=== PATIENT | male | born 1965 | race Caucasian/White ===

== ENCOUNTER 2022-10-05 13:53 | Emergency (ER) | payer MEDICARE, SELFPAY ==
[2022-10-05 13:57] VITALS: BP 131/93; PULSE 87; RESP 16; TEMP 37; O2SAT 98; BMI 28.2
--- NOTE | 2022-10-05 14:11 | ED_ITS ---
Documented by User: SAUL Ramirez 10/05/22 15:38 HPI - Extremity Problem General Chief complaint: Extremity Problem, Nontraumatic Stated complaint: lower extremity pain left leg Time Seen by Provider: 10/05/22 13:56 Source: patient Mode of arrival: walk-in Limitations: no limitations History of Present Illness HPI Narrative: patient is a 57-year-old male with a history of diabetes who presents to the emergency department for redness and swelling to the left anterior tibia for the last several days. He denies any mechanism of injury or trauma. He states he noticed some tenderness to the left anterior george but attributed it to a new pair of shoes. He states in the last several dayys he has noticed swelling and redness on the front of the george, no drainage or open wounds noted. He has not had any fevers or vomiting. He was concerned that he may have cellulitis for a blood clot. He denies any calf tenderness. No medications taken prior to arrival Related Data Previous Rx's Medication Instructions Recorded cephalexin 500 mg capsule 500 mg PO Q8H 10 days #30 caps 10/05/22 hydrocodone 5 mg-acetaminophen 325 1 tab PO Q6H PRN pain #12 tabs 10/05/22 mg tablet ondansetron 4 mg disintegrating 4 mg PO Q6H PRN nausea and 10/05/22 tablet vomiting #12 tabs sulfamethoxazole 800 1 tab PO DAILY 10 days #10 tabs 10/05/22 mg-trimethoprim 160 mg tablet (Bactrim DS) Allergies Allergy/AdvReac Type Severity Reaction Status Date / Time No Known Drug Allergies Allergy Verified 10/05/22 13:57 Review of Systems ROS Constitutional Denies: fever or chills Ears, nose, mouth, and throat Denies: throat pain Cardiovascular Denies: chest pain Respiratory Denies: shortness of breath or cough Gastrointestinal Denies: nausea or vomiting Genitourinary Denies: painful urination Musculoskeletal Denies: back pain Integumentary/Breast Reports: redness and skin tenderness; Denies: rash Neurological Denies: headache Hematologic/Lymphatic Denies: easy bruising Allergic/Immunologic Denies: hives Exam Narrative Exam Narrative: Gen.: Awake, alert, in no distress Head: Normocephalic, atraumatic ENT: Moist mucous membranes Respiratory: No respiratory distress Extremities: Moves extremities equally, left anterior tibia with mild edema and erythema, no circumferential swelling, no circumferential erythema. 2+ DP pulses bilaterally. No swelling or tenderness over the left ankle or foot. Psych: Normal mood and affect Neuro: No focal neuro deficit Skin: Warm, dry, intact Constitutional Vital Signs, click to edit/add: Last Vital Signs Temp 98.6 F 10/05/22 13:57 Pulse 87 10/05/22 13:57 Resp 16 10/05/22 13:57 BP 131/93 H 10/05/22 13:57 Pulse Ox 98 10/05/22 13:57 O2 Del Method Room Air 10/05/22 13:57 Course Vital Signs Vital signs: Vital Signs Temperature 98.6 F 10/05/22 13:57 Pulse Rate 87 10/05/22 13:57 Respiratory Rate 16 10/05/22 13:57 Blood Pressure 131/93 H 10/05/22 13:57 Pulse Oximetry 98 10/05/22 13:57 Oxygen Delivery Method Room Air 10/05/22 13:57 Temperature 98.6 F 10/05/22 13:57 Pulse Rate 87 10/05/22 13:57 Respiratory Rate 16 10/05/22 13:57 Blood Pressure 131/93 H 10/05/22 13:57 Pulse Oximetry 98 10/05/22 13:57 Oxygen Delivery Method Room Air 10/05/22 13:57 MDM - Extremity (Nontraumatic) MDM Narrative Medical decision making narrative: lab studies showed no evidence of leukocytosis or sepsis. Ultrasound with no evidence of deep vein thrombosis. Patient will be treated for cellulitis with Bactrim and Keflex. Short course of Kohler was prescribed as well. Patient was given strict instructions to elevate the leg, follow-up with PCP and return to the Emergency Room if symptoms change or worsen. His vital signs are normal, he has no systemic complaints. Lab Data Attestation: I reviewed the patient's lab results. Labs: Lab Results 10/05/22 Range/Units 14:17 WBC 5.8 (4.0-11.0) 10^3/uL RBC 4.60 L (4.70-6.10) 10^6/uL Hgb 14.1 (14.0-18.0) g/dL Hct 41.5 L (42.0-54.0) % MCV 90.2 (80.0-94.0) fL MCH 30.7 (25.9-34.0) pg MCHC 34.0 (29.9-35.2) g/dL RDW 12.6 (11.0-15.0) % Plt Count 263 (150-450) 10^3/uL MPV 9.1 L (9.5-13.5) fL Neut % (Auto) 60.2 (43.0-75.0) % Lymph % (Auto) 25.1 (20.5-60.0) % Marinette % (Auto) 10.4 (1.7-12.0) % Eos % (Auto) 3.1 (0.9-7.0) % Baso % (Auto) 0.7 (0.2-2.0) % Neut # (Auto) 3.5 (1.4-6.5) 10^3/uL Lymph # (Auto) 1.5 (1.2-3.8) 10^3/uL [place] # (Auto) 0.6 (0.3-0.8) 10^3/uL Eos # (Auto) 0.2 (0.0-0.7) 10^3/uL Baso # (Auto) 0.0 (0.0-0.1) 10^3/uL Abs Immat Gran (auto) 0.03 (0.00-0.03) 10^3/uL Imm/Tot Granulo (auto) 0.5 (0.0-0.5) % PT 10.0 (9.0-11.6) sec INR 0.94 APTT 30.0 (22.3-36.2) sec Sodium 140 (136-145) mmol/L Potassium 4.4 (3.5-5.1) mmol/L Chloride 107 (98-107) mmol/L Carbon Dioxide 25.6 (21.0-32.0) mmol/L Anion Gap 11.8 BUN 21.0 H (7.0-18.0) mg/dL Creatinine 1.03 (0.70-1.30) mg/dL Est GFR ( Amer) >60 (>=60) Est GFR (Non-Af Amer) >60 (>=60) BUN/Creatinine Ratio 20.4 Glucose 138 H (74-106) mg/dL Lactate 1.2 (0.4-2.0) mmol/L Calcium 9.0 (8.5-10.1) mg/dL Total Bilirubin 0.4 (0.2-1.0) mg/dL AST 15 (15-37) U/L ALT 31 (16-63) U/L Alkaline Phosphatase 50 (46-116) U/L Total Protein 6.6 (6.4-8.2) g/dL Albumin 3.7 (3.4-5.0) g/dL Globulin 2.9 g/dL Albumin/Globulin Ratio 1.3 Imaging Data Venous US: Attestation: I have reviewed the pertinent imaging results. Discharge Plan Discharge Chief Complaint: Extremity Problem, Nontraumatic Clinical Impression: Cellulitis Patient Disposition: Home, Self-Care Time of Disposition Decision: 15:33 Condition: Good Mode of Transportation: Private Vehicle Prescriptions / Home Meds: New cephalexin 500 mg capsule 500 mg PO Q8H 10 Days Qty: 30 0RF sulfamethoxazole-trimethoprim [Bactrim DS] 800-160 mg tablet 1 tab PO DAILY 10 Days Qty: 10 0RF hydrocodone-acetaminophen 5-325 mg tablet 1 tab PO Q6H PRN (Reason: pain) Qty: 12 0RF Rx Instructions: Dx: M79.605 ondansetron 4 mg tablet,disintegrating 4 mg PO Q6H PRN (Reason: nausea and vomiting) Qty: 12 0RF Instructions: Cellulitis (ED) Stand Alone Forms: Portal Instructions Referrals: IWONA HUNTLEY [Primary Care Provider] - 1 week Discharge Date/Time: 10/05/22 15:40 Documented by User: Ruth Ann Gambino MD 10/05/22 17:54 HPI - Extremity Problem General Chief complaint: Extremity Problem, Nontraumatic Stated complaint: lower extremity pain left leg Time Seen by Provider: 10/05/22 13:56 Related Data Previous Rx's Medication Instructions Recorded cephalexin 500 mg capsule 500 mg PO Q8H 10 days #30 caps 10/05/22 hydrocodone 5 mg-acetaminophen 325 1 tab PO Q6H PRN pain #12 tabs 10/05/22 mg tablet ondansetron 4 mg disintegrating 4 mg PO Q6H PRN nausea and 10/05/22 tablet vomiting #12 tabs sulfamethoxazole 800 1 tab PO DAILY 10 days #10 tabs 10/05/22 mg-trimethoprim 160 mg tablet (Bactrim DS) Allergies Allergy/AdvReac Type Severity Reaction Status Date / Time No Known Drug Allergies Allergy Verified 10/05/22 13:57 Exam Constitutional Vital Signs, click to edit/add: Last Vital Signs Temp 98.6 F 10/05/22 13:57 Pulse 87 10/05/22 13:57 Resp 16 10/05/22 13:57 BP 131/93 H 10/05/22 13:57 Pulse Ox 98 10/05/22 13:57 O2 Del Method Room Air 10/05/22 13:57 Course Vital Signs Vital signs: Vital Signs Temperature 98.6 F 10/05/22 13:57 Pulse Rate 87 10/05/22 13:57 Respiratory Rate 16 10/05/22 13:57 Blood Pressure 131/93 H 10/05/22 13:57 Pulse Oximetry 98 10/05/22 13:57 Oxygen Delivery Method Room Air 10/05/22 13:57 Temperature 98.6 F 10/05/22 13:57 Pulse Rate 87 10/05/22 13:57 Respiratory Rate 16 10/05/22 13:57 Blood Pressure 131/93 H 10/05/22 13:57 Pulse Oximetry 98 10/05/22 13:57 Oxygen Delivery Method Room Air 10/05/22 13:57 MDM - Extremity (Nontraumatic) MDM Narrative Medical decision making narrative: lab studies showed no evidence of leukocytosis or sepsis. Ultrasound with no evidence of deep vein thrombosis. Patient will be treated for cellulitis with Bactrim and Keflex. Short course of Kohler was prescribed as well. Patient was given strict instructions to elevate the leg, follow-up with PCP and return to the Emergency Room if symptoms change or worsen. His vital signs are normal, he has no systemic complaints. Attending physician attestation I have reviewed the mid-level documentation, agree with the documentation, medical decision making and treatment plan as outlined by the mid-level provider. Lab Data Labs: Lab Results 10/05/22 Range/Units 14:17 WBC 5.8 (4.0-11.0) 10^3/uL RBC 4.60 L (4.70-6.10) 10^6/uL Hgb 14.1 (14.0-18.0) g/dL Hct 41.5 L (42.0-54.0) % MCV 90.2 (80.0-94.0) fL MCH 30.7 (25.9-34.0) pg MCHC 34.0 (29.9-35.2) g/dL RDW 12.6 (11.0-15.0) % Plt Count 263 (150-450) 10^3/uL MPV 9.1 L (9.5-13.5) fL Neut % (Auto) 60.2 (43.0-75.0) % Lymph % (Auto) 25.1 (20.5-60.0) % [place] % (Auto) 10.4 (1.7-12.0) % Eos % (Auto) 3.1 (0.9-7.0) % Baso % (Auto) 0.7 (0.2-2.0) % Neut # (Auto) 3.5 (1.4-6.5) 10^3/uL Lymph # (Auto) 1.5 (1.2-3.8) 10^3/uL [place] # (Auto) 0.6 (0.3-0.8) 10^3/uL Eos # (Auto) 0.2 (0.0-0.7) 10^3/uL Baso # (Auto) 0.0 (0.0-0.1) 10^3/uL Abs Immat Gran (auto) 0.03 (0.00-0.03) 10^3/uL Imm/Tot Granulo (auto) 0.5 (0.0-0.5) % PT 10.0 (9.0-11.6) sec INR 0.94 APTT 30.0 (22.3-36.2) sec Sodium 140 (136-145) mmol/L Potassium 4.4 (3.5-5.1) mmol/L Chloride 107 (98-107) mmol/L Carbon Dioxide 25.6 (21.0-32.0) mmol/L Anion Gap 11.8 BUN 21.0 H (7.0-18.0) mg/dL Creatinine 1.03 (0.70-1.30) mg/dL Est GFR ( Amer) >60 (>=60) Est GFR (Non-Af Amer) >60 (>=60) BUN/Creatinine Ratio 20.4 Glucose 138 H (74-106) mg/dL Lactate 1.2 (0.4-2.0) mmol/L Calcium 9.0 (8.5-10.1) mg/dL Total Bilirubin 0.4 (0.2-1.0) mg/dL AST 15 (15-37) U/L ALT 31 (16-63) U/L Alkaline Phosphatase 50 (46-116) U/L Total Protein 6.6 (6.4-8.2) g/dL Albumin 3.7 (3.4-5.0) g/dL Globulin 2.9 g/dL Albumin/Globulin Ratio 1.3 Discharge Plan Discharge Chief Complaint: Extremity Problem, Nontraumatic Clinical Impression: Cellulitis Patient Disposition: Home, Self-Care Time of Disposition Decision: 15:33 Condition: Good Mode of Transportation: Private Vehicle Prescriptions / Home Meds: New cephalexin 500 mg capsule 500 mg PO Q8H 10 Days Qty: 30 0RF sulfamethoxazole-trimethoprim [Bactrim DS] 800-160 mg tablet 1 tab PO DAILY 10 Days Qty: 10 0RF hydrocodone-acetaminophen 5-325 mg tablet 1 tab PO Q6H PRN (Reason: pain) Qty: 12 0RF Rx Instructions: Dx: M79.605 ondansetron 4 mg tablet,disintegrating 4 mg PO Q6H PRN (Reason: nausea and vomiting) Qty: 12 0RF Instructions: Cellulitis (ED) Stand Alone Forms: Portal Instructions Referrals: IWONA HUNTLEY [Primary Care Provider] - 1 week Discharge Date/Time: 10/05/22 15:40
--- NOTE | 2022-10-05 14:18 | US_ITS ---
The [address] [address] Patient Name: JARAD AHMADI MRN: [id number] date: 1965 Sex: M Assigned Patient Location: ER Current Patient Location: ER Accession/Order Number: [id number] Exam Date: 10/05/2022 14:50 Report Date: 10/05/2022 15:25 At the request of: KVNG GALVIN Procedure: US venous doppler LE LT Ultrasound venous duplex scan left lower extremity CLINICAL: Pain TECHNIQUE: Arriaza-scale, color-flow, and Spectral Doppler examination of the left lower extremity were performed with and without provocative maneuvers. FINDINGS: Sonographic examination of the left lower extremity deep venous system to include the common femoral, superficial femoral and popliteal veins, demonstrates normal compressibility, color-flow, respiratory variation, and augmentation. The origin and proximal segment of the greater saphenous vein also demonstrates normal compression and color-flow. There is normal color-flow in the peroneal, posterior tibial, and anterior tibial veins. US/US venous doppler LE LT IMPRESSION: No deep venous thrombosis of the left lower extremity. Electronically authenticated by: RC SWANN Date: 10/05/2022 15:25
[2022-10-05 14:24] LABS: Basophils Percent Auto 0.7 % (0.2-2.0); Eosinophils Percent Auto 3.1 % (0.9-7.0); Hematocrit 41.5 % (42.0-54.0); Hemoglobin 14.1 g/dL (14.0-18.0); Immature Granulocytes Pct Auto 0.5 % (0.0-0.5); Lymphocytes Percent Auto 25.1 % (20.5-60.0); Mean Corpuscular Hemoglobin 30.7 pg (25.9-34.0); Mean Corpuscular Volume 90.2 fL (80.0-94.0); Mean Platelet Volume 9.1 fL (9.5-13.5); Monocytes Percent Auto 10.4 % (1.7-12.0); Neutrophils Percent Auto 60.2 % (43.0-75.0); Platelet Count 263 10^3/uL (150-450); Red Cell Distribution Width 12.6 % (11.0-15.0); White Blood Count 5.8 10^3/uL (4.0-11.0)
[2022-10-05 14:25] LABS: Eosinophils Absolute Auto 0.2 10^3/uL (0.0-0.7); Immature Granulocytes Abs Auto 0.03 10^3/uL (0.00-0.03); Lymphocytes Absolute Auto 1.5 10^3/uL (1.2-3.8); Monocytes Absolute Auto 0.6 10^3/uL (0.3-0.8); Neutrophils Absolute Auto 3.5 10^3/uL (1.4-6.5)
[2022-10-05 14:39] LABS: INR 0.94
[2022-10-05 14:40] LABS: Alanine Aminotransferase 31 U/L (16-63); Albumin Globulin Ratio 1.3; Albumin Level 3.7 g/dL (3.4-5.0); Alkaline Phosphatase 50 U/L (46-116); Anion Gap 11.8; Aspartate Amino Transferase 15 U/L (15-37); BUN Creatinine Ratio 20.4; Bilirubin Total 0.4 mg/dL (0.2-1.0); Carbon Dioxide 25.6 mmol/L (21.0-32.0); Chloride 107 mmol/L (98-107); Estimated GFR (African America >60 (>=60); Estimated GFR (Non-African Ame >60 (>=60); Globulin 2.9 g/dL; Glucose 138 mg/dL (74-106); Potassium 4.4 mmol/L (3.5-5.1); Sodium 140 mmol/L (136-145); Total Protein 6.6 g/dL (6.4-8.2)
[2022-10-05 14:43] LABS: Lactate/Lactic Acid 1.2 mmol/L (0.4-2.0)
== END 2022-10-05 15:40 | disposition home or self-care (01) ==
PROVIDERS: Physician Assistant; Emergency Provider Emergency Medicine; PCP Family Medicine
DX: L03.116 Cellulitis of left lower limb (principal); E11.9 Type 2 diabetes mellitus without complications; Z79.899 Other long term (current) drug therapy
CPT/HCPCS: 36415; 80053; 83605; 85025; 85610; 85730; 93971; 99284

== ENCOUNTER 2024-04-05 09:32 | Outpatient (OUT) | payer MEDICARE, SELFPAY | END 2024-04-05 09:33 | disposition home or self-care (01) | LOC: PST 09:32 | PROVIDERS: PCP Family Medicine; Visit Provider Surgery | DX: Z01.818 Encounter for other preprocedural examination (principal); Z12.11 Encounter for screening for malignant neoplasm of colon ==

== ENCOUNTER 2024-04-10 06:23 | Day surgery (SDC) | payer MEDICARE, SELFPAY ==
--- OUTSIDE RECORDS SUMMARY | 2024-04-10 06:27 | XMS_ITS | CCD ---
Author Organization [facility] Care Team Providers Care Outsole Beveler Name Role Phone Clarence Arnold K Unavailable Unavailable Clarence Arnold Unavailable Unavailable YUKO, DR BUSTILLO Primary Care Unavailable GISSELLE, DR BUSTOS Admitting Unavailable GISSELLE, DR BUSTOS Attending Unavailable GISSELLE, DR BUSTOS Consulting Unavailable YUKO, DR BUSTILLO Consulting Unavailable PAY, DR ROMERO Consulting Unavailable DARWICH, LIZ Consulting Unavailable DaleMarielena ellis Consulting Unavailable JOSEP HORN Admitting Unavailable YUKO, DR BUSTILLO Primary Care Unavailable JOSEP HORN Attending Unavailable GISSELLE, DR BUSTOS Consulting Unavailable AGUBOSIM, BART Consulting Unavailable JOSEP HORN Consulting Unavailable PREETHI PEDRAZA Consulting Unavailable Cj Garcia Unavailable Michell Huntley MD Unavailable Michell Huntley MD Primary Care Provider ZONIA QUIROGA Attending Unavailable ZONIA QUIROGA Attending Unavailable DINA RUDD Attending Unavailable ZONIA QUIROGA Referring Unavailable Medications Current Medications Medication Drug Class(es) Dates Sig (Normalized) Sig (Original) azithromycin 250 mg oral tablet (2 sources) Macrolide Antimicrobial Start: 02-21-2024 End: 02-26-2024 take 2 tablets by mouth once daily, then take 1 tablet by mouth once daily azithromycin (Zithromax) 250 MG tablet Indications: Acute non-recurrent pansinusitis Take 2 tablets (500 mg) by mouth Daily for 1 day, THEN 1 tablet (250 mg) Daily for 4 days. 6 tablet 02/21/2024 02/26/2024 Active bisacodyl 5 mg delayed release oral tablet (2 sources) Stimulant Laxative Start: 03-27-2024 End: 03-29-2024 take 1 tablet by mouth in the morning bisacodyl (Dulcolax) 5 MG EC tablet Indications: Screen for colon cancer Take 1 tablet (5 mg) by mouth in the morning and 1 tablet (5 mg) before bedtime. Do all this for 4 doses. Do not crush, chew, or split. Take as detailed on clinic hand out for colonoscopy prep. 4 tablet 03/27/2024 03/29/2024 Active smoking cessation 12 hr buPROPion hydrochloride 150 mg extended release oral tablet (4 sources) Aminoketone Start: 01-13-2023 End: 02-21-2024 take 1 tablet by mouth every twelve hours in the morning buPROPion (Zyban) 150 MG 12 hr tablet Indications: Adjustment disorder with depressed mood (CMS/HCC) , Bipolar affective disorder, remission status unspecified (CMS/HCC) Take 1 tablet (150 mg) by mouth in the morning and 1 tablet (150 mg) before bedtime. 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 270 capsule 03/12/2024 06/10/2024 Active Gabapentin Activ e 3 ml insulin glargine 100 unt/ml / lixisenatide 0.033 mg/ml pen injector (7 sources) Insulin Analog Start: 11-15-2023 insulin glargi ne-lixisenatide (Soliqua) 100-33 UNT-MCG/ML pen Indications: Type 2 diabetes mellitus with other specified complication, unspecified whether custodial insulin use (CMS/HCC) INJECT 30 UNITS SUBCUTANEOUSLY ONCE EVERY MORNING 30 mL 3 11/15/2023 Active Soliqua Active loperamide hydrochloride 2 mg oral capsule (7 sources) Opioid Agonist Start: 07-19-2022 take 1 capsule by mouth four times daily as needed loperamide (Imodium) 2 MG capsule Take 2 mg by mouth 4 (four) times a day as needed. 07/19/2022 Active Start: 07-19-2022 take 1 tablet by james th every six hours Loperamide HCl 2 MG 1 tablet as needed Orally Four times a day for 5 days July, Active metFORMIN hydrochloride 1000 mg oral tablet (7 sources) Biguanide Start: 05-05-2023 take 1 tablet by mouth twice daily at mealtime metFORMIN (Glucophage) 1000 MG tablet Indications: Type 2 diabetes mellitus with diabetic polyneuropathy, without long-term current use of insulin (CMS/HCC) TAKE 1 TABLET BY MOUTH TWICE DAILY WITH MEALS 200 tablet 3 05/05/2023 Active metFORMIN HCl Ac tive ondansetron 8 mg disintegrating oral tablet (4 sources) Serotonin-3 Receptor Antagonist Start: 07-19-2022 End: 02-21-2024 take 1 tablet by mouth every eight hours as needed ondansetron ODT (Zofran-ODT) 8 MG disintegrating tablet Take 8 mg by mouth every 8 (eight) hours if needed. 07/19/2022 02/21/2024 Discontinued polyethylene glycol 3350 05201 mg powder for oral solution (2 sources) Osmotic Laxative Start: 03-27-2024 End: 03-27-2024 take 17 g by mouth once polyethylene glycol, PEG, 3350 (Glycolax) 17 GM/SCOOP powder Indications: Colonoscopy Take 238 g by mouth 1 (one) time for 1 dose Take as detailed from clinic hand out for colonoscopy prep 238 g 03/27/2024 03/27/2024 Active sildenafil 25 mg oral tablet (3 sources) Phosphodiesterase 5 Inhibitor Start: 11-04-2022 End: 02-21-2024 take 1 tablet by mouth once daily as needed sildenafil (Viagra) 25 MG tablet Indications: Erectile dysfunction, unspecified erectile dysfunction type Take 1 tablet (25 mg) by mouth Daily as needed for erectile dysfunction. 30 tablet 11/04/2022 02/21/2024 Discontinued Completed/Discontinued Medications Medication Drug Class(es) Dates Sig (Normalized) Sig (Original) amoxicillin 875 mg oral tablet (1 source) Penicillin-class Antibacterial Start: 01-06-2020 take 1 tablet by mouth every twelve hours Amoxicillin 875 MG 1 tablet Orally every 12 hrs for 7 days Dec, Not-Taking naproxen 500 mg oral tablet (1 source) Nonsteroidal Anti-inflammatory Drug Start: 01-06-2020 take 1 tablet by mouth every twelve hours at mealtime as needed Naproxen 500 MG 1 tablet with food or milk as needed Orally every 12 hrs for 10 days Dec, Not-Taking Problems Active Problems Problem Classification Problem Date Documented Date Episodic/Chronic Adjustment disorders (8 sources) Adjustment disorder with depressed mood; Translations: [Adjustment disorder with depressed mood] Onset: 10-08-2022 10-08-2022 Chronic Diabetes mellitus with complications (18 sources) Hyperglycemia due to type 2 diabetes mellitus; Translations: [Type 2 diabetes mellitus with hyperglycemia] Onset: 10-08-2022 10-08-2022 Chronic Diabetes mellitus without complication (1 source) Type 2 diabetes mellitus without complications; Translations: [TYPE 2 DM WITHOUT COMPLICATIONS] Onset: 04-14-2021 Chronic Disorders of lipid metabolism (8 sources) Raised low density lipoprotein cholesterol; Translations: [Pure hypercholesterolemia , unspecified] Onset: 10-08-2022 10-08-2022 Chronic E Codes: Natural/environment (1 source) Exposure to other specified factors, initial encounter; Translations: [EXPOSURE OTHER SPEC FACTORS INITIAL] Onset: 04-14-2021 Episodic Esophageal disorders (2 sources) Esophageal obstruction; 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] Onset: 12-25-2020 Chronic Essential hypertension (8 sources) Essential hypertension; Translations: [Essential (primary) hypertension] Onset: 11-04-2022 11-04-2022 Chronic Immunizations and screening for infectious disease (2 sources) Needs influenza immunization; Translations: [Encounter for immunization] 02-21-2024 Episodic Intestinal infection (1 source) Viral intestinal infection, unspecified Episodic Miscellaneous mental health disorders (8 sources) Primary insomnia; Translations: [Primary insomnia] Onset: 10-08-2022 10-08-2022 Chronic Mood disorders (18 sources) Major depression in full remission; Translations: [Major depressive disorder, single episode, in full remission] Onset: 10-08-2022 10-08-2022 Chronic Other aftercare (1 source) [facility] (current) use of oral hypoglycemic drugs; Translations: [INTERMEDIATE USE ORAL HYPOGLYCEMIC DX] Onset: 04-14-2021 Episodic Other injuries and conditions due to external causes (4 sources) Food in esophagus causing other injury, initial encounter; Translations: [FOOD ESOPH CAUS OTH INJURY INIT ENC] Onset: 04-08-2021 Episodic Other male genital disorders (6 sources) Secondary erectile dysfunction; Translations: [Male erectile dysfunction, unspecified] Onset: 10-08-2022 10-08-2022 Chronic Other nervous system disorders (8 sources) Disorder of muscle; Translations: [Myopathy, unspecified] Onset: 04-22-2023 04-22-2023 Chronic Other nutritional; endocrine; and metabolic disorders (8 sources) Body mass index 30+ - obesity; Translations: [Obesity, unspecified] Onset: 10-08-2022 10-08-2022 Chronic Other screening for suspected conditions (not mental disorders or infectious disease) (6 sources) Patient encounter status; Translations: [Encounter for screening for malignant neoplasm of prostate] 02-21-2024 Episodic Other upper respiratory infections (2 sources) Acute pansinusitis; Translations: [Acute pansinusitis, unspecified] 02-21-2024 Episodic Residual codes; unclassified (1 source) Acquired absence of other specified parts of digestive tract; Translations: [ACQ ABSENCE OTH PART DIGESTV TRACT] Onset: 04-14-2021 Episodic Unclassified (1 source) ESOPHAGITIS UNSPEC WITHOUT BLEEDING; Translations: [ESOPHAGITIS UNSPEC WITHOUT BLEEDING] Onset: 04-14-2021 Unclassified (1 source) CONTACT W/AND (SUSP) EXPOS COVID-19; Translations: [CONTACT W/AND (SUSP) EXPOS COVID-19] Onset: 12-25-2020 Past or Other Problems Problem Classification Problem Date Documented Da te Episodic/Chronic Mood disorders (6 sources) Mood disorders Onset: 01-13-2023 01-13-2023 Other aftercare (1 source) 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; Translations: [OTH INTERMEDIATE CURRENT DRUG THERAPY] Onset: 12-25-2020 Episodic Other connective tissue disease (8 sources) Muscle pain; Translations: [Myalgia, unspecified site] Onset: 04-22-2023 04-22-2023 Episodic Unclassified (2 sources) Patient encounter status 02-21-2024 Results Test Name Value Interpretation Reference Range Facility ALBUMIN, RANDOM URINE W/CREA Joni 03-06-2024 ALBUMIN, URINE 0.2 mg/dL Normal See Note: [facility] Comment on above: Result Comment: Refe walter Range: Reference Range Not established Performed By: #### 1 0231, 1759 #### [facility] [address] [place] [address] Community Support Professional: Eva Vanegas #### [id number], [phone], [phone] #### [facility] [address], [address] [place] [address] Community Support Professional: Conrad Bennett MD ALBUMIN/CREATININE RATIO, RANDOM URINE 2 mg/g creat Normal <30 [facility] Comment on above: Result Comment: The ADA defines abnormalities in albumin excretion as follows: Albuminuria Category Result (mg/g creatinine) Normal to Mildly increased <30 Moderately increased 30-299 Severely increased > OR = 300 The ADA recommends that at least two of three specimens collected within a 3-6 month period be abnormal before considering a patient to be within a diagnostic category. Performed By: #### 1 023, 1759 #### [facility] [address] [place] [address] Community Support Professional: Eva Vanegas #### [id number], 7030, 5363 #### [facility] [address], [address] [place] [address] Community Support Professional: Conrad Bennett MD Creatinine (U) [Mass/Vol] 128 mg/dL Normal 20-320 [facility] Comment on above: Performed By: #### 1 023, 1759 #### [facility] [address] [place] [address] Community Support Professional: Eva Vanegas #### [id number], 7600, 5363 #### [facility] [address], [address] [place] [address] Community Support Professional: Conrad Bennett MD CBC (H/H, RBC, INDICES, WBC, PLT)on 03-06-2024 Erythrocyte distribution width (RBC) [Ratio] 13.6 % Normal 11.0-15.0 [facility] Comment on above: Performed By: #### 1 023, 1759 #### [facility] [address] [place] [phone] Community Support Professional: Eva Vanegas #### [id number], 7600, 5363 #### [facility] [place] [address] Community Support Professional: Conrad Bennett MD Hematocrit (Bld) [Volume fraction] 46.0 % Normal 38.5-50.0 [facility] Comment on above: Performed By: #### 1 0231, 1759 #### [facility] [address] [place] [phone] Community Support Professional: Eva Vanegas #### [id number], 7600, 5363 #### [facility] [place] [address] Community Support Professional: Conrad Bennett MD Hemoglobin (Bld) [Mass/Vol] 15.3 g/dL Normal 13.2-17.1 [facility] Comment on above: Performed By: #### 1 0231, 1759 #### [facility]-[address] Community Support Professional: Eva Vanegas #### 6517, 7600, 5363 #### [facility] [place] [address] Community Support Professional: Conrad Bennett MD MCH (RBC) [Entitic mass] 30.3 pg Normal 27.0-33.0 [facility] Comment on above: Performed By: #### 1 0231, 1759 #### [facility] [address] [place] [phone] Community Support Professional: Eva Vanegas #### [id number], 7600, 5363 #### [facility] [place] [address] Community Support Professional: Conrad Bennett MD MCHC (RBC) [Mass/Vol] 33.3 g/dL Normal 32.0-36.0 [facility] Comment on above: Result Comment: For adults, a slight decrease in the calculated MCHC value (in the range of 30 to 32 g/dL) is most likely not clinically significant; however, it should be interpreted with caution in correlation with other red cell parameters and the patient's clinical condition. Performed By: #### 1 230, 1759 #### [facility]-[address] Community Support Professional: Eva Vanegas #### 65, 0, 5363 #### [facility] [address], [address] [place], [place] [id number] Community Support Professional: Conrad Bennett MD MCV (RBC) [Entitic vol] 91.1 fL Normal 80.0-100.0 [facility] Comment on above: Performed By: #### 1 230, 175 #### [facility]-[address] Community Support Professional: Eva Vanegas #### 65, 7599, 5363 #### [facility] [address], [address] [place] [address] Community Support Professional: Conrad Bennett MD Platelet mean volume (Bld) [Entitic vol] 9.4 fL Normal 7.5-12.5 [facility] Comment on above: Performed By: #### 1 230, 175 #### [facility] Community Support Professional: Eva Vanegas #### 65, 0, 5363 #### [facility] [address], [address] [place] [address] Community Support Professional: Conrad Bennett MD Platelets (Bld) [#/Vol] 275 10*3/uL Normal 140-400 [facility] Comment on above: Performed By: #### 1 230, 175 #### [facility] Community Support Professional: Eva Vanegas #### 65, 7599, 5363 #### [facility] [address], [address] [place] [address] Community Support Professional: Conrad Bennett MD RBC (Bld) [#/Vol] 5.05 10*6/uL Normal 4.20-5.80 [facility] Comment on above: Performed By: #### 1 0231, 1759 #### [facility] [address] [place] [address] Community Support Professional: Eva Vanegas #### [id number], 0, 5363 #### [facility] [address] , [address] [place] [address] Community Support Professional: Conrad Bennett MD WBC (Bld) [#/Vol] 4.6 10*3/uL Normal 3.8-10.8 [facility] Comment on above: Performed By: #### 1 023, 1759 #### [facility] [address] Community Support Professional: Eva Vanegas #### 6517, 649, 5363 #### [facility] [place] [address] [address] , [address] [place] [address] Community Support Professional: Conrad Bennett MD [facility] 03-06-2024 Albumin [Mass/Vol] 4.2 g/dL Normal 3.6-5.1 [facility] Comment on above: Performed By: #### 1 230, 1759 #### [facility] [address] Community Support Professional: Eva Vanegas #### 6517, 7600, 5363 #### [facility] [place] [address] [address] , [address] [place] [address] Community Support Professional: Conrad Bennett MD Albumin/Globulin [Mass ratio] 1.8 {ratio} Normal 1.0-2.5 [facility] Comment on above: Performed By: #### 1 0231, 1759 #### [facility] [address] Community Support Professional: Eva Vanegas #### 6517, 0, 5363 #### [facility] [place] [address] [address] , [address] [place], [place] [id number] Community Support Professional: Conrad Bennett MD ALP [Catalytic activity/Vol] 41 U/L Normal 35-144 [facility] Comment on above: Performed By: #### 1 0231, 1759 #### [facility] Community Support Professional: Eva Vanegas #### 6517, 0, 5363 #### [facility] [address], [address] [place], [place] [id number] Community Support Professional: Conrad Bennett MD ALT [Catalytic activity/Vol] 17 U/L Normal 9-46 [facility] Comment on above: Performed By: #### 1 0231, 1759 #### [facility] Community Support Professional: Eva Vanegas #### 6517, 3810, 5363 #### [facility] [address], [address] [place] [address] Community Support Professional: Conrad Bennett MD AST [Catalytic activity/Vol] 15 U/L Normal 10-35 [facility] Comment on above: Performed By: #### 1 0231, 1759 #### [facility] [place] [address] Community Support Professional: Eva Vanegas #### 6517, 1740, 5363 #### [facility] [address], [address] [place] [address] Community Support Professional: Conrad Bennett MD Bilirubin [Mass/Vol] 0.7 mg/dL Normal 0.2-1.2 [facility] Comment on above: Performed By: #### 1 0231, 1759 #### [facility] Community Support Professional: Eva Vanegas #### 6517, 3400, 5363 #### [facility] [address], [address] [place], [place] [id number] Community Support Professional: Conrad Bennett MD BUN/CREATININE RATIO SEE NOTE: Normal 6-22 [facility] Comment on above: Result Comment: Not Reported: BUN and Creatinine are within reference range. Performed By: #### 1 0231, 1759 #### [facility] [address] Community Support Professional: Eva Vanegas #### 6517, 0, 5363 #### [facility] [address], [address] [place] [address] Community Support Professional: Conrad Bennett MD Calcium [Mass/Vol] 9.6 mg/dL Normal 8.6-10.3 [facility] Comment on above: Performed By: #### 1 0231, 1759 #### [facility] [address] Community Support Professional: Eva Vanegas #### 6517, 0, 5363 #### [facility] [address], [address] [place] [address] Community Support Professional: Conrad Bennett MD Chloride [Moles/Vol] 105 mmol/L Normal 98-110 [facility] Comment on above: Performed By: #### 1 0231, 1759 #### [facility] [address] Community Support Professional: Eva Vanegas #### 6517, 0, 5363 #### [facility] [address], [address] [place] [address] Community Support Professional: Conrad Bennett MD CO2 [Moles/Vol] 28 mmol/L Normal 20-32 [facility] Comment on above: Performed By: #### 1 0231, 1759 #### [facility] [address] [place] [address] Community Support Professional: Eva Vanegas #### 6517, 7600, 5363 #### [facility] [address], [address] [place] [address] Community Support Professional: Conrad Bennett MD Creatinine [Mass/Vol] 0.87 mg/dL Normal 0.70-1.30 [facility] Comment on above: Performed By: #### 1 230, 175 #### [facility] [address] [place], [place] [id number] Community Support Professional: Eva Vanegas #### 6517, 0, 5363 #### [facility] [address], [address] [place] [address] Community Support Professional: Conrad Bennett MD GFR/1.73 sq M.predicted among non-blacks MDRD (S/P/Bld) [Vol rate/Area] 101 mL/min/{1.73_m2} Normal > OR = 60 [facility] Comment on above: Performed By: #### 1 230, 175 #### [facility] [place] [address] Community Support Professional: Eva Vanegas #### 6517, 8480, 5363 #### [facility] [address], [address] [place] [address] Community Support Professional: Conrad Bennett MD Globulin (S) [Mass/Vol] 2.3 g/dL Normal 1.9-3.7 [facility] Comment on above: Performed By: #### 1 230, 175 #### [place] [address] Community Support Professional: Eva Vanegas #### 6517, 0, 5363 #### [facility] [address], [address] [place], [place] [id number] Community Support Professional: Conrad Bennett MD Glucose [Mass/Vol] 100 mg/dL High 65-99 [facility] Comment on above: Result Comment: Fasting reference interval For someone without known diabetes, a glucose value between 100 and 125 mg/dL is consistent with prediabetes and should be confirmed with a follow-up test. Performed By: #### 1 230, 175 #### [facility]-[address] [phone] Community Support Professional: Eva Vanegas #### 6517, 7600, 5363 #### [facility] [address], [address] [place] [address] Community Support Professional: Conrad Bennett MD Potassium [Moles/Vol] 5.1 mmol/L Normal 3.5-5.3 [facility] Comment on above: Performed By: #### 1 0231, 1759 #### [facility] [address] [place] [address] Community Support Professional: Eva Vanegas #### 6517, 8550, 5363 #### [facility] [address], [address] [place] [address] Community Support Professional: Conrad Bennett MD Protein [Mass/Vol] 6.5 g/dL Normal 6.1-8.1 [facility] Comment on above: Performed By: #### 1 0231, 1759 #### [facility] [address] Community Support Professional: Eva Vanegas #### 6517, 9390, 5363 #### [facility] [address], [address] [place] [address] Community Support Professional: Conrad Bennett MD Sodium [Moles/Vol] 139 mmol/L Normal 135-146 [facility] Comment on above: Performed By: #### 1 0231, 1759 #### [facility] [address] Community Support Professional: Eva Vanegas #### 6517, 7600, 5363 #### [facility] [address], [address] [place] [address] Community Support Professional: Conrad Bennett MD Urea nitrogen [Mass/Vol] 16 mg/dL Normal 7-25 [facility] Comment on above: Performed By: #### 1 0231, 1759 #### [facility] [address] [place] [address] Community Support Professional: Eva Vanegas #### 6517, 7600, 5363 #### [facility] [address] [place] [address], [address] [place] [address] Community Support Professional: Conrad Bennett MD LIPID PANEL, [facility] 02-18 Cholesterol [Mass/Vol] 211 mg/dL High <200 [facility] Comment on above: Order Comment: FASTI NG:YES FASTING: YES Performed By: #### 1 0231, 1759 #### [facility] [address] [place] [address] Community Support Professional: Eva Vanegas #### 6517, 7600, 5363 #### [facility] [address], [address] [place] [address] Community Support Professional: Conrad Bennett MD Cholesterol in HDL [Mass/Vol] 53 mg/dL Normal > OR = 40 [facility] Comment on above: Order Comment: FASTI NG:YES FASTING: YES Performed By: #### 1 0231, 1759 #### [facility] [address] [place] [address] Community Support Professional: Eva Vanegas #### 6517, 7600, 5363 #### [facility] [address], [address] [place] [address] Community Support Professional: Conrad Bennett MD Cholesterol in LDL [Mass/Vol] 139 mg/dL High [facility] Comment on above: Order Comment: FASTI NG:YES FASTING: YES Result Comment: Refe rence range: <100 Desirable range <100 mg/dL for primary prevention; <70 mg/dL for patients with CHD or diabetic patients with > or = 2 CHD risk factors. LDL-C is now calculated using the Risa calculation, which is a validated novel method providing better accuracy than the Friedewald equation in the estimation of LDL-C. Nicho HURTADO et al. KARMA. 2013;310(19): 2956-6564 (http://education.VastPark/faq/VME430) Performed By: #### 1 0231, 1759 #### [facility] [address] [place], [place] [id number] Community Support Professional: Eva Vanegas #### [id number], 7600, [phone] #### [facility] [address], [address] [place] [address] Community Support Professional: Conrad Bennett MD Cholesterol.total/Ch olesterol in HDL [Mass ratio] 4.0 {ratio} Normal <5.0 [facility] Comment on above: Order Comment: FASTI NG:YES FASTING: YES Performed By: #### 1 0231, 1759 #### [facility] [address] [place] [address] Community Support Professional: Eva Vanegas #### [id number], 7600, 5363 #### [facility] [address], [address] [place] [address] Community Support Professional: Conrad Bennett MD NON HDL CHOLESTEROL 158 mg/dL (calc) High <130 [facility] Comment on above: Order Comment: FASTI NG:YES FASTING: YES Result Comment: For patients with diabetes plus 1 major ASCVD risk factor, treating to a non-HDL-C goal of <100 mg/dL (LDL-C of <70 mg/dL) is considered a therapeutic option. Performed By: #### 1 0231, 1759 #### [facility] [address] Community Support Professional: Eva Vanegas #### [id number], 0, [phone] #### [facility] [address], [address] [place] [address] Community Support Professional: Conrad Bennett MD Triglyceride [Mass/Vol] 88 mg/dL Normal <150 [facility] Comment on above: Order Comment: FASTI NG:YES FASTING: YES Performed By: #### 1 0231, 1759 #### [facility] [address] [place] [address] Community Support Professional: Eva Vanegas #### [id number], 7600, [phone] #### [facility] [address], [address] [place] [address] Community Support Professional: Conrad Bennett MD PSA, TOTALon 03-06-2024 PSA, TOTAL 3.64 ng/mL Normal < OR = 4.00 [facility] Comment on above: Result Comment: The total PSA value from this assay system is standardized against the WHO standard. The test result will be approximately 20% lower when compared to the equimolar-standardized total PSA (Imelda Yousuf). Comparison of serial PSA results should be interpreted with this fact in mind. This test was performed using the Siemens chemiluminescent method. Values obtained from different assay methods cannot be used interchangeably. PSA levels, regardless of value, should not be interpreted as absolute evidence of the presence or absence of disease. Performed By: #### 1 0231, 1759 #### [facility] [address] [place] [address] Community Support Professional: Eva Vanegas #### [id number], 7600, [phone] #### [facility] [address] [place] [address], [address] [place] [phone] Community Support Professional: Conrad Bennett MD Laboratory - Hematology and Cell countson 02-21-2024 HbA1c (Bld) [Mass fraction] 7.1 % [facility] [employer] No Panel Informationon 02-20 [facility] [employer] Covid-19 PCR (CVDTBH)on 03-21 SARS-CoV-2 (COVID-19) RNA TERRY+probe Ql (Unsp spec) Not detected Normal NOT DETECTED [facility] Comment on above: Result Comment: When diagnostic testing is negative, the possibility of a false negative should be considered in the context of a patient's recent exposures and the presence of clinical signs and symptoms consistent with SARS-CoV-2. This test is not yet approved or cleared by the [place] Food and Drug Administration (FDA). This test was developed by [employer], [place], [place]. The performance characteristics of this test were validated by [facility]. The results are not intended to be used as the sole means for clinical diagnosis or patient management decisions. The [facility] is authorized under Clinical Laboratory Improvement Amendments (CLIA) to perform high- complexity testing. This test is not yet approved or cleared by the [place] FDA. When there are no FDA-approved or cleared tests available, and other criteria are met, FDA can make tests available under an emergency access mechanism called an Emergency Use Authorization (EUA). The EUA for this test is supported by the [place] of Health and Human Service's declaration that circumstances exist to justify the emergency use of in vitro diagnostics for the detection and/or diagnosis of the virus that causes COVID-19. This EUA will remain in effect for the duration of the COVID-19 declaration justifying emergency of IVDs, unless it is terminated or revoked by the FDA (after which the test may no longer be used). Performed By: #### C VDTBH #### [facility] [address] [place] [address] Dr. Lucas Champion POINT OF CARE GLUCOSEon 03-21 Glucose [Mass/Vol] 88 mg/dL Normal 74-106 [facility] Comment on above: Performed By: #### P OCGLUC #### [facility] [address] [place] [address] Dr. Lucas Champion Glucose [Mass/Vol] 92 mg/dL Normal 74-106 [facility] Comment on above: Performed By: #### P OCGLUC #### [facility] [address] [place] [address] Dr. Lucas Champion ASYMPTOMATIC COVID-19 ANTIGE Non 12-20-2020 EUA Statement SEE BELOW Normal [facility] Comment on above: Result Comment: This test has not been FDA cleared or approved, but has been authorized by the FDA under an Emergency Use Authorization (EUA) for use by authorized laboratories certified under CLIA that meet the requirements to perform moderate or high complexity testing. This test has been authorized only for the detection of proteins from SARS-CoV-2, not for any other viruses or pathogens. The emergency use of this test is authorized for the duration of the declaration that circumstances exist justifying the authorization of emergency use of in vitro diagnostic tests for detection and/or diagnosis of Covid-19 under section 564(b)(1) of the Act, 21 U.S.C. 360bbb-3(b)(1), unless the declaration is terminated or authorization is revoked sooner. Performed By: #### C VDAGA #### [facility] [address] [place] [address] Dr. Lucas Champion SARS-CoV-2 (COVID-19) RNA TERRY+probe Ql (Unsp spec) Negative Normal NEGATIVE [facility] Comment on above: Result Comment: Nega tive results are presumptive. They do not preclude infection and should not be used as the sole basis for treatment decisions. Additional confirmatory testing by a molecular method should be considered. Performed By: #### C VDAGA #### [facility] [address] [address] [address] Lucas Champion Covid-19 PCR (CVDTB)on SARS-CoV-2 (COVID-19) RNA TERRY+probe Ql (Unsp spec) Not detected Normal NOT DETECTED [facility] Comment on above: Result Comment: This test is not yet approved or cleared by the [place] FDA. When there are no FDA-approved or cleared tests available, and other criteria are met, FDA can make tests available under an emergency access mechanism called an Emergency Use Authorization (EUA). The EUA for this test is supported by the [place] of Health and Human Service's (HHS's) declaration that circumstances exist to justify the emergency use of in vitro diagnostics for the detection and/or diagnosis of the virus that causes COVID-19. This EUA will remain in effect (meaning this test can be used) for the duration of the COVID-19 declaration justifying emergency of IVDs, unless it is terminated or revoked by FDA (after which the test may no longer be used). When diagnostic testing is negative, the possibility of a false negative should be considered in the context of a patient's recent exposures and the presence of clinical signs and symptoms consistent with SARS-CoV-2. Performed By: #### C VDTB #### [facility] [address] [place], [place] [address] Dr. Lucas Champion XR CHEST 1 Von 12-20-2020 XR CHEST 1 V CHEST X RAY, SINGLE VIEW CLINICAL INFORMATION: Chest pain. COMPARISONS: None. FINDINGS: Low lung volumes. No focal consolidation to suggest pneumonia. No pleural effusions or pneumothorax. No overt pulmonary edema. Cardiomediastinal silhouette within normal limits. No free air under the diaphragm. IMPRESSION: 1. No acute cardiopulmonary disease. Electronically authenticated by: MARIELENA COBIAN Date: 2020-12-20 18:20 Normal [facility] CBC With Platelet No Differe ntialon 04-11-2017 Erythrocyte distribution width Auto Ratio (RBC) 13.8 % Normal 11.5-14.5 [facility] Erythrocytes (RBC) 5.17 10*6/uL Normal 4.70-6.10 [facility] Hematocrit (HCT) 48.1 % Normal 42.0-52.0 [facility] Hemoglobin mass conc (Bld) 16.2 g/dL Normal 14.0-18.0 [facility] MCH 31.3 pg Normal 27.0-31.3 [facility] MCHC mass conc (RBC) 33.6 % Normal 33.0-37.0 [facility] MCV 93.0 fL Normal 80.0-100.0 [facility] Platelets 288 10*3/uL Normal 130-400 [facility] WBC (Leukocytes) 5.4 10*3/uL Normal 4.8-10.8 [facility] Comprehensive Metabolic Pane alex 04-11-2017 Alanine aminotransferase (ALT) 12 U/L Normal 0-41 [facility] Albumin 4.2 g/dL Normal 3.9-4.9 [facility] Alkaline phosphatase (ALP) 46 U/L Normal 35-104 [facility] Anion gap 21 mmol/L Critically high 7-13 [facility] Aspartate aminotransferase (AST) 13 U/L Normal 0-40 [facility] Bilirubin (total) 0.8 mg/dL Normal 0.0-1.2 [facility] Calcium 9.6 mg/dL Normal 8.6-10.2 [facility] Chloride 102 mmol/L Normal 98-107 [facility] CO2 18 mmol/L Low 22-29 [facility] Creatinine 0.74 mg/dL Normal 0.70-1.20 [facility] eGFR (black) mL/min/{1.73_m2} Normal >60 [facility] Comment on above: Result Comment: >60 mL/min/1.73m2 EGFR, calc. for ages 18 and older using theMDRD formula (not corrected for weight), is valid for stablerenal function. eGFR (MDRD) mL/min/{1.73_m2} Normal >60 [facility] Comment on above: Result Comment: >60 mL/min/1.73m2 EGFR, calc. for ages 18 and older using theMDRD formula (not corrected for weight), is valid for stablerenal function. Globulin 2.3 g/dL Normal 2.3-3.5 [facility] Glucose mass conc 114 mg/dL Critically high 74-109 [facility] Potassium molar conc 4.1 mmol/L Normal 3.5-5.1 [facility] Protein 6.5 g/dL Normal 6.4-8.1 [facility] Sodium 141 mmol/L Normal 132-144 [facility] Urea nitrogen 13 mg/dL Normal 6-20 [facility] Hemoglobin A1con 04-11-2017 Hemoglobin A1c/Hemoglobin.total mass fraction (Bld) 7.2 % Critically high 4.8-5.9 [facility] TSH w/out Reflexon 8 Thyroid stimulating hormone (TSH) 1.340 uIU/mL Normal 0.270-4.20 [facility] VITAMIN Don 04-11-2017 VITAMIN D 20.0 ng/mL Low 30.0-100.0 [facility] Comment on above: Result Comment: (20- 30 ng/mL) InsufficiencyThis assay accurately quantifies the sum of vitamin D3, 25-Hydroxy andvitamin D2, 25-Hyroxy. Hemoglobin A1con 04-08-2017 Hemoglobin A1c/Hemoglobin.total mass fraction (Bld) 7.3 % Critically high 4.8-5.9 [facility] Vital Signs Date Time Vital Sign Value Performing Clinician Facility 02-21-2024 10:52-0500 Body height 188 cm Zonia Quiroga [employer]ANK WASHER Work Phone: [facility] 02-21-2024 10:52-0500 Body mass index (BMI) [Ratio] 30.69 kg/m2 Zonia Quiroga [employer] Work Phone: [facility] 02-21-2024 10:52-0500 Body weight 108.41 kg Zonia Quiroga [employer] W[employer]ER Work Phone: [facility] 02-21-2024 10:52-0500 Diastolic blood pressure 76 mm[Hg] Zonia Quiroga TANK WASHER Work Phone: [facility] [employer] 02-21-2024 10:52-0500 Heart rate 93 /min Zonia Quiroga TANK W[employer]ER Work Phone: [facility] [employer] 02-21-2024 10:52-0500 SaO2% (BldA) [Mass fraction] 96 % Zonia Quiroga [employer] W[employer]ER Work Phone: [facility] [employer] 02-21-2024 10:52-0500 Systolic blood pressure 130 mm[Hg] Zonia Quiroga T[employer] W[employer]ER Work Phone: [facility] [employer] 07-19-2022 10:30-0400 Body height 187.96 cm Cj Garcia Other [employer] Other 07-19-2022 10:30-0400 Body mass index (BMI) [Ratio] 30.17 kg/m2 Cj Jose Other [employer] Other 07-19-2022 10:30-0400 Body temperature 97.9 [degF] Cj Jose Other [employer] Other 07-19-2022 10:30-0400 Body weight 106.6 kg Cj Garcia Other [employer] Other 07-19-2022 10:30-0400 Diastolic blood pressure 81 mm[Hg] Cj Jose Other [employer] Other 07-19-2022 10:30-0400 Respiratory rate 18 /min Cj Jose Other [employer] Other 07-19-2022 10:30-0400 SaO2% (BldA) [Mass fraction] 96 % Cj Jose Other [employer] Other 07-19-2022 10:30-0400 Systolic blood pressure 125 mm[Hg] Cj Garcia Other [employer] Other Encounters Encounter Date Encounter Type Care Provider Facility Start: 03-27-2024 End: 03-27-2024 ambulatory DINA RUDD Not Available Start: 03-27-2024 End: 03-27-2024 Patient encounter procedure Dina Rudd DO Work Phone: [facility] Comment on above: Screen for colon can cer (Primary Dx) Start: 03-12-2024 End: 03-12-2024 Refill Zonia Quiroga [employer] W[employer]ER Work Phone: [facility] Comment on above: Type 2 diabetes ellyn itus with diabetic polyneuropathy (CMS/HCC); Diabetic polyneuropathy associated with type 2 diabetes mellitus (CMS/HCC) Start: 02-21-2024 End: 02-21-2024 Bamboo flowsheet Zonia Quiroga T[employer] WASHER Work Phone: [facility] Start: 02-21-2024 End: 02-21-2024 Bamboo flowsheet Zonia Quiroga [employer] W[employer]ER Work Phone: [facility] Start: 02-21-2024 End: 02-21-2024 Assay of hemosiderin, quant Zonia Quiroga [employer] W[employer]ER Work Phone: [facility] Start: 02-21-2024 End: 02-21-2024 Patient encounter procedure Zonia Quiroga [employer] W[employer]ER Work Phone: [facility] Comment on above: Medicare annual well ness visit, subsequent (Primary Dx); Diabetic polyneuropathy associated with type 2 diabetes mellitus (CMS/HCC); Primary insomnia; Essential hypertension; Myalgia; Myopathy; Type 2 diabetes mellitus with hyperglycemia, with long-term current use of insulin (CMS/HCC); Obesity (BMI 30-39.9); Adjustment disorder with depressed mood (CMS/HCC); Bipolar affective disorder, remission status unspecified (CMS/HCC); Elevated LDL cholesterol level (CMS/HCC); Major depressive disorder in full remission, unspecified whether recurrent (HCC) (CMS/HCC); Major depressive disorder, single episode, in full remission (CMS/HCC); Screening for prostate cancer; Flu vaccine need; Screening for colon cancer; Routine general medical examination at health care facility; Acute non-recurrent pansinusitis Start: 02-21-2024 End: 02-21-2024 ambulatory ZONIA QUIROGA Not Available Start: 06-14-2023 End: 06-14-2023 ambulatory ZONIA QUIROGA Not Available Start: 07-19-2022 End: 07-19-2022 ambulatory Cj Garcia Other [employer] Other Start: 07-19-2022 Office outpatient vi sit 15 minutes Cj Garcia [facility] Start: 04-08-2021 End: 04-08-2021 ambulatory JOSEP HORN Facility: Start: 12-20-2020 End: 12-20-[address] MICHELL HUNTLEY Facility: Start: 04-07-2017 Evaluation and manag ement of inpatient Clarence Arnold Facility:[place] Procedures Date Procedure Procedure Detail Performing Clinician Start: 02-21-2024 Hemoglobin glycosyla joesph a1c Zonia Quiroga [employer] W[employer]ER Work Phone: Plan of Treatment Date Care Activity Detail Author Start: 03-05-2025 Urine screening for protein Diabetes: Urine Protein Screening [facility] Start: 02-20-2025 Medicare Annual Well ness (AWV) Medicare Annual Wellness (AWV) [facility] Start: 05-21-2024 Hemoglobin A1c measurement Diabetes: Hemoglobin A1C [facility] Start: 03-26-2024 End: 03-26-2024 Patient encounter procedure 03/26/2024 1:15 PM EST Office Visit [facility] [address] [place] [address] Dina Rudd DO [address] [place] [address] [facility] Start: 02-21-2024 End: 02-20-2025 CBC panel - Blood by Automated count CBC Lab Routine Medicare annual wellness visit, subsequent Essential hypertension Type 2 diabetes mellitus with hyperglycemia, with long-term current use of insulin (CMS/HCC) Expected: 02/21/2024 (Approximate), Expires: 02/20/2025 [facility] Comment on above: Expected: 02/21/2024 (Approximate), Expires: 02/20/2025 Start: 02-21-2024 End: 02-20-2025 Comprehensive metabolic 2000 panel - Serum or Plasma Comprehensive metabolic panel Lab Routine Medicare annual wellness visit, subsequent Essential hypertension Type 2 diabetes mellitus with hyperglycemia, with long-term current use of insulin (CMS/HCC) Expected: 02/21/2024 (Approximate), Expires: 02/20/2025 [facility] Comment on above: Expected: 02/21/2024 (Approximate), Expires: 02/20/2025 Start: 02-21-2024 End: 02-20-2025 Lipid 1996 panel - Serum or Plasma Lipid panel Lab Routine Medicare annual wellness visit, subsequent Elevated LDL cholesterol level ([facility]/HCC) Expected: 02/21/2024 (Approximate), Expires: 02/20/2025 [facility] Work Phone: Comment on above: Expected: 02/21/2024 (Approximate), Expires: 02/20/2025 Start: 02-21-2024 End: 02-20-2025 Microalbumin/Creatinine panel in random Urine Microalbumin / creatinine, urine ratio Lab Routine Medicare annual wellness visit, subsequent Type 2 diabetes mellitus with hyperglycemia, with long-term current use of insulin (CMS/HCC) Expected: 02/21/2024 (Approximate), Expires: 02/20/2025 [facility] Comment on above: Expected: 02/21/2024 (Approximate), Expires: 02/20/2025 Start: 02-21-2024 End: 02-20-2025 Prostate specific Ag [Mass/volume] in Serum or Plasma PSA Lab Routine Screening for prostate cancer Expected: 02/21/2024 (Approximate), Expires: 02/20/2025 [facility] Comment on above: Expected: 02/21/2024 (Approximate), Expires: 02/20/2025 Start: 02-21-2024 End: 02-21-2024 Patient encounter procedure 02/21/2024 11:00 AM EST Office Visit [facility] [address] [facility] [address] [place] [address] Zonia Quiroga, TANK WASHER [address] [facility] [address] [place] [address] Medicare annual wellness visit, subsequent (Primary Dx); Diabetic polyneuropathy associated with type 2 diabetes mellitus (CMS/HCC); Primary insomnia; Essential hypertension; Myalgia; Myopathy; Type 2 diabetes mellitus with hyperglycemia, with long-term current use of insulin (CMS/HCC); Obesity (BMI 30-39.9); Adjustment disorder with depressed mood (CMS/HCC); Bipolar affective disorder, remission status unspecified (CMS/HCC); Elevated LDL cholesterol level (CMS/HCC); Major depressive disorder in full remission, unspecified whether recurrent (HCC) (CMS/HCC); Major depressive disorder, single episode, in full remission (CMS/HCC); Screening for prostate cancer [facility] Comment on above: Medicare annual well ness visit, subsequent (Primary Dx); Diabetic polyneuropathy associated with type 2 diabetes mellitus (CMS/HCC); Primary insomnia; Essential hypertension; Myalgia; Myopathy; Type 2 diabetes mellitus with hyperglycemia, with long-term current use of insulin (CMS/HCC); Obesity (BMI 30-39.9); Adjustment disorder with depressed mood (CMS/HCC); Bipolar affective disorder, remission status unspecified (CMS/HCC); Elevated LDL cholesterol level (CMS/HCC); Major depressive disorder in full remission, unspecified whether recurrent (HCC) (CMS/HCC); Major depressive disorder, single episode, in full remission (CMS/HCC); Screening for prostate cancer Start: 01-14-2024 Medicare Annual Well ness (AWV) Medicare Annual Wellness (AWV) [facility] Start: 01-01-2024 Urine screening for protein Diabetes: Urine Protein Screening [facility] Start: 11-20-2023 Influenza vaccination Influenza Vacc ine (#1) [facility] Start: 09-14-2023 Hemoglobin A1c measurement Diabetes: Hemoglobin A1C [facility] Start: 1977 Glaucoma screening Diabetes: R etinopathy Screening [facility] Start: 1965 Screening for malign ant neoplasm of colon [facility] Immunizations Immunization Date Immunization Notes Care Provider Fa cility 02-21-2024 influenza, seasonal, injectable, preservative free Zonia Quiroga [employer] W[employer]ER Work Phone: [facility] 01-06-2022 Moderna SARS-CoV-2 50mcg/0.5mL Booster Zonia Quiroga T[employer] WASHER Work Phone: [facility] Payers Date Payer Category Payer Medicare MEDICARE [id number] 1965 Unknown [id number] 3 1967 Unknown [id number] 3 1967 Unknown [id number] 59 1967 Unknown [id number] 1967 Unknown [id number] 59 1957 Medicare [id number] Medicare [id number] Social History Date Type Detail Facility Unknown if ever smoked [employer] Other Start: 01-13-2023 End: 02-21-2024 Sex Assigned At [facility] Start: 11-04-2022 Tobacco smoking status NYIS Tobacco smoking consumption unknown [facility] Start: 11-04-2022 End: 02-21-2024 Alcoholic beverage intake Defer [facility] Start: 01-13-2023 End: 02-21-2024 History of Social function [facility] Start: 1965 Sex assigned at Not on file [facility] Start: 02-21-2024 Tobacco smoking status NHIS Never smoked tobacco [facility] Start: 02-21-2024 Tobacco use and exposure Smokeless tobacco non-user [facility] Medical Equipment Procedure Code Equipment Code Equipment Origin al Text Equipment Identifier Dates USE DIRECTED DAILY [id number] Start: 01-18-2023 History of Present illness Narrative 03-27-2024 Dinamaico RibeiroDO nanda - 03/27/2024 9:15 AM EST Note Date & Type Note Facility 03-27-2024 History of Presen t illness Narrative General Surgery H&P Kevin Hill Jr 1965 Kevin Hill Jr is a 59 y.o. male presents for screening colonoscopy. Denies abdominal pain. Denies family hx of colon cancer. Denies melena or hematochezia. Denies changes in bowel habits. Denies changes in caliber of stools. Denies hx of unplanned weight loss. Denies fevers, chills, or sweats. Denies nausea or vomiting. Last colonoscopy was never. Pt also expressed he may have a hernia of his groin but he is uncertain. He has no issues with moving his bowels and minimal to no pain at the area. We discussed that we can evaluate it the day of the colonoscopy. SUBJECTIVE: MEDICATIONS: ALLERGIES Current Outpatient Medications Medication Instructions gabapentin (NEURONTIN) 300 mg, Oral, 3 times daily insulin glargine-lixisenatide (Soliqua) 100-33 UNT-MCG/ML pen INJECT 30 UNITS SUBCUTANEOUSLY ONCE EVERY MORNING insulin pen needle (B-D ULTRAFINE III SHORT PEN) 31G X 8 mm misc USE DIRECTED DAILY loperamide (IMODIUM) 2 mg, 4 times daily PRN metFORMIN (GLUCOPHAGE) 1,000 mg, Oral, 2 times daily with meals No Known Allergies PAST MEDICAL HISTORY: SOCIAL HISTORY SURGICAL HISTORY: Past Medical History: Diagnosis Date Cholelithiasis DM (diabetes mellitus) (CMS/HCC) Gastritis 2011 Major depression (CMS/HCC) psychiatric evaluation Severe major depression with psychotic features (HCC) (CMS/HCC) 2014 Testicle lump Social History Tobacco Use Smoking status: Never Smokeless tobacco: Never Substance Use Topics Alcohol use: Defer Past Surgical History: Procedure Laterality Date EGD with foreign body removal [place] LAP,CHOLECYSTOENTEROSTOMY 03/2015 Cholelithiasis [place] SCREENING FOR DEPRESSION PERFORMED Family History Family history unknown: Yes No Known Allergies Past Surgical History: Procedure Laterality Date EGD with foreign body removal [place] LAP,CHOLECYSTOENTEROSTOMY 03/2015 Cholelithiasis [place] SCREENING FOR DEPRESSION PERFORMED Tobacco Use: Low Risk (02/21/2024) Patient History Smoking Tobacco Use: Never Smokeless Tobacco Use: Never Passive Exposure: Not on file Alcohol Use: Not on file Depression: Not at risk (02/21/2024) PHQ-2 PHQ-2 Score: 0 Physical Activity: Not on file REVIEW OF SYMPTOMS: Review of Systems All other systems reviewed and are negative. 10 systems were reviewed. Positives noted above. Remainder are negative per CMS guidelines. OBJECTIVE: Visit Vitals Smoking Status Never Phone visit ASSESSMENT AND PLAN: Assessment/Plan Diagnoses and all orders for this visit: Screen for colon cancer Plan: Patient is average risk for colon cancer. Colonoscopy can be scheduled electively. Patient informed of the risks of procedure which include but not limited to bleeding, perforation, and risks of anesthesia. Patient understood risks and signed informed consent for the procedure under monitored anesthesia care. Handout for bowel prep provided in clinic. Patient was informed of the need for a ride home from the hospital and the need for someone to be with them for the following 24 hrs post procedure. Thank you, K Christiano Rudd DO documented in this encounter [facility] Telephone encounter Note 03-12-2024 Telephone Encounter - SAUL Rogel - 03/12/2024 12:32 PM EST Note Date & Type Note Facility 03-12-2024 Telephone encount er Note Gabapentin sent [facility] Healthcare Note 03-12-2024 Telephone Encounter - SAUL Rogel - 03/12/2024 12:32 PM EST Note Date & Type Note Facility 03-12-2024 Miscellaneous Notes Formattin g of this note might be different from the original. Gabapentin sent documented in this encounter [facility] History of Present illness Narrative 02-21-2024 Tiffany Tucker LPN - 02/21/2024 11:00 AM Crystal Quiroga NP - 02/21/2024 11:00 AM EST Note Date & Type Note Facility 02-21-2024 History of Presen t illness Narrative HPI Medicare Annual Wellness Visit Subsequent Additional comments: Pt states jaeger has had URI symptoms x 3 weeks cough has improved but not completely resolved possible hernia Additional comments: Pt states he was lifting object about a month ago and felt a pull in right testicle he has some slight discomfort and swelling in right testicle Last edited by Tiffany Tucker LPN on 02/21/2024 11:04 AM. ] Images from the original note were not included. Subjective : Chief Complaint: Kevin Hill Jr is an 59 y.o. male here for an annual wellness visit. I have reviewed and reconciled the history and medication list with the patient today. Current Outpatient Medications Medication Sig Dispense Refill gabapentin (Neurontin) 300 MG capsule TAKE 1 CAPSULE BY MOUTH IN THE MORNING, EVENING AND BEFORE BEDTIME 270 capsule 0 insulin glargine-lixisenatide (Soliqua) 100-33 UNT-MCG/ML pen INJECT 30 UNITS SUBCUTANEOUSLY ONCE EVERY MORNING 30 mL 3 insulin pen needle (B-D ULTRAFINE III SHORT PEN) 31G X 8 mm misc USE DIRECTED DAILY 100 each 3 loperamide (Imodium) 2 MG capsule Take 2 mg by mouth 4 (four) times a day as needed. metFORMIN (Glucophage) 1000 MG tablet TAKE 1 TABLET BY MOUTH TWICE DAILY WITH MEALS 200 tablet 3 No current facility-administered medications for this visit. Review of Systems List of current healthcare providers: Patient Care Team: Michell Huntley MD as PCP - General (Family Medicine) Michell Huntley MD as PCP - [facility] Medicare Annual Visit Over the past 2 weeks, how often have you been bothered by any of the following problems? Little interest or pleasure in doing things: Not at all Feeling down, depressed, or hopeless: Not at all Patient Health Questionnaire-2 Score: 0 Varinder Fall Risk History of Falling, Immediate or Within 3 Months: No Secondary Diagnosis: No Ambulatory Aid: Walks without aid/bedrest/nurse assist Health Risk Assessment Form Do you need help eating, bathing, using the toilet, dressing, or getting around your home?: No Can you prepare your own meals?: Yes Can you do your own housework without help?: Yes Can you shop for groceries or clothes without help?: Yes Do you exercise for about 20 minutes 3 or more days a week?: Yes How confident are you that you can control and manage most of your health problems?: Very confident Can you mange your money, credit cards and accounts, pay bills and taxes?: Yes Cognitive Screening Three Word Registration: Apple, Watch, Kimi Clock Drawing: Normal Clock - 2 Three Word Recall: All 3 words correct - 3 Total Score (0-5 Points): 5 Pain Assessment Pain Score: 2 Advance Care Planning Do you have a living will?: No Do you have a medical power of environmental attorney?: No Objective : BP 130/76 Pulse 93 Ht 6' 2 Wt 239 lb SpO2 96% BMI 30.69 kg/m No results found. Physical Exam Vitals reviewed. Constitutional: Appearance: Normal appearance. HENT: Head: Normocephalic. Right Ear: Tympanic membrane normal. Left Ear: Tympanic membrane normal. Nose: Nose normal. Mouth/Throat: Mouth: Mucous membranes are moist. Pharynx: Oropharynx is clear. Eyes: Conjunctiva/sclera: Conjunctivae normal. Pupils: Pupils are equal, round, and reactive to light. Cardiovascular: Rate and Rhythm: Normal rate and regular rhythm. Pulmonary: Effort: Pulmonary effort is normal. Breath sounds: Normal breath sounds. Abdominal: General: Bowel sounds are normal. Palpations: Abdomen is soft. Musculoskeletal: General: Normal range of motion. Cervical back: Normal range of motion and neck supple. Skin: General: Skin is warm and dry. Neurological: General: No focal deficit present. Mental Status: He is alert and oriented to person, place, and time. Psychiatric: Mood and Affect: Mood normal. Behavior: Behavior normal. Assessment/Plan : The following health maintenance schedule was reviewed with the patient and provided in printed form in the after visit summary: Health Maintenance Topic Date Due Colorectal Cancer Screening Never done Diabetes: Retinopathy Screening Never done Diabetes: Urine Protein Screening 01/01/2024 Medicare Annual Wellness (AWV) 01/14/2024 Diabetes: Hemoglobin A1C 05/21/2024 Influenza Vaccine Completed Advance Care Planning Talking to about getting set up Orders Placed This Encounter Procedures Flu vaccine greater than or equal to 3 years old, PF IM (IMM19) Lipid panel Standing Status: Future Number of Occurrences: 1 Standing Expiration Date: 02/20/2025 Order Specific Question: Print requisition? Answer: No Comprehensive metabolic panel Standing Status: Future Number of Occurrences: 1 Standing Expiration Date: 02/20/2025 Order Specific Question: Print requisition? Answer: No CBC Standing Status: Future Number of Occurrences: 1 Standing Expiration Date: 02/20/2025 Order Specific Question: Print requisition? Answer: No Microalbumin / creatinine, urine ratio Standing Status: Future Number of Occurrences: 1 Standing Expiration Date: 02/20/2025 Order Specific Question: Print requisition? Answer: No PSA Standing Status: Future Number of Occurrences: 1 Standing Expiration Date: 02/20/2025 Order Specific Question: Print requisition? Answer: No Ambulatory referral to General Surgery Pt is due for a colonoscopy. He is 59 and has never had one. Standing Status: Future Standing Expiration Date: 08/21/2024 Referral Priority: Routine Referral Type: Consultation Referral Reason: Specialty Services Required Referred to Provider: Dina Rudd DO Requested Specialty: General Surgery Number of Visits Requested: 1 POCT Glycated hemoglobin, total 1. Medicare annual wellness visit, subsequent (Primary) Reviewed all relevant preventative screenings with the patient in detail. Medicare Wellness form completed and will be scanned into patient's chart. All needed testing was ordered. Will continue with yearly Medicare Wellness exams. - Lipid panel; Future - Comprehensive metabolic panel; Future - CBC; Future - Microalbumin / creatinine, urine ratio; Future - Lipid panel - Comprehensive metabolic panel - CBC - Microalbumin / creatinine, urine ratio 2. Diabetic polyneuropathy associated with type 2 diabetes mellitus ([facility]) We discussed today, the importance of proper diabetic control. We discussed possible complications of diabetes, including loss of vision, renal failure, increased risk of heart attacks and strokes, blood vessel and/or nerve damage. We discussed the recommended changes to reduce your blood sugars and minimize the risk of these complications. We discussed diabetic goals, including keeping A1C <7.0% and blood pressure < 130/70. The plan for achieving these goals is adherence to medications, diet, and regular activity as discussed during today's visit. We discussed current barriers to achieving these goals. We discussed dietary goals. We discussed calorie counting, as well as decreasing carbohydrate and simple sugar intake. Reviewed portion control with the patient. If the patient still has questions on this, a referral to a Dietitian can be arranged. I reviewed medications that aid in diabetic control. We discussed proper dosing and educated the patient on possible side effects and complications. The patient verbalized understanding of these instructions. 3. Primary insomnia Discussed sleep hygiene with the patient. Encouraged patient to try to go to bed at the same time every night and wake up at the same time each morning. Also encouraged patient to use the bed for sleep and intimacy only. Avoid stimulating activities before bed, i.e. use of electronic devices, watching TV. Avoid exercise within 4 hours of going to bed. Avoid caffeine within 6 hours of going to bed. Keep bedroom cool and dark. Avoid nicotine and alcohol. 4. Essential hypertension Patient's blood pressure is currently well controlled. Continue with current medications and I will continue to monitor. Goal BP remains less than 130/80. - Comprehensive metabolic panel; Future - CBC; Future - Comprehensive metabolic panel - CBC 5. Myalgia This is a chronic medical condition that is stable since last assessment. No changes in treatment are suggested at this time. 6. Myopathy This is a chronic medical condition that is stable since last assessment. No changes in treatment are suggested at this time. 7. Type 2 diabetes mellitus with hyperglycemia, with long-term current use of insulin ([facility]) We discussed today, the importance of proper diabetic control. We discussed possible complications of diabetes, including loss of vision, renal failure, increased risk of heart attacks and strokes, blood vessel and/or nerve damage. We discussed the recommended changes to reduce your blood sugars and minimize the risk of these complications. We discussed diabetic goals, including keeping A1C <7.0% and blood pressure < 130/70. The plan for achieving these goals is adherence to medications, diet, and regular activity as discussed during today's visit. We discussed current barriers to achieving these goals. We discussed dietary goals. We discussed calorie counting, as well as decreasing carbohydrate and simple sugar intake. Reviewed portion control with the patient. If the patient still has questions on this, a referral to a Dietitian can be arranged. I reviewed medications that aid in diabetic control. We discussed proper dosing and educated the patient on possible side effects and complications. The patient verbalized understanding of these instructions. - Comprehensive metabolic panel; Future - CBC; Future - Microalbumin / creatinine, urine ratio; Future - Comprehensive metabolic panel - CBC - Microalbumin / creatinine, urine ratio - POCT Glycated hemoglobin, total 8. Obesity (BMI 30-39.9) Discussed goal of BMI < 30. Advised on weight loss options. Encouraged diet and exercise. Discussed with patient appropriate lifestyle modification changes necessary for weight management, heart healthy eating and overall health promotion. Discussed minimizing high carb, high sugar, high sodium, portion control, and processed foods while making healthy choice replacements. Additionally discussed recommendations of 30 minutes of aerobic exercise at least 5 days per week, that includes, walking, and chair exercises. . Instructed importance of drinking adequate water consumption (if not on fluid restriction) with minimal sugar and caffiene. 9. Adjustment disorder with depressed mood (CMS/HCC) This is a chronic medical condition that is stable since last assessment. No changes in treatment are suggested at this time. 10. Bipolar affective disorder, remission status unspecified (CMS/HCC) This is a chronic medical condition that is stable since last assessment. No changes in treatment are suggested at this time. 11. Elevated LDL cholesterol level (CMS/HCC) This is a chronic medical condition that is stable since last assessment. No changes in treatment are suggested at this time. - Lipid panel; Future - Lipid panel 12. Major depressive disorder in full remission, unspecified whether recurrent (HCC) (CMS/HCC) This is a chronic medical condition that is stable since last assessment. No changes in treatment are suggested at this time. 13. Major depressive disorder, single episode, in full remission (CMS/HCC) This is a chronic medical condition that is stable since last assessment. No changes in treatment are suggested at this time. 14. Screening for prostate cancer Await lab - PSA; Future - PSA 15. Flu vaccine need Tolerated administration without difficulty 16. Screening for colon cancer Await colonoscopy - Ambulatory referral to General Surgery; Future 17. Routine general medical examination at health care facility Wellness form reviewed in detail with the patient. Encouraged patient to stay up to date on immunizations and preventative testing. Encouraged healthy diet, stay active. Will continue with yearly wellness exams. 18. Acute non-recurrent pansinusitis Start the above as directed. Reviewed potential s/e with patient. Encouraged probiotic while on antibiotic. Increase water intake, get plenty of rest. Can take OTC allergy medication for symptomatic relief. Tylenol/Motrin prn. Follow up if no improvement in one week. - azithromycin (Zithromax) 250 MG tablet; Take 2 tablets (500 mg) by mouth Daily for 1 day, THEN 1 tablet (250 mg) Daily for 4 days. Dispense: 6 tablet; Refill: 0 Electronically signed by Zonia Quiroga NP on February 21, 2024 documented in this encounter [facility] Healthcare Evaluation note 07-19-2022 Note Date & Type Note Facility 07-19-2022 Evaluation note Encounter Date Diagnosis Assessment Notes July, Viral enteritis (ICD-10 - A08.4) If you develop worsening abdominal pain, fever, feel like you're going to pass out, go to the ER! History and physical exam findings are consistent with viral gastroenteriti s. I considered acute abdomen, however, given that her abdominal exam is unremarkable, that she is not tachycardic and is afebriel, acute abdomen is very unlikely. It is also reassuring that he is well appearing. Advised to push fluids and rest. Educated about red flag symptoms to watch out for and if she does develop red flag symptoms, she is to go to the ER immediately. Will prescribe prn ondansetron and loperamide. SHe understands and agrees with the plan. July, Other Viral gastroenterit is: adult home care material was printed [employer] Other Evaluation note Note Date & Type Note Facility Evaluation note Diagnosis Medicare annual wellness visit, subsequent- Primary Diabetic polyneuropathy associated with type 2 diabetes mellitus ([facility]) Primary insomnia Persistent disorder of initiating or maintaining sleep Essential hypertension Unspecified essential hypertension Myalgia Unspecified myalgia and myositis Myopathy Unspecified myopathy Type 2 diabetes mellitus with hyperglycemia, with long-term current use of insulin ([facility]) Obesity (BMI 30-39.9) Adjustment disorder with depressed mood ([facility]) Adjustment disorder with depressed mood Bipolar affective disorder, remission status unspecified (CMS/HCC) Elevated LDL cholesterol level (CMS/HCC) Major depressive disorder in full remission, unspecified whether recurrent (HCC) (CMS/HCC) Major depressive disorder, single episode, in full remission (CMS/HCC) Major depressive disorder, single episode in full remission Screening for prostate cancer Special screening for malignant neoplasm of prostate Flu vaccine need Screening for colon cancer Special screening for malignant neoplasms, colon Routine general medical examination at health care facility Routine general medical examination at a health care facility Acute non-recurrent pansinusitis documented in this encounter [facility] Evaluation note Note Date & Type Note Facility Evaluation note Diagnosis Type 2 diabetes mellitus with diabetic polyneuropathy (CMS/HCC) Diabetic polyneuropathy associated with type 2 diabetes mellitus (CMS/HCC) documented in this encounter [facility] Evaluation note Note Date & Type Note Facility Evaluation note Diagnosis Screen for colon cancer- Primary Special screening for malignant neoplasms, colon documented in this encounter [facility] History general Narrative - Reported Note Date & Type Note Facility History general Narrative - Reported Type Medical History diabetes Medical History depression Medical History neuropathy Surgical History tonsillectomy Surgical History cholecystectomy Hospitalization History see above surg [employer] Other Reason for visit Narrative Consultation (Routine) - Closed Note Date & Type Note Facility Reason for visit Narrative Specialty Diagnoses / Procedures Referred By Miranda belcher Referred To Contact General Surgery Diagnoses Screening for colon cancer Procedures [place] OFFICE[place]OUTPATIENT [facility]3] Zonia Quiroga, TANK WASHER [address] [facility] [address] [place] [address] Phone: tel: fax: Dina Rudd DO [address] [facility] [address] [place] [address] Phone: tel: fax: Referral ID Status Reason Start Date Expiration Date V isits Requested Visits Authorized [id number] Closed Specialty Services Required 02/21/2024 08/19/2024 1 1 [facility] Summary Purpose Family History No Family History Records FoundNo Family History Records FoundNo Family History Records FoundNo Family History Records FoundNo Family History Records Found Advance Directives No Advanced Directives Records FoundNo Advanced Directives Records FoundNo Advanced Directives Records FoundNo Advanced Directives Records FoundNo Advanced Directives Records Found Additional Source Comments (unrecognized sect ion and content) No Status Records FoundNo Status Records FoundNo Status Records FoundNo Status Records FoundNo Status Records Found INFORMATION SOURCE (unrecogn ized section and content) DATE CREATED AUTHOR 09/13/2017 [facility] DATE CREATED AUTHOR AUTHOR'S ORGANIZ ATION 09/12/2017 [facility] DATE CREATED AUTHOR AUTHOR'S ORGANIZ ATION 04/15/2021 [facility] DATE CREATED AUTHOR AUTHOR'S ORGANIZ ATION 03/09/2024 [facility] DATE CREATED AUTHOR AUTHOR'S ORGANIZ ATION 04/02/2024 [facility] EPIC REASON FOR VISIT (unrecogniz ed section and content) Reason Comments Medicare Annual Wellness Visit Subsequen t Pt states jaeger has had URI symptoms x 3 weeks cough has improved but not completely resolved possible hernia Pt states he was lif ting object about a month ago and felt a pull in right testicle he has some slight discomfort and swelling in right testicle Reason Comments Med Refill Care Teams (unrecognized sec tion and content) Outsole Beveler Relationship Specialty Start Date End Date Michell Huntley MD [address] [facility] [address] [place] [address] PCP - [facility] 08/12/22 Michell Huntley MD [address] [facility] [address] [place] [address] PCP - General Family Medicine 07/27/22 Outsole Beveler Relationship Specialty Start Date End Date Michell Huntley MD [address] [facility] [address] [place] [address] PCP - [facility] 08/12/22 Michell Huntley MD [address] [facility] [address] [place] [address] PCP - General Family Medicine 07/27/22 Outsole Beveler Relationship Specialty Start Date End Date Michell Huntley MD [address] [facility] [address] [place] [address] PCP - [facility] 08/12/22 Michell Huntley MD [address] [facility] [address] [place] [address] PCP - General Family Medicine 07/27/22 Outsole Beveler Relationship Specialty Start Date End Date Michell Huntley MD [address] [facility] [address] [place] [address] PCP - [facility] 08/12/22 Michell Huntley MD [address] [facility] [address] [place] [address] PCP - General Family Medicine 07/27/22 FOR RECORDS PERTAINING TO PATIENTS WHO ARE OR HAVE BEEN ENROLLED IN A CHEMICAL DEPENDENCY/SUBSTANCEABUSE PROGRAM, SOME INFORMATION MAY BE OMITTED. This clinical summary was aggregated from multiple sources. Caution should be exercised in using it in the provision of clinical care. This summary normalizes information from multiple sources, and as a consequence, information in this document may materially change the coding, format and clinical context of patient data. In addition, data may be omitted in some cases. CLINICAL DECISIONS SHOULD BE BASED ON THE PRIMARY CLINICAL RECORDS. [employer] [facility]. provides no warranty or guarantee of the accuracy or completeness of information in this document.
[2024-04-10 06:30] VITALS: BP 131/96; PULSE 89; TEMP 36.3; O2SAT 97; BMI 30.1
[2024-04-10 06:42] LABS: Glucometer 75 mg/dL (74-106)
[2024-04-10] MEDS: 0.9 % SODIUM CHLORIDE 500 ML 50 ML IV (06:49)
[2024-04-10 07:45] VITALS: BP 98/68; PULSE 66; TEMP 36.7; O2SAT 95
--- NOTE | 2024-04-10 07:52 | W.PM.PROCNOT ---
Date of procedure: 04/10/24 Pre-op diagnosis: screening colonoscopy Post-op diagnosis: other (pandiverticulosis, sigmoid polypectomy at 23cm ) Procedure: Previous colonoscopy:never procedure: colonoscopy with cold snare polypectomy The patient was given IV conscious sedation.? The patient's SPO2 remained above 90% throughout the procedure. The colonoscope was inserted per rectum and advanced under direct vision to the cecum without difficulty.? The prep was good.? Findings: Terminal ileum os: normal Cecum/Ascending colon: normal aside for mild diverticulosis Transverse colon: normal aside for mild diverticulosis Descending/Sigmoid colon: mild diverticulosis small 4mm polyp at 23cm in sigmoid region, removed completely via cold snare technique Rectum/Anus: examined in normal and retroflexed positions and was normal Withdrawal Time was (minutes): 13 The colon was decompressed and the scope was removed.? The patient tolerated the procedure well. Recommendations/Plan: 1.? Lifestyle and dietary modifications as discussed 2.? F/U Biopsies 3.? F/U in 10 years pending biopsy results 4.? Discussed with the family Surgeon: Олег Rudd Estimated blood loss (mL): 0 Pathology: other (sigmoid polyp) Condition: stable Disposition: PACU
[2024-04-10 08:00] VITALS: BP 117/78; PULSE 83; TEMP 36.6; O2SAT 96
[2024-04-10 08:15] VITALS: BP 117/28; PULSE 80; TEMP 36.6; O2SAT 97
== END 2024-04-10 08:15 | disposition home or self-care (01) ==
PROVIDERS: PCP Family Medicine; Visit Provider Surgery
PROC: (CPT 45385; principal; 2024-04-10 07:30)
DX: Z12.11 Encounter for screening for malignant neoplasm of colon (principal); K57.30 Diverticulosis of large intestine without perforation or abscess without bleeding; K63.5 Polyp of colon; E11.40 Type 2 diabetes mellitus with diabetic neuropathy, unspecified; Z79.4 Long term (current) use of insulin; Z79.84 Long term (current) use of oral hypoglycemic drugs; Z90.49 Acquired absence of other specified parts of digestive tract; K21.9 Gastro-esophageal reflux disease without esophagitis
CPT/HCPCS: 45385; 36415; 82948; 88305; J2704

== ENCOUNTER 2024-06-20 13:59 | Outpatient (OUT) | payer MEDICARE, SELFPAY ==
--- NOTE | 2024-06-20 14:03 | US_ITS ---
The [address] [address] Patient Name: JARAD AHMADI MRN: [id number] date: 1965 Sex: M Assigned Patient Location: [place] Current Patient Location: [place] Accession/Order Number: [id number] Exam Date: 06/20/2024 14:41 Report Date: 06/20/2024 14:49 At the request of: ZONIA BROWNLEE Procedure: US scrotum Scrotal ultrasound HISTORY: Right scrotal swelling for one year COMPARISON: None RIGHT testicle measures 4.0 x 3.1 x 3.5 cm. LEFT testicle measures 3.9 x 2.2 x 3.1 cm. Left testicular scattered microcalcifications. No discrete mass. Normal color flow of both testicles identified. RIGHT epididymal head measures 0.9 cm. LEFT epididymal head measures 2.3 cm containing an anechoic epididymal head cyst measuring up to 2.7 cm.. Suspected herniation in the right scrotal region. No peristalsing or distended bowel.. Anechoic right hydrocele measuring 5.1 x 3.5 x 3.2 cm. No scrotal wall abnormality identified. US/US scrotum IMPRESSION: Right anechoic hydrocele. Potential fat-containing right scrotal hernia. No peristalsing or dilated bowel. Benign appearing scattered marked calcification is a left testicle. No testicular mass. Adequate blood flow. Impression dictated by: Barry Sanchez M.D.06/20/2024 2:49 PM Dictation Location: [place] [address] Electronically authenticated by: [id number] Date: 06/20/2024 14:49
== END 2024-06-20 14:00 | disposition home or self-care (01) ==
LOC: US 13:59
PROVIDERS: PCP Family Medicine; Visit Provider Nurse Practitioner Family
DX: N50.89 Other specified disorders of the male genital organs (principal); N50.811 Right testicular pain; N43.2 Other hydrocele
CPT/HCPCS: 76870

== ENCOUNTER 2024-07-05 18:02 | Emergency (ER) | payer MEDICARE, SELFPAY ==
[2024-07-05 18:05] VITALS: BP 166/101; PULSE 107; TEMP 36.8; O2SAT 97; BMI 30.2
--- OUTSIDE RECORDS SUMMARY | 2024-07-05 18:18 | XMS_ITS | CCD ---
Author Organization [facility] Care Team Providers Care Deli Cutter Slicer Name Role Phone Arnold, Clarence K Unavailable Unavailable Arnold, Clarence K Unavailable Unavailable YUKO, DR BUSTILLO Primary Care Unavailable GISSELLE, DR BUSTOS Admitting Unavailable GISSELLE, DR BUSTOS Attending Unavailable GISSELLE, DR BUSTOS Consulting Unavailable YUKO, DR BUSTILLO Consulting Unavailable PAY, DR ROMERO Consulting Unavailable LIZ MARROQUIN Consulting Unavailable Willie Hunter Consulting Unavailable JOSEP HORN Admitting Unavailable YUKO, DR BUSTILLO Primary Care Unavailable JOSEP HORN Attending Unavailable GISSELLE, DR BUSTOS Consulting Unavailable AGUBOSIM, BART Consulting Unavailable JOSEP HORN Consulting Unavailable PREETHI PEDRAZA Consulting Unavailable Cj Garcia Unavailable Iwona Huntley MD Unavailable Iwona Huntley MD Primary Care Provider [phone] Katie Quiroga NP Unavailable KATIE QUIROGA Attending Unavailable HIWOT KWOK Attending Unavailable KATIE QUIROGA Referring Unavailable MARIBELL ZAPATA Attending Unavailable KATIE QUIROGA Attending Unavailable KATIE QUIROGA Attending Unavailable DINA RUDD Attending Unavailable KATIE QUIROGA Referring Unavailable Esvin MORILLO Attending Unavailable KATIE QUIROGA SPRINKLER INSPECTOR-C Referring Unavailable Iwona Huntley Primary Care Unavailable Tiffany Pritchett Attending Unavailable Tiffany Pritchett Admitting Unavailable Dina Rudd Attending Unavailable Dina Rudd Admitting Unavailable Iwona Huntley Primary Care Unavailable Chidi Barraza Attending Unavailab Chidi Oliveira Admitting Unavailab Chidi Oliveira Admitting Unavailab Bairon Pimentel Attending Unavailable NON STAFF Primary Care Unavailable Allergies Allergy Classification Reported Allergen(s) Allergy Type Date of Onset Reaction(s) Facility (1 source) OLANZapine Drug Allergy 06-09-2024 [facility] Repository Medications Current Medications Medication Drug Class(es) Dates Sig (Normalized) Sig (Original) ARIPiprazole 400 mg injection (1 source) Atypical Antipsychotic Start: 07-02-2024 ARIPiprazole ER (Abilify Maintena) 400 MG injection Inject 400 mg into the shoulder, thigh, or buttocks every 28 (twenty-eight) days Do not start before July 02, 2024. 07/02/2024 Active Start: 07-02-2024 ARIPiprazole E R (Abilify Maintena) 400 MG injection Inject 400 mg into the shoulder, thigh, or buttocks every 28 (twenty-eight) days Do not start before July 02, 2024. 07/02/2024 Active azithromycin 250 mg oral tablet (2 sources) [...] colonoscopy prep. 4 tablet 03/27/2024 03/29/2024 Active 12 hr buPROPion hydrochloride 150 mg extended release oral tablet (6 sources) Aminoketone Start: 05-31-2024 End: 07-30-2024 take 1 tablet by mouth every twelve hours in the morning buPROPion SR (Wellbutrin SR) 150 MG 12 hr tablet Indications: Bipolar affective disorder, remission status unspecified (CMS/HCC) Take 1 tablet (150 mg) by mouth in the morning and 1 tablet (150 mg) before bedtime. Do not crush, chew, or split.. 60 tablet 1 05/31/2024 07/30/2024 Active Start: 01-13-2023 End: 02-21-2024 take 1 tablet [...] Discontinued buPROPion HCl ER (Smoking Det) Active busPIRone hydrochloride 5 mg oral tablet (1 source) Start: 06-05-2024 take 1 tablet by mouth in the morning busPIRone (Buspar) 5 MG tablet Take 5 mg by mouth in the morning and 5 mg before bedtime. 06/05/2024 Active fluticasone propionate 0.05 mg/actuat metered dose nasal spray (6 sources) Corticosteroid Start: 05-15-2024 End: 05-15-2025 take 2 spray(s) nasal route once daily fluticasone (Flonase) 50 MCG/ACT nasal spray Indications: Rhinitis medicamentosa Administer 2 sprays into each nostril Daily Shake gently. Before first use, prime pump. After use, clean tip and replace cap. 48 g 3 05/15/2024 05/15/2025 Active gabapentin 300 mg oral capsule (17 sources) Anti-epileptic Agent Start: 06-18-2024 gabapentin (Neurontin) 300 MG capsule Indications: Type 2 diabetes mellitus with diabetic polyneuropathy (CMS/HCC) , Diabetic polyneuropathy associated with type 2 diabetes mellitus (CMS/HCC) TAKE 1 CAPSULE BY MOUTH IN THE MORNING, EVENING, AND BEFORE BEDTIME 270 capsule 06/18/2024 Active Start: 12-19-2023 End: 06-10-2024 take 1 capsule [...] unt/ml / lixisenatide 0.033 mg/ml pen injector (16 sources) Insulin Analog Start: 11-15-2023 insulin glargi ne-lixisenatide (Soliqua) 100-33 UNT-MCG/ML pen Indications: Type 2 diabetes mellitus with other specified complication, unspecified whether halfway insulin use (CMS/HCC) INJECT 30 UNITS SUBCUTANEOUSLY ONCE EVERY MORNING 30 mL 3 11/15/2023 Active Soliqua Active loperamide hydrochloride 2 mg oral capsule (9 sources) Opioid Agonist Start: 07-19-2022 End: 05-08-2024 take 1 capsule by mouth four times daily as needed loperamide (Imodium) 2 MG capsule Take 2 mg by mouth 4 (four) times a day as needed. 07/19/2022 05/08/2024 Discontinued (Therapy completed) Start: 07-19-2022 take 1 tablet by james th every six hours Loperamide HCl 2 MG 1 tablet as needed Orally Four times a day for 5 days July, Active LORazepam 0.5 mg oral tablet (3 sources) Benzodiazepine Start: 05-31-2024 End: 06-14-2024 take 1 tablet by mouth once LORazepam (Ativan) 0.5 MG tablet Indications: Anxiety Take 1 tablet (0.5 mg) by mouth every 12 (twelve) hours if needed for anxiety (anxiety) for up to 14 days 28 tablet 05/31/2024 Active metFORMIN hydrochloride 1000 mg oral tablet (16 sources) Biguanide Start: 04-23-2024 take 1 tablet by mouth twice daily at mealtime metFORMIN (Glucophage) 1000 MG tablet Indications: Type 2 diabetes mellitus with diabetic polyneuropathy, without long-term current use of insulin (CMS/HCC) TAKE 1 TABLET BY MOUTH TWICE A DAY WITH FOOD 180 tablet 4 04/23/2024 Active Start: 05-05-2023 take 1 tablet by james th twice daily at mealtime metFORMIN (Glucophage) 1000 MG tablet Indications: Type 2 diabetes mellitus with diabetic polyneuropathy, without long-term current use of insulin ([facility]) TAKE 1 TABLET BY MOUTH TWICE DAILY [...] needed. 07/19/2022 02/21/2024 Discontinued polyethylene glycol 3350 44769 mg powder for oral solution (4 sources) Osmotic Laxative Start: 03-27-2024 End: 05-15-2024 polyethylene glycol, PEG, 3350 (Glycolax) 17 GM/SCOOP powder TAKE DETAILED FROM CLINIC HANDOUT FOR COLONOSCOPY PREP 03/27/2024 05/15/2024 Discontinued (Therapy completed) Start: 03-27-2024 End: 03-27-2024 take 17 g by mouth once polyethylene glycol, PEG, 33 50 (Glycolax) 17 GM/SCOOP powder Indications: Colonoscopy Take 238 g by mouth 1 (one) time for 1 dose Take as detailed from clinic hand out for colonoscopy prep 238 g 03/27/2024 03/27/2024 Active predniSONE 20 mg oral tablet (2 sources) Start: 05-15-2024 End: 05-21-2024 take 1 tablet by mouth in the morning predniSONE (Deltasone) 20 MG tablet Indications: Rhinitis medicamentosa Take 1 tablet (20 mg) by mouth in the morning and 1 tablet (20 mg) before bedtime. Do all this for 6 days. 12 tablet 05/15/2024 05/21/2024 Active sildenafil 25 mg oral tablet (3 sources) Phosphodiesterase 5 Inhibitor Start: 11-04-2022 End: 02-21-2024 take 1 tablet by mouth once daily as needed sildenafil (Viagra) 25 MG tablet Indications: Erectile dysfunction, unspecified erectile dysfunction type Take 1 tablet (25 mg) by mouth Daily as needed for erectile dysfunction. 30 tablet 11/04/2022 02/21/2024 Discontinued traZODone hydrochloride 50 mg oral tablet (1 source) Serotonin Reuptake Inhibitor Start: 06-11-2024 take 1 tablet by mouth at bedtime traZODone (Desyrel) 50 MG tablet Take 50 mg by mouth at bedtime 06/11/2024 Active Completed/Discontinued Medications Medication Drug Class(es) Dates Sig [...] Problem Date Documented Date Episodic/Chronic Adjustment disorders (17 sources) Adjustment disorder with depressed mood; Translations: [Adjustment disorder with depressed mood] Onset: 10-08-2022 10-08-2022 Chronic Anxiety disorders (3 sources) Anxiety; Translations: [Anxiety disorder, unspecified] Onset: 06-09-2024 05-31-2024 Chronic Diabetes mellitus with complications (20 sources) Hyperglycemia due to type 2 diabetes mellitus; Translations: [Type 2 diabetes mellitus with hyperglycemia] Onset: 10-08-2022 10-08-2022 Chronic Diabetes mellitus without complication (1 source) Type 2 diabetes mellitus without complications; Translations: [TYPE 2 DM WITHOUT COMPLICATIONS] Onset: 04-14-2021 Chronic Disorders of lipid metabolism (17 sources) Raised low density lipoprotein cholesterol; Translations: [Pure hypercholesterolemia, unspecified] Onset: 10-08-2022 10-08-2022 Chronic E Codes: Natural/environment (1 source) Exposure to other specified factors, initial encounter; Translations: [EXPOSURE OTHER SPEC FACTORS INITIAL] Onset: 04-14-2021 Episodic Esophageal disorders (2 sources) Esophageal obstruction; 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] Onset: 12-25-2020 Chronic Essential hypertension (17 sources) Essential hypertension; Translations: [Essential (primary) hypertension] Onset: 11-04-2022 11-04-2022 Chronic Immunizations and screening for infectious disease (2 sources) Needs influenza immunization; Translations: [Encounter for immunization] 02-21-2024 Episodic Intestinal infection (1 source) Viral intestinal infection, unspecified Episodic Miscellaneous mental health disorders (17 sources) Primary insomnia; Translations: [Primary insomnia] Onset: 10-08-2022 10-08-2022 Chronic Mood disorders (20 sources) Major depression in full remission; Translations: [Major depressive disorder, single episode, in full remission] Onset: 10-08-2022 10-08-2022 Chronic Other aftercare (1 source) USP (current) use of oral hypoglycemic drugs; Translations: [SKILLED NURSING USE ORAL HYPOGLYCEMIC DX] Onset: 04-14-2021 Episodic Other injuries and conditions due to external causes (4 sources) Food in esophagus causing other injury, initial encounter; Translations: [FOOD ESOPH CAUS OTH INJURY INIT ENC] Onset: 04-08-2021 Episodic Other male genital disorders (15 sources) Secondary erectile dysfunction; Translations: [Male erectile dysfunction, unspecified] Onset: 10-08-2022 10-08-2022 Chronic Other male genital disorders (2 sources) Large testicle; Translations: [Other specified disorders of the male genital organs] 05-08-2024 Episodic Other male genital disorders (2 sources) Pain of right testicle; Translations: [Right testicular pain] 05-08-2024 Episodic Other nervous system disorders (17 sources) Disorder of muscle; Translations: [Myopathy, unspecified] Onset: 04-22-2023 04-22-2023 Chronic Other nutritional; endocrine; and metabolic disorders (17 sources) Body mass index 30+ - obesity; Translations: [Obesity, unspecified] Onset: 10-08-2022 10-08-2022 Chronic Other screening for suspected conditions (not mental disorders or infectious disease) (6 sources) Patient encounter status; Translations: [Encounter for screening for malignant neoplasm of prostate] 02-21-2024 Episodic Other upper respiratory disease (2 sources) Rhinitis medicamentosa; Translations: [Chronic rhinitis] 05-15-2024 Chronic Other upper respiratory disease (4 sources) Nasal congestion; Translations: [Nasal congestion] 05-08-2024 Episodic Other upper respiratory infections (2 sources) Acute pansinusitis; Translations: [Acute pansinusitis, unspecified] 02-21-2024 Episodic Residual codes; unclassified (1 source) Acquired absence of other specified parts of digestive tract; Translations: [ACQ ABSENCE OTH PART DIGESTV TRACT] Onset: 04-14-2021 Episodic Schizophrenia and other psychotic disorders (1 source) Schizoaffective disorder, unspecified; Translations: [Schizoaffective disorder, unspecified] Onset: 06-01-2024 Chronic Unclassified (1 source) ESOPHAGITIS UNSPEC WITHOUT BLEEDING; Translations: [ESOPHAGITIS UNSPEC WITHOUT BLEEDING] Onset: 04-14-2021 Unclassified (1 source) CONTACT W/AND (SUSP) EXPOS COVID-19; Translations: [CONTACT W/AND (SUSP) EXPOS COVID-19] Onset: 12-25-2020 Past or Other Problems Problem Classification Problem Date Documented Da te Episodic/Chronic Mood disorders (15 sources) Mood disorders Onset: 01-13-2023 01-13-2023 Other aftercare (1 source) Other halfway (current) drug therapy; Translations: [OTH SKILLED NURSING CURRENT DRUG THERAPY] Onset: 12-25-2020 Episodic Other connective tissue disease (17 sources) Muscle pain; Translations: [Myalgia, unspecified site] Onset: 04-22-2023 04-22-2023 Episodic Unclassified (2 sources) Patient encounter status 02-21-2024 Results Test Name Value Interpretation Reference Range Facility [facility] [address] [address] Ultrasound Report Signed Patient: KEVIN HILL MR#: [id number] : 1965 Acct:[id number] Age/Sex: 59 / M ADM Date: 06/20/24 Loc: US Attending Dr: KATIE QUIROGA Ordering Physician: KATIE QUIROGA Date of Service: 06/20/24 Procedure(s): US scrotum Accession Number(s): [id number] cc: IWONA HUNTLEY SHERRI [address] [address] Patient Name: KEVIN HILL MRN: [id number] date: 1965 Sex: M Assigned Patient Location: US Current Patient Location: US Accession/Order Number: [id number] Exam Date: 06/20/2024 14:41 Report Date: 06/20/2024 14:49 At the request of: KATIE QUIROGA Procedure: US scrotum Scrotal ultrasound HISTORY: Right scrotal swelling for one year COMPARISON: None RIGHT testicle measures 4.0 x 3.1 x 3.5 cm. LEFT testicle measures 3.9 x 2.2 x 3.1 cm. Left testicular scattered microcalcifications. No discrete mass. Normal color flow of both testicles identified. RIGHT epididymal head measures 0.9 cm. LEFT epididymal head measures 2.3 cm containing an anechoic epididymal head cyst measuring up to 2.7 cm.. Suspected herniation in the right scrotal region. No peristalsing or distended bowel.. Anechoic right hydrocele measuring 5.1 x 3.5 x 3.2 cm. No scrotal wall abnormality identified. US/US scrotum IMPRESSION: Right anechoic hydrocele. Potential fat-containing right scrotal hernia. No peristalsing or dilated bowel. Benign appearing scattered marked calcification is a left testicle. No testicular mass. Adequate blood flow. Impression dictated by: Barry Sanchez M.D.06/20/2024 2:49 PM Dictation Location: [place] [address] Electronically authenticated by: [id number] Y Date: 06/20/2024 14:49 Dictated By: Barry Sanchez D.O. Signed By: 06/20/24 1451 DD/ 1449 TD/TT: Digital Campaign Manager: [facility] Radiology, Radiologist, MD - 06/20/2024 [place] [address] Ultrasound Report Signed Patient: KEVIN HILL MR#: [id number] : 1965 Acct:[id number] Age/Sex: 59 / M ADM Date: 06/20/24 Loc: US Attending Dr: KATIE QUIROGA Ordering Physician: KATIE QUIROGA Date of Service: 06/20/24 Procedure(s): US scrotum Accession Number(s): [id number] cc: IWONA HUNTLEY ; KATIE QUIROGA The [place] [id number] Patient Name: KEVIN BRIONESN: [id number] date: 1965 Sex: M Assigned Patient Location: US Current Patient Location: US Accession/Order Number: [id number] Exam Date: 06/20/2024 14:41 Report Date: 06/20/2024 14:49 At the request of: KATIE QUIROGA Procedure: US scrotum Scrotal ultrasound HISTORY: Right scrotal swelling for one year COMPARISON: None RIGHT testicle measures 4.0 x 3.1 x 3.5 cm. LEFT testicle measures 3.9 x 2.2 x 3.1 cm. Left testicular scattered microcalcifications. No discrete mass. Normal color flow of both testicles identified. RIGHT epididymal head measures 0.9 cm. LEFT epididymal head measures 2.3 cm containing an anechoic epididymal head cyst measuring up to 2.7 cm.. Suspected herniation in the right scrotal region. No peristalsing or distended bowel.. Anechoic right hydrocele measuring 5.1 x 3.5 x 3.2 cm. No scrotal wall abnormality identified. US/US scrotum IMPRESSION: Right anechoic hydrocele. Potential fat-containing right scrotal hernia. No peristalsing or dilated bowel. Benign appearing scattered marked calcification is a left testicle. No testicular mass. Adequate blood flow. Impression dictated by: Barry Sanchez M.D.06/20/2024 2:49 PM Dictation Location: [place] [address] Electronically authenticated by: [id number] Y Date: 06/20/2024 14:49 Dictated By: Barry Sanchez D.O. Signed By: 06/20/24 1451 DD/ 1449 TD/TT: Digital Campaign Manager: [facility] Radiology Study observation (narrative) [facility] US Scrotum and testicleOrder ed By: Radiologist Radiology on 06-20-2024 [facility] Work Phone: Glucose Poct Glucometerson 0 06-05-2024 Glucose [Mass/Vol] 124 mg/dL Normal [facility] Comment on above: Result Comment: [place] Glucose Reference Range is dependent on time and content of last meal. Glucose of more than 200 mg/dL in a nonstressed, ambulatory subject supports the diagnosis of Diabetes Mellitus. PERFORMED BY: [place] [address] PATHOLOGIST LEAD LEVEL DESIGNER MARIA TERESA ASHRAF M.D. Performed By: #### U JADEN CASTREJONUAPLUS #### [facility] [address] [place] [address] Glucose Poct Glucometerson 0 06-04-2024 Glucose [Mass/Vol] 89 mg/dL Normal [facility] Comment on above: Result Comment: [place] om Glucose Reference Range is dependent on time and content of last meal. Glucose of more than 200 mg/dL in a nonstressed, ambulatory subject supports the diagnosis of Diabetes Mellitus. PERFORMED BY: [place] [address] PATHOLOGIST LEAD LEVEL DESIGNER MARIA TERESA ASHRAF M.D. Performed By: #### G LULS #### Point of Care testing , Glucose Poct Glucometerson 0 06-03-2024 Glucose [Mass/Vol] 152 mg/dL Normal [facility] Comment on above: Result Comment: [place] om Glucose Reference Range is dependent on time and content of last meal. Glucose of more than 200 mg/dL in a nonstressed, ambulatory subject supports the diagnosis of Diabetes Mellitus. PERFORMED BY: [place] [id number] PATHOLOGIST LEAD LEVEL DESIGNER MARIA TERESA ASHRAF M.D. Performed By: #### G LULS #### Point of Care testing , Glucose [Mass/Vol] 159 mg/dL Normal [facility] Comment on above: Result Comment: [place] om Glucose Reference Range is dependent on time and content of last meal. Glucose of more than 200 mg/dL in a nonstressed, ambulatory subject supports the diagnosis of Diabetes Mellitus. PERFORMED BY: [place] [id number] PATHOLOGIST LEAD LEVEL DESIGNER MARIA TERESA ASHRAF M.D. Performed By: #### U JADEN CASTREJONUAPLUS #### [facility] [address] [place], [place] [id number] [facility] A1C with Estimated Average G zarina 06-02-2024 Glucose [Mass/Vol] 171 mg/dL Normal [facility] Comment on above: Result Comment: PERF ORMED BY: [place] [address] PATHOLOGIST LEAD LEVEL DESIGNER MARIA TERESA ASHRAF M.D. Performed By: #### U LUCÍA, ADDONUAPLUS #### [address] HbA1c (Bld) [Mass fraction] 7.6 % High 4.3-5.6 [facility] Comment on above: Result Comment: Incr eased risk for diabetes: 5.7 - 6.4 diabetes: >6.4 glycemic control for adults with diabetes: <7.0 Performed By: #### U LUCÍA, ADDONUAPLUS #### [address] Glucose Poct Glucometerson 0 06-02-2024 Glucose [Mass/Vol] 155 mg/dL Normal [facility] Comment on above: Result Comment: [facility] Glucose Reference Range is dependent on time and content of last meal. Glucose of more than 200 mg/dL in a nonstressed, ambulatory subject supports the diagnosis of Diabetes Mellitus. PERFORMED BY: [place] [address] PATHOLOGIST LEAD LEVEL DESIGNER MARIA TERESA ASHRAF M.D. Performed By: #### G KERI #### Point of Care testing , Lipid Panelon 06-02-2024 Cholesterol [Mass/Vol] 162 mg/dL Normal 140-200 [facility] Comment on above: Result Comment: Chol less than 200 mg/dl low risk Chol 201-239 mg/dl borderline risk Chol 240 mg/dl and greater high risk Performed By: #### U RDS, ADDONUAPLUS #### [address] Cholesterol in HDL [Mass/Vol] 38 mg/dL Normal 23-92 [facility] Comment on above: Result Comment: HDL CHOL ATP-III CLASSIFICATION Cardiovascular Risk HDL > or equal to 60 mg/dL LOW HDL < 40 mg/dL HIGH Performed By: #### U LUCÍA, ADDONUAPLUS #### [address] Cholesterol.total/Ch olesterol in HDL [Mass ratio] 4.3 {ratio} Normal <5.0 [facility] Comment on above: Performed By: #### U LUCÍA, ADDONUAPLUS #### [address] LDL Cholesterol,Calculat ed 103 mg/dL High 0-100 [facility] Comment on above: Result Comment: LDL ATP III CLASSIFICATION LDL less than 100 mg/dL Optimal LDL 100-129 mg/dL Near or above optimal LDL 130-159 mg/dL Borderline high LDL 160-189 mg/dL High LDL greater than 189 mg/dL Very high Performed By: #### U LUCÍA, ADDONUAPLUS #### [address] Triglyceride w/Reflex 104 mg/dL Normal 0-149 [facility] Comment on above: Result Comment: TRIG ATP III CLASSIFICATION TRIG less than 150 mg/dL Normal TRIG 150-199 mg/dL Borderline high TRIG 200-500 mg/dL High TRIG greater than 500 mg/dL Very high Standard traceable to the Center for Disease Conrtrol and Prevention (CDC) test method. Performed By: #### U LUCÍA, ADDONUAPLUS #### [address] VLDL CHOLESTEROL 20 mg/dL Normal [facility] Comment on above: Performed By: #### U LUCÍA, ADDONUAPLUS #### [place] [address] [place] Thyroid Stim Hormone w/Rflxo n 06-02-2024 Thyroid Stim Hormone w/Rflx 0.52 u[iU]/mL Normal 0.45-5.33 [facility] Comment on above: Performed By: #### U LUCÍA, ADDONUAPLUS #### [address] Vitamin D 25 Hydroxy Totalon 06-02-2024 Vitamin D 25 Hydroxy Total 17.8 ng/mL Low 30-100 [facility] Comment on above: Result Comment: GUME MIN D STATUS 25(OH)VITAMIN D RANGE (ng/mL) Deficient <20 Insufficient 20 to <30 Sufficient 30 to 100 Reference: Kevin MF,Reza NC, Earl JAEGER, et al. Evaluation,treatment, and prevention of vitamin D deficiency; an Endocrine Society clinical practice guideline. JCEM. 2010; 96(7):1911-30. PERFORMED BY: [place] [phone] PATHOLOGIST LEAD LEVEL DESIGNER MARIA TERESA ASHRAF M.D. Performed By: #### U RDS, ADDONUAPLUS #### [address] Complete Blood Count Auto Di ffon 06-01-2024 Basophils (Bld) [#/Vol] 0.1 10*3/uL Normal 0.0-0.2 [facility] Comment on above: Result Comment: PERF ORMED BY: [place] [address] PATHOLOGIST LEAD LEVEL DESIGNER MARIA TERESA ASHRAF M.D. Performed By: #### C BC, ETOH, CMP #### [address] Basophils/100 WBC (Bld) 1.1 % Normal . [facility] Comment on above: Performed By: #### C BC, ETOH, CMP #### [address] Eosinophils (Bld) [#/Vol] 0.0 10*3/uL Normal 0.0-0.45 [facility] Comment on above: Performed By: #### C BC, ETOH, CMP #### [address] Eosinophils/100 WBC (Bld) 0.1 % Normal . [facility] Comment on above: Performed By: #### C BC, ETOH, CMP #### [address] Erythrocyte distribution width (RBC) [Ratio] 13.9 % Normal 12.0-14.8 [facility] Comment on above: Performed By: #### C BC, ETOH, CMP #### [address] Hematocrit (Bld) [Volume fraction] 48.4 % Normal 38.8-50.0 [facility] Comment on above: Performed By: #### C BC, ETOH, CMP #### [address] Hemoglobin (Bld) [Mass/Vol] 16.8 g/dL Normal 13.0-17.0 [facility] Comment on above: Performed By: #### C BC, ETOH, CMP #### [address] Lymphocytes (Bld) [#/Vol] 1.1 10*3/uL Normal 1.00-4.8 [facility] Comment on above: Performed By: #### C BC, ETOH, CMP #### [address] Lymphocytes/100 WBC (Bld) 12.8 % Normal . [facility] Comment on above: Performed By: #### C BC, ETOH, CMP #### [address] MCH (RBC) [Entitic mass] 31.2 pg Normal 27.5-35.2 [facility] Comment on above: Performed By: #### C BC, ETOH, CMP #### 04 [address] MCV (RBC) [Entitic vol] 89.9 fL Normal 83.5-101 [facility] Comment on above: Performed By: #### C BC, ETOH, CMP #### [address] Mean Corpuscular HGB Conc 34.7 g/dL Normal 32.5-35.6 [facility] Comment on above: Performed By: #### C BC, ETOH, CMP #### [address] [place] [address] [place] Monocytes (Bld) [#/Vol] 1.0 10*3/uL High 0.0-0.8 [facility] Comment on above: Performed By: #### C BC, ETOH, CMP #### [facility] [address] [place] [address] [place] Monocytes/100 WBC (Bld) 18.64 % Normal 0.00-20.00 [facility] Comment on above: Performed By: #### C BC, ETOH, CMP #### [facility] [address] [place] [address] [place] Monocytes/100 WBC (Bld) 11.8 % Normal . [facility] Comment on above: Performed By: #### C BC, ETOH, CMP #### [facility] [address] [place] [address] [place] Neutrophils (Bld) [#/Vol] 6.3 10*3/uL Normal 1.8-7.7 [facility] Comment on above: Performed By: #### C BC, ETOH, CMP #### [place] [address] [place] Neutrophils/100 WBC (Bld) 74.2 % Normal . [facility] Comment on above: Performed By: #### C BC, ETOH, CMP #### [facility] [address] [place] [address] [place] NRBC% 0.1 /100{WBC} Normal 0-0.[address] [facility] Comment on above: Performed By: #### C BC, ETOH, CMP #### [facility] [address] [place] [address] [place] Platelet mean volume (Bld) [Entitic vol] 7.6 fL Normal 6.6-10.1 The [facility] Comment on above: Performed By: #### C BC, ETOH, CMP #### [facility] [address] [place] [address] [place] Platelets (Bld) [#/Vol] 305 10*3/uL Normal 150-450 [facility] Comment on above: Performed By: #### C BC, ETOH, CMP #### [address] RBC (Bld) [#/Vol] 5.38 10*6/uL Normal 3.90-5.60 The [facility] Comment on above: Performed By: #### C BC, ETOH, CMP #### [address] WBC (Bld) [#/Vol] 8.5 10*3/uL Normal 4.1-10.5 The [facility] Comment on above: Performed By: #### C BC, ETOH, CMP #### [address] Comprehensive Metabolic Pane ryan 06-01-2024 Albumin [Mass/Vol] 4.7 g/dL Normal 3.5-5.7 [facility] Comment on above: Performed By: #### C BC, ETOH, CMP #### [address] Albumin/Globulin [Mass ratio] 1.7 {ratio} Normal [facility] Comment on above: Performed By: #### C BC, ETOH, CMP #### [address] ALP [Catalytic activity/Vol] 50 U/L Normal 34-104 [facility] Comment on above: Performed By: #### C BC, ETOH, CMP #### [address] ALT [Catalytic activity/Vol] 22 U/L Normal 7-52 [facility] Comment on above: Performed By: #### C BC, ETOH, CMP #### [address] Anion gap [Moles/Vol] 15.1 mmol/L High 6.0-15.0 [facility] Comment on above: Performed By: #### C BC, ETOH, CMP #### [address] AST [Catalytic activity/Vol] 18 U/L Normal 13-39 [facility] Comment on above: Performed By: #### C BC, ETOH, CMP #### [facility] [address] Bilirubin [Mass/Vol] 1.3 mg/dL High 0.3-1.0 [facility] Comment on above: Result Comment: Samp les from patients who have taken Naproxen have shown spurious elevation in Total Bilirubin levels. A metabolite of Naproxen, O-desmethylnaproxen, has been shown to interfere with the Jendrassik-Grof method for measuring Total Bilirubin. Performed By: #### C BC, ETOH, CMP #### [address] Calcium [Mass/Vol] 9.7 mg/dL Normal 8.6-10.3 [facility] Comment on above: Performed By: #### C BC, ETOH, CMP #### [place] [address] [place] Chloride [Moles/Vol] 105 mmol/L Normal 98-107 [facility] Comment on above: Performed By: #### C BC, ETOH, CMP #### [place] [address] [place] CO2 [Moles/Vol] 20.9 mmol/L Low 21.0-31.0 The [facility] Comment on above: Performed By: #### C BC, ETOH, CMP #### [address] Creatinine [Mass/Vol] 1.16 mg/dL Normal 0.70-1.30 [facility] Comment on above: Performed By: #### C BC, ETOH, CMP #### [place] [address] [place] Creatinine Clr Calc Pharmacy 90.06 Normal [facility] Comment on above: Result Comment: PERF ORMED BY: [place] [address] PATHOLOGIST LEAD LEVEL DESIGNER MARIA TERESA ASHRAF M.D. Performed By: #### C BC, ETOH, CMP #### [place] [address] [place] GFR/1.73 sq M.predicted MDRD (S/P/Bld) [Vol rate/Area] mL/min/{1.73_m2} Normal [facility] Comment on above: Performed By: #### C BC, ETOH, CMP #### [address] Globulin (S) [Mass/Vol] 2.8 g/dL Normal [facility] Comment on above: Performed By: #### C BC, ETOH, CMP #### [address] Glucose [Mass/Vol] 215 mg/dL High 70-100 [facility] Comment on above: Result Comment: [facility] Glucose Reference Range is dependent on time and content of last meal. Glucose of more than 200 mg/dL in a nonstressed, ambulatory subject supports the diagnosis of Diabetes Mellitus. ADA recommended reference range Performed By: #### C BC, ETOH, CMP #### [address] Potassium [Moles/Vol] 4.0 mmol/L Normal 3.5-5.1 [facility] Comment on above: Performed By: #### C BC, ETOH, CMP #### [address] Protein [Mass/Vol] 7.5 g/dL Normal 6.4-8.9 [facility] Comment on above: Performed By: #### C BC, ETOH, CMP #### [address] Sodium [Moles/Vol] 137 mmol/L Normal 136-145 [facility] Comment on above: Performed By: #### C BC, ETOH, CMP #### [address] Urea nitrogen [Mass/Vol] 22 mg/dL Normal 7-25 [facility] Comment on above: Performed By: #### C BC, ETOH, CMP #### [place] [address] [place] Dipstick and Microscopicon 0 06-01-2024 Appearance (U) Clear Normal Clear [facility] Comment on above: Order Comment: Name Collection Type:: Clean-Voided Midstream Performed By: #### U RDS, ADDONUAPLUS #### [facility] [address] [place] [address] [place] Bacteria,Urine None Seen Normal None Seen [facility] Comment on above: Order Comment: Name Collection Type:: Clean-Voided Midstream Performed By: #### U RDS, ADDONUAPLUS #### [place] [address] [place] Bilirubin,Urine Negative Normal Negative [facility] Comment on above: Order Comment: Name Collection Type:: Clean-Voided Midstream Performed By: #### U RDS, ADDONUAPLUS #### [place] [address] [place] Color (U) Yellow Normal Yellow [facility] Comment on above: Order Comment: Name Collection Type:: Clean-Voided Midstream Performed By: #### U RDS, ADDONUAPLUS #### [facility] [address] [place] [address] [place] Glucose Ql (U) 150 mg/dL High Normal [facility] Comment on above: Order Comment: Name Collection Type:: Clean-Voided Midstream Performed By: #### U RDS, ADDONUAPLUS #### [facility] [address] [place] [address] [place] Granular Casts, Urine 3-4 High None Seen [facility] Comment on above: Order Comment: Name Collection Type:: Clean-Voided Midstream Performed By: #### U RDS, ADDONUAPLUS #### [facility] [address] [place] [address] [place] Hyaline Casts,Urine 0-8 Normal 0-8 [facility] Comment on above: Order Comment: Name Collection Type:: Clean-Voided Midstream Performed By: #### U RDS, ADDONUAPLUS #### [facility] [address] [place] [address] [place] Ketones Ql (U) 3+ High Negative [facility] Comment on above: Order Comment: Name Collection Type:: Clean-Voided Midstream Performed By: #### U RDS, ADDONUAPLUS #### [address] Leukocyte esterase Test strip Ql (U) Negative Normal Negative [facility] Comment on above: Order Comment: Name Collection Type:: Clean-Voided Midstream Performed By: #### U RDS, ADDONUAPLUS #### [place] [address] [place] Mucus,Urine 2+ Critically abnormal [facility] Comment on above: Order Comment: Name Collection Type:: Clean-Voided Midstream Result Comment: PERF ORMED BY: [place] [address] PATHOLOGIST LEAD LEVEL DESIGNER MARIA TERESA ASHRAF M.D. Performed By: #### U RDS, ADDONUAPLUS #### [place] [address] [place] Nitrite,Urine Negative Normal Negative The [facility] Comment on above: Order Comment: Name Collection Type:: Clean-Voided Midstream Performed By: #### U RDS, ADDONUAPLUS #### [place] [address] [place] Occult Blood,Urine 2+ High Negative [facility] Comment on above: Order Comment: Name Collection Type:: Clean-Voided Midstream Result Comment: PERF ORMED BY: [place] [address] PATHOLOGIST LEAD LEVEL DESIGNER MARIA TERESA ASHRAF M.D. Performed By: #### U RDS, ADDONUAPLUS #### [place] [address] [place] pH (U) 5.5 [pH] Normal 5.0-9.0 [facility] Comment on above: Order Comment: Name Collection Type:: Clean-Voided Midstream Performed By: #### U RDS, ADDONUAPLUS #### [place] [address] [place] Protein (U) [Mass/Vol] 50 mg/dL High Negative [facility] Comment on above: Order Comment: Name Collection Type:: Clean-Voided Midstream Performed By: #### U RDS, ADDONUAPLUS #### [facility] [address] [place] [address] [place] RBC,Urine 50-100 High 0-4 [facility] Comment on above: Order Comment: Name Collection Type:: Clean-Voided Midstream Performed By: #### U RDS, ADDONUAPLUS #### [place] [address] [place] Specificy [place],Urine 1.034 High 1.001-1.030 [facility] Comment on above: Order Comment: Name Collection Type:: Clean-Voided Midstream Performed By: #### U RDS, ADDONUAPLUS #### [address] Squamous Epithelial Cell,Urine 1-2 Normal 0-2 [facility] Comment on above: Order Comment: Name Collection Type:: Clean-Voided Midstream Performed By: #### U RDS, ADDONUAPLUS #### [place] [address] [place] Urobilinogen,Urine Normal Normal Normal [facility] Comment on above: Order Comment: Name Collection Type:: Clean-Voided Midstream Performed By: #### U RDS, ADDONUAPLUS #### [place] [address] [place] WBC,Urine 1-2 Normal 0-4 [facility] Comment on above: Order Comment: Name Collection Type:: Clean-Voided Midstream Performed By: #### U RDS, ADDONUAPLUS #### [place] [address] [place] Drug Screen,Urineon 06-02-19 25 Amphetamine Screen,Urine Negative Normal Negative [facility] Comment on above: Performed By: #### U RDS, ADDONUAPLUS #### [address] Barbiturate Screen,Urine Negative Normal Negative [facility] Comment on above: Performed By: #### U RDS, ADDONUAPLUS #### [address] Benzodiazepines Screen,Urine Negative Normal Negative [facility] Comment on above: Performed By: #### U RDS, ADDONUAPLUS #### [address] Cannabinoid Screen,Urine Negative Normal Negative [facility] Comment on above: Result Comment: Thes e are unconfirmed results and should not be used for legal purposes. Drug Cut-Off Concentration: AMPH 1000 ng/mL HYACINTH 200 ng/mL LIZBETH 200 ng/mL COCM 300 ng/mL OP 300 ng/mL PCP 25 ng/mL THC 20 ng/mL PERFORMED BY: [place] [address] PATHOLOGIST LEAD LEVEL DESIGNER MARIA TERESA ASHRAF M.D. Performed By: #### U RDS, ADDONUAPLUS #### [place] [address] [place] Cocaine Screen,Urine Negative Normal Negative [facility] Comment on above: Performed By: #### U RDS, ADDONUAPLUS #### [place] [address] [place] Opiate Screen,Urine Negative Normal Negative [facility] Comment on above: Performed By: #### U RDS, ADDONUAPLUS #### [address] Phencyclidine Screen,Urine Negative Normal Negative [facility] Comment on above: Performed By: #### U RDS, ADDONUAPLUS #### [place] [address] [place] ECG 12 lead ECGon 06-01-2024 ECG 12 lead ECG [facility] [place] [address] [place] [address] Electrocardiograph Report Signed Patient: Kevin Hill MR#: [id number] : 1965 Acct:[id number] Age/Sex: 59 / M ADM Date: 06/01/24 Loc: Room: [address] [place] [address] Type: ADM IN Attending Dr: Chidi Barraza MD Ordering Provider: Minesh Mayer DO Date of Service: 06/01/24 ECG/ECG 12 lead ECG: Psychiatric Symptoms Copies to: Test Reason : Blood Pressure : */* mmHG Vent. Rate : 105 BPM Atrial Rate : 105 BPM P-R Int : 132 ms QRS Dur : 76 ms QT Int : 320 ms P-R-T Axes : 63 12 -5 degrees QTcB Int : 422 ms Sinus tachycardia with frequent premature ventricular complexes Confirmed by Minesh MAYER DO ([id number]) on 06/01/2024 2:52:37 PM Referred By: Electronically Signed By: Minesh MAYER DO Transcribed By: MUS Signed By Minesh Mayer DO 0 06/01/24 1452 Normal [facility] Ethyl Alcohol Profileon 05-19 Ethanol [Mass/Vol] mg/dL Normal [facility] Comment on above: Performed By: #### C BC, ETOH, CMP #### [address] Percent Ethanol Not performed Normal [facility] Comment on above: Result Comment: PERF ORMED BY: [place] [address] PATHOLOGIST LEAD LEVEL DESIGNER MARIA TERESA ASHRAF M.D. Performed By: #### C BC, ETOH, CMP #### [address] Laboratory - Hematology and Cell countson 05-31-2024 HbA1c (Bld) [Mass fraction] 7.7 % [facility] No Panel Informationon 05-31 [facility] Ryan 04-10-2024 L - -------- Specimen: [id number] Received: 04/10/24 Status: NENA Walter Num: [id number] Spec Type: Surgical Subm Dr: Dina Rudd DO Tissues: A Colon Biopsy (SIGMOID POLYP @ 23CM) Procedures: HE/2, Gross/Micro L4 -------- Age/ Patient Sex Location Account Attending Physician -------- Kevin Hill 59/M LABELL [id number] Dina Rudd DO -------- SPEC NUM: [id number] RECD: 04/10/24 STATUS: NENA KEITHLaura NUM: [id number] RICH: 04/10/24 [facility] DR: Dina Rudd DO ENTERED: 04/10/[address] [facility] [address]: Ely Mac SPEC TYPE: Surgical DEPT: [place] ENTERED BY: [id number] RECV BY: [id number] ORDERED: HE/2, Gross/Micro L4 ORDERED: HE/2, Gross/Micro L4 Pathological Diagnosis Polyp, sigmoid colon: Hyperplastic polyp. Clinical Information Diverticulosis, sigmoid polyp at 23 cm Gross Description Part A is received in formalin labeled with the patients name, date of , and sigmoid polyp at 23 cm is a basurto-chamberlain, focally erythematous, friable, 0.4 cm in greatest dimension polypoid fragment. The specimen is entirely submitted in a single cassette. (1, ns, [id number]) CPT Codes 75652 -------- -------- Specimen: [id number] Received: 04/10/24 Status: NENA Jose Angel Num: [id number] Spec Type: Surgical Subm Dr: Dina Rudd DO Tissues: A Colon Biopsy (SIGMOID POLYP @ 23CM) Procedures: RAYMOND/Dianne Alvarez/Joe Walker -------- Patient: Kevin Hill [id number] (Continued) -------- Signed (signature on file) Maria Teresa Ashraf MD 04/11/24 1358 Normal [facility] No Panel Informationon 04-10 Hyperplastic polyp [facility] Radiology Study observation (narrative) [facility] ALBUMIN, RANDOM URINE W/CREA TININEon 03-06-2024 ALBUMIN, URINE 0.2 mg/dL Normal See Note: [facility] Comment on above: Result Comment: Refe rence Range: Reference Range Not established Performed By: #### 1 230, 175 #### [facility] [address] [place] [phone] Magazine Keeper: Eva Vanegas #### 6517, 6550, 5363 #### [facility] [address], [address] [place] [address] Magazine Keeper: Conrad Bennett MD ALBUMIN/CREATININE RATIO, RANDOM URINE [...] a diagnostic category. Performed By: #### 1 230, 175 #### [facility] [address] [place] [phone] Magazine Keeper: Eva Vanegas #### 6517, 7600, 5363 #### [facility] [address], [address] [place], [place] [phone] Magazine Keeper: Conrad Bennett MD Creatinine (U) [Mass/Vol] 128 mg/dL Normal 20-320 [facility] Comment on above: Performed By: #### 1 023, 175 #### [facility] [address] [place] [phone] Magazine Keeper: Eva Vanegas #### 6517, 7600, 5363 #### [facility] [place] [address], [address] [place] [address] Magazine Keeper: Conrad Bennett MD CBC (H/H, RBC, INDICES, WBC, PLT)on 03-06-2024 Erythrocyte distribution width (RBC) [Ratio] 13.6 % Normal 11.0-15.0 [facility] Comment on above: Performed By: #### 1 0231, 1759 #### [facility] [address] Magazine Keeper: Eva Vanegas #### 6517, 7600, 5363 #### [facility] [place] [address] [address] , [address] [place] [address] Magazine Keeper: Conrad Bennett MD Hematocrit (Bld) [Volume fraction] 46.0 % Normal 38.5-50.0 [facility] Comment on above: Performed By: #### 1 0231, 1759 #### [facility] Magazine Keeper: Eva Vanegas #### 6517, 7600, 5363 #### [facility] [address], [address] [place] [address] Magazine Keeper: Conrad Bennett MD Hemoglobin (Bld) [Mass/Vol] 15.3 g/dL Normal 13.2-17.1 [facility] Comment on above: Performed By: #### 1 0231, 1759 #### [facility] [address] [place], [place] [phone] Magazine Keeper: Eva Vanegas #### 6517, 7600, 5363 #### [facility] [place] [address], [address] [place] [address] Magazine Keeper: Conrad Bennett MD MCH (RBC) [Entitic mass] 30.3 pg Normal 27.0-33.0 [facility] Comment on above: Performed By: #### 1 0231, 1759 #### [facility] [address] [place], [place] [phone] Magazine Keeper: Eva Vanegas #### 6517, 7600, 5363 #### [facility] [address], [address] [place] [address] Magazine Keeper: Conrad Bennett MD MCHC (RBC) [Mass/Vol] 33.3 [...] patient's clinical condition. Performed By: #### 1 0231, 1759 #### [facility] [address] Magazine Keeper: Eva Vanegas #### 6517, 0, 5363 #### [facility] [address], [address] [place] [address] Magazine Keeper: Conrad Bennett MD MCV (RBC) [Entitic vol] 91.1 fL Normal 80.0-100.0 [facility] Comment on above: Performed By: #### 1 0231, 1759 #### [facility] Magazine Keeper: Eva Vanegas #### 6517, 8210, 5363 #### [facility] [address], [address] [place] [address] Magazine Keeper: Conrad Bennett MD Platelet mean volume (Bld) [Entitic vol] 9.4 fL Normal 7.5-12.5 [facility] Comment on above: Performed By: #### 1 0231, 1759 #### [facility] [address] Magazine Keeper: Eva Vanegas #### 6517, 7600, 5363 #### [facility] [address], [address] [place] [address] Magazine Keeper: Conrad Bennett MD Platelets (Bld) [#/Vol] 275 10*3/uL Normal 140-400 [facility] Comment on above: Performed By: #### 1 0231, 1759 #### [facility] [address] [place] [address] Magazine Keeper: Eva Vanegas #### 6517, 7600, 5363 #### [facility] [address] , [address] [place] [address] Magazine Keeper: Conrad Bennett MD RBC (Bld) [#/Vol] 5.05 10*6/uL Normal 4.20-5.80 [facility] Comment on above: Performed By: #### 1 0231, 1759 #### [facility] [address] Magazine Keeper: Eva Vanegas #### 6517, 7600, 5363 #### [facility] [place] [address], [address] [place] [address] Magazine Keeper: Conrad Bennett MD WBC (Bld) [#/Vol] 4.6 10*3/uL Normal 3.8-10.8 [facility] Comment on above: Performed By: #### 1 0231, 1759 #### [place] [address] Magazine Keeper: Eva Vanegas #### 6517, 2270, 5363 #### [facility] [place] [address], [address] [place] [address] Magazine Keeper: Conrad Bennett MD [facility] 03-06-2024 Albumin [Mass/Vol] 4.2 g/dL Normal 3.6-5.1 [facility] Comment on above: Performed By: #### 1 0231, 1759 #### [facility] [address] Magazine Keeper: Eva Vanegas #### 6517, 7600, 5363 #### [facility] [place] [address] [address] , [address] [place] [address] Magazine Keeper: Conrad Bennett MD Albumin/Globulin [Mass ratio] 1.8 {ratio} Normal 1.0-2.5 [facility] Comment on above: Performed By: #### 1 0231, 1759 #### [facility] Magazine Keeper: Eva Vanegas #### 6517, 1280, 5363 #### [facility] [address], [address] [place] [address] Magazine Keeper: Conrad Bennett MD ALP [Catalytic activity/Vol] 41 U/L Normal 35-144 [facility] Comment on above: Performed By: #### 1 0231, 1759 #### [facility] [address] Magazine Keeper: Eva Vanegas #### 6517, 3350, 5363 #### [facility] [address], [address] [place] [address] Magazine Keeper: Conrad Bennett MD ALT [Catalytic activity/Vol] 17 U/L Normal 9-46 [facility] Comment on above: Performed By: #### 1 0231, 1759 #### [facility] [address] Magazine Keeper: Eva Vanegas #### 6517, 4630, 5363 #### [facility] [address], [address] [place] [address] Magazine Keeper: Conrad Bennett MD AST [Catalytic activity/Vol] 15 U/L Normal 10-35 [facility] Comment on above: Performed By: #### 1 0231, 1759 #### [facility] Magazine Keeper: Eva Vanegas #### 6517, 0130, 5363 #### [facility] [address], [address] [place] [address] Magazine Keeper: Conrad Bennett MD Bilirubin [Mass/Vol] 0.7 mg/dL Normal 0.2-1.2 [facility] Comment on above: Performed By: #### 1 0231, 1759 #### [facility] [address] [place], [place] [phone] Magazine Keeper: Eva Vanegas #### 6517, 7600, 5363 #### [facility] [address], [address] [place] [address] Magazine Keeper: Conrad Bennett MD BUN/CREATININE RATIO SEE NOTE: Normal 6-22 [facility] Comment on above: Result Comment: Not Reported: BUN and Creatinine are within reference range. Performed By: #### 1 0231, 1759 #### [facility] [address] Magazine Keeper: Eva Vanegas #### 6517, 6740, 5363 #### [facility] [address], [address] [place] [address] Magazine Keeper: Conrad Bennett MD Calcium [Mass/Vol] 9.6 mg/dL Normal 8.6-10.3 [facility] Comment on above: Performed By: #### 1 0231, 1759 #### [facility] [address] Magazine Keeper: Eva Vanegas #### 6517, 8900, 5363 #### [facility] [address], [address] [place] [address] Magazine Keeper: Conrad Bennett MD Chloride [Moles/Vol] 105 mmol/L Normal 98-110 [facility] Comment on above: Performed By: #### 1 0231, 1759 #### [facility] [address] [place], [place] [phone] Magazine Keeper: Eva Vanegas #### 6517, 9430, 5363 #### [facility] [address], [address] [place] [address] Magazine Keeper: Conrad Bennett MD CO2 [Moles/Vol] 28 mmol/L Normal 20-32 [facility] Comment on above: Performed By: #### 1 0231, 1759 #### [facility] [address] [place] [address] Magazine Keeper: Eva Vanegas #### [id number], 7600, 5363 #### [facility] [address], [address] [place], [place] [id number] Magazine Keeper: Conrad Bennett MD Creatinine [Mass/Vol] 0.87 mg/dL Normal 0.70-1.30 [facility] Comment on above: Performed By: #### 1 0231, 1759 #### [facility] [address] [place], [place] [id number] Magazine Keeper: Eva Vanegas #### 6517, 4370, 5363 #### [facility] [address], [address] [place] [address] Magazine Keeper: Conrad Bennett MD GFR/1.73 sq M.predicted among non-blacks MDRD (S/P/Bld) [Vol rate/Area] 101 mL/min/{1.73_m2} Normal > OR = 60 [facility] Comment on above: Performed By: #### 1 230, 1759 #### [place] [address] Magazine Keeper: Eva Vanegas #### 6517, 2790, 5363 #### [facility] [address], [address] [place] [address] Magazine Keeper: Conrad Bennett MD Globulin (S) [Mass/Vol] 2.3 g/dL Normal 1.9-3.7 [facility] Comment on above: Performed By: #### 1 0231, 1759 #### [facility] [address] [place] [address] Magazine Keeper: Eva Vanegas #### 6517, 4450, 5363 #### [facility] [address], [address] [place] [address] Magazine Keeper: Conrad Bennett MD Glucose [Mass/Vol] 100 mg/dL High 65-99 [facility] Comment on above: Result Comment: Fasting reference interval For someone without known diabetes, a glucose value between 100 and 125 mg/dL is consistent with prediabetes and should be confirmed with a follow-up test. Performed By: #### 1 0231, 1759 #### [place] [address] Magazine Keeper: Eva Vanegas #### 6517, 0, 5363 #### [facility] [address], [address] [place] [address] Magazine Keeper: Conrad Bennett MD Potassium [Moles/Vol] 5.1 mmol/L Normal 3.5-5.3 [facility] Comment on above: Performed By: #### 1 230, 1759 #### [facility] [place] [address] Magazine Keeper: Eva Vanegas #### 6517, 0, 5363 #### [facility] [address], [address] [place] [address] Magazine Keeper: Conrad Bennett MD Protein [Mass/Vol] 6.5 g/dL Normal 6.1-8.1 [facility] Comment on above: Performed By: #### 1 230, 175 #### [facility] Magazine Keeper: Eva Vanegas #### 65, 7599, 5363 #### [facility] [address], [address] [place] [address] Magazine Keeper: Conrad Bennett MD Sodium [Moles/Vol] 139 mmol/L Normal 135-146 [facility] Comment on above: Performed By: #### 1 230, 175 #### [facility] [address] Magazine Keeper: Eva Vanegas #### 65, 0, 5363 #### [facility] [address], [address] [place] [address] Magazine Keeper: Conrad Bennett MD Urea nitrogen [Mass/Vol] 16 mg/dL Normal 7-25 [facility] Comment on above: Performed By: #### 1 0231, 1759 #### [facility] [address] [place] [address] Magazine Keeper: Eva Vanegas #### 6517, 7600, 5363 #### [facility] [address], [address] [place] [address] Magazine Keeper: Conrad Bennett MD LIPID PANEL, [place] [address] Cholesterol [Mass/Vol] 211 mg/dL High <200 [facility] Comment on above: Order Comment: FASTI NG:YES FASTING: YES Performed By: #### 1 0231, 1759 #### [facility] [address] [place] [address] Magazine Keeper: Eva Vanegas #### 6517, 7600, 5363 #### [facility] [address], [address] [place] [address] Magazine Keeper: Conrad Bennett MD Cholesterol in HDL [Mass/Vol] 53 mg/dL Normal > OR = 40 [facility] Comment on above: Order Comment: FASTI NG:YES FASTING: YES Performed By: #### 1 0231, 1759 #### [facility] [address] [place] [address] Magazine Keeper: Eva Vanegas #### 6517, 7600, 5363 #### [facility] [address], [address] [place] [address] Magazine Keeper: Conrad Bennett MD Cholesterol in LDL [Mass/Vol] 139 mg/dL High [facility] Comment on above: Order Comment: FASTI NG:YES FASTING: YES Result Comment: Refe rence range: <100 Desirable range <100 mg/dL for primary prevention; <70 mg/dL for patients with CHD or diabetic patients with > or = 2 CHD risk factors. LDL-C is now calculated using the Nicho-Muir calculation, which is a validated novel method providing better accuracy than the Friedewald equation in the estimation of LDL-C. Nicho HURTADO et al. KARMA. 2013;310(19): 1447-9820 (http://education.[facility]/faq/LXV418) Performed By: #### 1 023, 1759 #### [facility] [address] [place], [place] [id number] Magazine Keeper: Eva Vanegas #### 6517, 7600, 5363 #### [facility] [address], [address] [place] [address] Magazine Keeper: Conrad Bennett MD Cholesterol.total/Ch olesterol in HDL [Mass ratio] 4.0 {ratio} Normal <5.0 [facility] Comment on above: Order Comment: FASTI NG:YES FASTING: YES Performed By: #### 1 023, 1759 #### [facility] [address] Magazine Keeper: Eva Vaneags #### 6517, 0, 5363 #### [facility] [address], [address] [place] [address] Magazine Keeper: Conrad Bennett MD NON HDL CHOLESTEROL 158 mg/dL (calc) High <130 [facility] Comment on above: Order Comment: FASTI NG:YES FASTING: YES Result Comment: For patients with diabetes plus 1 major ASCVD risk factor, treating to a non-HDL-C goal of <100 mg/dL (LDL-C of <70 mg/dL) is considered a therapeutic option. Performed By: #### 1 023, 1759 #### [facility] [address] [place] [phone] Magazine Keeper: Eva Vanegas #### 6517, 7600, 5363 #### [facility] [address], [address] [place] [address] Magazine Keeper: Conrad Bennett MD Triglyceride [Mass/Vol] 88 mg/dL Normal <150 [facility] Comment on above: Order Comment: FASTI NG:YES FASTING: YES Performed By: #### 1 0231, 1759 #### [facility] [place] [address] Magazine Keeper: Eva Vanegas #### 6517, 7600, 5363 #### [facility] [address], [address] [place] [address] Magazine Keeper: Conrad Bennett MD PSA, TOTALon 03-06-2024 PSA, TOTAL 3.64 ng/mL Normal < OR = 4.00 [facility] Comment on above: Result Comment: The total PSA value from this assay system is standardized against the WHO standard. The test result will be approximately 20% lower when compared to the equimolar-standardized total PSA (Imelda [place]). Comparison of serial PSA results should be interpreted with this fact in mind. This test was performed using the Siemens chemiluminescent method. Values obtained from different assay methods cannot be used interchangeably. PSA levels, regardless of value, should not be interpreted as absolute evidence of the presence or absence of disease. Performed By: #### 1 0231, 1759 #### [facility] [address] [place] [address] Magazine Keeper: Eva Vanegas #### [id number], 7600, 5363 #### [facility] [place] [address] Magazine Keeper: Conrad Bennett MD Laboratory - Hematology and Cell countson 02-21-2024 HbA1c (Bld) [Mass fraction] 7.1 % [facility] No Panel Informationon 02-20 [facility] Covid-19 PCR (CVDTBH)on 03-21 SARS-CoV-2 (COVID-19) RNA TERRY+probe Ql (Unsp spec) Not detected Normal NOT DETECTED [facility] Comment on above: Result Comment: When diagnostic testing is negative, the possibility of a false negative should be considered in the context of a patient's recent exposures and the presence of clinical signs and symptoms consistent with SARS-CoV-2. This test is not yet approved or cleared by the [place] Food and Drug Administration (FDA). This test was developed by [employer], [place], [place]. The performance characteristics of this test were validated by [facility]. The results are not intended to be used as the sole means for clinical diagnosis or patient management decisions. The [facility] is authorized under Clinical Laboratory Improvement Amendments [...] for this test is supported by the [employer] of Health and Human Service's declaration that [...] used). Performed By: #### C VDTBH #### [facility] [address] [place] [address] Dr. Lucas Champion POINT OF CARE GLUCOSEon 03-21 Glucose [Mass/Vol] 88 mg/dL Normal 74-106 [facility] Comment on above: Performed By: #### P OCGLUC #### [facility] [address] [place] [address] Dr. Lucas Champion Glucose [Mass/Vol] 92 mg/dL Normal 74-106 [facility] Comment on above: Performed By: #### P OCGLUC #### [facility] [address] [place] [address] Dr. Lucas Champion ASYMPTOMATIC COVID-19 ANTIGE Non 12-20-2020 EUA Statement SEE BELOW Normal [facility] Comment on above: Result Comment: This [...] sooner. Performed By: #### C VDAGA #### [facility] [address] [place] [address] Dr. Lucas Champion SARS-CoV-2 (COVID-19) RNA TERRY+probe Ql (Unsp spec) Negative Normal NEGATIVE [facility] Comment on above: Result Comment: Nega tive results are presumptive. They do not preclude infection and should not be used as the sole basis for treatment decisions. Additional confirmatory testing by a molecular method should be considered. Performed By: #### C VDAGA #### [facility] [address] [place] [address] Dr. Lucas Champion Covid-19 PCR (CVDTB)on SARS-CoV-2 (COVID-19) RNA TERRY+probe Ql (Unsp spec) Not detected Normal NOT DETECTED [facility] Comment on above: Result Comment: This test is not yet approved or cleared by the [place] FDA. When there are no FDA-approved or cleared tests available, and other criteria are met, FDA can make tests available under an emergency access mechanism called an Emergency Use Authorization (EUA). The EUA for this test is supported by the [place] of Health and Human Service's (HHS's) declaration [...] consistent with SARS-CoV-2. Performed By: #### C VDTBH #### [facility] [address] [place] [address] Dr. Lucas Champion XR CHEST 1 Von 12-20-2020 XR CHEST 1 V CHEST X RAY, SINGLE VIEW CLINICAL INFORMATION: Chest pain. COMPARISONS: None. FINDINGS: Low lung volumes. No focal consolidation to suggest pneumonia. No pleural effusions or pneumothorax. No overt pulmonary edema. Cardiomediastinal silhouette within normal limits. No free air under the diaphragm. IMPRESSION: 1. No acute cardiopulmonary disease. Electronically authenticated by: WILLIE HUNTER Date: 2020-12-20 18:20 Normal [facility] CBC With Platelet No Differe ntialon 04-11-2017 Erythrocyte distribution width Auto Ratio (RBC) 13.8 % Normal 11.5-14.5 [facility] Erythrocytes (RBC) 5.17 10*6/uL Normal 4.70-6.10 [facility] Hematocrit (HCT) 48.1 % Normal 42.0-52.0 [facility] Hemoglobin mass conc (Bld) 16.2 g/dL Normal 14.0-18.0 [facility] MCH 31.3 pg Normal 27.0-31.3 [facility] MCHC mass conc (RBC) 33.6 % Normal 33.0-37.0 [facility] MCV 93.0 fL Normal 80.0-100.0 [facility] Platelets 288 10*3/uL Normal 130-400 [facility] WBC (Leukocytes) 5.4 10*3/uL Normal 4.8-10.8 [facility] Comprehensive Metabolic Pane ryan 04-11-2017 Alanine aminotransferase (ALT) 12 U/L Normal 0-41 [facility] Albumin 4.2 g/dL Normal 3.9-4.9 [facility] Alkaline phosphatase (ALP) 46 U/L Normal 35-104 [facility] Anion gap 21 mmol/L Critically high 7-13 [facility] Aspartate aminotransferase (AST) 13 U/L Normal 0-40 [facility] Bilirubin (total) 0.8 mg/dL Normal 0.0-1.2 [facility] Calcium 9.6 mg/dL Normal 8.6-10.2 [facility] Chloride 102 mmol/L Normal 98-107 [facility] CO2 18 mmol/L Low 22-29 [facility] Creatinine 0.74 mg/dL Normal 0.70-1.20 [facility] eGFR (black) mL/min/{1.73_m2} Normal >60 [facility] Comment on above: Result Comment: >60 mL/min/1.73m2 EGFR, calc. for ages 18 and older using theMDRD formula (not corrected for weight), is valid for stablerenal function. eGFR (MDRD) mL/min/{1.73_m2} Normal >60 [facility] Comment on above: Result Comment: >60 mL/min/1.73m2 EGFR, calc. for ages 18 and older using theMDRD formula (not corrected for weight), is valid for stablerenal function. Globulin 2.3 g/dL Normal 2.3-3.5 [facility] Glucose mass conc 114 mg/dL Critically high 74-109 [facility] Potassium molar conc 4.1 mmol/L Normal 3.5-5.1 [facility] Protein 6.5 g/dL Normal 6.4-8.1 [facility] Sodium 141 mmol/L Normal 132-144 [facility] Urea nitrogen 13 mg/dL Normal 6-20 [facility] Hemoglobin A1con 04-11-2017 Hemoglobin A1c/Hemoglobin.total mass fraction (Bld) 7.2 % Critically high 4.8-5.9 [facility] TSH w/out Reflexon 8 Thyroid stimulating hormone (TSH) 1.340 uIU/mL Normal 0.270-4.20 [facility] VITAMIN Don 04-11-2017 VITAMIN D 20.0 ng/mL Low 30.0-100.0 [facility] Comment on above: Result Comment: (20- 30 ng/mL) InsufficiencyThis assay accurately quantifies the sum of vitamin D3, 25-Hydroxy andvitamin D2, 25-Hyroxy. Hemoglobin A1con 04-08-2017 Hemoglobin A1c/Hemoglobin.total mass fraction (Bld) 7.3 % Critically high 4.8-5.9 [facility] Vital Signs Date Time Vital Sign Value Performing Clinician Facility 05-31-2024 08:59-0400 Body height 188 cm Maribell Zapata NP Work Phone: [facility] 05-31-2024 08:59-0400 Body mass index (BMI) [Ratio] 29.53 kg/m2 Maribell Zapata SPRINKLER INSPECTOR Work Phone: [facility] 05-31-2024 08:59-0400 Body weight 104.33 kg Maribell Zapata SPRINKLER INSPECTOR Work Phone: [facility] 05-31-2024 08:59-0400 Diastolic blood pressure 80 mm[Hg] Maribell Zapata SPRINKLER INSPECTOR Work Phone: [facility] 05-31-2024 08:59-0400 Heart rate 96 /min Maribell Zapata SPRINKLER INSPECTOR Work Phone: [facility] 05-31-2024 08:59-0400 SaO2% (BldA) [Mass fraction] 99 % Maribell Zapata SPRINKLER INSPECTOR Work Phone: [facility] 05-31-2024 08:59-0400 Systolic blood pressure 128 mm[Hg] Maribell Zapata SPRINKLER INSPECTOR Work Phone: [facility] 05-15-2024 10:45-0500 Body height 188 cm Hiwot Kwok MD Work Phone: [facility] 05-15-2024 10:45-0500 Body mass index (BMI) [Ratio] 31.07 kg/m2 Hiwot Kwok MD Work Phone: [facility] 05-15-2024 10:45-0500 Body weight 109.77 kg Hiwot Kwok MD Work Phone: [facility] 05-15-2024 10:45-0500 Diastolic blood pressure 86 mm[Hg] Hiwot Kwok MD Work Phone: [facility] 05-15-2024 10:45-0500 Heart rate 74 /min Hiwot Kwok MD Work Phone: [facility] 05-15-2024 10:45-0500 Systolic blood pressure 125 mm[Hg] Hiwot Kwok MD Work Phone: [facility] 05-08-2024 10:54-0500 Body height 188 cm Katie Quiroga SPRINKLER INSPECTOR Work Phone: [facility] 05-08-2024 10:54-0500 Body mass index (BMI) [Ratio] 31.17 kg/m2 Katie Junaid SPRINKLER INSPECTOR Work Phone: [facility] 05-08-2024 10:54-0500 Body weight 110.13 kg Katie Pinconning SPRINKLER INSPECTOR Work Phone: [facility] 05-08-2024 10:54-0500 Diastolic blood pressure 72 mm[Hg] Katie Pinconning SPRINKLER INSPECTOR Work Phone: [facility] 05-08-2024 10:54-0500 Heart rate 80 /min Katie Junaid SPRINKLER INSPECTOR Work Phone: [facility] 05-08-2024 10:54-0500 Respiratory rate 17 /min Katie Junaid SPRINKLER INSPECTOR Work Phone: [facility] 05-08-2024 10:54-0500 SaO2% (BldA) [Mass fraction] 97 % Katie Junaid SPRINKLER INSPECTOR Work Phone: [facility] 05-08-2024 10:54-0500 Systolic blood pressure 108 mm[Hg] Katie Pinconning SPRINKLER INSPECTOR Work Phone: [facility] 02-21-2024 10:52-0500 Body height 188 cm Katie Pinconning SPRINKLER INSPECTOR Work Phone: [facility] 02-21-2024 10:52-0500 Body mass index (BMI) [Ratio] 30.69 kg/m2 Katie Pinconning SPRINKLER INSPECTOR Work Phone: [facility] 02-21-2024 10:52-0500 Body weight 108.41 kg Katie Pinconning SPRINKLER INSPECTOR Work Phone: [facility] 02-21-2024 10:52-0500 Diastolic blood pressure 76 mm[Hg] Katie Pinconning SPRINKLER INSPECTOR Work Phone: [facility] 02-21-2024 10:52-0500 Heart rate 93 /min Katie Junaid SPRINKLER INSPECTOR Work Phone: [facility] 02-21-2024 10:52-0500 SaO2% (BldA) [Mass fraction] 96 % Katie Pinconning SPRINKLER INSPECTOR Work Phone: [facility] 02-21-2024 10:52-0500 Systolic blood pressure 130 mm[Hg] Katie Quiroga SPRINKLER INSPECTOR Work Phone: [facility] 07-19-2022 10:30-0400 Body height 187.96 cm Cj Garcia Other [employer] Other 07-19-2022 10:30-0400 Body mass index (BMI) [Ratio] 30.17 kg/m2 Cj Garcia Other [employer] Other 07-19-2022 10:30-0400 Body temperature 97.9 [degF] Cj Garcia Other [employer] Other 07-19-2022 10:30-0400 Body weight 106.6 kg Cj Garcia Other [employer] Other 07-19-2022 10:30-0400 Diastolic blood pressure 81 mm[Hg] Cj Garcia Other [employer] Other 07-19-2022 10:30-0400 Respiratory rate 18 /min Cj Garcia Other [employer] Other 07-19-2022 10:30-0400 SaO2% (BldA) [Mass fraction] 96 % Cj Garcia Other [employer] Other 07-19-2022 10:30-0400 Systolic blood pressure 125 mm[Hg] Cj Garcia Other [employer] Other Encounters Encounter Date Encounter Type Care Provider Facility Start: 07-02-2024 ambulatory Esvin Young ty:[facility] Start: 06-25-2024 ambulatory Esvin MORILLO Facility :[facility] Start: 06-20-2024 End: 06-20-2024 Clinisync Result Encounter Katie Roche Junaid SPRINKLER INSPECTOR Work Phone: [facility] Unsolicited Start: 06-20-2024 End: 06-20-2024 Clinisync Result Encounter Katie Roche Junaid SPRINKLER INSPECTOR Work Phone: [facility] Unsolicited Start: 06-09-2024 End: 06-09-2024 Emergency department patient visit Iwona Huntley Facility:[facility] Start: 06-01-2024 ambulatory Iwona Huntley Facility:[facility] Start: 06-01-2024 End: 06-05-2024 Evaluation and management of inpatient Chidi Christi Facility:[facility] Start: 05-31-2024 End: 05-31-2024 Bamboo flowsheet Maribell Zapata SPRINKLER INSPECTOR Work Phone: [facility] Start: 05-31-2024 End: 05-31-2024 Bamboo flowsheet Maribell Zapata SPRINKLER INSPECTOR Work Phone: [facility] Start: 05-31-2024 End: 05-31-2024 Office outpatient visit 25 minutes Maribell Zapata SPRINKLER INSPECTOR Work Phone: [facility] Comment on above: Type 2 diabetes ellyn itus with hyperglycemia, with long-term current use of insulin ([facility]) (Primary Dx); Bipolar affective disorder, remission status unspecified ([facility]); Anxiety Start: 05-31-2024 End: 05-31-2024 ambulatory MARIBELL ZAPATA Not Available Start: 05-15-2024 End: 05-15-2024 Bamboo flowsheet Hiwot Kwok MD Work Phone: [facility] Start: 05-15-2024 End: 05-15-2024 Bamboo flowsheet Hiwot Kwok MD Work Phone: [facility] Start: 05-15-2024 End: 05-15-2024 Office outpatient new 45 minutes Hiwot Kwok MD Work Phone: [facility] Comment on above: Other specified diab etes mellitus with other specified complication, unspecified whether halfway insulin use ([facility]) (Primary Dx); Rhinitis medicamentosa Start: 05-15-2024 End: 05-15-2024 ambulatory HIWOT KWOK Not Available Start: 05-08-2024 End: 05-08-2024 Office outpatient visit 25 minutes Katie Quiroga SPRINKLER INSPECTOR Work Phone: [facility] Comment on above: Nasal congestion (Pr imary Dx); Enlarged testicle; Pain in right testicle; Bipolar disorder, unspecified ([facility]) Start: 05-08-2024 End: 05-08-2024 ambulatory KATIE QUIROGA Not Available Start: 04-10-2024 End: 04-10-2024 ambulatory Dina Tobin Facility:[facility] Start: 03-27-2024 End: 03-27-2024 ambulatory DINA RUDD Not Available Start: 03-27-2024 End: 03-27-2024 Patient encounter procedure Dina Rudd DO Work Phone: [facility] Comment on above: Screen for colon can cer (Primary Dx) Start: 03-12-2024 End: 03-12-2024 Refill Katie Quiroga SPRINKLER INSPECTOR Work Phone: [facility] Comment on above: Type 2 diabetes ellyn itus with diabetic polyneuropathy ([facility]); Diabetic polyneuropathy associated with type 2 diabetes mellitus ([facility]) Start: 02-21-2024 End: 02-21-2024 Bamboo flowsheet Katie Quiroga SPRINKLER INSPECTOR Work Phone: [facility] Start: 02-21-2024 End: 02-21-2024 Bamboo flowsheet Katie Quiroga SPRINKLER INSPECTOR Work Phone: [facility] Start: 02-21-2024 End: 02-21-2024 Assay of hemosiderin, quant Katie Quiroga SPRINKLER INSPECTOR Work Phone: [facility] Start: 02-21-2024 End: 02-21-2024 Patient encounter procedure Katie Quiroga SPRINKLER INSPECTOR Work Phone: [facility] Comment on above: Medicare annual well ness visit, subsequent (Primary Dx); Diabetic polyneuropathy associated with type 2 diabetes mellitus ([facility]); Primary insomnia; Essential hypertension; Myalgia; Myopathy; Type 2 diabetes mellitus with hyperglycemia, with long-term current use of insulin ([facility]); Obesity (BMI 30-39.9); Adjustment disorder with depressed mood ([facility]); Bipolar affective disorder, remission status unspecified ([facility]); Elevated LDL cholesterol level ([facility]); Major depressive disorder in full remission, unspecified whether recurrent (HCC) ([facility]); Major depressive disorder, single episode, in full remission ([facility]); Screening for prostate cancer; Flu vaccine need; Screening for colon cancer; Routine general medical examination at health care facility; Acute non-recurrent pansinusitis Start: 02-21-2024 End: 02-21-2024 ambulatory KATIE QUIRGOA Not Available Start: 06-14-2023 End: 06-14-2023 ambulatory KATIE QUIROGA Not Available Start: 07-19-2022 End: 07-19-2022 ambulatory Cj Garcia Other [employer] Other Start: 07-19-2022 Office outpatient vi sit 15 minutes Cj Garcia [facility] Start: 04-08-2021 End: 04-08-2021 ambulatory JOSEP HORN Facility: Start: 12-20-2020 End: 12-20-[address] IWONA HUNTLEY Facility: Start: 04-07-2017 Evaluation and management of inpatient Clarence Arnold Facility:[place] Procedures Date Procedure Procedure Detail Performing Clinician Start: 06-20-2024 Us scrotum & contents S miguel angel Quiroga SPRINKLER INSPECTOR Work Phone: Start: 05-31-2024 Hemoglobin glycosyla joesph a1c Maribell Zapata SPRINKLER INSPECTOR Work Phone: Start: 04-10-2024 COLONOSCOPY DIAGNOSTIC Arnol Muñoz MD Work Phone: Start: 04-10-2024 Colonoscopy Maribell Zapata SPRINKLER INSPECTOR Work Phone: Start: 02-21-2024 Hemoglobin glycosyla joesph a1c Katie Quiroga SPRINKLER INSPECTOR Work Phone: Plan of Treatment Date Care Activity Detail Author Start: 04-10-2034 Screening for malign ant neoplasm of colon [facility] Start: 03-05-2025 Urine screening for protein Diabetes: Urine Protein Screening [facility] Start: 02-20-2025 Medicare Annual Well ness (AWV) Medicare Annual Wellness (AWV) [facility] Start: 08-31-2024 Hemoglobin A1c measurement Diabetes: Hemoglobin A1C [facility] Start: 06-14-2024 End: 06-14-2024 Patient encounter procedure 06/14/2024 9:00 AM EDT Office Visit [facility] [address] [place] [address] Maribell Zapata, SPRINKLER INSPECTOR [address] [place] [address] [facility] Start: 05-31-2024 End: 05-31-2024 Patient encounter procedure 05/31/2024 9:00 AM EDT Office Visit [facility] [address] [place] [address] Maribell Zapata, SPRINKLER INSPECTOR [address] [place] [address] Arrived [facility] Comment on above: Arrived Start: 05-21-2024 Hemoglobin A1c measurement Diabetes: Hemoglobin A1C [facility] Start: 05-15-2024 End: 05-15-2024 Patient encounter procedure 05/15/2024 10:50 AM EST Office Visit [facility] [address] [place] [address] Hiwot Kwok MD [address] [place] [address] Nasal congestion [facility] Comment on above: Nasal congestion Start: 05-08-2024 End: 05-08-2025 US Scrotum and testicle US scrotum Imaging Routine Enlarged testicle Pain in right testicle Expected: 05/08/2024, Expires: 05/08/2025 [facility] Work Phone: Comment on above: Expected: 05/08/2024 , Expires: 05/08/2025 Start: 03-26-2024 End: 03-26-2024 Patient encounter procedure 03/26/2024 1:15 PM EST Office Visit [facility] [address] [place] [id number] Dina Rudd DO [address] [place] [address] [facility] Start: 02-21-2024 End: 02-20-2025 CBC panel - Blood by Automated count CBC Lab Routine Medicare annual wellness visit, subsequent Essential hypertension Type 2 diabetes mellitus with hyperglycemia, with long-term current use of insulin (CMS/HCC) Expected: 02/21/2024 (Approximate), Expires: 02/20/2025 [facility] Comment on above: Expected: 02/21/2024 (Approximate), Expires: 02/20/2025 Start: 02-21-2024 End: 02-20-2025 Comprehensive metabolic 2000 panel - Serum or Plasma Comprehensive metabolic panel Lab Routine Medicare annual wellness visit, subsequent Essential hypertension Type 2 diabetes mellitus with hyperglycemia, with long-term current use of insulin (CMS/HCC) Expected: 02/21/2024 (Approximate), Expires: 02/20/2025 [facility] Comment on above: Expected: 02/21/2024 (Approximate), Expires: 02/20/2025 Start: 02-21-2024 End: 02-20-2025 Lipid 1996 panel - Serum or Plasma Lipid panel Lab Routine Medicare annual wellness visit, subsequent Elevated LDL cholesterol level (CMS/HCC) Expected: 02/21/2024 (Approximate), Expires: 02/20/2025 [facility] Work Phone: Comment on above: Expected: 02/21/2024 (Approximate), Expires: 02/20/2025 Start: 02-21-2024 End: 02-20-2025 Microalbumin/Creatinine panel in random Urine Microalbumin / creatinine, urine ratio Lab Routine Medicare annual wellness visit, subsequent Type 2 diabetes mellitus with hyperglycemia, with long-term current use of insulin (CMS/HCC) Expected: 02/21/2024 (Approximate), Expires: 02/20/2025 [facility] Comment on above: Expected: 02/21/2024 (Approximate), Expires: 02/20/2025 Start: 02-21-2024 End: 02-20-2025 Prostate specific Ag [Mass/volume] in Serum or Plasma PSA Lab Routine Screening for prostate cancer Expected: 02/21/2024 (Approximate), Expires: 02/20/2025 [facility] Comment on above: Expected: 02/21/2024 (Approximate), Expires: 02/20/2025 Start: 02-21-2024 End: 02-21-2024 Patient encounter procedure 02/21/2024 11:00 AM EST Office Visit [facility] [address] [facility] [address] [place] [id number] Katie Quiroga NP [address] [facility] [address] [place], [place] [id number] Medicare annual wellness visit, subsequent (Primary Dx); [...] in full remission, unspecified whether recurrent (HCC) ([facility]/HCC); Major depressive disorder, single episode, in full remission ([facility]/HCC); Screening for prostate cancer Start: 01-14-2024 Medicare Annual Well ness (AWV) Medicare Annual Wellness (AWV) [facility] Start: 01-01-2024 Urine screening for protein Diabetes: Urine Protein Screening [facility] Start: 11-20-2023 Influenza vaccination Influenza Vacc ine (#1) [facility] Start: 09-14-2023 Hemoglobin A1c measurement Diabetes: Hemoglobin A1C [facility] Start: 1977 Glaucoma screening Diabetes: R etinopathy Screening [facility] Start: 1967 Screening for malign ant neoplasm of colon [facility] Immunizations Immunization Date Immunization Notes Care Provider Fa cility 02-21-2024 influenza, seasonal, injectable, preservative free Katie Quiroga SPRINKLER INSPECTOR Work Phone: [facility] 01-06-2022 Moderna SARS-CoV-2 50mcg/0.5mL Booster Katie Quiroga SPRINKLER INSPECTOR Work Phone: [facility] Payers Date Payer Category Payer Self-pay 2016 Medicare MEDICARE [id number] 1967 Unknown [id number] 1967 Unknown [id number] 3 1967 Unknown [id number] 59 1967 Unknown [id number] 59 1967 Unknown [id number] 59 1967 Unknown [id number] 59 1967 Unknown [id number] 59 1967 Unknown [id number] 59 1959 Medicare [id number] Medicare [id number] Unknown [id number] 1 Unknown [id number] 1 Unknown [id number] 1 Unknown [id number] 1 Social History Date Type Detail Facility Unknown if ever smoked [employer] Other Start: 01-13-2023 End: 02-21-2024 Sex Assigned At [facility] Start: 11-04-2022 Tobacco smoking status [facility] Tobacco smoking consumption unknown [facility] Start: 11-04-2022 End: 05-08-2024 Alcoholic beverage intake Defer [facility] Start: 01-13-2023 End: 02-21-2024 History of Social function [facility] Start: 1965 Sex assigned at Not on file [facility] Start: 02-21-2024 Tobacco smoking status ORIS Never smoked tobacco [facility] Start: 02-21-2024 Tobacco use and exposure Smokeless tobacco non-user [facility] Start: 05-15-2024 End: 05-31-2024 Alcoholic beverage intake Lifetime non-drinker (finding) [facility] Medical Equipment Procedure Code Equipment Code Equipment Origin al Text Equipment Identifier Dates USE DIRECTED DAILY [id number] Start: 01-18-2023 Clinical Notes 07-19-2022 to 05-31-2024 Maribell Zapata NP - 05/31/2024 9:00 AM EDTPatient Cydney Kwok MD - 05/15/2024 10:50 AM Crystal Quiroga NP - 05/08/2024 11:00 AM Joshmaico DO Tobin - 03/27/2024 9:15 AM EST Note Date & Type Note Facility 05-31-2024 History of Presen t illness Narrative Images from the original note were not included. HPI Med Refill Additional comments: Gabapentin-- [facility] Last edited by Tiffany Tucker LPN on 05/31/2024 9:05 AM. Subjective Patient ID: Kevin Hill Jr is a 59 y.o. male who presents for Diabetes, Med Refill (Gabapentin-- [facility]), and Depression. Depression Patient complains of depression. He complains of depressed mood and anxiety. Onset was approximately 2 weeks ago. Symptoms have been gradually worsening since that time. Current symptoms include: depressed mood, hopelessness, and insomnia. Patient denies psychomotor retardation, recurrent thoughts of , suicidal attempt, suicidal thoughts with specific plan, and suicidal thoughts without plan. Possible organic causes contributing are: none. Risk factors: previous episode of depression. Previous treatment includes medication. He complains of the following side effects from the treatment: none. Pt here for DM follow up he is not checking blood sugars at home but is taking medications regularly, denies any foot ulcers. Med Refill Associated symptoms include fatigue. Depression Current Outpatient Medications on File Prior to Visit Medication Sig Dispense Refill fluticasone (Flonase) 50 MCG/ACT nasal spray Administer 2 sprays into each nostril Daily Shake gently. Before first use, prime pump. After use, clean tip and replace cap. 48 g 3 gabapentin (Neurontin) 300 MG capsule Take 1 capsule (300 mg) by mouth in the morning and 1 capsule (300 mg) in the evening and 1 capsule (300 mg) before bedtime. 270 capsule 0 insulin glargine-lixisenatide (Soliqua) 100-33 UNT-MCG/ML pen INJECT 30 UNITS SUBCUTANEOUSLY ONCE EVERY MORNING 30 mL 3 insulin pen needle (B-D ULTRAFINE III SHORT PEN) 31G X 8 mm misc USE DIRECTED DAILY 100 each 3 metFORMIN (Glucophage) 1000 MG tablet TAKE 1 TABLET BY MOUTH TWICE A DAY WITH FOOD 180 tablet 4 No current facility-administered medications on file prior to visit. I have reviewed and reconciled the history and medication list with the patient today. No Known Allergies Social History Tobacco Use Smoking status: Never Smokeless tobacco: Never Vaping Use Vaping status: Unknown Substance Use Topics Alcohol use: Never Drug use: Defer Family History Family history unknown: Yes Past Medical History: Diagnosis Date Cholelithiasis DM (diabetes mellitus) ([facility]) Gastritis 2010 Major depression ([facility]) psychiatric evaluation Severe major depression with psychotic features (HCC) ([facility]) 2013 Testicle lump Past Surgical History: Procedure Laterality Date COLONOSCOPY EGD with foreign body removal [place] LAP,CHOLECYSTOENTEROSTOMY 03/2015 Cholelithiasis [place] SCREENING FOR DEPRESSION PERFORMED Visit Vitals Ht 6' 2 BMI 31.07 kg/m Smoking Status Never BSA 2.4 m Review of Systems Constitutional: Positive for activity change and fatigue. HENT: Negative. Eyes: Negative. Respiratory: Negative. Cardiovascular: Negative. Gastrointestinal: Negative. Genitourinary: Negative. Musculoskeletal: Negative. Skin: Negative. Psychiatric/Behavioral: Positive for depression. Depressed mood, anxiety, hopelessness, insomnia Endocrine: Negative. Here for A1c check today Objective Physical Exam Vitals reviewed. Constitutional: Appearance: Normal appearance. HENT: Head: Normocephalic and atraumatic. Right Ear: External ear normal. Left Ear: External ear normal. Nose: Nose normal. Mouth/Throat: Pharynx: Oropharynx is clear. Eyes: Conjunctiva/sclera: Conjunctivae normal. Cardiovascular: Rate and Rhythm: Normal rate and regular rhythm. Heart sounds: Normal heart sounds. Pulmonary: Effort: Pulmonary effort is normal. Breath sounds: Normal breath sounds. Abdominal: Palpations: Abdomen is soft. Musculoskeletal: General: Normal range of motion. Cervical back: Normal range of motion and neck supple. Skin: General: Skin is warm and dry. Neurological: General: No focal deficit present. Mental Status: He is alert and oriented to person, place, and time. Psychiatric: Comments: Denies suicidal ideation, states he feels hopeless, can't sleep, anxious at times, depressed Assessment/Plan 1. Type 2 diabetes mellitus with hyperglycemia, with long-term current use of insulin ([facility]) (Primary) 7.7 A1C today. 02/21/24 Hemoglobin A1C 7.1 - POCT Glycated hemoglobin, total 03/05/24 Component Ref Range & Units 2 mo ago 1 yr ago CREATININE, RANDOM URINE 20 - 320 mg/dL 128 68 ALBUMIN, URINE See Note: mg/dL 0.2 0.3 CM Comment: Reference Range: Reference Range Not established ALBUMIN/CREATININE RATIO, RANDOM URINE <30 mg/g creat 2 2. Bipolar affective disorder, remission status unspecified ([facility]) Discussed diagnosis with the pt, use of wellbutrin SR was discussed. Reordered today. - buPROPion SR (Wellbutrin SR) 150 MG 12 hr tablet; Take 1 tablet (150 mg) by mouth in the morning and 1 tablet (150 mg) before bedtime. Do not crush, chew, or split.. Dispense: 60 tablet; Refill: 1 3. Anxiety Discussed use of ativan as ordered. We will have follow up in 2 weeks to evaluated effectiveness. - LORazepam (Ativan) 0.5 MG tablet; Take 1 tablet (0.5 mg) by mouth every 12 (twelve) hours if needed for anxiety (anxiety) for up to 14 days Dispense: 28 tablet; Refill: 0 No follow-ups on file. documented in this encounter [facility] 05-31-2024 Instructions Maribell Zapata NP - 05/31/2024 9:00 AM EDT Restart wellbutrin today at 150 mg bid. Ativan ordered bid prn x 14 days. Follow up 2 weeks to evaluate. documented in this encounter [facility] 05-15-2024 History of Presen t illness Narrative Subjective Patient ID: Kevin Hill Jr is a 59 y.o. male who presents for Nasal Congestion 6-8 week h/o nasal obstruction. Uses afrin 64-5 times daily. Started using spray when had influenza Review of Systems All other systems reviewed and are negative. Family History Family history unknown: Yes Active Ambulatory Problems Diagnosis Date Noted Primary insomnia 10/08/2022 Obesity (BMI 30-39.9) 10/08/2022 Major depression in complete remission ([facility]) 10/08/2022 Impotence of organic origin 10/08/2022 Hyperglycemia due to type 2 diabetes mellitus ([facility]) 10/08/2022 Elevated LDL cholesterol level ([facility]) 10/08/2022 Diabetic polyneuropathy associated with type 2 diabetes mellitus ([facility]) 10/08/2022 Bipolar disorder ([facility]) 10/08/2022 Adjustment disorder with depressed mood ([facility]) 10/08/2022 Essential hypertension 11/04/2022 Myalgia 04/22/2023 Myopathy 04/22/2023 Resolved Ambulatory Problems Diagnosis Date Noted No Resolved Ambulatory Problems Past Medical History: Diagnosis Date Cholelithiasis DM (diabetes mellitus) ([facility]) Gastritis 2010 Major depression ([facility]) Severe major depression with psychotic features ([facility]) ([facility]) 2013 Testicle lump Past Surgical History: Procedure Laterality Date COLONOSCOPY EGD with foreign body removal [place] LAP,CHOLECYSTOENTEROSTOMY 03/2015 Cholelithiasis [place] SCREENING FOR DEPRESSION PERFORMED No Known Allergies Current Outpatient Medications on File Prior to Visit Medication Sig Dispense Refill gabapentin (Neurontin) 300 MG capsule Take 1 capsule (300 mg) by mouth in the morning and 1 capsule (300 mg) in the evening and 1 capsule (300 mg) before bedtime. 270 capsule 0 insulin glargine-lixisenatide (Soliqua) 100-33 UNT-MCG/ML pen INJECT 30 UNITS SUBCUTANEOUSLY ONCE EVERY MORNING 30 mL 3 insulin pen needle (B-D ULTRAFINE III SHORT PEN) 31G X 8 mm misc USE DIRECTED DAILY 100 each 3 metFORMIN (Glucophage) 1000 MG tablet TAKE 1 TABLET BY MOUTH TWICE A DAY WITH FOOD 180 tablet 4 [DISCONTINUED] polyethylene glycol, PEG, 3350 (Glycolax) 17 GM/SCOOP powder TAKE DETAILED FROM CLINIC HANDOUT FOR COLONOSCOPY PREP No current facility-administered medications on file prior to visit. Objective Last Recorded Vitals Vitals: 05/15/24 1045 BP: 125/86 Pulse: 74 ENT Physical Exam Constitutional Appearance: patient appears well-developed and well-nourished, Head and Face Appearance: head appears normal and face appears atraumatic; Ear Ear comments: Jeramie ears normal Nose External Nose: nares patent bilaterally; external nose normal; Internal Nose: nasal mucosa normal; Oral Cavity/Oropharynx Lips: normal; Teeth: normal; Gums: gingiva normal; Tongue: normal; Oral mucosa: normal; Hard palate: normal; Neck Neck: neck normal; neck palpation normal; Thyroid: thyroid normal; Respiratory Inspection: breathing unlabored; normal breathing rate; Auscultation: breath sounds are clear; Cardiovascular Inspection: extremities are warm and well perfused; no peripheral edema present; Auscultation: regular rate and rhythm; Assessment/Plan Diagnoses and all orders for this visit: Other specified diabetes mellitus with other specified complication, unspecified whether halfway insulin use ([facility]) Rhinitis medicamentosa - Ambulatory referral to ENT No anatomic obstruction evident. Clearly has rhinitis medicamentosa. Start prednisone, flonase and hypertonic saline. Stop afrin cold turkey after 2 days. Check BS BID and contact PCP if over 250 documented in this encounter [facility] 05-08-2024 History of Presen t illness Narrative Images from the original note were not included. Subjective Patient ID: Kevin Hill Jr is a 59 y.o. male who presents for sinus congestion. Kevin presents today for sinus congestion, that has been going on for the last month. He has been tested for Covid and that was negative. Current Outpatient Medications on File Prior to Visit Medication Sig Dispense Refill gabapentin (Neurontin) 300 MG capsule Take 1 capsule (300 mg) by mouth in the morning and 1 capsule (300 mg) in the evening and 1 capsule (300 mg) before bedtime. 270 capsule 0 insulin glargine-lixisenatide (Soliqua) 100-33 [...] tablet TAKE 1 TABLET BY MOUTH TWICE A DAY WITH FOOD 180 tablet 4 No current facility-administered medications on file prior to visit. I have reviewed and reconciled the history and medication list with the patient today. No Known Allergies Social History Tobacco Use Smoking status: Never Smokeless tobacco: Never Vaping Use Vaping status: Unknown Substance Use Topics Alcohol use: Defer Drug use: Defer Family History Family history unknown: Yes Past Medical History: Diagnosis Date Cholelithiasis DM (diabetes mellitus) ([facility]) Gastritis 2011 Major depression ([facility]) psychiatric evaluation Severe major depression with psychotic features (HCC) ([facility]) 2014 Testicle lump Past Surgical History: Procedure Laterality Date EGD with foreign body removal [place] LAP,CHOLECYSTOENTEROSTOMY 03/2015 Cholelithiasis [place] SCREENING FOR DEPRESSION PERFORMED Visit Vitals Smoking Status Never Review of Systems HENT: Positive for congestion. Reports nasal congestion and it feels like he has a blockage. Genitourinary: Enlarged rt testicle Objective Physical Exam Vitals reviewed. Constitutional: Appearance: Normal appearance. HENT: Head: Normocephalic. Nose: Congestion present. Right Turbinates: Enlarged and swollen. Left Turbinates: Enlarged and swollen. Eyes: Conjunctiva/sclera: Conjunctivae normal. Cardiovascular: Rate and Rhythm: Normal rate and regular rhythm. Pulmonary: Effort: Pulmonary effort is normal. Breath sounds: Normal breath sounds. Genitourinary: Testes: Right: Swelling present. Skin: General: Skin is warm and dry. Neurological: General: No focal deficit present. Mental Status: He is alert and oriented to person, place, and time. Psychiatric: Mood and Affect: Mood normal. Behavior: Behavior normal. Thought Content: Thought content normal. Assessment/Plan Diagnoses and all orders for this visit: Nasal congestion - Ambulatory referral to ENT; Future Await referral with ENT. Pt is concerned that he has nasal polyps. Discussed the use of afrin being addictive. May use saline nasal sprays. Enlarged testicle - US scrotum; Future Await results of ultrasound. Pain in right testicle - US scrotum; Future Await results of ultrasound. May need referral to urology. No follow-ups on file. documented in this encounter [facility] 03-27-2024 History of Presen t illness Narrative [...] History: Diagnosis Date Cholelithiasis DM (diabetes mellitus) ([facility]) Gastritis 2011 Major depression ([facility]) psychiatric evaluation Severe major depression with psychotic features (HCC) ([facility]) 2014 Testicle lump Social History Tobacco Use [...] following 24 hrs post procedure. Thank you, Shari Rudd DO documented in this encounter [facility] 03-12-2024 Telephone encount er Note Gabapentin sent [facility] 03-12-2024 Miscellaneous Notes Formattin g of this note might be different from the original. Gabapentin sent documented in this encounter [facility] 02-21-2024 History of Presen t illness Narrative [...] of current healthcare providers: Patient Care Team: Iwona Huntley MD as PCP - General (Family Medicine) Iwona Huntley MD as PCP - ACO [employer] Medicare Annual Visit Over the past 2 weeks, how often have you been bothered by any of the following problems? Little interest or pleasure in doing things: Not at all Feeling down, depressed, or hopeless: Not at all Patient Health Questionnaire-2 Score: 0 Reeder Fall Risk History of Falling, Immediate or [...] Do you have a medical power of corporate associate attorney?: No Objective : BP 130/76 Pulse [...] polyneuropathy associated with type 2 diabetes mellitus ([facility]) We discussed today, the importance of proper [...] hyperglycemia, with long-term current use of insulin ([facility]) We discussed today, the importance of proper [...] caffiene. 9. Adjustment disorder with depressed mood ([facility]) This is a chronic medical condition that is stable since last assessment. No changes in treatment are suggested at this time. 10. Bipolar affective disorder, remission status unspecified ([facility]) This is a chronic medical condition that [...] 6 tablet; Refill: 0 Electronically signed by Katie Quiroga NP on February 21, 2024 documented in this encounter [facility] 07-19-2022 Evaluation note Encounter Date Diagnosis Assessment [...] is: adult home care material was printed [employer] Other Evaluation note* Diagnosis Medicare annual wellness visit, subsequent- Primary Diabetic polyneuropathy associated with type 2 diabetes mellitus ([facility]/HCC) Primary insomnia Persistent disorder of initiating or maintaining sleep Essential hypertension Unspecified essential hypertension Myalgia Unspecified myalgia and myositis Myopathy Unspecified myopathy Type 2 diabetes mellitus with hyperglycemia, with long-term current use of insulin ([facility]) Obesity (BMI 30-39.9) Adjustment disorder with depressed mood ([facility]) Adjustment disorder with depressed mood Bipolar affective disorder, remission status unspecified ([facility]) Elevated LDL cholesterol level ([facility]) Major depressive disorder in full remission, unspecified whether recurrent (HCC) ([facility] [facility]) Major depressive disorder, single episode, in full remission ([facility]) Major depressive disorder, single episode in full remission Screening for prostate cancer Special screening for malignant neoplasm of prostate Flu vaccine need Screening for colon cancer Special screening for malignant neoplasms, colon Routine general medical examination at health care facility Routine general medical examination at a health care facility Acute non-recurrent pansinusitis documented in this encounter [facility]* Diagnosis Type 2 diabetes mellitus with diabetic polyneuropathy ([facility]) Diabetic polyneuropathy associated with type 2 diabetes mellitus ([facility]) [facility]* Diagnosis Screen for colon cancer- Primary Special screening for malignant neoplasms, colon documented in this encounter [facility]* Diagnosis Nasal congestion- Primary Other diseases of nasal cavity and sinuses Enlarged testicle Other specified disorder of male genital organs Pain in right testicle Unspecified disorder of male genital organs Bipolar disorder, unspecified ([facility]) Bipolar disorder, unspecified [facility]* Diagnosis Other specified diabetes mellitus with other specified complication, unspecified whether halfway insulin use ([facility])- Primary Rhinitis medicamentosa Other diseases of nasal cavity and sinuses documented in [facility]* Diagnosis Type 2 diabetes mellitus with hyperglycemia, with long-term current use of insulin ([facility])- Primary Bipolar affective disorder, remission status unspecified ([facility]/HCC) Anxiety Anxiety state, unspecified [facility] this encounter [facility] Narrative - Reported* Type Description Date Medical History diabetes Medical History depression Medical History neuropathy Surgical History tonsillectomy Surgical History cholecystectomy Hospitalization History see above surg hx [facility] Other Reason for visit Narrative* Consultation (Routine) - Closed Specialty Diagnoses / Procedures Referred By Contac t Referred To Contact General Surgery Diagnoses Screening for colon cancer Procedures [place] OFFICE/OUTPATIENT [facility] MDM Katie Quiroga, SPRINKLER INSPECTOR [address] [facility] [address] [place] [address] Phone: tel: fax: Dina Rudd DO [address] [facility] [address] [place] [address] Phone: tel: fax: Referral ID Status Reason Start Date Expiration Date V isits Requested Visits Authorized [id number] Closed Specialty Services Required 02/21/2024 08/19/2024 1 [...] section and content) DATE CREATED AUTHOR 09/13/2017 [facility] DATE CREATED AUTHOR AUTHOR'S ORGANIZ ATION 09/12/2017 [facility] DATE CREATED AUTHOR AUTHOR'S ORGANIZ ATION 04/15/2021 [facility] DATE CREATED AUTHOR AUTHOR'S ORGANIZ ATION 03/09/2024 [facility] DATE CREATED AUTHOR AUTHOR'S ORGANIZ ATION 06/03/2024 [facility] DATE CREATED AUTHOR AUTHOR'S ORGANIZ ATION 06/27/2024 [facility] DATE CREATED AUTHOR AUTHOR'S ORGANIZ ATION 07/05/2024 [facility] REASON FOR VISIT (unrecogniz ed section and [...] in right testicle Reason Comments Med Refill Reason Comments Nasal Congestion Specialty Diagnoses / Procedures Referred By Contac t Referred To Contact Otolaryngology Diagnoses Nasal congestion Procedures [place] OFFICE/OUTPATIENT NEW [facility]IGH MDM 60 MINUTES Katie Quiroga, SHAYNE [address] [facility] [address] [place] [address] Phone: tel: fax: Hiwot Kwok MD [address] [facility] [address] [place] [address] Phone: tel: fax: Referral ID Status Reason Start Date Expiration Date V isits Requested Visits Authorized [id number] Closed Specialty Services Required 05/08/2024 11/04/2024 1 1 Reason Comments Diabetes Med Refill Gabapentin-- [facility] Care Teams (unrecognized sec tion and content) Deli Cutter Slicer Relationship Specialty Start Date End Date Iwona Huntley MD [address] [facility] [address] [place] [address] PCP - ACO Reach 08/12/22 Iwona Huntley MD [address] [facility] [address] [place] [address] PCP - General Family Medicine 07/27/22 Deli Cutter Slicer Relationship Specialty Start Date End Date Iwona Huntley MD [address] [facility] [address] [place] [address] PCP - ACO Reach 08/12/22 Iwona Huntley MD [address] [place] [address] [place] [address] PCP - General Family Medicine 07/27/22 Deli Cutter Slicer Relationship Specialty Start Date End Date Iwona Huntley MD [address] [place] [address] [place] [address] PCP - ACO Reach 08/12/22 Iwona Huntley MD [address] [place] [address] [place] [address] PCP - General Family Medicine 07/27/22 Deli Cutter Slicer Relationship Specialty Start Date End Date Iwona uHntley MD [address] [place] [address] [place] [address] PCP - ACO Reach 08/12/22 Iwona Huntley MD [address] [place] [address] [place] [address] PCP - General Family Medicine 07/27/22 Deli Cutter Slicer Relationship Specialty Start Date End Date Iwona Huntley MD [address] [place] [address] [place] [address] PCP - General Family Medicine 07/27/22 Katie Quiroga SPRINKLER INSPECTOR [address] [place] [address] [place] [address] PCP - ACO Reach 04/27/24 Deli Cutter Slicer Relationship Specialty Start Date End Date Iwona Huntley MD [address] [place] [address] [place] [address] PCP - General Family Medicine 07/27/22 Katie Quiroga, SPRINKLER INSPECTOR [address] [place] [address] [place] [address] PCP - ACO Reach 04/27/24 Deli Cutter Slicer Relationship Specialty Start Date End Date Iwona Huntley MD [address] [place] [address] [place] [address] PCP - General Family Medicine 07/27/22 Katie Quiroga, SPRINKLER INSPECTOR [address] [place] [address] [place] [address] PCP - ACO Reach 04/27/24 Deli Cutter Slicer Relationship Specialty Start Date End Date Iwona Huntley MD [address] [place] [address] [place] [address] PCP - General Family Medicine 07/27/22 Katie Quiroga, SPRINKLER INSPECTOR [address] [place] [address] [place] [address] PCP - ACO Reach 04/27/24 Deli Cutter Slicer Relationship Specialty Start Date End Date Iwona Huntley MD [address] [place] [address] [place] [address] PCP - General Family Medicine 07/27/22 Katie Quiorga, SPRINKLER INSPECTOR [address] [place] [address] [place] [address] PCP - ACO Reach 04/27/24 Deli Cutter Slicer Relationship Specialty Start Date End Date Iwona Huntley MD [address] [place] [address] [place] [address] PCP - General Family Medicine 07/27/22 Katie Quiroga, SPRINKLER INSPECTOR [address] [place] [address] [place] [address] PCP - ACO Reach 04/27/24 FOR RECORDS PERTAINING TO PATIENTS WHO ARE [...] BE BASED ON THE PRIMARY CLINICAL RECORDS. [facility]. provides no warranty or guarantee of the accuracy or completeness of information in this document.
--- NOTE | 2024-07-05 18:37 | PC.NURSE ---
pt able to keep down entire can of pop -- feels relief like food went down. informed SAUL Neves.
--- NOTE | 2024-07-05 18:43 | ED_ITS ---
HPI HPI - General Adult General Chief complaint: Recheck/Abnormal Lab/Rx Stated complaint: FOOD STUCK IN THROAT Time Seen by Provider: 07/05/24 18:10 Source: patient Mode of arrival: walk-in Limitations: no limitations History of Present Illness HPI narrative: 59-year-old male presents here with a chief complaint of a food bolus. Patient was eating chicken jerky prior to arrival. He states he felt it get stuck. He said a history of esophageal stricture with removal of food bolus in the past. He is able to speak to me in full sentences he is not drooling. He says he attempted to drink warm water at home but did vomit with attempting to do so. He is here for questionable foreign body. Related Data Home Medications ?Medication ?Instructions ?Recorded ?Confirmed gabapentin 300 mg capsule mg 04/05/24 insulin glargine 100 subcut 04/05/24 unit-lixisenatide 33 mcg/mL subcutaneous pen (Soliqua 100/33) metformin 1,000 mg tablet mg 04/05/24 Previous Rx's ?Medication ?Instructions ?Recorded hydrocodone 5 mg-acetaminophen 325 1 tab PO Q6H PRN pain #12 tabs 10/05/22 mg tablet ondansetron 4 mg disintegrating 4 mg PO Q6H PRN nausea and 10/05/22 tablet vomiting #12 tabs Allergies Allergy/AdvReac Type Severity Reaction Status Date / Time No Known Drug Allergies Allergy Verified 04/05/24 11:02 Opioid HPI Opioid Management Most Recent Opioid Data: No Data to Display Review of Systems ROS Status of ROS 10 or more systems reviewed and unremark able except as noted in history and below PFSH PFSH Medical History (Updated 07/05/24 @ 18:42 by Pura Bradshaw) Seasonal allergies ?J30.2 - Other seasonal allergic rhinitis (ICD-10) Testicular lump ?N50.89 - Other specified disorders of the male genital organs (ICD-10) Depression ?F32.A - Depression, unspecified (ICD-10) Gastritis ?K29.70 - Gastritis, unspecified, without bleeding (ICD-10) Diabetes mellitus ?E11.9 - Type 2 diabetes mellitus without complications (ICD-10) Cholelithiasis ?K80.20 - Calculus of gallbladder without cholecystitis without obstruction (ICD-10) Surgical History (Updated 04/05/24 @ 11:17 by Kath Woody) Hx of cholecystectomy ?Z90.49 - Acquired absence of other specified parts of digestive tract (ICD- 10) History of esophagogastroduodenoscopy (EGD) ?Z98.890 - Other specified postprocedural states (ICD-10) Family History (Updated 04/05/24 @ 11:08 by Kath Woody) Other Family history of coronary artery disease Family history of diabetes mellitus Family history of heart disease Family history of lung cancer Family history of myocardial infarction Social History (Updated 04/05/24 @ 11:03 by Kath Woody) Within the past year, how often did you have a drink containing alcohol: never Score interpretation: A score less than 4 is consistent with normal alcohol consumption. Smoking status: Never smoker Non-prescribed substance use: denies use Previous occupational history: [employer] Highest level of school completed/degree received: high school graduate Little interest or pleasure in doing things: not at all Feeling down, depressed, or hopeless: not at all Exam Narrative Exam Narrative: Nurses note and vital signs reviewed and patient is not hypoxic. General: The patient appears well and in no apparent distress. Patient is resting comfortably on cart. Skin: Warm, dry, no pallor noted. There is no rash noted. Head: Normocephalic, atraumatic Eye: Normal conjunctiva, no drainage, EOMI. PERRL Ears, Nose, Mouth, and Throat:tolerating secretions, oral mucosa is moist. Nares patent. Mouth without vesicles. Ear canals patent. Tm's without Erythema Cardiovascular: Regular Rate and Rhythm Respiratory: Patient is in no distress, no accessory muscle use, lungs are clear to auscultation, no wheezing, rales or rhonchi Back: non-tender, no CVA tenderness bilaterally to percussion. Musculoskeletal: The patient has no evidence of calf tenderness, no pitting edema, symmetrical pulses noted bilaterally Neurological: A&O x4, normal speech Psychiatric: Cooperative Constitutional Vital Signs, click to edit/add: Last Vital Signs Temp 98.2 F 07/05/24 18:05 Pulse 107 H 07/05/24 18:05 Resp 18 07/05/24 18:05 BP 166/101 H 07/05/24 18:05 Pulse Ox 97 07/05/24 18:05 O2 Del Method Room Air 07/05/24 18:05 Course Vital Signs Vital signs: Vital Signs Temperature 98.2 F 07/05/24 18:05 Pulse Rate 107 H 07/05/24 18:05 Respiratory Rate 18 07/05/24 18:05 Blood Pressure 166/101 H 07/05/24 18:05 Pulse Oximetry 97 07/05/24 18:05 Oxygen Delivery Method Room Air 07/05/24 18:05 Temperature 98.2 F 07/05/24 18:05 Pulse Rate 107 H 07/05/24 18:05 Respiratory Rate 18 07/05/24 18:05 Blood Pressure 166/101 H 07/05/24 18:05 Pulse Oximetry 97 07/05/24 18:05 Oxygen Delivery Method Room Air 07/05/24 18:05 Medical Decision Making MDM Narrative Medical decision making narrative: 59-year-old male presents here with a chief complaint of a food bolus. Patient was eating chicken jerky prior to arrival. He states he felt it get stuck. He said a history of esophageal stricture with removal of food bolus in the past. He is able to speak to me in full sentences he is not drooling. He says he attempted to drink warm water at home but did vomit with attempting to do so. He is here for questionable foreign body. Presenting here with a suspected food bolus. We did a p.o. challenge with him with soda pop. He was able to keep the soda pop down. He said he did feel a move and passed. He feels much more relieved at this time. He has seen Dr. Green in the past for food bolus. He will follow-up with him. Differential Diagnosis Differential Diagnosis: food bolus Medical Records Medical records reviewed: Yes I reviewed the patient's medical records Lab Data Lab results reviewed: Yes I reviewed the patient's lab results Discharge Plan Discharge Chief Complaint: Recheck/Abnormal Lab/Rx Clinical Impression: Esophageal foreign body Patient Disposition: Home, Self-Care Time of Disposition Decision: 18:42 Condition: Good Prescriptions / Home Meds: No Action hydrocodone-acetaminophen 5-325 mg tablet 1 tab PO Q6H PRN (Reason: pain) Qty: 12 0RF Rx Instructions: Dx: M79.605 ondansetron 4 mg tablet,disintegrating 4 mg PO Q6H PRN (Reason: nausea and vomiting) Qty: 12 0RF metformin 1,000 mg tablet gabapentin 300 mg capsule Soliqua 100/33 100 unit-33 mcg/mL insulin pen SUBCUT Print Language: Slovak Instructions: Esophageal Foreign Body (ED) Referrals: Brandon Hernandez MD [Physician] - 1 week IWONA HUNTLEY [Primary Care Provider] - 1 week
== END 2024-07-05 18:58 | disposition home or self-care (01) ==
PROVIDERS: Emergency Provider Emergency Medicine; PCP Family Medicine
DX: T18.128A Food in esophagus causing other injury, initial encounter (principal); W44.F3XA Food entering into or through a natural orifice, initial encounter; Z90.49 Acquired absence of other specified parts of digestive tract
CPT/HCPCS: 99282

== ENCOUNTER 2024-07-29 09:53 | Emergency (ER) | payer MEDICARE, SELFPAY ==
[2024-07-29 09:59] VITALS: BP 146/94; PULSE 107; TEMP 36.6; O2SAT 96
--- OUTSIDE RECORDS SUMMARY | 2024-07-29 10:03 | XMS_ITS | CCD ---
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 Name Role Phone Arnold, Clarence K Unavailable [...] Unavailable Iwona Huntley MD Primary Care Provider Katei Quiroga NP Unavailable KATIE QUIROGA Attending Unavailable HIWOT KWOK Attending Unavailable KATIE QUIROGA Referring Unavailable MARIBELL ZAPATA Attending Unavailable KATIE QUIROGA Attending Unavailable KATIE QUIROGA Attending Unavailable DINA RUDD Attending Unavailable KATIE QUIROGA Referring Unavailable Esvin MORILLO Attending Unavailable KATIE QUIROGA POKER MANAGER-C Referring Unavailable Iwona Huntley Primary Care Unavailable Tiffany Pritchett Attending Unavailable Tiffany Pritchett Admitting Unavailable Dina Rudd Attending Unavailable Dina Rudd Admitting Unavailable Iwona Huntley Primary Care Unavailable Chidi Barraza Attending Unavailab Chidi Oilveira Admitting Unavailab Chidi Oliveira Admitting Unavailab Bairon Pimentel Attending Unavailable NON STAFF Primary Care Unavailable Allergies Allergy Classification Reported Allergen(s) Allergy Type Date of Onset Reaction(s) Facility (1 source) OLANZapine Drug Allergy 06-09-2024 [facility] Repository Medications Current Medications Medication Drug Class(es) [...] mellitus with other specified complication, unspecified whether senior care insulin use (CMS/HCC) INJECT 30 UNITS SUBCUTANEOUSLY [...] polyneuropathy, without long-term current use of insulin ([facility]) TAKE 1 TABLET BY MOUTH TWICE DAILY [...] needed. 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; Translations: [OTH [facility] CURRENT DRUG THERAPY] Onset: 12-25-2020 Episodic Other connective tissue disease (17 sources) Muscle pain; Translations: [Myalgia, unspecified site] Onset: 04-22-2023 04-22-2023 Episodic Unclassified (2 sources) Patient encounter status 02-21-2024 Results Test Name Value Interpretation Reference Range Facility [facility] [address] [address] Ultrasound Report Signed Patient: KEVIN HILL MR#: [id number] : 1965 Acct:[id number] Age/Sex: 59 / M ADM Date: 06/20/24 Loc: US Attending Dr: KATIE QUIROGA Ordering Physician: KATIE QUIROGA Date of Service: 06/20/24 Procedure(s): US scrotum Accession Number(s): [id number] cc: IWONA HUNTLEY SHERRI [address] [address] Patient Name: KEVIN HILL MRN: [id number] date: 1965 Sex: M Assigned Patient Location: US Current Patient Location: US Accession/Order Number: [id number] Exam Date: 06/20/2024 14:41 Report Date: 06/20/2024 [...] Barry Sanchez M.D.06/20/2024 2:49 PM Dictation Location: [place] [address] Electronically authenticated by: [id number] Y Date: 06/20/2024 14:49 Dictated By: Barry Sanchez D.O. Signed By: 06/20/24 1451 DD/ 1449 TD/TT: Environmental Control Administrator: [facility] Rad[facility], Radiologist, MD - 06/20/2024 [place] [address] Ultrasound Report Signed Patient: KEVIN HILL MR#: [id number] : 1965 Acct:[id number] Age/Sex: 59 / M ADM Date: 06/20/24 Loc: US Attending Dr: KATIE QUIROGA Ordering Physician: KATIE QUIRGOA Date of Service: 06/20/24 Procedure(s): US scrotum Accession Number(s): [id number] cc: IWONA HUNTLEY ; KATIE QUIROGA The [place] [id number] Patient Name: KEVIN BRIONESN: [id number] date: 1965 Sex: M Assigned Patient Location: US Current Patient Location: US Accession/Order Number: [id number] Exam Date: 06/20/2024 14:41 Report Date: 06/20/2024 [...] Barry Sanchez M.D.06/20/2024 2:49 PM Dictation Location: [place] [address] Electronically authenticated by: [id number] Y Date: 06/20/2024 14:49 Dictated By: Barry Sanchez D.O. Signed By: 06/20/24 1451 DD/ 1449 TD/TT: Environmental Control Administrator: [facility] Radiology Study observation (narrative) [facility] US Scrotum and testicleOrder ed By: Radiologist Radiology on 06-20-2024 [facility] Work Phone: Glucose Poct Glucometerson 0 06-05-2024 Glucose [Mass/Vol] 124 mg/dL Normal [facility] Comment on above: Result Comment: [place] Glucose Reference Range is dependent on time and content of last meal. Glucose of more than 200 mg/dL in a nonstressed, ambulatory subject supports the diagnosis of Diabetes Mellitus. PERFORMED BY: [place] [address] PATHOLOGIST RADIOLOGY SERVICES MANAGER MARIA TERESA ASHRAF M.D. Performed By: #### U JADEN CASTREJONUAPLUS #### [facility] [address] [place] [address] Glucose Poct Glucometerson 0 06-04-2024 Glucose [Mass/Vol] 89 mg/dL Normal [facility] Comment on above: Result Comment: [place] om Glucose Reference Range is dependent on time and content of last meal. Glucose of more than 200 mg/dL in a nonstressed, ambulatory subject supports the diagnosis of Diabetes Mellitus. PERFORMED BY: [place] [address] PATHOLOGIST RADIOLOGY SERVICES MANAGER MARIA TERESA ASHRAF M.D. Performed By: #### G LULS #### Point of Care testing , Glucose Poct Glucometerson 0 06-03-2024 Glucose [Mass/Vol] 152 mg/dL Normal [facility] Comment on above: Result Comment: [place] om Glucose Reference Range is dependent on time and content of last meal. Glucose of more than 200 mg/dL in a nonstressed, ambulatory subject supports the diagnosis of Diabetes Mellitus. PERFORMED BY: [place] [id number] PATHOLOGIST RADIOLOGY SERVICES MANAGER MARIA TERESA ASHRAF M.D. Performed By: #### G LULS #### Point of Care testing , Glucose [Mass/Vol] 159 mg/dL Normal [facility] Comment on above: Result Comment: [place] om Glucose Reference Range is dependent on time and content of last meal. Glucose of more than 200 mg/dL in a nonstressed, ambulatory subject supports the diagnosis of Diabetes Mellitus. PERFORMED BY: [place] [id number] PATHOLOGIST RADIOLOGY SERVICES MANAGER MARIA TERESA ASHRAF M.D. Performed By: #### U JADEN CASTREJONUAPLUS #### [facility] [address] [place], [place] [id number] [facility] A1C with Estimated Average G zarina 06-02-2024 Glucose [Mass/Vol] 171 mg/dL Normal [facility] Comment on above: Result Comment: PERF ORMED BY: [place] [address] PATHOLOGIST RADIOLOGY SERVICES MANAGER MARIA TERESA ASHRAF M.D. Performed By: #### U LUCÍA, ADDONUAPLUS #### [address] HbA1c (Bld) [Mass fraction] 7.6 % High 4.3-5.6 [facility] Comment on above: Result Comment: Incr eased risk for diabetes: 5.7 - 6.4 diabetes: >6.4 glycemic control for adults with diabetes: <7.0 Performed By: #### U LUCÍA, ADDONUAPLUS #### [address] Glucose Poct Glucometerson 0 06-02-2024 Glucose [Mass/Vol] 155 mg/dL Normal [facility] Comment on above: Result Comment: [facility] Glucose Reference Range is dependent on time and content of last meal. Glucose of more than 200 mg/dL in a nonstressed, ambulatory subject supports the diagnosis of Diabetes Mellitus. PERFORMED BY: [place] [address] PATHOLOGIST RADIOLOGY SERVICES MANAGER MARIA TERESA ASHRAF M.D. Performed By: #### G KERI #### Point of Care testing , Lipid Panelon 06-02-2024 Cholesterol [Mass/Vol] 162 mg/dL Normal 140-200 [facility] Comment on above: Result Comment: Chol less than 200 mg/dl low risk Chol 201-239 mg/dl borderline risk Chol 240 mg/dl and greater high risk Performed By: #### U RDS, ADDONUAPLUS #### [address] Cholesterol in HDL [Mass/Vol] 38 mg/dL Normal 23-92 [facility] Comment on above: Result Comment: HDL CHOL ATP-III CLASSIFICATION Cardiovascular Risk HDL > or equal to 60 mg/dL LOW HDL < 40 mg/dL HIGH Performed By: #### U LUCÍA, ADDONUAPLUS #### [address] Cholesterol.total/Ch olesterol in HDL [Mass ratio] 4.3 {ratio} Normal <5.0 [facility] Comment on above: Performed By: #### U LUCÍA, ADDONUAPLUS #### [address] LDL Cholesterol,Calculat ed 103 mg/dL High 0-100 [facility] Comment on above: Result Comment: LDL ATP III CLASSIFICATION LDL less than 100 mg/dL Optimal LDL 100-129 mg/dL Near or above optimal LDL 130-159 mg/dL Borderline high LDL 160-189 mg/dL High LDL greater than 189 mg/dL Very high Performed By: #### U LUCÍA, ADDONUAPLUS #### [address] Triglyceride w/Reflex 104 mg/dL Normal 0-149 [facility] Comment on above: Result Comment: TRIG ATP III CLASSIFICATION TRIG less than 150 mg/dL Normal TRIG 150-199 mg/dL Borderline high TRIG 200-500 mg/dL High TRIG greater than 500 mg/dL Very high Standard traceable to the Center for Disease Conrtrol and Prevention (CDC) test method. Performed By: #### U LUCÍA, ADDONUAPLUS #### [address] VLDL CHOLESTEROL 20 mg/dL Normal The [facility] Comment on above: Performed By: #### U LUCÍA, ADDONUAPLUS #### [place] [address] [place] Thyroid Stim Hormone w/Rflxo n 06-02-2024 Thyroid Stim Hormone w/Rflx 0.52 u[iU]/mL Normal 0.45-5.33 [facility] Comment on above: Performed By: #### U LUCÍA, ADDONUAPLUS #### [address] Vitamin D 25 Hydroxy Totalon 06-02-2024 Vitamin D 25 Hydroxy Total 17.8 ng/mL Low 30-100 [facility] Comment on above: Result Comment: GUME MIN D STATUS 25(OH)VITAMIN D RANGE (ng/mL) Deficient <20 Insufficient 20 to <30 Sufficient 30 to 100 Reference: Kevin MF,Reza NC, Earl JAEGER, et al. Evaluation,treatment, and prevention of vitamin D deficiency; an Endocrine Society clinical practice guideline. JCEM. 2010; 96(7):1911-30. PERFORMED BY: [place] [id number] PATHOLOGIST RADIOLOGY SERVICES MANAGER MARIA TERESA ASHRAF M.D. Performed By: #### U RDS, ADDONUAPLUS #### [address] Complete Blood Count Auto Di ffon 06-01-2024 Basophils (Bld) [#/Vol] 0.1 10*3/uL Normal 0.0-0.2 [facility] Comment on above: Result Comment: PERF ORMED BY: [place] [address] PATHOLOGIST RADIOLOGY SERVICES MANAGER MARIA TERESA ASHRAF M.D. Performed By: #### C BC, ETOH, CMP #### [address] Basophils/100 WBC (Bld) 1.1 % Normal . [facility] Comment on above: Performed By: #### C BC, ETOH, CMP #### [address] Eosinophils (Bld) [#/Vol] 0.0 10*3/uL Normal 0.0-0.45 [facility] Comment on above: Performed By: #### C BC, ETOH, CMP #### [address] Eosinophils/100 WBC (Bld) 0.1 % Normal . [facility] Comment on above: Performed By: #### C BC, ETOH, CMP #### [address] Erythrocyte distribution width (RBC) [Ratio] 13.9 % Normal 12.0-14.8 [facility] Comment on above: Performed By: #### C BC, ETOH, CMP #### [address] Hematocrit (Bld) [Volume fraction] 48.4 % Normal 38.8-50.0 [facility] Comment on above: Performed By: #### C BC, ETOH, CMP #### [address] Hemoglobin (Bld) [Mass/Vol] 16.8 g/dL Normal 13.0-17.0 [facility] Comment on above: Performed By: #### C BC, ETOH, CMP #### [address] Lymphocytes (Bld) [#/Vol] 1.1 10*3/uL Normal 1.00-4.8 [facility] Comment on above: Performed By: #### C BC, ETOH, CMP #### [address] Lymphocytes/100 WBC (Bld) 12.8 % Normal . [facility] Comment on above: Performed By: #### C BC, ETOH, CMP #### [address] MCH (RBC) [Entitic mass] 31.2 pg Normal 27.5-35.2 [facility] Comment on above: Performed By: #### C BC, ETOH, CMP #### [address] MCV (RBC) [Entitic vol] 89.9 fL Normal 83.5-101 [facility] Comment on above: Performed By: #### C BC, ETOH, CMP #### [address] Mean Corpuscular HGB Conc 34.7 g/dL Normal 32.5-35.6 [facility] Comment on above: Performed By: #### C BC, ETOH, CMP #### [address] [place] [address] [place] Monocytes (Bld) [#/Vol] 1.0 10*3/uL High 0.0-0.8 [facility] Comment on above: Performed By: #### C BC, ETOH, CMP #### [facility] [address] [place] [address] [place] Monocytes/100 WBC (Bld) 18.64 % Normal 0.00-20.00 [facility] Comment on above: Performed By: #### C BC, ETOH, CMP #### [facility] [address] [place] [address] [place] Monocytes/100 WBC (Bld) 11.8 % Normal . [facility] Comment on above: Performed By: #### C BC, ETOH, CMP #### [facility] [address] [place] [address] [place] Neutrophils (Bld) [#/Vol] 6.3 10*3/uL Normal 1.8-7.7 [facility] Comment on above: Performed By: #### C BC, ETOH, CMP #### [place] [address] [place] Neutrophils/100 WBC (Bld) 74.2 % Normal . [facility] Comment on above: Performed By: #### C BC, ETOH, CMP #### [facility] [address] [place] [address] [place] NRBC% 0.1 /100{WBC} Normal 0-0.5 [facility] Comment on above: Performed By: #### C BC, ETOH, CMP #### [facility] [address] [place] [address] [place] Platelet mean volume (Bld) [Entitic vol] 7.6 fL Normal 6.6-10.1 [facility] Comment on above: Performed By: #### C BC, ETOH, CMP #### [facility] [address] [place] [address] [place] Platelets (Bld) [#/Vol] 305 10*3/uL Normal 150-450 [facility] Comment on above: Performed By: #### C BC, ETOH, CMP #### [address] RBC (Bld) [#/Vol] 5.38 10*6/uL Normal 3.90-5.60 The [facility] Comment on above: Performed By: #### C BC, ETOH, CMP #### [address] WBC (Bld) [#/Vol] 8.5 10*3/uL Normal 4.1-10.5 [facility] Comment on above: Performed By: #### C BC, ETOH, CMP #### [address] Comprehensive Metabolic Pane ryan 06-01-2024 Albumin [Mass/Vol] 4.7 g/dL Normal 3.5-5.7 [facility] Comment on above: Performed By: #### C BC, ETOH, CMP #### [address] Albumin/Globulin [Mass ratio] 1.7 {ratio} Normal The [facility] Comment on above: Performed By: #### C BC, ETOH, CMP #### [address] ALP [Catalytic activity/Vol] 50 U/L Normal 34-104 [facility] Comment on above: Performed By: #### C BC, ETOH, CMP #### [address] ALT [Catalytic activity/Vol] 22 U/L Normal 7-52 [facility] Comment on above: Performed By: #### C BC, ETOH, CMP #### [address] Anion gap [Moles/Vol] 15.1 mmol/L High 6.0-15.0 [facility] Comment on above: Performed By: #### C BC, ETOH, CMP #### [address] AST [Catalytic activity/Vol] 18 U/L Normal 13-39 [facility] Comment on above: Performed By: #### C BC, ETOH, CMP #### [facility] [address] Bilirubin [Mass/Vol] 1.3 mg/dL High 0.3-1.0 [facility] Comment on above: Result Comment: Samp les from patients who have taken Naproxen have shown spurious elevation in Total Bilirubin levels. A metabolite of Naproxen, O-desmethylnaproxen, has been shown to interfere with the Jendrassik-Grof method for measuring Total Bilirubin. Performed By: #### C BC, ETOH, CMP #### [address] Calcium [Mass/Vol] 9.7 mg/dL Normal 8.6-10.3 [facility] Comment on above: Performed By: #### C BC, ETOH, CMP #### [place] [address] [place] Chloride [Moles/Vol] 105 mmol/L Normal 98-107 [facility] Comment on above: Performed By: #### C BC, ETOH, CMP #### [place] [address] [place] CO2 [Moles/Vol] 20.9 mmol/L Low 21.0-31.0 The [facility] Comment on above: Performed By: #### C BC, ETOH, CMP #### [address] Creatinine [Mass/Vol] 1.16 mg/dL Normal 0.70-1.30 [facility] Comment on above: Performed By: #### C BC, ETOH, CMP #### [place] [address] [place] Creatinine Clr Calc Pharmacy 90.06 Normal The [facility] Comment on above: Result Comment: PERF ORMED BY: [place] [address] PATHOLOGIST RADIOLOGY SERVICES MANAGER MARIA TERESA ASHRAF M.D. Performed By: #### C BC, ETOH, CMP #### [place] [address] [place] GFR/1.73 sq M.predicted MDRD (S/P/Bld) [Vol rate/Area] mL/min/{1.73_m2} Normal The [facility] Comment on above: Performed By: #### C BC, ETOH, CMP #### [address] Globulin (S) [Mass/Vol] 2.8 g/dL Normal The [facility] Comment on above: Performed By: #### C BC, ETOH, CMP #### [address] Glucose [Mass/Vol] 215 mg/dL High 70-100 [facility] Comment on above: Result Comment: [facility] Glucose Reference Range is dependent on time and content of last meal. Glucose of more than 200 mg/dL in a nonstressed, ambulatory subject supports the diagnosis of Diabetes Mellitus. ADA recommended reference range Performed By: #### C BC, ETOH, CMP #### [address] Potassium [Moles/Vol] 4.0 mmol/L Normal 3.5-5.1 [facility] Comment on above: Performed By: #### C BC, ETOH, CMP #### [address] Protein [Mass/Vol] 7.5 g/dL Normal 6.4-8.9 [facility] Comment on above: Performed By: #### C BC, ETOH, CMP #### [address] Sodium [Moles/Vol] 137 mmol/L Normal 136-145 [facility] Comment on above: Performed By: #### C BC, ETOH, CMP #### [address] Urea nitrogen [Mass/Vol] 22 mg/dL Normal 7-25 [facility] Comment on above: Performed By: #### C BC, ETOH, CMP #### [place] [address] [place] Dipstick and Microscopicon 0 06-01-2024 Appearance (U) Clear Normal Clear The [facility] Comment on above: Order Comment: Name Collection Type:: Clean-Voided Midstream Performed By: #### U RDS, ADDONUAPLUS #### [facility] [address] [place] [address] [place] Bacteria,Urine None Seen Normal None Seen [facility] Comment on above: Order Comment: Name Collection Type:: Clean-Voided Midstream Performed By: #### U RDS, ADDONUAPLUS #### [place] [address] [place] Bilirubin,Urine Negative Normal Negative The [facility] Comment on above: Order Comment: Name Collection Type:: Clean-Voided Midstream Performed By: #### U RDS, ADDONUAPLUS #### [place] [address] [place] Color (U) Yellow Normal Yellow [facility] Comment on above: Order Comment: Name Collection Type:: Clean-Voided Midstream Performed By: #### U RDS, ADDONUAPLUS #### [facility] [address] [place] [address] [place] Glucose Ql (U) 150 mg/dL High Normal [facility] Comment on above: Order Comment: Name Collection Type:: Clean-Voided Midstream Performed By: #### U RDS, ADDONUAPLUS #### [facility] [address] [place] [address] [place] Granular Casts, Urine 3-4 High None Seen [facility] Comment on above: Order Comment: Name Collection Type:: Clean-Voided Midstream Performed By: #### U RDS, ADDONUAPLUS #### [facility] [address] [place] [address] [place] Hyaline Casts,Urine 0-8 Normal 0-8 [facility] Comment on above: Order Comment: Name Collection Type:: Clean-Voided Midstream Performed By: #### U RDS, ADDONUAPLUS #### [facility] [address] [place] [address] [place] Ketones Ql (U) 3+ High Negative [facility] Comment on above: Order Comment: Name Collection Type:: Clean-Voided Midstream Performed By: #### U RDS, ADDONUAPLUS #### [address] Leukocyte esterase Test strip Ql (U) Negative Normal Negative [facility] Comment on above: Order Comment: Name Collection Type:: Clean-Voided Midstream Performed By: #### U RDS, ADDONUAPLUS #### [place] [address] [place] Mucus,Urine 2+ Critically abnormal [facility] Comment on above: Order Comment: Name Collection Type:: Clean-Voided Midstream Result Comment: PERF ORMED BY: [place] [address] PATHOLOGIST RADIOLOGY SERVICES MANAGER MARIA TERESA ASHRAF M.D. Performed By: #### U RDS, ADDONUAPLUS #### [place] [address] [place] Nitrite,Urine Negative Normal Negative [facility] Comment on above: Order Comment: Name Collection Type:: Clean-Voided Midstream Performed By: #### U RDS, ADDONUAPLUS #### [place] [address] [place] Occult Blood,Urine 2+ High Negative [facility] Comment on above: Order Comment: Name Collection Type:: Clean-Voided Midstream Result Comment: PERF ORMED BY: [place] [address] PATHOLOGIST RADIOLOGY SERVICES MANAGER MARIA TERESA ASHRAF M.D. Performed By: #### U RDS, ADDONUAPLUS #### [place] [address] [place] pH (U) 5.5 [pH] Normal 5.0-9.0 [facility] Comment on above: Order Comment: Name Collection Type:: Clean-Voided Midstream Performed By: #### U RDS, ADDONUAPLUS #### [place] [address] [place] Protein (U) [Mass/Vol] 50 mg/dL High Negative [facility] Comment on above: Order Comment: Name Collection Type:: Clean-Voided Midstream Performed By: #### U RDS, ADDONUAPLUS #### [facility] [address] [place] [address] [place] RBC,Urine 50-100 High 0-4 [facility] Comment on above: Order Comment: Name Collection Type:: Clean-Voided Midstream Performed By: #### U RDS, ADDONUAPLUS #### [place] [address] [place] Specificy [place],Urine 1.034 High 1.001-1.030 [facility] Comment on above: Order Comment: Name Collection Type:: Clean-Voided Midstream Performed By: #### U RDS, ADDONUAPLUS #### [address] Squamous Epithelial Cell,Urine 1-2 Normal 0-2 [facility] Comment on above: Order Comment: Name Collection Type:: Clean-Voided Midstream Performed By: #### U RDS, ADDONUAPLUS #### [place] [address] [place] Urobilinogen,Urine Normal Normal Normal [facility] Comment on above: Order Comment: Name Collection Type:: Clean-Voided Midstream Performed By: #### U RDS, ADDONUAPLUS #### [place] [address] [place] WBC,Urine 1-2 Normal 0-4 [facility] Comment on above: Order Comment: Name Collection Type:: Clean-Voided Midstream Performed By: #### U RDS, ADDONUAPLUS #### [place] [address] [place] Drug Screen,Urineon 06-02-19 25 Amphetamine Screen,Urine Negative Normal Negative [facility] Comment on above: Performed By: #### U RDS, ADDONUAPLUS #### [address] Barbiturate Screen,Urine Negative Normal Negative [facility] Comment on above: Performed By: #### U RDS, ADDONUAPLUS #### [address] Benzodiazepines Screen,Urine Negative Normal Negative [facility] Comment on above: Performed By: #### U RDS, ADDONUAPLUS #### [address] Cannabinoid Screen,Urine Negative Normal Negative [facility] Comment on above: Result Comment: Thes e are unconfirmed results and should not be used for legal purposes. Drug Cut-Off Concentration: AMPH 1000 ng/mL HYACINTH 200 ng/mL LIZBETH 200 ng/mL COCM 300 ng/mL OP 300 ng/mL PCP 25 ng/mL THC 20 ng/mL PERFORMED BY: [place] [address] PATHOLOGIST RADIOLOGY SERVICES MANAGER MARIA TERESA ASHRAF M.D. Performed By: #### U RDS, ADDONUAPLUS #### [place] [address] [place] Cocaine Screen,Urine Negative Normal Negative [facility] Comment on above: Performed By: #### U RDS, ADDONUAPLUS #### [place] [address] [place] Opiate Screen,Urine Negative Normal Negative [facility] Comment on above: Performed By: #### U RDS, ADDONUAPLUS #### [address] Phencyclidine Screen,Urine Negative Normal Negative [facility] Comment on above: Performed By: #### U RDS, ADDONUAPLUS #### [place] [address] [place] ECG 12 lead ECGon 06-01-2024 ECG 12 lead ECG [facility] Main [employer] [address] [place] [address] Electrocardiograph Report Signed Patient: Kevin Hill MR#: [id number] : 1965 Acct:[id number] Age/Sex: 59 / M ADM Date: 06/01/24 Loc: Room: [address] [place] [address] Type: ADM IN Attending Dr: Chidi Barraza [...] ventricular complexes Confirmed by Minesh MAYER DO ([id number]) on 06/01/2024 2:52:37 PM Referred By: Electronically Signed By: Minesh MAYER DO Transcribed By: MUS Signed By Minesh Mayer DO 0 06/01/24 1452 Normal [facility] Ethyl Alcohol Profileon 05-19 Ethanol [Mass/Vol] mg/dL Normal [facility] Comment on above: Performed By: #### C BC, ETOH, CMP #### [address] Percent Ethanol Not performed Normal [facility] Comment on above: Result Comment: PERF ORMED BY: [place] [address] PATHOLOGIST RADIOLOGY SERVICES MANAGER MARIA TERESA ASHRAF M.D. Performed By: #### C BC, ETOH, CMP #### [address] Laboratory - Hematology and Cell countson 05-31-2024 HbA1c (Bld) [Mass fraction] 7.7 % [facility] No Panel Informationon 05-31 [facility] Ryan 04-10-2024 L - -------- Specimen: [id number] Received: 04/10/24 Status: NENA Walter Num: [id number] Spec Type: Surgical Subm Dr: Dina Rudd DO Tissues: A Colon Biopsy (SIGMOID POLYP @ 23CM) Procedures: HE/2, Gross/Micro L4 -------- Age/ Patient Sex Location Account Attending Physician -------- Kevin Hill 59/M LABELL [id number] Dina Rudd DO -------- SPEC NUM: [id number] RECD: 04/10/24 STATUS: NENA KEITHLaura NUM: [id number] RICH: 04/10/24 [facility] [address]: Dina Rudd DO ENTERED: 04/10/[address] [facility] [address]: Ely Mac SPEC TYPE: Surgical DEPT: [place] [place] ENTERED BY: [id number] RECV BY: [id number] ORDERED: HE/2, Gross/Micro L4 ORDERED: HE/2, Gross/Micro [...] cassette. (1, ns, [id number] B) CPT Codes 52059 -------- -------- Specimen: [id number] Received: 04/10/24 Status: NENA Jose Angel Num: [id number] Spec Type: Surgical Subm Dr: Dina Rudd DO Tissues: A Colon Biopsy (SIGMOID POLYP @ 23CM) Procedures: RAYMOND/Dianne Alvarez/Joe Walker -------- Patient: Kevin Hill [id number] (Continued) -------- Signed (signature on file) Maria Teresa Ashraf MD 04/11/24 1358 Normal [facility] No Panel Informationon 04-10 Hyperplastic polyp [facility] Radiology Study observation (narrative) [facility] ALBUMIN, RANDOM URINE W/CREA TININEon 03-06-2024 ALBUMIN, URINE 0.2 mg/dL Normal See Note: [facility] Comment on above: Result Comment: Refe rence Range: Reference Range Not established Performed By: #### 1 230, 175 #### [facility] [address] [place] [phone] Electrical Design Technician: Eva Vanegas #### 6517, 2210, 5363 #### [facility] [address], [address] [place] [address] Electrical Design Technician: Conrad Bennett MD ALBUMIN/CREATININE RATIO, RANDOM URINE [...] By: #### 1 230, 175 #### [facility] [address] [place] [phone] Electrical Design Technician: Eva Vanegas #### 6517, 7600, 5363 #### [facility] [address], [address] [place], [place] [phone] Electrical Design Technician: Conrad Bennett MD Creatinine (U) [Mass/Vol] 128 mg/dL Normal 20-320 [facility] Comment on above: Performed By: #### 1 023, 175 #### [facility] [address] [place] [phone] Electrical Design Technician: Eva Vanegas #### 6517, 7600, 5363 #### [facility] [place] [address], [address] [place] [address] Electrical Design Technician: Conrad Bennett MD CBC (H/H, RBC, INDICES, WBC, PLT)on 03-06-2024 Erythrocyte distribution width (RBC) [Ratio] 13.6 % Normal 11.0-15.0 [facility] Comment on above: Performed By: #### 1 0231, 1759 #### [facility] [address] Electrical Design Technician: Eva Vanegas #### 6517, 7600, 5363 #### [facility] [place] [address] [address] , [address] [place] [address] Electrical Design Technician: Conrad Bennett MD Hematocrit (Bld) [Volume fraction] 46.0 % Normal 38.5-50.0 [facility] Comment on above: Performed By: #### 1 0231, 1759 #### [facility]-[address] Electrical Design Technician: Eva Vanegas #### 6517, 7600, 5363 #### [facility] [address], [address] [place] [address] Electrical Design Technician: Conrad Bennett MD Hemoglobin (Bld) [Mass/Vol] 15.3 g/dL Normal 13.2-17.1 [facility] Comment on above: Performed By: #### 1 0231, 1759 #### [facility] [address] [place], [place] [phone] Electrical Design Technician: Eva Vanegas #### 6517, 7600, 5363 #### [facility] [place] [address], [address] [place] [address] Electrical Design Technician: Conrad Bennett MD MCH (RBC) [Entitic mass] 30.3 pg Normal 27.0-33.0 [facility] Comment on above: Performed By: #### 1 0231, 1759 #### [facility] [address] [place], [place] [phone] Electrical Design Technician: Eva Vanegas #### 6517, 7600, 5363 #### [facility] [address], [address] [place] [address] Electrical Design Technician: Conrad Bennett MD MCHC (RBC) [Mass/Vol] 33.3 [...] By: #### 1 0231, 1759 #### [facility] [address] Electrical Design Technician: Eva Vanegas #### 6517, 0, 5363 #### [facility] [address], [address] [place] [address] Electrical Design Technician: Conrad Bennett MD MCV (RBC) [Entitic vol] 91.1 fL Normal 80.0-100.0 [facility] Comment on above: Performed By: #### 1 0231, 1759 #### [facility] Electrical Design Technician: Eva Vanegas #### 6517, 9300, 5363 #### [facility] [address], [address] [place] [address] Electrical Design Technician: Conrad Bennett MD Platelet mean volume (Bld) [Entitic vol] 9.4 fL Normal 7.5-12.5 [facility] Comment on above: Performed By: #### 1 0231, 1759 #### [facility] [address] Electrical Design Technician: Eva Vanegas #### 6517, 7600, 5363 #### [facility] [address], [address] [place] [address] Electrical Design Technician: Conrad Bennett MD Platelets (Bld) [#/Vol] 275 10*3/uL Normal 140-400 [facility] Comment on above: Performed By: #### 1 0231, 1759 #### [facility] [address] [place] [address] Electrical Design Technician: Eva Vanegas #### 6517, 7600, 5363 #### [facility] [address] , [address] [place] [address] Electrical Design Technician: Conrad Bennett MD RBC (Bld) [#/Vol] 5.05 10*6/uL Normal 4.20-5.80 [facility] Comment on above: Performed By: #### 1 0231, 1759 #### [facility] [address] Electrical Design Technician: Eva Vanegas #### 6517, 7600, 5363 #### [facility] [place] [address], [address] [place] [address] Electrical Design Technician: Conrad Bennett MD WBC (Bld) [#/Vol] 4.6 10*3/uL Normal 3.8-10.8 [facility] Comment on above: Performed By: #### 1 0231, 1759 #### [place] [address] Electrical Design Technician: Eva Vanegas #### 6517, 6380, 5363 #### [facility] [place] [address], [address] [place] [address] Electrical Design Technician: Conrad Bennett MD [facility] METABOLIC PANE [facility] 03-06-2024 Albumin [Mass/Vol] 4.2 g/dL Normal 3.6-5.1 [facility] Comment on above: Performed By: #### 1 0231, 1759 #### [facility] [address] Electrical Design Technician: Eva Vanegas #### 6517, 7600, 5363 #### [facility] [place] [address] [address] , [address] [place] [address] Electrical Design Technician: Conrad Bennett MD Albumin/Globulin [Mass ratio] 1.8 {ratio} Normal 1.0-2.5 [facility] Comment on above: Performed By: #### 1 0231, 1759 #### [facility] Electrical Design Technician: Eva Vanegas #### 6517, 2020, 5363 #### [facility] [address], [address] [place] [address] Electrical Design Technician: Conrad Bennett MD ALP [Catalytic activity/Vol] 41 U/L Normal 35-144 [facility] Comment on above: Performed By: #### 1 0231, 1759 #### [facility] [address] Electrical Design Technician: Eva Vanegas #### 6517, 5630, 5363 #### [facility] [address], [address] [place] [address] Electrical Design Technician: Conrad Bennett MD ALT [Catalytic activity/Vol] 17 U/L Normal 9-46 [facility] Comment on above: Performed By: #### 1 0231, 1759 #### [facility] [address] Electrical Design Technician: Eva Vanegas #### 6517, 7940, 5363 #### [facility] [address], [address] [place] [address] Electrical Design Technician: Conrad Bennett MD AST [Catalytic activity/Vol] 15 U/L Normal 10-35 [facility] Comment on above: Performed By: #### 1 0231, 1759 #### [facility] Electrical Design Technician: Eva Vanegas #### 6517, 4000, 5363 #### [facility] [address], [address] [place] [address] Electrical Design Technician: Conrad Bennett MD Bilirubin [Mass/Vol] 0.7 mg/dL Normal 0.2-1.2 [facility] Comment on above: Performed By: #### 1 0231, 1759 #### [facility] [address] [place], [place] [address] Electrical Design Technician: Eva Vanegas #### 6517, 7600, 5363 #### [facility] [address], [address] [place] [address] Electrical Design Technician: Conrad Bennett MD BUN/CREATININE RATIO SEE NOTE: Normal 6-22 [facility] Comment on above: Result Comment: Not Reported: BUN and Creatinine are within reference range. Performed By: #### 1 0231, 1759 #### [facility] [address] Electrical Design Technician: Eva Vanegas #### 6517, 9860, 5363 #### [facility] [address], [address] [place] [address] Electrical Design Technician: Conrad Bennett MD Calcium [Mass/Vol] 9.6 mg/dL Normal 8.6-10.3 [facility] Comment on above: Performed By: #### 1 0231, 1759 #### [facility] [address] Electrical Design Technician: Eva Vanegas #### 6517, 2670, 5363 #### [facility] [address], [address] [place] [address] Electrical Design Technician: Conrad Bennett MD Chloride [Moles/Vol] 105 mmol/L Normal 98-110 [facility] Comment on above: Performed By: #### 1 0231, 1759 #### [facility] [address] [place], [place] [address] Electrical Design Technician: Eva Vanegas #### 6517, 8810, 5363 #### [facility] [address], [address] [place] [address] Electrical Design Technician: Conrad Bennett MD CO2 [Moles/Vol] 28 mmol/L Normal 20-32 [facility] Comment on above: Performed By: #### 1 0231, 1759 #### [facility] [address] [place] [address] Electrical Design Technician: Eva Vanegas #### 6517, 7600, 5363 #### [facility] [address], [address] [place], [place] [address] Electrical Design Technician: Conrad Bennett MD Creatinine [Mass/Vol] 0.87 mg/dL Normal 0.70-1.30 [facility] Comment on above: Performed By: #### 1 0231, 1759 #### [facility] [address] [place], [place] [address] Electrical Design Technician: Eva Vanegas #### 6517, 5500, 5363 #### [facility] [address], [address] [place] [address] Electrical Design Technician: Conrad Bennett MD GFR/1.73 sq M.predicted among non-blacks MDRD (S/P/Bld) [Vol rate/Area] 101 mL/min/{1.73_m2} Normal > OR = 60 [facility] Comment on above: Performed By: #### 1 230, 1759 #### [place] [address] Electrical Design Technician: vEa Vanegas #### 6517, 3430, 5363 #### [facility] [address], [address] [place] [address] Electrical Design Technician: Conrad Bennett MD Globulin (S) [Mass/Vol] 2.3 g/dL Normal 1.9-3.7 [facility] Comment on above: Performed By: #### 1 0231, 1759 #### [facility] [address] [place] [address] Electrical Design Technician: Eva Vanegas #### 6517, 7160, 5363 #### [facility] [address], [address] [place] [address] Electrical Design Technician: Conrad Bennett MD Glucose [Mass/Vol] 100 mg/dL High 65-99 [facility] Comment on above: Result Comment: Fasting reference interval For someone without known diabetes, a glucose value between 100 and 125 mg/dL is consistent with prediabetes and should be confirmed with a follow-up test. Performed By: #### 1 0231, 1759 #### [place] [address] Electrical Design Technician: Eva Vanegas #### 6517, 0, 5363 #### [facility] [address], [address] [place] [address] Electrical Design Technician: Conrad Bennett MD Potassium [Moles/Vol] 5.1 mmol/L Normal 3.5-5.3 [facility] Comment on above: Performed By: #### 1 230, 1759 #### [facility] [address] Electrical Design Technician: Eva Vanegas #### 6517, 0, 5363 #### [facility] [address], [address] [place] [address] Electrical Design Technician: Conrad Bennett MD Protein [Mass/Vol] 6.5 g/dL Normal 6.1-8.1 [facility] Comment on above: Performed By: #### 1 230, 175 #### [facility] Electrical Design Technician: Eva Vanegas #### 65, 7599, 5363 #### [facility] [address], [address] [place] [address] Electrical Design Technician: Conrad Bennett MD Sodium [Moles/Vol] 139 mmol/L Normal 135-146 [facility] Comment on above: Performed By: #### 1 230, 175 #### [facility] [address] Electrical Design Technician: Eva Vanegas #### 65, 0, 5363 #### [facility] [address], [address] [place] [address] Electrical Design Technician: Conrad Bennett MD Urea nitrogen [Mass/Vol] 16 mg/dL Normal 7-25 [facility] Comment on above: Performed By: #### 1 0231, 1759 #### [facility] [address] [place] [address] Electrical Design Technician: Eva Vanegas #### 6517, 7600, 5363 #### [facility] [address], [address] [place] [address] Electrical Design Technician: Conrad Bennett MD LIPID PANEL, [place] [address] Cholesterol [Mass/Vol] 211 mg/dL High <200 [facility] Comment on above: Order Comment: FASTI NG:YES FASTING: YES Performed By: #### 1 0231, 1759 #### [facility] [address] [place] [address] Electrical Design Technician: Eva Vanegas #### 6517, 7600, 5363 #### [facility] [address], [address] [place] [address] Electrical Design Technician: Conrad Bennett MD Cholesterol in HDL [Mass/Vol] 53 mg/dL Normal > OR = 40 [facility] Comment on above: Order Comment: FASTI NG:YES FASTING: YES Performed By: #### 1 0231, 1759 #### [facility] [address] [place] [address] Electrical Design Technician: Eva Vanegas #### 6517, 7600, 5363 #### [facility] [address], [address] [place] [address] Electrical Design Technician: Conrad Bennett MD Cholesterol in LDL [Mass/Vol] [...] LDL-C. Nicho HURTADO et al. KARMA. 2013;310(19): 0347-9165 (http://education.[employer]/faq/QMK929) Performed By: #### 1 023, 1759 #### [facility] [address] [place], [place] [address] Electrical Design Technician: Eva Vanegas #### 6517, 7600, 5363 #### [facility] [address], [address] [place] [address] Electrical Design Technician: Conrad Bennett MD Cholesterol.total/Ch olesterol in HDL [Mass ratio] 4.0 {ratio} Normal <5.0 [facility] Comment on above: Order Comment: FASTI NG:YES FASTING: YES Performed By: #### 1 023, 1759 #### [facility] [address] Electrical Design Technician: Eva Vanegas #### 6517, 0, 5363 #### [facility] [address], [address] [place] [address] Electrical Design Technician: Conrad Bennett MD NON HDL CHOLESTEROL 158 mg/dL (calc) High <130 [facility] Comment on above: Order Comment: FASTI NG:YES FASTING: YES Result Comment: For patients with diabetes plus 1 major ASCVD risk factor, treating to a non-HDL-C goal of <100 mg/dL (LDL-C of <70 mg/dL) is considered a therapeutic option. Performed By: #### 1 023, 1759 #### [facility] [address] [place] [phone] Electrical Design Technician: Eva Vanegas #### 6517, 7600, 5363 #### [facility] [address], [address] [place] [address] Electrical Design Technician: Conrad Bennett MD Triglyceride [Mass/Vol] 88 mg/dL Normal <150 [facility] Comment on above: Order Comment: FASTI NG:YES FASTING: YES Performed By: #### 1 0231, 1759 #### [facility] [place] [address] Electrical Design Technician: Eva Vanegas #### 6517, 7600, 5363 #### [facility] [address], [address] [place] [address] Electrical Design Technician: Conrad Bennett MD PSA, TOTALon 03-06-2024 PSA, TOTAL 3.64 ng/mL Normal < OR = 4.00 [facility] Comment on above: Result Comment: The total PSA value from this assay system is standardized against the WHO standard. The test result will be approximately 20% lower when compared to the equimolar-standardized total PSA (Imelda [place]). Comparison of serial PSA results should be interpreted with this fact in mind. This test was performed using the Siemens chemiluminescent method. Values obtained from different assay methods cannot be used interchangeably. PSA levels, regardless of value, should not be interpreted as absolute evidence of the presence or absence of disease. Performed By: #### 1 0231, 1759 #### [facility] [address] [place] [address] Electrical Design Technician: Eva Vanegas #### 6517, 7600, 5363 #### [facility] [place] [address] Electrical Design Technician: Conrad Bennett MD Laboratory - Hematology and Cell countson 02-21-2024 HbA1c (Bld) [Mass fraction] 7.1 % [facility] No Panel Informationon 02-20 [facility] Covid-19 PCR (CVDTBH)on 03-21 SARS-CoV-2 (COVID-19) RNA TERRY+probe Ql (Unsp spec) Not detected Normal NOT DETECTED [facility] Comment on above: Result Comment: When diagnostic testing is negative, the possibility of a false negative should be considered in the context of a patient's recent exposures and the presence of clinical signs and symptoms consistent with SARS-CoV-2. This test is not yet approved or cleared by the [place] Food and Drug Administration (FDA). This test was developed by [employer], [place], [place]. The performance characteristics of this test were validated by The [facility] Laboratory. The results are not intended to be used as the sole means for clinical diagnosis or patient management decisions. The [facility] is authorized under Clinical Laboratory Improvement Amendments [...] for this test is supported by the Preparer [place] Department of Health and Human Service's declaration that [...] VDTBH #### [facility] [address] [place] [address] Dr. Lucas Champion POINT OF CARE GLUCOSEon 03-21 Glucose [Mass/Vol] 88 mg/dL Normal 74-106 [facility] Comment on above: Performed By: #### P OCGLUC #### [facility] [address] [place] [address] Dr. Lucas Champion Glucose [Mass/Vol] 92 mg/dL Normal 74-106 [facility] Comment on above: Performed By: #### P OCGLUC #### [facility] [address] [place] [address] Dr. Lucas Champion ASYMPTOMATIC COVID-19 ANTIGE Non 12-20-2020 EUA Statement SEE BELOW Normal [facility] Comment on above: Result Comment: This [...] VDAGA #### [facility] [address] [place] [address] Dr. Lucas Champion SARS-CoV-2 (COVID-19) RNA TERRY+probe Ql (Unsp spec) Negative Normal NEGATIVE [facility] Comment on above: Result Comment: Nega tive results are presumptive. They do not preclude infection and should not be used as the sole basis for treatment decisions. Additional confirmatory testing by a molecular method should be considered. Performed By: #### C VDAGA #### [facility] [address] [place] [address] Dr. Lucas Champion Covid-19 PCR (CVDTB)on SARS-CoV-2 (COVID-19) RNA TERRY+probe Ql (Unsp spec) Not detected Normal NOT DETECTED [facility] Comment on above: Result Comment: This test is not yet approved or cleared by the [place] FDA. When there are no FDA-approved or cleared tests available, and other criteria are met, FDA can make tests available under an emergency access mechanism called an Emergency Use Authorization (EUA). The EUA for this test is supported by the [place] of Health and Human Service's (HHS's) declaration [...] SARS-CoV-2. Performed By: #### C VDTBH #### [facility] [address] [place] [address] Dr. Lucas Champion XR CHEST 1 Von [...] WILLIE HUNTER Date: 2020-12-20 18:20 Normal [facility] CBC With Platelet No Differe ntialon 04-11-2017 Erythrocyte distribution width Auto Ratio (RBC) 13.8 % Normal 11.5-14.5 [facility] Erythrocytes (RBC) 5.17 10*6/uL Normal 4.70-6.10 [facility] Hematocrit (HCT) 48.1 % Normal 42.0-52.0 [facility] Hemoglobin mass conc (Bld) 16.2 g/dL Normal 14.0-18.0 [facility] MCH 31.3 pg Normal 27.0-31.3 [facility] MCHC mass conc (RBC) 33.6 % Normal 33.0-37.0 [facility] MCV 93.0 fL Normal 80.0-100.0 [facility] Platelets 288 10*3/uL Normal 130-400 [facility] WBC (Leukocytes) 5.4 10*3/uL Normal 4.8-10.8 [facility] Comprehensive Metabolic Pane ryan 04-11-2017 Alanine aminotransferase (ALT) 12 U/L Normal 0-41 [facility] Albumin 4.2 g/dL Normal 3.9-4.9 [facility] Alkaline phosphatase (ALP) 46 U/L Normal 35-104 [facility] Anion gap 21 mmol/L Critically high 7-13 [facility] Aspartate aminotransferase (AST) 13 U/L Normal 0-40 [facility] Bilirubin (total) 0.8 mg/dL Normal 0.0-1.2 [facility] Calcium 9.6 mg/dL Normal 8.6-10.2 [facility] Chloride 102 mmol/L Normal 98-107 [facility] CO2 18 mmol/L Low 22-29 [facility] Creatinine 0.74 mg/dL Normal 0.70-1.20 [facility] eGFR (black) mL/min/{1.73_m2} Normal >60 [facility] Comment on above: Result Comment: >60 mL/min/1.73m2 EGFR, calc. for ages 18 and older using theMDRD formula (not corrected for weight), is valid for stablerenal function. eGFR (MDRD) mL/min/{1.73_m2} Normal >60 [facility] Comment on above: Result Comment: >60 mL/min/1.73m2 EGFR, calc. for ages 18 and older using theMDRD formula (not corrected for weight), is valid for stablerenal function. Globulin 2.3 g/dL Normal 2.3-3.5 [facility] Glucose mass conc 114 mg/dL Critically high 74-109 [facility] Potassium molar conc 4.1 mmol/L Normal 3.5-5.1 [facility] Protein 6.5 g/dL Normal 6.4-8.1 [facility] Sodium 141 mmol/L Normal 132-144 [facility] Urea nitrogen 13 mg/dL Normal 6-20 [facility] Hemoglobin A1con 04-11-2017 Hemoglobin A1c/Hemoglobin.total mass fraction (Bld) 7.2 % Critically high 4.8-5.9 [facility] TSH w/out Reflexon 8 Thyroid stimulating hormone (TSH) 1.340 uIU/mL Normal 0.270-4.20 [facility] VITAMIN Don 04-11-2017 VITAMIN D 20.0 ng/mL Low 30.0-100.0 [facility] Comment on above: Result Comment: (20- 30 ng/mL) InsufficiencyThis assay accurately quantifies the sum of vitamin D3, 25-Hydroxy andvitamin D2, 25-Hyroxy. Hemoglobin A1con 04-08-2017 Hemoglobin A1c/Hemoglobin.total mass fraction (Bld) 7.3 % Critically high 4.8-5.9 [facility] Vital Signs Date Time Vital Sign Value Performing Clinician Facility 05-31-2024 08:59-0400 Body height 188 cm Maribell Zapata NP Work Phone: [facility] 05-31-2024 08:59-0400 Body mass index (BMI) [Ratio] 29.53 kg/m2 Maribell Zapata POKER MANAGER Work Phone: [facility] 05-31-2024 08:59-0400 Body weight 104.33 kg Maribell Zapata POKER MANAGER Work Phone: [facility] 05-31-2024 08:59-0400 Diastolic blood pressure 80 mm[Hg] Maribell Zapata POKER MANAGER Work Phone: [facility] 05-31-2024 08:59-0400 Heart rate 96 /min Maribell Zapata POKER MANAGER Work Phone: [facility] 05-31-2024 08:59-0400 SaO2% (BldA) [Mass fraction] 99 % Maribell Zapata POKER MANAGER Work Phone: [facility] 05-31-2024 08:59-0400 Systolic blood pressure 128 mm[Hg] Maribell Zapata POKER MANAGER Work Phone: [facility] 05-15-2024 10:45-0500 Body height 188 cm Hiwot Kwok MD Work Phone: [facility] 05-15-2024 10:45-0500 Body mass index (BMI) [Ratio] 31.07 kg/m2 Hiwot Kwok MD Work Phone: [facility] 05-15-2024 10:45-0500 Body weight 109.77 kg Hiwot Kwok MD Work Phone: [facility] 05-15-2024 10:45-0500 Diastolic blood pressure 86 mm[Hg] Hiwot Kwok MD Work Phone: [facility] 05-15-2024 10:45-0500 Heart rate 74 /min Hiwot Kwok MD Work Phone: [facility] 05-15-2024 10:45-0500 Systolic blood pressure 125 mm[Hg] Hiwot Kwok MD Work Phone: [facility] 05-08-2024 10:54-0500 Body height 188 cm Katie Quiroga POKER MANAGER Work Phone: [facility] 05-08-2024 10:54-0500 Body mass index (BMI) [Ratio] 31.17 kg/m2 Katie Neosho POKER MANAGER Work Phone: [facility] 05-08-2024 10:54-0500 Body weight 110.13 kg Katie Neosho POKER MANAGER Work Phone: [facility] 05-08-2024 10:54-0500 Diastolic blood pressure 72 mm[Hg] Katie Junaid POKER MANAGER Work Phone: [facility] 05-08-2024 10:54-0500 Heart rate 80 /min Katie Junaid POKER MANAGER Work Phone: [facility] 05-08-2024 10:54-0500 Respiratory rate 17 /min Katie Junaid POKER MANAGER Work Phone: [facility] 05-08-2024 10:54-0500 SaO2% (BldA) [Mass fraction] 97 % Katie Neosho POKER MANAGER Work Phone: [facility] 05-08-2024 10:54-0500 Systolic blood pressure 108 mm[Hg] Katie Junaid POKER MANAGER Work Phone: [facility] 02-21-2024 10:52-0500 Body height 188 cm Katie Neosho POKER MANAGER Work Phone: [facility] 02-21-2024 10:52-0500 Body mass index (BMI) [Ratio] 30.69 kg/m2 Katie Neosho POKER MANAGER Work Phone: [facility] 02-21-2024 10:52-0500 Body weight 108.41 kg Katie Junaid POKER MANAGER Work Phone: [facility] 02-21-2024 10:52-0500 Diastolic blood pressure 76 mm[Hg] Katie Junaid POKER MANAGER Work Phone: [facility] 02-21-2024 10:52-0500 Heart rate 93 /min Katie Junaid POKER MANAGER Work Phone: [facility] 02-21-2024 10:52-0500 SaO2% (BldA) [Mass fraction] 96 % Katie Junaid POKER MANAGER Work Phone: [facility] [employer] 02-21-2024 10:52-0500 Systolic blood pressure 130 mm[Hg] Katie Quiroga POKER MANAGER Work Phone: [facility] 07-19-2022 10:30-0400 Body height 187.96 cm Cj Garcia Other [facility] Other 07-19-2022 10:30-0400 Body mass index (BMI) [Ratio] 30.17 kg/m2 Cj Garcia Other [facility] Other 07-19-2022 10:30-0400 Body temperature 97.9 [degF] Cj Garcia Other [facility] Other 07-19-2022 10:30-0400 Body weight 106.6 kg Cj Garcia Other [facility] Other 07-19-2022 10:30-0400 Diastolic blood pressure 81 mm[Hg] Cj Garcia Other [facility] Other 07-19-2022 10:30-0400 Respiratory rate 18 /min Cj Garcia Other [facility] Other 07-19-2022 10:30-0400 SaO2% (BldA) [Mass fraction] 96 % Cj Garcia Other [facility] Other 07-19-2022 10:30-0400 Systolic blood pressure 125 mm[Hg] Cj Garcia Other [facility] Other Encounters Encounter Date Encounter Type Care Provider Facility Start: 07-02-2024 ambulatory Esvin Young ty:[facility] Start: 06-25-2024 ambulatory Esvin MORILLO Facility :[facility] Start: 06-20-2024 End: 06-20-2024 Clinisync Result Encounter Katie Roche Junaid POKER MANAGER Work Phone: [facility] Unsolicited Start: 06-20-2024 End: 06-20-2024 Clinisync Result Encounter Katie Roche Junaid POKER MANAGER Work Phone: [facility] Unsolicited Start: 06-09-2024 End: 06-09-2024 Emergency department patient visit Iwona Huntley Facility:[facility] Start: 06-01-2024 ambulatory Iwona Huntley Facility:[facility] Start: 06-01-2024 End: 06-05-2024 Evaluation and management of inpatient Chidi Christi Facility:[facility] Start: 05-31-2024 End: 05-31-2024 Bamboo flowsheet Maribell Zapata POKER MANAGER Work Phone: [facility] Start: 05-31-2024 End: 05-31-2024 Bamboo flowsheet Maribell Zapata POKER MANAGER Work Phone: [facility] Start: 05-31-2024 End: 05-31-2024 Office outpatient visit 25 minutes Maribell Zapata POKER MANAGER Work Phone: [facility] Comment on above: Type 2 diabetes ellyn itus with hyperglycemia, with long-term current use of insulin ([facility]) (Primary Dx); Bipolar affective disorder, remission status unspecified ([facility]); Anxiety Start: 05-31-2024 End: 05-31-2024 ambulatory MARIBELL [...] mellitus with other specified complication, unspecified whether longitudinal float operator insulin use ([facility]) (Primary Dx); Rhinitis medicamentosa Start: 05-15-2024 End: 05-15-2024 ambulatory HIWOT KWOK Not Available Start: 05-08-2024 End: 05-08-2024 Office outpatient visit 25 minutes Katie Quiroga POKER MANAGER Work Phone: [facility] Comment on above: Nasal congestion (Pr imary Dx); Enlarged testicle; Pain in right testicle; Bipolar disorder, unspecified ([facility]) Start: 05-08-2024 End: 05-08-2024 ambulatory KATIE QUIROGA Not Available Start: 04-10-2024 End: 04-10-2024 ambulatory Dina Tobin Facility:[facility] Start: 03-27-2024 End: 03-27-2024 ambulatory DINA RUDD Not Available Start: 03-27-2024 End: 03-27-2024 Patient encounter procedure Dina Rudd DO Work Phone: [facility] Comment on above: Screen for colon can cer (Primary Dx) Start: 03-12-2024 End: 03-12-2024 Refill Katie Quiroga POKER MANAGER Work Phone: [facility] Comment on above: Type 2 diabetes ellyn itus with diabetic polyneuropathy ([facility]); Diabetic polyneuropathy associated with type 2 diabetes mellitus ([facility]) Start: 02-21-2024 End: 02-21-2024 Bamboo flowsheet Katie Quiroga POKER MANAGER Work Phone: [facility] Start: 02-21-2024 End: 02-21-2024 Bamboo flowsheet Katie Quiroga POKER MANAGER Work Phone: [facility] Start: 02-21-2024 End: 02-21-2024 Assay of hemosiderin, quant Katie Quiroga POKER MANAGER Work Phone: [facility] Start: 02-21-2024 End: 02-21-2024 Patient encounter procedure Katie Quiroga POKER MANAGER Work Phone: [facility] Comment on above: Medicare annual well ness visit, subsequent (Primary Dx); Diabetic polyneuropathy associated with type 2 diabetes mellitus ([facility]/HCC); Primary insomnia; Essential hypertension; Myalgia; Myopathy; Type 2 diabetes mellitus with hyperglycemia, with long-term current use of insulin ([facility]/HCC); Obesity (BMI 30-39.9); Adjustment disorder with depressed mood ([facility]/HCC); Bipolar affective disorder, remission status unspecified ([facility]/HCC); Elevated LDL cholesterol level ([facility]/HCC); Major depressive disorder in full remission, unspecified whether recurrent (HCC) ([facility]); Major depressive disorder, single episode, in full remission ([facility]); Screening for prostate cancer; Flu vaccine need; Screening for colon cancer; Routine general medical examination at health care facility; Acute non-recurrent pansinusitis Start: 02-21-2024 End: 02-21-2024 ambulatory KATIE QUIROGA Not Available Start: 06-14-2023 End: 06-14-2023 ambulatory KATIE QUIROGA Not Available Start: 07-19-2022 End: 07-19-2022 ambulatory Cj Garcia Other [facility] Other Start: 07-19-2022 Office outpatient vi sit 15 minutes Cj Garcia [facility] [place] Start: 04-08-2021 End: 04-08-2021 ambulatory JOSEP HORN Facility: Start: 12-20-2020 End: 12-20-[address] IWONA HUNTLEY Facility: Start: 04-07-2017 Evaluation and management of inpatient Clarence Arnold Facility:[facility] Procedures Date Procedure Procedure Detail Performing Clinician Start: 06-20-2024 Us scrotum & contents S miguel angel Quiroga POKER MANAGER Work Phone: Start: 05-31-2024 Hemoglobin glycosyla joesph a1c Maribell Zapata POKER MANAGER Work Phone: Start: 04-10-2024 COLONOSCOPY DIAGNOSTIC Arnol Muñoz MD Work Phone: Start: 04-10-2024 Colonoscopy Maribell Zapata POKER MANAGER Work Phone: Start: 02-21-2024 Hemoglobin glycosyla joesph a1c Katie Quiroga POKER MANAGER Work Phone: Plan of Treatment Date Care [...] [address] [place] [address] Maribell Zapata, POKER MANAGER [address] [place] [address] [facility] Start: 05-31-2024 End: 05-31-2024 Patient encounter procedure 05/31/2024 9:00 AM EDT Office Visit [facility] [address] [place] [address] Maribell Zapata, POKER MANAGER [address] [place] [address] Arrived [facility] Comment on above: Arrived Start: 05-21-2024 Hemoglobin A1c measurement Diabetes: Hemoglobin A1C [facility] Start: 05-15-2024 End: 05-15-2024 Patient encounter procedure 05/15/2024 10:50 AM EST Office Visit [facility] [address] [place] [address] Hiwot Kwok MD [address] [place] [address] Nasal congestion [facility] Comment on [...] [address] [place] [id number] Dina Rudd DO [address] [place] [address] [facility] Start: 02-21-2024 End: 02-20-2025 CBC panel - Blood by Automated count CBC Lab Routine Medicare annual wellness visit, subsequent Essential hypertension Type 2 diabetes mellitus with hyperglycemia, with long-term current use of insulin (CMS/HCC) Expected: 02/21/2024 (Approximate), Expires: 02/20/2025 [facility] Comment on above: Expected: 02/21/2024 (Approximate), Expires: 02/20/2025 Start: 02-21-2024 End: 02-20-2025 Comprehensive metabolic 2000 panel - Serum or Plasma Comprehensive metabolic panel Lab Routine Medicare annual wellness visit, subsequent Essential hypertension Type 2 diabetes mellitus with hyperglycemia, with long-term current use of insulin (CMS/HCC) Expected: 02/21/2024 (Approximate), Expires: 02/20/2025 [facility] Comment on above: Expected: 02/21/2024 (Approximate), Expires: 02/20/2025 Start: 02-21-2024 End: 02-20-2025 Lipid 1996 panel - Serum or Plasma Lipid panel Lab Routine Medicare annual wellness visit, subsequent Elevated LDL cholesterol level (CMS/HCC) Expected: 02/21/2024 (Approximate), Expires: 02/20/2025 [facility] Work Phone: Comment on above: Expected: 02/21/2024 (Approximate), Expires: 02/20/2025 Start: 02-21-2024 End: 02-20-2025 Microalbumin/Creatinine panel in random Urine Microalbumin / creatinine, urine ratio Lab Routine Medicare annual wellness visit, subsequent Type 2 diabetes mellitus with hyperglycemia, with long-term current use of insulin (CMS/HCC) Expected: 02/21/2024 (Approximate), Expires: 02/20/2025 [facility] Comment on above: Expected: 02/21/2024 (Approximate), Expires: 02/20/2025 Start: 02-21-2024 End: 02-20-2025 Prostate specific Ag [Mass/volume] in Serum or Plasma PSA Lab Routine Screening for prostate cancer Expected: 02/21/2024 (Approximate), Expires: 02/20/2025 [facility] Comment on above: Expected: 02/21/2024 (Approximate), Expires: 02/20/2025 Start: 02-21-2024 End: 02-21-2024 Patient encounter procedure 02/21/2024 11:00 AM EST Office Visit [facility] [address] [facility] [address] [place] [id number] Katie Quiroga NP [address] [facility] [address] [place], [place] [id number] Medicare annual wellness visit, subsequent (Primary Dx); [...] in full remission, unspecified whether recurrent (HCC) ([facility]/HCC); Major depressive disorder, single episode, in full remission ([facility]/HCC); Screening for prostate cancer Start: 01-14-2024 Medicare Annual Well ness (AWV) Medicare Annual Wellness (AWV) [facility] Start: 01-01-2024 Urine screening for protein Diabetes: Urine Protein Screening [facility] Start: 11-20-2023 Influenza vaccination Influenza Vacc ine (#1) [facility] Start: 09-14-2023 Hemoglobin A1c measurement Diabetes: Hemoglobin A1C [facility] Start: 1977 Glaucoma screening Diabetes: R etinopathy Screening [facility] Start: 1967 Screening for malign ant neoplasm of colon [facility] Immunizations Immunization Date Immunization Notes Care Provider Fa cility 02-21-2024 influenza, seasonal, injectable, preservative free Katie Quiroga POKER MANAGER Work Phone: [facility] 01-06-2022 Moderna SARS-CoV-2 50mcg/0.5mL Booster Katie Quiroga POKER MANAGER Work Phone: [facility] Payers Date Payer Category Payer Self-pay 2016 Medicare MEDICARE [id number] 1967 Unknown [id number] 1967 Unknown [id number] 3 1967 Unknown [id number] 59 1967 Unknown [id number] 59 1967 Unknown [id number] 59 1967 Unknown [id number] 59 1967 Unknown [id number] 59 1967 Unknown [id number] 59 1959 Medicare [id number] Medicare [id number] Unknown [id number] 1 Unknown [id number] 1 Unknown [id number] 1 Unknown [id number] 1 Social History Date Type Detail Facility Unknown if ever smoked [facility] Other Start: 01-13-2023 End: 02-21-2024 Sex Assigned At [facility] Start: 11-04-2022 Tobacco smoking status [facility] Tobacco smoking consumption unknown [facility] Start: 11-04-2022 End: 05-08-2024 Alcoholic beverage intake Defer [facility] Start: 01-13-2023 End: 02-21-2024 History of Social function [facility] Start: 1965 Sex assigned at Not on file N [facility] Start: 02-21-2024 Tobacco smoking status SCIS Never smoked tobacco [facility] Start: 02-21-2024 Tobacco use and exposure Smokeless tobacco non-user [facility] Start: 05-15-2024 End: 05-31-2024 Alcoholic beverage intake Lifetime non-drinker (finding) [facility] Medical Equipment Procedure Code Equipment Code Equipment Origin al Text Equipment Identifier Dates USE DIRECTED DAILY [id number] Start: 01-18-2023 Clinical Notes 07-19-2022 to 05-31-2024 Maribell Zapata NP - 05/31/2024 9:00 AM EDTPatient Cydney Kwko MD - 05/15/2024 10:50 AM Crystal Quiroga [...] History: Diagnosis Date Cholelithiasis DM (diabetes mellitus) ([facility]) Gastritis 2010 Major depression ([facility]) psychiatric evaluation Severe major depression with psychotic features (HCC) ([facility]) 2013 Testicle lump Past Surgical History: Procedure Laterality Date COLONOSCOPY EGD with foreign body removal GA LAP,CHOLECYSTOENTEROSTOMY 03/2015 Cholelithiasis GA SCREENING FOR DEPRESSION PERFORMED Visit Vitals Ht [...] hyperglycemia, with long-term current use of insulin ([facility]) (Primary) 7.7 A1C today. 02/21/24 Hemoglobin A1C [...] 2. Bipolar affective disorder, remission status unspecified ([facility]) Discussed diagnosis with the pt, use of [...] follow-ups on file. documented in this encounter [facility] 05-31-2024 Instructions Maribell Zapata NP - 05/31/2024 9:00 AM EDT Restart wellbutrin today at 150 mg bid. Ativan ordered bid prn x 14 days. Follow up 2 weeks to evaluate. documented in this encounter [facility] 05-15-2024 History of Presen t illness [...] 30-39.9) 10/08/2022 Major depression in complete remission ([facility]) 10/08/2022 Impotence of organic origin 10/08/2022 Hyperglycemia due to type 2 diabetes mellitus ([facility]) 10/08/2022 Elevated LDL cholesterol level ([facility]) 10/08/2022 Diabetic polyneuropathy associated with type 2 diabetes mellitus ([facility]) 10/08/2022 Bipolar disorder ([facility]) 10/08/2022 Adjustment disorder with depressed mood ([facility]) 10/08/2022 Essential hypertension 11/04/2022 Myalgia 04/22/2023 Myopathy 04/22/2023 Resolved Ambulatory Problems Diagnosis Date Noted No Resolved Ambulatory Problems Past Medical History: Diagnosis Date Cholelithiasis DM (diabetes mellitus) ([facility]) Gastritis 2010 Major depression ([facility]) Severe major depression with psychotic features ([facility]) ([facility]) 2013 Testicle lump Past Surgical History: Procedure Laterality Date COLONOSCOPY EGD with foreign body removal GA LAP,CHOLECYSTOENTEROSTOMY 03/2015 Cholelithiasis GA SCREENING FOR DEPRESSION PERFORMED No Known Allergies [...] mellitus with other specified complication, unspecified whether senior care insulin use ([facility]) Rhinitis medicamentosa - Ambulatory referral to ENT No anatomic obstruction evident. Clearly has rhinitis medicamentosa. Start prednisone, flonase and hypertonic saline. Stop afrin cold turkey after 2 days. Check BS BID and contact PCP if over 250 documented in this encounter [facility] 05-08-2024 History of Presen t illness [...] History: Diagnosis Date Cholelithiasis DM (diabetes mellitus) ([facility]) Gastritis 2011 Major depression ([facility]) psychiatric evaluation Severe major depression with psychotic features (HCC) ([facility]) 2014 Testicle lump Past Surgical History: Procedure Laterality Date EGD with foreign body removal GA LAP,CHOLECYSTOENTEROSTOMY 03/2015 Cholelithiasis GA SCREENING FOR DEPRESSION PERFORMED Visit Vitals Smoking [...] follow-ups on file. documented in this encounter [facility] 03-27-2024 History of Presen t illness [...] History: Diagnosis Date Cholelithiasis DM (diabetes mellitus) ([facility]) Gastritis 2011 Major depression ([facility]) psychiatric evaluation Severe major depression with psychotic features (HCC) ([facility]) 2014 Testicle lump Social History Tobacco Use Smoking status: Never Smokeless tobacco: Never Substance Use Topics Alcohol use: Defer Past Surgical History: Procedure Laterality Date EGD with foreign body removal GA LAP,CHOLECYSTOENTEROSTOMY 03/2015 Cholelithiasis GA SCREENING FOR DEPRESSION PERFORMED Family History Family history unknown: Yes No Known Allergies Past Surgical History: Procedure Laterality Date EGD with foreign body removal GA LAP,CHOLECYSTOENTEROSTOMY 03/2015 Cholelithiasis GA SCREENING FOR DEPRESSION PERFORMED Tobacco Use: Low [...] Shari Rudd DO documented in this encounter [facility] 03-12-2024 Telephone encount er Note Gabapentin sent [facility] 03-12-2024 Miscellaneous Notes Formattin g of this note might be different from the original. Gabapentin sent documented in this encounter [facility] 02-21-2024 History of Presen t illness [...] Do you have a medical power of trademark attorney?: No Objective : BP 130/76 Pulse [...] polyneuropathy associated with type 2 diabetes mellitus ([facility]) We discussed today, the importance of proper [...] hyperglycemia, with long-term current use of insulin ([facility]) We discussed today, the importance of proper [...] caffiene. 9. Adjustment disorder with depressed mood ([facility]) This is a chronic medical condition that is stable since last assessment. No changes in treatment are suggested at this time. 10. Bipolar affective disorder, remission status unspecified ([facility]) This is a chronic medical condition that [...] February 21, 2024 documented in this encounter [facility] 07-19-2022 Evaluation note Encounter Date Diagnosis [...] is: adult home care material was printed [facility] Other Evaluation note* Diagnosis Medicare annual wellness visit, subsequent- Primary Diabetic polyneuropathy associated with type 2 diabetes mellitus ([facility]/HCC) Primary insomnia Persistent disorder of initiating or maintaining sleep Essential hypertension Unspecified essential hypertension Myalgia Unspecified myalgia and myositis Myopathy Unspecified myopathy Type 2 diabetes mellitus with hyperglycemia, with long-term current use of insulin ([facility]) Obesity (BMI 30-39.9) Adjustment disorder with depressed mood ([facility]) Adjustment disorder with depressed mood Bipolar affective disorder, remission status unspecified ([facility]) Elevated LDL cholesterol level ([facility]) Major depressive disorder in full remission, unspecified whether recurrent (HCC) ([facility]) Major depressive disorder, single episode, in full remission ([facility]) Major depressive disorder, single episode in full [...] Type 2 diabetes mellitus with diabetic polyneuropathy ([facility]/HCC) Diabetic polyneuropathy associated with type 2 diabetes mellitus ([facility]/HCC) [facility] Diagnosis Screen for colon cancer- Primary Special screening for malignant neoplasms, colon [facility] Diagnosis Nasal congestion- Primary Other diseases of nasal cavity and sinuses Enlarged testicle Other specified disorder of male genital organs Pain in right testicle Unspecified disorder of male genital organs Bipolar disorder, unspecified ([facility]) Bipolar disorder, unspecified [facility] Diagnosis Other specified diabetes mellitus with other specified complication, unspecified whether senior care insulin use ([facility])- Primary Rhinitis medicamentosa Other diseases of nasal cavity and sinuses [facility] Diagnosis Type 2 diabetes mellitus with hyperglycemia, with long-term current use of insulin ([facility]/HCC)- Primary Bipolar affective disorder, remission status unspecified (CMS/HCC) Anxiety Anxiety state, unspecified [facility] N[facility] - Reported* Type Description Date Medical History diabetes Medical History depression Medical History neuropathy Surgical History tonsillectomy Surgical History cholecystectomy Hospitalization History see above surg hx [facility] Other Reason for visit Narrative* Consultation (Routine) - Closed Specialty Diagnoses / Procedures Referred By Contac t Referred To Contact General Surgery Diagnoses Screening for colon cancer Procedures GA OFFICE/OUTPATIENT [facility] MDM Katie Quiroga, POKER MANAGER [address] [facility] [address] [place] [address] Phone: tel: fax: Dina Rudd DO [address] [facility] [address] [place] [address] Phone: tel: fax: Referral ID Status Reason Start Date Expiration Date V isits Requested Visits Authorized [id number] Closed Specialty Services Required 02/21/2024 08/19/2024 1 [...] section and content) DATE CREATED AUTHOR 09/13/2017 [facility] DATE CREATED AUTHOR AUTHOR'S ORGANIZ ATION 09/12/2017 [facility] DATE CREATED AUTHOR AUTHOR'S ORGANIZ ATION 04/15/2021 [facility] DATE CREATED AUTHOR AUTHOR'S ORGANIZ ATION 03/09/2024 [facility] DATE CREATED AUTHOR AUTHOR'S ORGANIZ ATION 06/03/2024 [facility]ical Specialists [facility] DATE CREATED AUTHOR AUTHOR'S ORGANIZ ATION 06/27/2024 [facility] DATE CREATED AUTHOR AUTHOR'S ORGANIZ ATION 07/05/2024 [facility] REASON FOR VISIT (unrecogniz ed [...] To Contact Otolaryngology Diagnoses Nasal congestion Procedures GA OFFICE/OUTPATIENT NEW HIGH MDM 60 MINUTES Katie Quiroga, SHAYNE [address] [facility] [address] [place] [address] Phone: tel: fax: iHwot Kwok MD [address] [facility] [address] [place] [address] Phone: tel: fax: Referral ID Status Reason Start Date Expiration Date V isits Requested Visits Authorized [id number] Closed Specialty Services Required 05/08/2024 11/04/2024 1 1 Reason Comments Diabetes Med Refill Gabapentin-- [facility] Care Teams (unrecognized sec tion and content) Hire Car Driver Relationship Specialty Start Date End Date Iwona Huntley MD [address] [facility] [address] [place] [address] PCP - ACO Reach 08/12/22 Iwona Huntley MD [address] [facility] [address] [place] [address] PCP - General Family Medicine 07/27/22 Hire Car Driver Relationship Specialty Start Date End Date Iwona Huntley MD [address] [facility] [address] [place] [address] PCP - ACO Reach 08/12/22 Iwona Huntley MD [address] [place] [address] [place] [address] PCP - General Family Medicine 07/27/22 Hire Car Driver Relationship Specialty Start Date End Date Iwona Huntley MD [address] [place] [address] [place] [address] PCP - ACO Reach 08/12/22 Iwona Huntley MD [address] [place] [address] [place] [address] PCP - General Family Medicine 07/27/22 Hire Car Driver Relationship Specialty Start Date End Date Iwona Huntley MD [address] [place] [address] [place] [address] PCP - ACO Reach 08/12/22 Iwona Huntley MD [address] [place] [address] [place] [address] PCP - General Family Medicine 07/27/22 Hire Car Driver Relationship Specialty Start Date End Date Iwona Huntley MD [address] [place] [address] [place] [address] PCP - General Family Medicine 07/27/22 Katie Quiroga POKER MANAGER [address] [place] [address] [place] [address] PCP - ACO Reach 04/27/24 Hire Car Driver Relationship Specialty Start Date End Date Iwona Huntley MD [address] [place] [address] [place] [address] PCP - General Family Medicine 07/27/22 Katie Quiroga, POKER MANAGER [address] [place] [address] [place] [address] PCP - ACO Reach 04/27/24 Hire Car Driver Relationship Specialty Start Date End Date Iwona Huntley MD [address] [place] [address] [place] [address] PCP - General Family Medicine 07/27/22 Katie Quiroga, POKER MANAGER [address] [place] [address] [place] [address] PCP - ACO Reach 04/27/24 Hire Car Driver Relationship Specialty Start Date End Date Iwona Huntley MD [address] [place] [address] [place] [address] PCP - General Family Medicine 07/27/22 Katie Quiroga, POKER MANAGER [address] [place] [address] [place] [address] PCP - ACO Reach 04/27/24 Hire Car Driver Relationship Specialty Start Date End Date Iwona Huntley MD [address] [place] [address] [place] [address] PCP - General Family Medicine 07/27/22 Katie Quiroga, POKER MANAGER [address] [place] [address] [place] [address] PCP - ACO Reach 04/27/24 Hire Car Driver Relationship Specialty Start Date End Date Iwona Huntley MD [address] [place] [address] [place] [address] PCP - General Family Medicine 07/27/22 Katie Quiroga, POKER MANAGER [address] [place] [address] [place] [address] PCP - ACO Reach 04/27/24 FOR RECORDS [...] BE BASED ON THE PRIMARY CLINICAL RECORDS. [facility]. provides no warranty or guarantee of the accuracy or completeness of information in this document.
--- NOTE | 2024-07-29 10:19 | ED_ITS ---
HPI - Dental/Oral General Chief complaint: Dental/Oral Stated complaint: DENTAL INFECTION Time Seen by Provider: 07/29/24 10:06 Source: patient Mode of arrival: walk-in History of Present Illness HPI Narrative: 59-year-old male presents for 2 to 3-day history of pain in his left upper dentition posteriorly. He believes he has an infection. He has a dentist and will be able to call tomorrow. No drainage or fever or difficulty breathing or swallowing. The pain is moderate and continuous. Related Data Home Medications ?Medication ?Instructions ?Recorded ?Confirmed gabapentin 300 mg capsule mg 04/05/24 insulin glargine 100 subcut 04/05/24 unit-lixisenatide 33 mcg/mL subcutaneous pen (Soliqua ) metformin 1,000 mg tablet mg 04/05/24 Previous Rx's ?Medication ?Instructions ?Recorded hydrocodone 5 mg-acetaminophen 325 1 tab PO Q6H PRN pa in #12 tabs 10/05/22 mg tablet ondansetron 4 mg disintegrating 4 mg PO Q6H PRN nausea and 10/05/22 tablet vomiting #12 tabs acetaminophen 300 mg-codeine 30 mg 1 tab PO Q6H PRN pa in 5 days #20 07/29/24 tablet tabs ibuprofen 800 mg tablet 800 mg PO Q8H PRN pain #20 t abs 07/29/24 penicillin V potassium 250 mg 250 mg PO QID 10 days #4 0 tabs 07/29/24 tablet Allergies Allergy/AdvReac Type Severity Reaction Status Date / Time No Known Drug Allergies Allergy Verified 04/05/24 11:02 Review of Systems ROS Narrative A ten point review of systems is negative except as noted above. [facility] Medical History (Updated 07/29/24 @ 10:16 by Tavares Pablo MD) Seasonal allergies ?J30.2 - Other seasonal allergic rhinitis (ICD-10) Testicular lump ?N50.89 - Other specified disorders of the male genital organs (ICD-10) Depression ?F32.A - Depression, unspecified (ICD-10) Gastritis ?K29.70 - Gastritis, unspecified, without bleeding (ICD-10) Diabetes mellitus ?E11.9 - Type 2 diabetes mellitus without complications (ICD-10) Cholelithiasis ?K80.20 - Calculus of gallbladder without cholecystitis without obstruction (ICD-10) Surgical History (Updated 04/05/24 @ 11:17 by Kath Woody) Hx of cholecystectomy ?Z90.49 - Acquired absence of other specified parts of digestive tract (ICD- 10) History of esophagogastroduodenoscopy (EGD) ?Z98.890 - Other specified postprocedural states (ICD-10) Family History (Updated 04/05/24 @ 11:08 by Kath Woody) Other Family history of coronary artery disease Family history of diabetes mellitus Family history of heart disease Family history of lung cancer Family history of myocardial infarction Social History (Updated 04/05/24 @ 11:03 by Kath Woody) Within the past year, how often did you have a drink containing alcohol: never Score interpretation: A score less than 4 is consistent with normal alcohol consumption. Smoking status: Never smoker Non-prescribed substance use: denies use Previous occupational history: [employer] Highest level of school completed/degree received: high school graduate Little interest or pleasure in doing things: not at all Feeling down, depressed, or hopeless: not at all Exam Narrative Exam Narrative: Nurses note and vital signs reviewed and patient is not hypoxic. General: The patient appears well and in no apparent distress. Patient is resting comfortably on cart. Skin: Warm, dry, no pallor noted. There is no rash noted. Head: Normocephalic, atraumatic Eye: Normal conjunctiva, no drainage Ears, Nose, Mouth, and Throat: oral mucosa is moist. Nares patent. He has some mild gingival swelling in the left upper dentition posteriorly. No bleeding or pus present. No swelling to the floor of his mouth and he is handling the oral secretion well. Cardiovascular: Regular Rate and Rhythm Respiratory: Patient is in no distress, no accessory muscle use, lungs are clear to auscultation, no wheezing, rales or rhonchi Back: non-tender, no CVA tenderness bilaterally to percussion. GI: Soft and nontender Musculoskeletal: The patient has no evidence of calf tenderness, no pitting edema, symmetrical pulses noted bilaterally Neurological: A&O, normal speech Psychiatric: Cooperative Constitutional Vital Signs, click to edit/add: Last Vital Signs Temp 98 F 07/29/24 09:59 Pulse 107 H 07/29/24 09:59 Resp 18 07/29/24 09:59 BP 146/94 H 07/29/24 09:59 Pulse Ox 96 07/29/24 09:59 O2 Del Method Room Air 07/29/24 09:59 Course Vital Signs Vital signs: Vital Signs Temperature 98 F 07/29/24 09:59 Pulse Rate 107 H 07/29/24 09:59 Respiratory Rate 18 07/29/24 09:59 Blood Pressure 146/94 H 07/29/24 09:59 Pulse Oximetry 96 07/29/24 09:59 Oxygen Delivery Method Room Air 07/29/24 09:59 Temperature 98 F 07/29/24 09:59 Pulse Rate 107 H 07/29/24 09:59 Respiratory Rate 18 07/29/24 09:59 Blood Pressure 146/94 H 07/29/24 09:59 Pulse Oximetry 96 07/29/24 09:59 Oxygen Delivery Method Room Air 07/29/24 09:59 MDM - Dental/Oral MDM Narrative Medical decision making narrative: He is provided pain medication and antibiotics, penicillin, Tylenol 3, and ibuprofen. He will call his dentist tomorrow. Treatment diagnosis and follow- up were discussed with the patient. Differential Diagnosis Differential diagnosis: Likely gingival abscess, dental caries, toothache and dental abscess Discharge Plan Discharge Chief Complaint: Dental/Oral Clinical Impression: Dental infection Patient Disposition: Home, Self-Care Time of Disposition Decision: 10:16 Condition: Good Mode of Transportation: Private Vehicle Prescriptions / Home Meds: New acetaminophen-codeine 300-30 mg tablet 1 tab PO Q6H PRN (Reason: pain) 5 Days Qty: 20 0RF penicillin V potassium 250 mg tablet 250 mg PO QID 10 Days Qty: 40 0RF ibuprofen 800 mg tablet 800 mg PO Q8H PRN (Reason: pain) Qty: 20 0RF No Action hydrocodone-acetaminophen 5-325 mg tablet 1 tab PO Q6H PRN (Reason: pain) Qty: 12 0RF Rx Instructions: Dx: M79.605 ondansetron 4 mg tablet,disintegrating 4 mg PO Q6H PRN (Reason: nausea and vomiting) Qty: 12 0RF metformin 1,000 mg tablet gabapentin 300 mg capsule Soliqua 100/33 100 unit-33 mcg/mL insulin pen SUBCUT Print Language: Latvian Instructions: Dental Abscess (ED) Referrals: IWONA HUNTLEY [Primary Care Provider, Family Practice] - 1 week
== END 2024-07-29 10:30 | disposition home or self-care (01) ==
PROVIDERS: Emergency Provider Emergency Medicine; PCP Family Medicine
DX: K04.7 Periapical abscess without sinus (principal); Z90.49 Acquired absence of other specified parts of digestive tract
CPT/HCPCS: 99283

== ENCOUNTER 2024-11-16 13:02 | Outpatient (OUT) | payer MEDICARE, SELFPAY ==
--- OUTSIDE RECORDS SUMMARY | 2024-11-16 13:11 | XMS_ITS | CCD ---
Author Organization [facility] CliniSywy Care Team Providers Care Contact Center Rep Name Role Phone Nelsy Arnoldesh K Unavailable Unavailable Catalina Clarence K Unavailable Unavailable YUKO, DR BUSTILLO Primary Care Unavailable GISSELLE, DR BUSTOS Admitting Unavailable GISSELLE, DR BUSTOS Attending Unavailable GISSELLE, DR BUSTOS Consulting Unavailable YUKO, DR BUSTILLO Consulting Unavailable PAY, DR ROMERO Consulting Unavailable LIZ MARROQUIN Consulting Unavailable Willie Hunter Consulting Unavailable JOSEP HORN Admitting Unavailable YUKO, DR BUSTILLO Primary Care Unavailable JOSEP HORN Attending Unavailable GISSELLE, DR BUSTOS Consulting Unavailable AGBART SCHAFER Consulting Unavailable JOSEP HORN Consulting Unavailable PREETHI PEDRAZA Consulting Unavailable Cj Garcia Unavailable Iwona Huntley MD Unavailable Iwona Huntley MD Primary Care Provider [phone] Katie Quiroga NP Unavailable [phone] KATIE QUIROGA Attending Unavailable HIWOT KWOK Attending Unavailable KATIE QUIROGA Referring Unavailable MARIBELL ZAPATA Attending Unavailable KATIE QUIROGA Attending Unavailable KATIE QUIROGA Attending Unavailable DINA RUDD Attending Unavailable KATIE QUIROGA Referring Unavailable Iwona Huntley Primary Care Unavailable Tiffany Pritchett Admitting Unavailable Tiffany Pritchett Attending Unavailable Dina Rudd Admitting Unavailable Dina Rudd Attending Unavailable Chidi Barraza Admitting Unavailab Chidi Oliveira Attending Unavailab Iwona Solares Primary Care Unavailable NON STAFF Primary Care Unavailable Bairon Espino Attending Unavailable Chidi Barraza Admitting Unavailab IWONA Solares Primary Care Physician [phone] Esvin SPARKS Attending Unavailable KATIE QUIROGA Referring Unavailable Esvin SPARKS Attending Unavailable KATIE QUIROGA Referring Unavailable Brandon BEAN Attending Unavailable Allergies Allergy Classification Reported Allergen(s) Allergy Type Date of Onset Reaction(s) Facility (1 source) OLANZapine Drug Allergy [facility] Repository (1 source) No Known Medication Allergies; Translations: [No Known Medication Allergies] Propensity to adverse reactions (disorder) [facility] Repository Medications Current Medications Medication Drug [...] Active busPIRone hydrochloride 5 mg oral tablet (2 sources) Start: 10-26-2024 take 1 tablet by mouth twice daily busPIRone 5 mg Tab 5 mg = 1 tab(s), Oral, BID, Refills(s) 0 Start Date: 10/26/24 Status: Ordered Repeat number: 1 Start: 06-05-2024 take 1 tablet by james th in the morning busPIRone (Buspar) 5 MG [...] 05/15/2025 Active gabapentin 300 mg oral capsule (18 sources) Anti-epileptic Agent Start: 10-26-2024 take 1 capsule by mouth three times daily gabapentin 300 mg Cap 300 mg = 1 cap(s), Oral, TID, Refills(s) 0 Start Date: 10/26/24 Status: Ordered Repeat number: 1 Start: 06-18-2024 gabapentin (Ne urontin) 300 MG capsule Indications: Type 2 diabetes [...] unt/ml / lixisenatide 0.033 mg/ml pen injector (17 sources) Insulin Analog Start: 10-24-2024 Soliqua 100/33 subcutaneous solution IntraMuscular, Refills(s) 0 Start Date: 10/24/24 Status: Ordered Repeat number: 1 Start: 11-15-2023 insulin glargi ne-lixisenatide (Soliqua) 100-33 UNT-MCG/ML pen Indications: Type 2 diabetes mellitus with other specified complication, unspecified whether residential insulin use (CMS/HCC) INJECT 30 UNITS SUBCUTANEOUSLY [...] Start: 07-19-2022 take 1 tablet by james every six hours Loperamide HCl 2 MG [...] 3 05/05/2023 Active metFORMIN HCl Ac tive 24 hr metFORMIN hydrochloride 1000 mg / sAXagliptin 5 mg extended release oral tablet (1 source) Biguanide, Dipeptidyl Peptidase 4 Inhibitor Start: 10-24-2024 metformin-saxagliptin 1000 mg-5 mg oral tablet, extended release Refill(s) 0 Start Date: 10/24/24 Status: Ordered Repeat number: 1 ondansetron 8 mg disintegrating oral tablet (4 sources) Serotonin-3 Receptor Antagonist Start: 07-19-2022 End: 02-21-2024 take 1 tablet by mouth every eight hours as needed ondansetron ODT (Zofran-ODT) 8 MG disintegrating tablet Take 8 mg by mouth every 8 (eight) hours if needed. 07/19/2022 02/21/2024 Discontinued polyethylene glycol 3350 36392 mg powder for oral solution (4 sources) [...] Discontinued traZODone hydrochloride 50 mg oral tablet (2 sources) Serotonin Reuptake Inhibitor Start: 10-26-2024 take 1 tablet by mouth once daily at bedtime traZODONE 50 mg Tab 50 mg = 1 tab(s), Oral, Once a day (at bedtime), Refills(s) 0 Start Date: 10/26/24 Status: Ordered Repeat number: 1 Start: 06-11-2024 take 1 tablet by james th at bedtime traZODone (Desyrel) 50 MG tablet [...] Problem Classification Problem Date Documented Date Episodic/Chronic Abdominal hernia (2 sources) Obstructed inguinal hernia; Translations: [Unilateral inguinal hernia, with obstruction, without gangrene, not specified as recurrent] Onset: 11-08-2024 Episodic Adjustment disorders (17 sources) Adjustment disorder with depressed mood; Translations: [Adjustment disorder with depressed mood] Onset: 10-08-2022 10-08-2022 Chronic Anxiety disorders (3 sources) Anxiety; Translations: [Anxiety disorder, unspecified] Onset: 06-09-2024 05-31-2024 Chronic Diabetes mellitus with complications (20 sources) Hyperglycemia due to type 2 diabetes mellitus; Translations: [Type 2 diabetes mellitus with hyperglycemia] Onset: 10-08-2022 10-08-2022 Chronic Diabetes mellitus without complication (2 sources) Type 2 diabetes mellitus without complications; Translations: [Diabetes mellitus] Onset: 04-14-2021 10-24-2024 Chronic Disorders of lipid metabolism (19 sources) Raised low density lipoprotein cholesterol; Translations: [Pure hypercholesterolemia, unspecified] Onset: 10-08-2022 10-08-2022 Chronic E Codes: Natural/environment (1 source) Exposure to other specified factors, initial encounter; Translations: [EXPOSURE OTHER SPEC FACTORS INITIAL] Onset: 04-14-2021 Episodic Esophageal disorders (2 sources) Esophageal obstruction; 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] Onset: 12-25-2020 Chronic Essential hypertension (18 sources) Essential hypertension; Translations: [Essential (primary) hypertension] [...] 10-08-2022 10-08-2022 Chronic Other aftercare (1 source) snf (current) use of oral hypoglycemic drugs; Translations: [CUSTODIAL USE ORAL HYPOGLYCEMIC DX] Onset: 04-14-2021 Episodic [...] Chronic Other nutritional; endocrine; and metabolic disorders (18 sources) Body mass index 30+ - obesity; Translations: [Obesity, unspecified] Onset: 10-08-2022 10-08-2022 Chronic Other nutritional; endocrine; and metabolic disorders (1 source) Obesity caused by energy imbalance 11-08-2024 Chronic Other screening for suspected conditions (not mental disorders or infectious disease) (6 sources) Patient encounter status; Translations: [Encounter for screening for malignant neoplasm of prostate] 02-21-2024 Episodic Other upper respiratory disease (2 sources) Rhinitis medicamentosa; Translations: [Chronic rhinitis] 05-15-2024 Chronic Other upper respiratory disease (1 source) Seasonal allergy 10-24-2024 Chronic Other upper respiratory disease (4 sources) [...] 01-13-2023 01-13-2023 Other aftercare (1 source) 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; Translations: [OTH 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 HAIRSPRING CURRENT DRUG THERAPY] Onset: 12-25-2020 Episodic Other connective tissue disease (17 sources) Muscle pain; Translations: [Myalgia, unspecified site] Onset: 04-22-2023 04-22-2023 Episodic Unclassified (2 sources) Patient encounter status 02-21-2024 Results Test Name Value Interpretation Reference Range Facility Ambulatory Visit Summaryon 0 11-08-2024 Ambulatory Visit Summary Ambulatory Visit Summary KEVIN HILL :1965 Visit Date:11/08/2024 Ambulatory Visit Instructions Your Care Team Attending Physician - VIKAS JACOBSON, Brandon Dorsey Primary Care Physician - YUKO JACOBSON, IWONA Roche This Is Your Medications List Contact prescribing physician if questions or concerns busPIRone (busPIRone 5 mg Tab) gabapentin (gabapentin 300 mg Cap) insulin glargine-lixisenatide (Soliqua 100/33 subcutaneous solution) metformin-saxagliptin (metformin-saxaglipti n 1000 mg-5 mg oral tablet, extended release) trazodone (traZODONE 50 mg Tab) Procedures Performed Cholecystectomy, Colonoscopy, Repair of left inguinal hernia. Discharge Vitals Heart Rate (Peripheral) 70 Respiratory Rate 16 Blood Pressure 134/88 Height 187.9 cm Height 74 in Weight 112.3 kg Weight 247.579 lb BMI 31.81 Medications What How Much When Instructions Unchanged busPIRone (busPIRone 5 mg Tab) 1 Tablets By Mouth 2 times a day Contact prescribing physician if questions or concerns Unchanged gabapentin (gabapentin 300 mg Cap) 1 Capsules By Mouth 3 times a day Contact prescribing physician if questions or concerns Unchanged insulin glargine-lixisenatide (Soliqua 100/ 33 subcutaneous solution) Intramuscular Contact prescribing physician if questions or concerns Unchanged metformin-saxagliptin (metformin-saxaglipti n 1000 mg-5 mg oral tablet, extended release) Contact prescribing physician if questions or concerns Unchanged trazodone (traZODONE 50 mg Tab) 1 Tablets By Mouth Once a day (at bedtime) Contact prescribing physician if questions or concerns Allergies No Known Allergies No Known Medication Allergies Problems Ongoing - Any problem that you are currently receiving treatment for. Bipolar disorder BMI 31.0-31.9,adult Diabetes mellitus Essential hypertension Hyperlipidemia Hypertriglyceridemia Neuropathy in diabetes Obesity due to excess calories Seasonal allergy Patient Survey You may receive a survey via text or e-mail asking about your office visit. Please share your experience with us by completing your survey. We appreciate your feedback and thank you for choosing us for your care. Patient Portal You may access all of your results and other medical record information on our secure patient portal. If you are not signed up for this yet, please contact [employer] at [phone] to get signed up today. Language Information Language assistance services are available as needed. [facility] US Scrotum and testicleon [address] [address] Ultrasound Report Signed Patient: KEVIN HILL MR#: [id number] : 1965 Acct:[id number] Age/Sex: 59 / M ADM Date: 06/20/24 Loc: Attending Dr: KATIE QUIROGA Ordering Physician: KATIE QUIROGA Date of Service: 06/20/24 Procedure(s): US scrotum Accession Number(s): [id number] cc: IWONA HUNTLEY ; KATIE QUIROGA [address] [address] Patient Name: KEVIN HILL MRN: [id number] date: 1965 Sex: M Assigned Patient Location: Current Patient Location: [place] Accession/Order Number: [id number] Exam Date: 06/20/2024 14:41 Report Date: 06/20/2024 [...] Barry Sanchez M.D.06/20/2024 2:49 PM Dictation Location: [place] [address] Electronically authenticated by: [id number] Y Date: 06/20/2024 14:49 Dictated By: Barry Sanchez D.O. Signed By: 06/20/24 1451 DD/ 1449 TD/TT: Manager Analysis: [facility] Radiology, Radiologist, MD - 06/20/2024 [place] [address] Ultrasound Report Signed Patient: KEVIN HILL MR#: [id number] : 1965 Acct:[id number] Age/Sex: 59 / M ADM Date: 06/20/24 Loc: US Attending Dr: KATIE QUIROGA Ordering Physician: KATIE QUIROGA Date of Service: 06/20/24 Procedure(s): US scrotum Accession Number(s): [id number] cc: IWONA HUNTLEY ; KATIE QUIROGA [address] [address] Patient Name: KEVIN HILL MRN: [facility]:[id number] date: 1965 Sex: M Assigned Patient Location: Current Patient Location: [place] Accession/Order Number: [id number] Exam Date: 06/20/2024 14:41 Report Date: 06/20/2024 [...] Barry Sanchez M.D.06/20/2024 2:49 PM Dictation Location: [place] [address] Electronically authenticated by: [id number] Y Date: 06/20/2024 14:49 Dictated By: Barry Sanchez D.O. Signed By: 06/20/24 1451 DD/ 1449 TD/TT: Manager Analysis: [facility] Radiology Study observation (narrative) [facility] US Scrotum and testicleOrder ed By: Radiologist Radiology on 06-20-2024 [facility] Work Phone: Glucose Poct Glucometerson 0 06-05-2024 Glucose [Mass/Vol] 124 mg/dL Normal [facility] Comment on above: Result Comment: [place] Glucose Reference Range is dependent on time and content of last meal. Glucose of more than 200 mg/dL in a nonstressed, ambulatory subject supports the diagnosis of Diabetes Mellitus. PERFORMED BY: [facility] [address] [place] [phone] PATHOLOGIST MATH SPECIALIST MARIA TERESA ASHRAF M.D. Performed By: #### G LULS #### Point of Care testing , Glucose Poct Glucometerson 0 06-04-2024 Glucose [Mass/Vol] 89 mg/dL Normal The [facility] Comment on above: Result Comment: [place] om Glucose Reference Range is dependent on time and content of last meal. Glucose of more than 200 mg/dL in a nonstressed, ambulatory subject supports the diagnosis of Diabetes Mellitus. PERFORMED BY: [place] [phone] PATHOLOGIST MATH SPECIALIST MARIA TERESA ASHRAF M.D. Performed By: #### G LULS #### Point of Care testing , Glucose Poct Glucometerson 0 06-03-2024 Glucose [Mass/Vol] 152 mg/dL Normal [facility] Comment on above: Result Comment: [place] Glucose Reference Range is dependent on time and content of last meal. Glucose of more than 200 mg/dL in a nonstressed, ambulatory subject supports the diagnosis of Diabetes Mellitus. PERFORMED BY: [place] [phone] PATHOLOGIST MATH SPECIALIST MARIA TERESA ASHRAF M.D. Performed By: #### U RDS, ADDONUAPLUS #### [address] Glucose [Mass/Vol] 159 mg/dL Normal [facility] Comment on above: Result Comment: [place] Glucose Reference Range is dependent on time and content of last meal. Glucose of more than 200 mg/dL in a nonstressed, ambulatory subject supports the diagnosis of Diabetes Mellitus. PERFORMED BY: [place] [phone] PATHOLOGIST MATH SPECIALIST MARIA TERESA ASHRAF M.D. Performed By: #### G LULS #### Point of Care testing , A1C with Estimated Average G zarina 06-02-2024 Glucose [Mass/Vol] 171 mg/dL Normal [facility] Comment on above: Result Comment: PERF ORMED BY: [place] [address] PATHOLOGIST MATH SPECIALIST MARIA TERESA ASHRAF M.D. Performed By: #### A 1C [facility] eA #### [address] HbA1c (Bld) [Mass fraction] 7.6 % High 4.3-5.6 [facility] Comment on above: Result Comment: Incr eased risk for diabetes: 5.7 - 6.4 diabetes: >6.4 glycemic control for adults with diabetes: <7.0 Performed By: #### A 1C [facility] eA #### [address] Glucose Poct Glucometerson 0 06-02-2024 Glucose [Mass/Vol] 155 mg/dL Normal [facility] Comment on above: Result Comment: [place] Glucose Reference Range is dependent on time and content of last meal. Glucose of more than 200 mg/dL in a nonstressed, ambulatory subject supports the diagnosis of Diabetes Mellitus. PERFORMED BY: [place] [address] PATHOLOGIST MATH SPECIALIST MARIA TERESA ASHRAF M.D. Performed By: #### U RDS, ADDONUAPLUS #### [place] [id number] [facility] Lipid Panelon 06-02-2024 Cholesterol [Mass/Vol] 162 mg/dL Normal 140-200 [facility] Comment on above: Result Comment: Chol less than 200 mg/dl low risk Chol 201-239 mg/dl borderline risk Chol 240 mg/dl and greater high risk Performed By: #### T SH3 wRFLX, LIPID, [id number] #### [address] Cholesterol in HDL [Mass/Vol] 38 mg/dL Normal 23-92 [facility] Comment on above: Result Comment: HDL CHOL ATP-III CLASSIFICATION Cardiovascular Risk HDL > or equal to 60 mg/dL LOW HDL < 40 mg/dL HIGH Performed By: #### T SH3 wRFLX, LIPID, [id number] #### [facility] [address] Cholesterol.total/Ch olesterol in HDL [Mass ratio] 4.3 {ratio} Normal <5.0 [facility] Comment on above: Performed By: #### T SH3 wRFLX, LIPID, [id number] #### [facility] [address] LDL Cholesterol,Calculat ed 103 mg/dL High 0-100 [facility] Comment on above: Result Comment: LDL ATP III CLASSIFICATION LDL less than 100 mg/dL Optimal LDL 100-129 mg/dL Near or above optimal LDL 130-159 mg/dL Borderline high LDL 160-189 mg/dL High LDL greater than 189 mg/dL Very high Performed By: #### T SH3 wRFLX, LIPID, [id number] #### [address] Triglyceride w/Reflex 104 mg/dL Normal 0-149 [facility] Comment on above: Result Comment: TRIG ATP III CLASSIFICATION TRIG less than 150 mg/dL Normal TRIG 150-199 mg/dL Borderline high TRIG 200-500 mg/dL High TRIG greater than 500 mg/dL Very high Standard traceable to the Center for Disease Conrtrol and Prevention (CDC) test method. Performed By: #### T SH3 wRFLX, LIPID, [id number] #### [address] VLDL CHOLESTEROL 20 mg/dL Normal [facility] Comment on above: Performed By: #### T SH3 wRFLX, LIPID, [id number] #### [address] Thyroid Stim Hormone w/Rflxo n 06-02-2024 Thyroid Stim Hormone w/Rflx 0.52 u[iU]/mL Normal 0.45-5.33 [facility] Comment on above: Performed By: #### T SH3 wRFLX, LIPID, [id number] #### [address] Vitamin D 25 Hydroxy Totalon 06-02-2024 Vitamin D 25 Hydroxy Total 17.8 ng/mL Low 30-100 [facility] Comment on above: Result Comment: GUME MIN D STATUS 25(OH)VITAMIN D RANGE (ng/mL) Deficient <20 Insufficient 20 to <30 Sufficient 30 to 100 Reference: Kevin MF,Reza VEGAS, Earl JAEGER, et al. Evaluation,treatment, and prevention of vitamin D deficiency; an Endocrine Society clinical practice guideline. JCEM. 2010; 96(7):1911-30. PERFORMED BY: [place] [address] PATHOLOGIST MATH SPECIALIST MARIA TERESA ASHRAF M.D. Performed By: #### T SH3 wRFLX, LIPID, [id number] #### [address] Complete Blood Count Auto Di ffon 06-01-2024 Basophils (Bld) [#/Vol] 0.1 10*3/uL Normal 0.0-0.2 [facility] Comment on above: Result Comment: PERF ORMED BY: [place] [address] PATHOLOGIST MATH SPECIALIST MARIA TERESA ASHRAF M.D. Performed By: #### U RDS, ADDONUAPLUS #### [address] Basophils/100 WBC (Bld) 1.1 % Normal . [facility] Comment on above: Performed By: #### U RDS, ADDONUAPLUS #### [address] Eosinophils (Bld) [#/Vol] 0.0 10*3/uL Normal 0.0-0.45 [facility] Comment on above: Performed By: #### U RDS, ADDONUAPLUS #### [address] Eosinophils/100 WBC (Bld) 0.1 % Normal . [facility] Comment on above: Performed By: #### U RDS, ADDONUAPLUS #### [address] Erythrocyte distribution width (RBC) [Ratio] 13.9 % Normal 12.0-14.8 [facility] Comment on above: Performed By: #### U RDS, ADDONUAPLUS #### [address] Hematocrit (Bld) [Volume fraction] 48.4 % Normal 38.8-50.0 [facility] Comment on above: Performed By: #### U RDS, ADDONUAPLUS #### [address] Hemoglobin (Bld) [Mass/Vol] 16.8 g/dL Normal 13.0-17.0 [facility] Comment on above: Performed By: #### U RDS, ADDONUAPLUS #### [address] Lymphocytes (Bld) [#/Vol] 1.1 10*3/uL Normal 1.00-4.8 [facility] Comment on above: Performed By: #### U RDS, ADDONUAPLUS #### [address] Lymphocytes/100 WBC (Bld) 12.8 % Normal . [facility] Comment on above: Performed By: #### U RDS, ADDONUAPLUS #### [address] MCH (RBC) [Entitic mass] 31.2 pg Normal 27.5-35.2 [facility] Comment on above: Performed By: #### U RDS, ADDONUAPLUS #### [address] MCV (RBC) [Entitic vol] 89.9 fL Normal 83.5-101 [facility] Comment on above: Performed By: #### U RDS, ADDONUAPLUS #### [address] Mean Corpuscular HGB Conc 34.7 g/dL Normal 32.5-35.6 [facility] Comment on above: Performed By: #### U RDS, ADDONUAPLUS #### [facility] [address] [place] [address] [place] Monocytes (Bld) [#/Vol] 1.0 10*3/uL High 0.0-0.8 [facility] Comment on above: Performed By: #### U RDS, ADDONUAPLUS #### [facility] [address] [place] [address] [place] Monocytes/100 WBC (Bld) 18.64 % Normal 0.00-20.00 [facility] Comment on above: Performed By: #### U RDS, ADDONUAPLUS #### [facility] [address] [place] [address] [place] Monocytes/100 WBC (Bld) 11.8 % Normal . [facility] Comment on above: Performed By: #### U RDS, ADDONUAPLUS #### [facility] [address] [place] [address] [place] Neutrophils (Bld) [#/Vol] 6.3 10*3/uL Normal 1.8-7.7 [facility] Comment on above: Performed By: #### U RDS, ADDONUAPLUS #### [place] [address] [place] Neutrophils/100 WBC (Bld) 74.2 % Normal . [facility] Comment on above: Performed By: #### U RDS, ADDONUAPLUS #### [place] [address] [place] NRBC% 0.1 /100{WBC} Normal 0-0.5 [facility] Comment on above: Performed By: #### U RDS, ADDONUAPLUS #### [facility] [address] [place] [address] [place] Platelet mean volume (Bld) [Entitic vol] 7.6 fL Normal 6.6-10.1 [facility] Comment on above: Performed By: #### U RDS, ADDONUAPLUS #### [facility] [address] [place] [address] [place] Platelets (Bld) [#/Vol] 305 10*3/uL Normal 150-450 [facility] Comment on above: Performed By: #### U RDS, ADDONUAPLUS #### [facility] [address] [place] [address] RBC (Bld) [#/Vol] 5.38 10*6/uL Normal 3.90-5.60 [facility] Comment on above: Performed By: #### U RDS, ADDONUAPLUS #### [address] WBC (Bld) [#/Vol] 8.5 10*3/uL Normal 4.1-10.5 [facility] Comment on above: Performed By: #### U LUCÍA, ADDONUAPLUS #### [address] Comprehensive Metabolic Pane ryan 06-01-2024 Albumin [Mass/Vol] 4.7 g/dL Normal 3.5-5.7 [facility] Comment on above: Performed By: #### U RDS, ADDONUAPLUS #### [address] Albumin/Globulin [Mass ratio] 1.7 {ratio} Normal [facility] Comment on above: Performed By: #### U LUCÍA, ADDONUAPLUS #### [address] ALP [Catalytic activity/Vol] 50 U/L Normal 34-104 [facility] Comment on above: Performed By: #### U RDS, ADDONUAPLUS #### [address] ALT [Catalytic activity/Vol] 22 U/L Normal 7-52 [facility] Comment on above: Performed By: #### U RDS, ADDONUAPLUS #### [address] Anion gap [Moles/Vol] 15.1 mmol/L High 6.0-15.0 [facility] Comment on above: Performed By: #### U RDS, ADDONUAPLUS #### [place] [address] AST [Catalytic activity/Vol] 18 U/L Normal 13-39 [facility] Comment on above: Performed By: #### U LUCÍA, ADDONUAPLUS #### [address] Bilirubin [Mass/Vol] 1.3 mg/dL High 0.3-1.0 [facility] Comment on above: Result Comment: Samp les from patients who have taken Naproxen have shown spurious elevation in Total Bilirubin levels. A metabolite of Naproxen, O-desmethylnaproxen, has been shown to interfere with the Jendrassik-Grof method for measuring Total Bilirubin. Performed By: #### U LUCÍA, ADDONUAPLUS #### [address] Calcium [Mass/Vol] 9.7 mg/dL Normal 8.6-10.3 [facility] Comment on above: Performed By: #### U LUCÍA, ADDONUAPLUS #### [address] Chloride [Moles/Vol] 105 mmol/L Normal 98-107 [facility] Comment on above: Performed By: #### U LUCÍA, ADDONUAPLUS #### [address] CO2 [Moles/Vol] 20.9 mmol/L Low 21.0-31.0 [facility] Comment on above: Performed By: #### U LUCÍA, ADDONUAPLUS #### [address] Creatinine [Mass/Vol] 1.16 mg/dL Normal 0.70-1.30 [facility] Comment on above: Performed By: #### U LUCÍA, ADDONUAPLUS #### [address] Creatinine Clr Calc Pharmacy 90.06 Normal [facility] Comment on above: Result Comment: PERF ORMED BY: [place] [address] PATHOLOGIST MATH SPECIALIST MARIA TERESA ASHRAF M.D. Performed By: #### U RDS, ADDONUAPLUS #### [address] GFR/1.73 sq M.predicted MDRD (S/P/Bld) [Vol rate/Area] mL/min/{1.73_m2} Normal [facility] Comment on above: Performed By: #### U RDS, ADDONUAPLUS #### [address] Globulin (S) [Mass/Vol] 2.8 g/dL Normal [facility] Comment on above: Performed By: #### U RDS, ADDONUAPLUS #### [address] Glucose [Mass/Vol] 215 mg/dL High 70-100 [facility] Comment on above: Result Comment: [facility] Glucose Reference Range is dependent on time and content of last meal. Glucose of more than 200 mg/dL in a nonstressed, ambulatory subject supports the diagnosis of Diabetes Mellitus. ADA recommended reference range Performed By: #### U RDS, ADDONUAPLUS #### [address] Potassium [Moles/Vol] 4.0 mmol/L Normal 3.5-5.1 [facility] Comment on above: Performed By: #### U RDS, ADDONUAPLUS #### [address] Protein [Mass/Vol] 7.5 g/dL Normal 6.4-8.9 [facility] Comment on above: Performed By: #### U RDS, ADDONUAPLUS #### [address] Sodium [Moles/Vol] 137 mmol/L Normal 136-145 [facility] Comment on above: Performed By: #### U RDS, ADDONUAPLUS #### [address] Urea nitrogen [Mass/Vol] 22 mg/dL Normal 7-25 [facility] Comment on above: Performed By: #### U RDS, ADDONUAPLUS #### [facility] [address] [place] [address] [place] Dipstick and Microscopicon 0 06-01-2024 Appearance (U) Clear Normal Clear [facility] Comment on above: Order Comment: Name Collection Type:: Clean-Voided Midstream Performed By: #### U RDS, ADDONUAPLUS #### [place] [address] [place] Bacteria,Urine None Seen Normal None Seen [facility] Comment on above: Order Comment: Name Collection Type:: Clean-Voided Midstream Performed By: #### U RDS, ADDONUAPLUS #### [place] [address] [place] Bilirubin,Urine Negative Normal Negative [facility] Comment on above: Order Comment: Name Collection Type:: Clean-Voided Midstream Performed By: #### U RDS, ADDONUAPLUS #### [place] [address] [place] Color (U) Yellow Normal Yellow [facility] Comment on above: Order Comment: Name Collection Type:: Clean-Voided Midstream Performed By: #### U RDS, ADDONUAPLUS #### [place] [address] [place] Glucose Ql (U) 150 mg/dL High Normal [facility] Comment on above: Order Comment: Name Collection Type:: Clean-Voided Midstream Performed By: #### U RDS, ADDONUAPLUS #### [place] [address] [place] Granular Casts, Urine 3-4 High None Seen [facility] Comment on above: Order Comment: Name Collection Type:: Clean-Voided Midstream Performed By: #### U RDS, ADDONUAPLUS #### [place] [address] [place] Hyaline Casts,Urine 0-8 Normal 0-8 [facility] Comment on above: Order Comment: Name Collection Type:: Clean-Voided Midstream Performed By: #### U RDS, ADDONUAPLUS #### [place] [address] [place] Ketones Ql (U) 3+ High Negative [facility] Comment on above: Order Comment: Name Collection Type:: Clean-Voided Midstream Performed By: #### U RDS, ADDONUAPLUS #### [address] Leukocyte esterase Test strip Ql (U) Negative Normal Negative [facility] Comment on above: Order Comment: Name Collection Type:: Clean-Voided Midstream Performed By: #### U RDS, ADDONUAPLUS #### [place] [address] [place] Mucus,Urine 2+ Critically abnormal [facility] Comment on above: Order Comment: Name Collection Type:: Clean-Voided Midstream Result Comment: PERF ORMED BY: [place] [address] PATHOLOGIST MATH SPECIALIST MARIA TERESA ASHRAF M.D. Performed By: #### U RDS, ADDONUAPLUS #### [place] [address] [place] Nitrite,Urine Negative Normal Negative [facility] Comment on above: Order Comment: Name Collection Type:: Clean-Voided Midstream Performed By: #### U RDS, ADDONUAPLUS #### [place] [address] [place] Occult Blood,Urine 2+ High Negative [facility] Comment on above: Order Comment: Name Collection Type:: Clean-Voided Midstream Result Comment: PERF ORMED BY: [place] [address] PATHOLOGIST MATH SPECIALIST MARIA TERESA ASHRAF M.D. Performed By: #### U RDS, ADDONUAPLUS #### [place] [address] [place] pH (U) 5.5 [pH] Normal 5.0-9.0 [facility] Comment on above: Order Comment: Name Collection Type:: Clean-Voided Midstream Performed By: #### U RDS, ADDONUAPLUS #### [address] Protein (U) [Mass/Vol] 50 mg/dL High Negative [facility] Comment on above: Order Comment: Name Collection Type:: Clean-Voided Midstream Performed By: #### U RDS, ADDONUAPLUS #### [place] [address] [place] RBC,Urine 50-100 High 0-4 [facility] Comment on above: Order Comment: Name Collection Type:: Clean-Voided Midstream Performed By: #### U RDS, ADDONUAPLUS #### [address] Specificy Beryl,Urine 1.034 High 1.001-1.030 [facility] Comment on above: Order Comment: Name Collection Type:: Clean-Voided Midstream Performed By: #### U RDS, ADDONUAPLUS #### [place] [address] [place] Squamous Epithelial Cell,Urine 1-2 Normal 0-2 [facility] Comment on above: Order Comment: Name Collection Type:: Clean-Voided Midstream Performed By: #### U RDS, ADDONUAPLUS #### [place] [address] [place] Urobilinogen,Urine Normal Normal Normal [facility] Comment on above: Order Comment: Name Collection Type:: Clean-Voided Midstream Performed By: #### U RDS, ADDONUAPLUS #### [place] [address] [place] WBC,Urine 1-2 Normal 0-4 [facility] Comment on above: Order Comment: Name Collection Type:: Clean-Voided Midstream Performed By: #### U RDS, ADDONUAPLUS #### [place] [address] [place] Drug Screen,Urineon 06-02-19 25 Amphetamine Screen,Urine Negative Normal Negative [facility] Comment on above: Performed By: #### U RDS, ADDONUAPLUS #### [place] [address] [place] Barbiturate Screen,Urine Negative Normal Negative [facility] Comment on above: Performed By: #### U RDS, ADDONUAPLUS #### [place] [address] [place] Benzodiazepines Screen,Urine Negative Normal Negative [facility] Comment on above: Performed By: #### U RDS, ADDONUAPLUS #### [place] [address] [place] Cannabinoid Screen,Urine Negative Normal Negative [facility] Comment on above: Result Comment: Thes e are unconfirmed results and should not be used for legal purposes. Drug Cut-Off Concentration: AMPH 1000 ng/mL HYACINTH 200 ng/mL LIZBETH 200 ng/mL COCM 300 ng/mL OP 300 ng/mL PCP 25 ng/mL THC 20 ng/mL PERFORMED BY: [place] [address] PATHOLOGIST MATH SPECIALIST MARIA TERESA ASHRAF M.D. Performed By: #### U RDS, ADDONUAPLUS #### [place] [address] [place] Cocaine Screen,Urine Negative Normal Negative [facility] Comment on above: Performed By: #### U RDS, ADDONUAPLUS #### [place] [address] [place] Opiate Screen,Urine Negative Normal Negative The [facility] Comment on above: Performed By: #### U RDS, ADDONUAPLUS #### [place] [address] [place] Phencyclidine Screen,Urine Negative Normal Negative [facility] Comment on above: Performed By: #### U RDS, ADDONUAPLUS #### [place] [address] [place] ECG 12 lead ECGon 06-01-2024 ECG 12 lead ECG [facility] [place] [address] [place] [address] Electrocardiograph Report Signed Patient: Kevin Hill MR#: [id number] : 1965 Acct:[id number] Age/Sex: 59 / M ADM Date: 06/01/24 Loc: 1S Room: [address] [place] [address] Type: ADM IN Attending Dr: Chidi Barraza [...] ventricular complexes Confirmed by Minesh MAYER DO ([id number]) on 06/01/2024 2:52:37 PM Referred By: Electronically Signed By: Minesh MAYER DO Transcribed By: MUS Signed By Minesh Mayer DO 0 06/01/24 1452 Normal [facility] Ethyl Alcohol Profileon 05-19 Ethanol [Mass/Vol] mg/dL Normal [facility] Comment on above: Performed By: #### U LUCÍA ADDONUAPLUS #### [facility] [address] [place] [address] Percent Ethanol Not performed Normal [facility] Comment on above: Result Comment: PERF ORMED BY: [place] [address] PATHOLOGIST MATH SPECIALIST MARIA TERESA ASHRAF M.D. Performed By: #### U LUCÍA ADDONUAPLUS #### [facility] [address] [place] [address] Laboratory - Hematology and Cell countson 05-31-2024 HbA1c (Bld) [Mass fraction] 7.7 % [facility] No Panel Informationon 05-31 [facility] Ryan 04-10-2024 L - -------- Specimen: [id number] Received: 04/10/24 Status: NENA Kolton Num: [id number] Spec Type: Surgical Subm Dr: Dina Rudd DO Tissues: A Colon Biopsy (SIGMOID POLYP @ 23CM) Procedures: DIOGO Gross/Micro L4 -------- Age/ Patient Sex Location Account Attending Physician -------- Kevin Hill/Melchor LABELL [id number] Dina Rudd DO -------- SPEC NUM: [id number] RECD: 04/10/24 STATUS: NENA KOLTON NUM: [id number] RICH: 04/10/[address]: Dina Rudd DO ENTERED: 04/10/[address]: Ely Mac SPEC TYPE: Surgical DEPT: [facility] ENTERED BY: [id number] RECV BY: [id number] ORDERED: HE/2, Gross/Micro L4 ORDERED: RAYMONDAntonio, Gross/Micro L4 Pathological Diagnosis Polyp, sigmoid colon: [...] cassette. (1, ns, [id number] B) CPT Codes 03351 -------- -------- Specimen: [id number] Received: 04/10/24 Status: NENA Walter Num: [id number] Spec Type: Surgical Subm Dr: Dina Rudd DO Tissues: A Colon Biopsy (SIGMOID POLYP @ 23CM) Procedures: RAYMONDAntonio, Gross/Micro L4 -------- Patient: Kevin Hill [id number] (Continued) -------- Signed (signature on file) Maria Teresa Ashraf MD 04/11/24 1358 Normal [facility] No Panel Informationon 04-10 Hyperplastic polyp [facility] Radiology Study observation (narrative) [facility] ALBUMIN, RANDOM URINE W/CREA TININEon 03-06-2024 ALBUMIN, URINE 0.2 mg/dL Normal See Note: [facility] Comment on above: Result Comment: Jailenee walter Range: Reference Range Not established Performed By: #### 1 0231, 1759 #### [facility] [address] [place] [phone] Forestry And Wildlife Manager: Eva Vanegas #### [phone], 1890, 5363 #### [facility] [address], [address] [place], [place] [id number] Forestry And Wildlife Manager: Conrad Bennett MD ALBUMIN/CREATININE RATIO, RANDOM URINE [...] a diagnostic category. Performed By: #### 1 0231, 1759 #### [facility] [place] [address] Forestry And Wildlife Manager: Eva Vanegas #### 7317, 1850, 5363 #### [facility] [address], [address] [place], [place] [id number] Forestry And Wildlife Manager: Conrad Bennett MD Creatinine (U) [Mass/Vol] 128 mg/dL Normal 20-320 [facility] Comment on above: Performed By: #### 1 0231, 1759 #### [facility] [address] [place], [place] [address] Forestry And Wildlife Manager: Eva Vanegas #### 6517, 7600, 5363 #### [facility] [address], [address] [place] [address] Forestry And Wildlife Manager: Conrad Bennett MD CBC (H/H, RBC, INDICES, WBC, PLT)on 03-06-2024 Erythrocyte distribution width (RBC) [Ratio] 13.6 % Normal 11.0-15.0 [facility] Comment on above: Performed By: #### 1 0231, 1759 #### [facility] [address] Forestry And Wildlife Manager: Eva Vanegas #### 6517, 7600, 5363 #### [facility] [address], [address] [place] [address] Forestry And Wildlife Manager: Conrad Bennett MD Hematocrit (Bld) [Volume fraction] 46.0 % Normal 38.5-50.0 [facility] Comment on above: Performed By: #### 1 0231, 1759 #### [facility] [address] Forestry And Wildlife Manager: Eva Vanegas #### 6517, 7600, 5363 #### [facility] [address], [address] [place] [address] Forestry And Wildlife Manager: Conrad Bennett MD Hemoglobin (Bld) [Mass/Vol] 15.3 g/dL Normal 13.2-17.1 [facility] Comment on above: Performed By: #### 1 0231, 1759 #### [facility] [address] Forestry And Wildlife Manager: Eva Vanegas #### 6517, 7600, 5363 #### [facility] [address], [address] [place] [address] Forestry And Wildlife Manager: Conrad Bennett MD MCH (RBC) [Entitic mass] 30.3 pg Normal 27.0-33.0 [facility] Comment on above: Performed By: #### 1 023, 1759 #### [facility] [address] Forestry And Wildlife Manager: Eva Vanegas #### 6517, 0, 5363 #### [facility] [address], [address] [place] [address] Forestry And Wildlife Manager: Conrad Bennett MD MCHC (RBC) [Mass/Vol] 33.3 [...] patient's clinical condition. Performed By: #### 1 023, 1759 #### [facility] [address] Forestry And Wildlife Manager: Eva Vanegas #### 65, 0, 5363 #### [facility] [address], [address] [place] [address] Forestry And Wildlife Manager: Conrad Bennett MD MCV (RBC) [Entitic vol] 91.1 fL Normal 80.0-100.0 [facility] Comment on above: Performed By: #### 1 023, 175 #### [facility] [address] Forestry And Wildlife Manager: Eva Vanegas #### 6517, 0, 5363 #### [facility] [address], [address] [place] [address] Forestry And Wildlife Manager: Conrad Bennett MD Platelet mean volume (Bld) [Entitic vol] 9.4 fL Normal 7.5-12.5 [facility] Comment on above: Performed By: #### 1 023, 1759 #### [place] [address] Forestry And Wildlife Manager: Eva Vanegas #### 6517, 7600, 5363 #### [facility] [address], [address] Forestry And Wildlife Manager: Conrad Bennett MD Platelets (Bld) [#/Vol] 275 10*3/uL Normal 140-400 [facility] Comment on above: Performed By: #### 1 0231, 1759 #### [facility] [address] [place] [address] Forestry And Wildlife Manager: Eva Vanegas #### 6517, 7600, 5363 #### [facility] [address], [address] Forestry And Wildlife Manager: Conrad Bennett MD RBC (Bld) [#/Vol] 5.05 10*6/uL Normal 4.20-5.80 [facility] Comment on above: Performed By: #### 1 0231, 1759 #### [facility] [address] Forestry And Wildlife Manager: Eva Vanegas #### 6517, 0, 5363 #### [facility] [address], [address] [place] [address] Forestry And Wildlife Manager: Conrad Bennett MD WBC (Bld) [#/Vol] 4.6 10*3/uL Normal 3.8-10.8 [facility] Comment on above: Performed By: #### 1 0231, 1759 #### [facility] [address] [place] [address] Forestry And Wildlife Manager: Eva Vanegas #### 6517, 7600, 5363 #### [facility] [address], [address] [place] [address] Forestry And Wildlife Manager: Conrad Bennett MD [facility]AB[facility] 03-06-2024 Albumin [Mass/Vol] 4.2 g/dL Normal 3.6-5.1 [facility] Comment on above: Performed By: #### 1 0231, 1759 #### [facility] [address] Forestry And Wildlife Manager: Eva Vanegas #### 6517, 7600, 5363 #### [facility] [address], [address] [place] [address] Forestry And Wildlife Manager: Conrad Bennett MD Albumin/Globulin [Mass ratio] 1.8 {ratio} Normal 1.0-2.5 [facility] Comment on above: Performed By: #### 1 0231, 1759 #### [facility] [address] Forestry And Wildlife Manager: Eva Vanegas #### 6517, 2780, 5363 #### [facility] [address], [address] [place] [address] Forestry And Wildlife Manager: Conrad Bennett MD ALP [Catalytic activity/Vol] 41 U/L Normal 35-144 [facility] Comment on above: Performed By: #### 1 0231, 1759 #### [facility] [address] Forestry And Wildlife Manager: Eva Vanegas #### 6517, 0060, 5363 #### [facility] [address], [address] [place] [address] Forestry And Wildlife Manager: oCnrad Bennett MD ALT [Catalytic activity/Vol] 17 U/L Normal 9-46 [facility] Comment on above: Performed By: #### 1 0231, 1759 #### [facility] [address] Forestry And Wildlife Manager: Eva Vanegas #### 6517, 7600, 5363 #### [facility] [address], [address] [place] [address] Forestry And Wildlife Manager: Conrad Bennett MD AST [Catalytic activity/Vol] 15 U/L Normal 10-35 [facility] Comment on above: Performed By: #### 1 0231, 1759 #### [facility] Forestry And Wildlife Manager: Eva Vanegas #### 6517, 7600, 5363 #### [facility] [address] , [address] [place] [address] Forestry And Wildlife Manager: Conrad Bennett MD Bilirubin [Mass/Vol] 0.7 mg/dL Normal 0.2-1.2 [facility] Comment on above: Performed By: #### 1 0231, 1759 #### [facility] [address] Forestry And Wildlife Manager: Eva Vanegas #### 6517, 0, 5363 #### [facility] [place] [address], [address] [place] [address] Forestry And Wildlife Manager: Conrad Bennett MD BUN/CREATININE RATIO SEE NOTE: Normal 6-22 [facility] Comment on above: Result Comment: Not Reported: BUN and Creatinine are within reference range. Performed By: #### 1 023, 1759 #### [facility] [address] Forestry And Wildlife Manager: Eva Vanegas #### 6517, 9590, 5363 #### [facility] [address], [address] [place] [address] Forestry And Wildlife Manager: Conrad Bennett MD Calcium [Mass/Vol] 9.6 mg/dL Normal 8.6-10.3 [facility] Comment on above: Performed By: #### 1 230, 1759 #### [facility] [address] Forestry And Wildlife Manager: Eva Vanegas #### 6517, 7600, 5363 #### [facility] [place] [address] [address] , [address] [place] [address] Forestry And Wildlife Manager: Conrad Bennett MD Chloride [Moles/Vol] 105 mmol/L Normal 98-110 [facility] Comment on above: Performed By: #### 1 0231, 1759 #### [facility] [address] [place] [address] Forestry And Wildlife Manager: Eva Vanegas #### 6517, 7600, 5363 #### [facility] of [address], [address] [place] [address] Forestry And Wildlife Manager: Conrad Bennett MD CO2 [Moles/Vol] 28 mmol/L Normal 20-32 [facility] Comment on above: Performed By: #### 1 0231, 1759 #### [facility] [address] Forestry And Wildlife Manager: Eva Vanegas #### 6517, 1430, 5363 #### [facility] [address], [address] [place] [address] Forestry And Wildlife Manager: Conrad Bennett MD Creatinine [Mass/Vol] 0.87 mg/dL Normal 0.70-1.30 [facility] Comment on above: Performed By: #### 1 023, 1759 #### [facility] [address] Forestry And Wildlife Manager: Eva Vanegas #### 6517, 4070, 5363 #### [facility] [address], [address] [place] [address] Forestry And Wildlife Manager: Conrad Bennett MD GFR/1.73 sq M.predicted among non-blacks MDRD (S/P/Bld) [Vol rate/Area] 101 mL/min/{1.73_m2} Normal > OR = 60 [facility] Comment on above: Performed By: #### 1 023, 1759 #### [facility] [address] Forestry And Wildlife Manager: Eva Vanegas #### 6517, 7600, 5363 #### [facility] [address], [address] [place] [address] Forestry And Wildlife Manager: Conrad Bennett MD Globulin (S) [Mass/Vol] 2.3 g/dL Normal 1.9-3.7 [facility] Comment on above: Performed By: #### 1 0231, 1759 #### [facility] [address] Forestry And Wildlife Manager: Eva Vanegas #### 6517, 7600, 5363 #### [facility] [address], [address] [place] [address] Forestry And Wildlife Manager: Conrad Bennett MD Glucose [Mass/Vol] 100 mg/dL High 65-99 [facility] Comment on above: Result Comment: Fasting reference interval For someone without known diabetes, a glucose value between 100 and 125 mg/dL is consistent with prediabetes and should be confirmed with a follow-up test. Performed By: #### 1 0231, 1759 #### [facility] [address] [place] [phone] Forestry And Wildlife Manager: Eva Vanegas #### 6517, 0, 5363 #### [facility] [address], [address] [place] [address] Forestry And Wildlife Manager: Conrad Bennett MD Potassium [Moles/Vol] 5.1 mmol/L Normal 3.5-5.3 [facility] Comment on above: Performed By: #### 1 023, 1759 #### [facility] [address] [place] [phone] Forestry And Wildlife Manager: Eva Vanegas #### 6517, 0, 5363 #### [facility] [address], [address] [place] [address] Forestry And Wildlife Manager: Conrad Bennett MD Protein [Mass/Vol] 6.5 g/dL Normal 6.1-8.1 [facility] Comment on above: Performed By: #### 1 0231, 1759 #### [facility] [address] [place] [address] Forestry And Wildlife Manager: Eva Vanegas #### 6517, 7600, 5363 #### [facility] [address], [address] [place] [address] Forestry And Wildlife Manager: Conrad Bennett MD Sodium [Moles/Vol] 139 mmol/L Normal 135-146 [facility] Comment on above: Performed By: #### 1 0231, 1759 #### [facility] [address] [address] Forestry And Wildlife Manager: Eva Vanegas #### 6517, 7600, 5363 #### [facility] [address], [address] [place] [address] Forestry And Wildlife Manager: Conrad Bennett MD Urea nitrogen [Mass/Vol] 16 mg/dL Normal 7-25 [facility] Comment on above: Performed By: #### 1 0231, 1759 #### [facility] [address] [place], [place] [address] Forestry And Wildlife Manager: Eva Vanegas #### 6517, 7600, 5363 #### [facility] [address], [address] [place] [address] Forestry And Wildlife Manager: Conrad Bennett MD LIPID PANEL, [address] Cholesterol [Mass/Vol] 211 mg/dL High <200 [facility] Comment on above: Order Comment: FASTI NG:YES FASTING: YES Performed By: #### 1 0231, 1759 #### [facility] [address] [place] [address] Forestry And Wildlife Manager: Eva Vanegas #### [id number], [phone], [phone] #### [facility] [address], [address] [place] [address] Forestry And Wildlife Manager: Conrad Bennett MD Cholesterol in HDL [Mass/Vol] 53 mg/dL Normal > OR = 40 [facility] Comment on above: Order Comment: FASTI NG:YES FASTING: YES Performed By: #### 1 0231, 1759 #### [facility] [address] [place] [address] Forestry And Wildlife Manager: Eva Vanegas #### [id number], [phone], [phone] #### [facility] [address], [address] [place] [address] Forestry And Wildlife Manager: Conrad Bennett MD Cholesterol in LDL [Mass/Vol] [...] LDL-C. Nicho HURTADO et al. KARMA. 2013;310(19): 5995-6340 (http://education.[employer].GlycoMimetics/faq/COA249) Performed By: #### 1 230, 1759 #### [facility] [address] [place] [address] Forestry And Wildlife Manager: Eva Vanegas #### [id number], 5610, 5363 #### [facility] [employer] [address], [address] [place] [address] Forestry And Wildlife Manager: Conrad Bennett MD Cholesterol.total/Ch olesterol in HDL [Mass ratio] 4.0 {ratio} Normal <5.0 [facility] Comment on above: Order Comment: FASTI NG:YES FASTING: YES Performed By: #### 1 230, 175 #### [facility] [address] [place] [address] Forestry And Wildlife Manager: Eva Vanegas #### [id number], 8020, 5363 #### [employer] [address], [address] [place] [address] Forestry And Wildlife Manager: Conrad Bennett MD NON HDL CHOLESTEROL 158 mg/dL (calc) High <130 [facility] Comment on above: Order Comment: FASTI NG:YES FASTING: YES Result Comment: For patients with diabetes plus 1 major ASCVD risk factor, treating to a non-HDL-C goal of <100 mg/dL (LDL-C of <70 mg/dL) is considered a therapeutic option. Performed By: #### 1 230, 175 #### [facility] [address] [place], [place] [id number] Forestry And Wildlife Manager: Eva Vanegas #### [id number], 4280, 5363 #### [employer] [address], [address] [place] [address] Forestry And Wildlife Manager: Conrad Bennett MD Triglyceride [Mass/Vol] 88 mg/dL Normal <150 [facility] Comment on above: Order Comment: FASTI NG:YES FASTING: YES Performed By: #### 1 0231, 1759 #### [facility] [address] [place], [place] [id number] Forestry And Wildlife Manager: Eva Vanegas #### [id number], [phone], [phone] #### [facility] [address], [address] [place] [address] Forestry And Wildlife Manager: Conrad Bennett MD PSA, TOTALon 03-06-2024 PSA, TOTAL 3.64 ng/mL Normal < OR = 4.00 [facility] Comment on above: Result Comment: The total PSA value from this assay system is standardized against the WHO standard. The test result will be approximately 20% lower when compared to the equimolar-standardized total PSA (Imelda Hewitt). Comparison of serial PSA results should be interpreted with this fact in mind. This test was performed using the Siemens chemiluminescent method. Values obtained from different assay methods cannot be used interchangeably. PSA levels, regardless of value, should not be interpreted as absolute evidence of the presence or absence of disease. Performed By: #### 1 0231, 1759 #### [facility] [address] [place] [address] Forestry And Wildlife Manager: Eva Vanegas #### [id number], [phone], [phone] #### [facility] [address], [address] [place] [address] Forestry And Wildlife Manager: Conrad Bennett MD Laboratory - Hematology and Cell countson 02-21-2024 HbA1c (Bld) [Mass fraction] 7.1 % [facility] No Panel Informationon 02-20 [facility] Covid-19 PCR ([facility]on 03-21 SARS-CoV-2 (COVID-19) RNA TERRY+probe Ql (Unsp spec) Not detected Normal NOT DETECTED [facility] Comment on above: Result Comment: When diagnostic testing is negative, the possibility of a false negative should be considered in the context of a patient's recent exposures and the presence of clinical signs and symptoms consistent with SARS-CoV-2. This test is not yet approved or cleared by the [place] Food and Drug Administration (FDA). This test was developed by [employer], [place], [place]. The performance characteristics of this test were validated by The [facility]. The results are not intended to be used as the sole means for clinical diagnosis or patient management decisions. The [facility] is authorized under Clinical Laboratory Improvement [...] for this test is supported by the Siderographist of Health and Human Service's declaration that [...] VDTBH #### [facility] [address] [place] [address] Dr. Lucas Champion POINT OF CARE GLUCOSEon 03-21 Glucose [Mass/Vol] 88 mg/dL Normal 74-106 [facility] Comment on above: Performed By: #### P OCGLUC #### [facility] [address] [address] [address] Lucas Champion Glucose [Mass/Vol] 92 mg/dL Normal 74-106 [facility] Comment on above: Performed By: #### P OCGLUC #### [facility] [address] [place] [address] Dr. Lucas Champion ASYMPTOMATIC COVID-19 ANTIGE Non 12-20-2020 EUA Statement SEE BELOW Normal [facility] Comment on above: Result Comment: [...] VDAGA #### [facility] [address] [place] [address] Dr. Lucas Champion SARS-CoV-2 (COVID-19) RNA TERRY+probe Ql (Unsp spec) Negative Normal NEGATIVE [facility] Comment on above: Result Comment: Nega tive results are presumptive. They do not preclude infection and should not be used as the sole basis for treatment decisions. Additional confirmatory testing by a molecular method should be considered. Performed By: #### C VDAGA #### [facility] [address] [place] [address] Dr. Lucas Champion Covid-19 PCR ([facility])on SARS-CoV-2 (COVID-19) RNA TERRY+probe Ql (Unsp spec) Not detected Normal NOT DETECTED [facility] Comment on above: Result Comment: This test is not yet approved or cleared by the [place] FDA. When there are no FDA-approved or cleared tests available, and other criteria are met, FDA can make tests available under an emergency access mechanism called an Emergency Use Authorization (EUA). The EUA for this test is supported by the Siderographist of Health and Human Service's (HHS's) declaration [...] consistent with SARS-CoV-2. Performed By: #### C [facility] #### [facility] [address] [address] [address] Lucas Champion XR CHEST 1 Von [...] Normal [facility] CBC With Platelet No Differe ntialon 04-11-2017 Erythrocyte distribution width Auto Ratio (RBC) 13.8 % Normal 11.5-14.5 [facility] Erythrocytes (RBC) 5.17 10*6/uL Normal 4.70-6.10 [facility] Hematocrit (HCT) 48.1 % Normal 42.0-52.0 [facility] Hemoglobin mass conc (Bld) 16.2 g/dL Normal 14.0-18.0 [facility] MCH 31.3 pg Normal 27.0-31.3 [facility] MCHC mass conc (RBC) 33.6 % Normal 33.0-37.0 [facility] MCV 93.0 fL Normal 80.0-100.0 [facility] Platelets 288 10*3/uL Normal 130-400 [facility] WBC (Leukocytes) 5.4 10*3/uL Normal 4.8-10.8 [facility] Comprehensive Metabolic Pane ryan 04-11-2017 Alanine aminotransferase (ALT) 12 U/L Normal 0-41 [facility] Albumin 4.2 g/dL Normal 3.9-4.9 [facility] Alkaline phosphatase (ALP) 46 U/L Normal 35-104 [facility] Anion gap 21 mmol/L Critically high 7-13 [facility] Aspartate aminotransferase (AST) 13 U/L Normal 0-40 [facility] Bilirubin (total) 0.8 mg/dL Normal 0.0-1.2 [facility] Calcium 9.6 mg/dL Normal 8.6-10.2 [facility] Chloride 102 mmol/L Normal 98-107 [facility] CO2 18 mmol/L Low 22-29 [facility] Creatinine 0.74 mg/dL Normal 0.70-1.20 [facility] eGFR (black) mL/min/{1.73_m2} Normal >60 [facility] Comment on above: Result Comment: >60 mL/min/1.73m2 EGFR, calc. for ages 18 and older using theMDRD formula (not corrected for weight), is valid for stablerenal function. eGFR (MDRD) mL/min/{1.73_m2} Normal >60 [facility] Comment on above: Result Comment: >60 mL/min/1.73m2 EGFR, calc. for ages 18 and older using theMDRD formula (not corrected for weight), is valid for stablerenal function. Globulin 2.3 g/dL Normal 2.3-3.5 [facility] Glucose mass conc 114 mg/dL Critically high 74-109 [facility] Potassium molar conc 4.1 mmol/L Normal 3.5-5.1 [facility] Protein 6.5 g/dL Normal 6.4-8.1 [facility] Sodium 141 mmol/L Normal 132-144 [facility] Urea nitrogen 13 mg/dL Normal 6-20 [facility] Hemoglobin A1con 04-11-2017 Hemoglobin A1c/Hemoglobin.total mass fraction (Bld) 7.2 % Critically high 4.8-5.9 [facility] TSH w/out Reflexon 8 Thyroid stimulating hormone (TSH) 1.340 uIU/mL Normal 0.270-4.20 [facility] VITAMIN Don 04-11-2017 VITAMIN D 20.0 ng/mL Low 30.0-100.0 [facility] Comment on above: Result Comment: (20- 30 ng/mL) InsufficiencyThis assay accurately quantifies the sum of vitamin D3, 25-Hydroxy andvitamin D2, 25-Hyroxy. Hemoglobin A1con 04-08-2017 Hemoglobin A1c/Hemoglobin.total mass fraction (Bld) 7.3 % Critically high 4.8-5.9 [facility] Vital Signs Date Time Vital Sign Value Performing Clinician Facility 05-31-2024 08:59-0400 Body height 188 cm Maribell Zapata CHEMISTRY LABORATORY TECHNICIAN Work Phone: [facility] 05-31-2024 08:59-0400 Body mass index (BMI) [Ratio] 29.53 kg/m2 Maribell Zapata CHEMISTRY LABORATORY TECHNICIAN Work Phone: [facility] 05-31-2024 08:59-0400 Body weight 104.33 kg Maribell Zapata CHEMISTRY LABORATORY TECHNICIAN Work Phone: [facility] 05-31-2024 08:59-0400 Diastolic blood pressure 80 mm[Hg] Maribell Zapata CHEMISTRY LABORATORY TECHNICIAN Work Phone: [facility] 05-31-2024 08:59-0400 Heart rate 96 /min Maribell Zapata CHEMISTRY LABORATORY TECHNICIAN Work Phone: [facility] 05-31-2024 08:59-0400 SaO2% (BldA) [Mass fraction] 99 % Maribell Zapata CHEMISTRY LABORATORY TECHNICIAN Work Phone: [facility] 05-31-2024 08:59-0400 Systolic blood pressure 128 mm[Hg] Maribell Zapata CHEMISTRY LABORATORY TECHNICIAN Work Phone: [facility] 05-15-2024 10:45-0500 Body height 188 cm Hiwot Kwok MD Work Phone: [facility] 05-15-2024 10:45-0500 Body mass index (BMI) [Ratio] 31.07 kg/m2 Hiwot Kwok MD Work Phone: [facility] 05-15-2024 10:45-0500 Body weight 109.77 kg Hiwot Kwok MD Work Phone: [facility] 05-15-2024 10:45-0500 Diastolic blood pressure 86 mm[Hg] Hiwot Kwok MD Work Phone: [facility] 05-15-2024 10:45-0500 Heart rate 74 /min Hiwot Kwok MD Work Phone: [facility] 05-15-2024 10:45-0500 Systolic blood pressure 125 mm[Hg] Hiwot Kwok MD Work Phone: [facility] 05-08-2024 10:54-0500 Body height 188 cm Katie [place] CHEMISTRY LABORATORY TECHNICIAN Work Phone: [facility] 05-08-2024 10:54-0500 Body mass index (BMI) [Ratio] 31.17 kg/m2 Katei [place] CHEMISTRY LABORATORY TECHNICIAN Work Phone: [facility] 05-08-2024 10:54-0500 Body weight 110.13 kg Katie Junaid CHEMISTRY LABORATORY TECHNICIAN Work Phone: [facility] 05-08-2024 10:54-0500 Diastolic blood pressure 72 mm[Hg] Katie Junaid CHEMISTRY LABORATORY TECHNICIAN Work Phone: [facility] 05-08-2024 10:54-0500 Heart rate 80 /min Katie [place] CHEMISTRY LABORATORY TECHNICIAN Work Phone: [facility] 05-08-2024 10:54-0500 Respiratory rate 17 /min Katie Junaid CHEMISTRY LABORATORY TECHNICIAN Work Phone: [facility] 05-08-2024 10:54-0500 SaO2% (BldA) [Mass fraction] 97 % Katie [place] CHEMISTRY LABORATORY TECHNICIAN Work Phone: [facility] 05-08-2024 10:54-0500 Systolic blood pressure 108 mm[Hg] Katie [place] CHEMISTRY LABORATORY TECHNICIAN Work Phone: [facility] 02-21-2024 10:52-0500 Body height 188 cm Katie [place] CHEMISTRY LABORATORY TECHNICIAN Work Phone: [facility] 02-21-2024 10:52-0500 Body mass index (BMI) [Ratio] 30.69 kg/m2 Katie Junaid CHEMISTRY LABORATORY TECHNICIAN Work Phone: [facility] 02-21-2024 10:52-0500 Body weight 108.41 kg Katie [place] CHEMISTRY LABORATORY TECHNICIAN Work Phone: [facility] 02-21-2024 10:52-0500 Diastolic blood pressure 76 mm[Hg] Katie Junaid CHEMISTRY LABORATORY TECHNICIAN Work Phone: [facility] 02-21-2024 10:52-0500 Heart rate 93 /min Katie [place] CHEMISTRY LABORATORY TECHNICIAN Work Phone: [facility] 02-21-2024 10:52-0500 SaO2% (BldA) [Mass fraction] 96 % Katie Quiroga CHEMISTRY LABORATORY TECHNICIAN Work Phone: [facility] [employer] 02-21-2024 10:52-0500 Systolic blood pressure 130 mm[Hg] Katie Albavely CHEMISTRY LABORATORY TECHNICIAN Work Phone: [facility] [employer] 07-19-2022 10:30-0400 Body height 187.96 cm Cj Jose Other [facility] Other 07-19-2022 10:30-0400 Body mass index (BMI) [Ratio] 30.17 kg/m2 Cj Jose Other [facility] Other 07-19-2022 10:30-0400 Body temperature 97.9 [degF] Cj Jose Other [facility] Other 07-19-2022 10:30-0400 Body weight 106.6 kg Cj Jose Other [facility] Other 07-19-2022 10:30-0400 Diastolic blood pressure 81 mm[Hg] Cj Jose Other [facility] Other 07-19-2022 10:30-0400 Respiratory rate 18 /min Cj Jose Other [facility] Other 07-19-2022 10:30-0400 SaO2% (BldA) [Mass fraction] 96 % Cj Jose Other [facility] Other 07-19-2022 10:30-0400 Systolic blood pressure 125 mm[Hg] Cj Jose Other [facility] Other Encounters Encounter Date Encounter Type Care Provider Facility Start: 11-08-2024 End: 11-08-2024 ambulatory Brandon BEAN Facility:[facility] Start: 11-08-2024 End: 11-08-2024 Patient encounter procedure Brandon BEAN [facility] [place] Start: 10-30-2024 ambulatory Esvin SPARKS Facility :[facility] Start: 10-22-2024 End: 10-22-2024 ambulatory Esvin SPARKS Facility: [place] Start: 10-22-2024 End: 10-22-2024 Patient encounter procedure Esvin SPARKS [facility] Start: 10-09-2024 ambulatory Chidi Elizabeth acility:[facility] Start: 07-02-2024 ambulatory Esvin SPARKS Facili ty:[facility] [place] Start: 06-25-2024 ambulatory Esvin SPARKS Facility : [facility] Start: 06-20-2024 End: 06-20-2024 Clinisync Result Encounter Katie Quiroga CHEMISTRY LABORATORY TECHNICIAN Work Phone: [facility] Unsolicited Start: 06-20-2024 End: 06-20-2024 Clinisync Result Encounter Katie Quiroga CHEMISTRY LABORATORY TECHNICIAN Work Phone: [facility] Unsolicited Start: 06-09-2024 End: 06-09-2024 Emergency department patient visit Iwona Roche Trosper Facility:[facility] Start: 06-01-2024 End: 06-05-2024 Evaluation and management of inpatient NON STAFF Facility:[facility] Start: 05-31-2024 End: 05-31-2024 Bamboo flowsheet Maribell Zapata CHEMISTRY LABORATORY TECHNICIAN Work Phone: [facility] Start: 05-31-2024 End: 05-31-2024 Bamboo flowsheet Maribell Zapata CHEMISTRY LABORATORY TECHNICIAN Work Phone: [facility] Start: 05-31-2024 End: 05-31-2024 Office outpatient visit 25 minutes Maribell Zapata CHEMISTRY LABORATORY TECHNICIAN Work Phone: [facility] Comment on above: Type 2 diabetes ellyn itus with hyperglycemia, with long-term current use of insulin ([facility]) (Primary Dx); Bipolar affective disorder, remission status unspecified ([facility]); Anxiety Start: 05-31-2024 End: 05-31-2024 ambulatory MARIBELL ZAPATA Not Available Start: 05-15-2024 End: 05-15-2024 Bamboo flowsheet Hiwot Kwok MD Work Phone: [facility] Start: 05-15-2024 End: 05-15-2024 Kalani Kwok MD Work Phone: [facility] Start: 05-15-2024 End: 05-15-2024 Office outpatient new 45 minutes Hiwot Kwok MD Work Phone: [facility] Comment on above: Other specified diab etes mellitus with other specified complication, 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 ([facility]) (Primary Dx); Rhinitis medicamentosa Start: 05-15-2024 End: 05-15-2024 ambulatory HIWOT KWOK Not Available Start: 05-08-2024 End: 05-08-2024 Office outpatient visit 25 minutes Katie Quiroga CHEMISTRY LABORATORY TECHNICIAN Work Phone: [facility] Comment on above: Nasal congestion (Pr imary Dx); Enlarged testicle; Pain in right testicle; Bipolar disorder, unspecified ([facility]) Start: 05-08-2024 End: 05-08-2024 ambulatory KATIE QUIROGA Not Available Start: 04-10-2024 End: 04-10-2024 ambulatory Dina Rudd Facility:[facility] Start: 03-27-2024 End: 03-27-2024 ambulatory DINA RUDD Not Available Start: 03-27-2024 End: 03-27-2024 Patient encounter procedure Dina Rudd DO Work Phone: [facility] Comment on above: Screen for colon can cer (Primary Dx) Start: 03-12-2024 End: 03-12-2024 Refill Katie Quiroga CHEMISTRY LABORATORY TECHNICIAN Work Phone: [facility] Comment on above: Type 2 diabetes ellyn itus with diabetic polyneuropathy (CMS/HCC); Diabetic polyneuropathy associated with type 2 diabetes mellitus (CMS/HCC) Start: 02-21-2024 End: 02-21-2024 Bamboo flowsheet Katie Quiroga CHEMISTRY LABORATORY TECHNICIAN Work Phone: [facility] Start: 02-21-2024 End: 02-21-2024 Bamboo flowsheet Katie Quiroga CHEMISTRY LABORATORY TECHNICIAN Work Phone: [facility] Start: 02-21-2024 End: 02-21-2024 Assay of hemosiderin, quant Katie Quiroga CHEMISTRY LABORATORY TECHNICIAN Work Phone: [facility] Start: 02-21-2024 End: 02-21-2024 Patient encounter procedure Katie Quiroga CHEMISTRY LABORATORY TECHNICIAN Work Phone: [facility] Comment on above: Medicare annual [facility] visit, subsequent (Primary Dx); Diabetic polyneuropathy associated [...] 07-19-2022 End: 07-19-2022 ambulatory Cj Garcia Other [facility] Other Start: 07-19-2022 Office outpatient vi sit 15 minutes Cj Garcia [facility] [place] Start: 04-08-2021 End: 04-08-2021 ambulatory JOSEP HORN Facility:[facility] Start: 12-20-2020 End: 12-20-[address] IWONA HUNTLEY Facility:[facility] Start: 04-07-2017 Evaluation and management of inpatient Clarence Arnold Facility:[facility] Date Procedure Procedure Detail Performing Clinician Start: 06-20-2024 Us scrotum & contents S miguel angel Quiroga CHEMISTRY LABORATORY TECHNICIAN Work Phone: Start: 05-31-2024 Hemoglobin glycosylated a1c Maribell Zapata CHEMISTRY LABORATORY TECHNICIAN Work Phone: Start: 04-10-2024 COLONOSCOPY DIAGNOSTIC Arnol Muñoz MD Work Phone: Start: 04-10-2024 Colonoscopy Maribell Zapata CHEMISTRY LABORATORY TECHNICIAN Work Phone: Start: 02-21-2024 Hemoglobin glycosylated a1c Katie Quiroga CHEMISTRY LABORATORY TECHNICIAN Work Phone: Cholecystectomy Brandon NILL Colonoscopy Brandon NILL Repair of left ingui nal hernia Brandon NILL Plan of Treatment Date Care Activity Detail [...] [address] [place] [id number] Maribell Zapata, CHEMISTRY LABORATORY TECHNICIAN [address] [place] [address] [facility] Start: 05-31-2024 End: 05-31-2024 Patient encounter procedure 05/31/2024 9:00 AM EDT Office Visit [facility] [address] [place] [address] Maribell Zapata, SHAYNE [address] [place] [address] Arrived [facility] Comment on above: Arrived Start: 05-21-2024 Hemoglobin A1c measurement Diabetes: Hemoglobin A1C [facility] Start: 05-15-2024 End: 05-15-2024 Patient encounter procedure 05/15/2024 10:50 AM EST Office Visit [facility] [address] [place] [address] Hiwot Kwok MD [address] [place] [address] Nasal congestion [facility] Comment on above: Nasal congestion Start: 05-08-2024 End: 05-08-2025 US Scrotum and testicle US scrotum Imaging Routine Enlarged testicle Pain in right testicle Expected: 05/08/2024, Expires: 05/08/2025 [facility] Work Phone: Comment on above: Expected: 05/08/2024 , Expires: 05/08/2025 Start: 03-26-2024 End: 03-26-2024 Patient encounter procedure 03/26/2024 1:15 PM EST Office Visit [facility] [address] [place] [address] Dina Rudd DO [address] [place] [address] [facility] Start: 02-21-2024 End: 02-20-2025 CBC panel - Blood by Automated count CBC Lab Routine Medicare annual wellness visit, subsequent Essential hypertension Type 2 diabetes mellitus with hyperglycemia, with long-term current use of insulin ([facility]) Expected: 02/21/2024 (Approximate), Expires: 02/20/2025 [facility] Comment on above: Expected: 02/21/2024 (Approximate), Expires: 02/20/2025 Start: 02-21-2024 End: 02-20-2025 Comprehensive metabolic 2000 panel - Serum or Plasma Comprehensive metabolic panel Lab Routine Medicare annual wellness visit, subsequent Essential hypertension Type 2 diabetes mellitus with hyperglycemia, with long-term current use of insulin ([facility]) Expected: 02/21/2024 (Approximate), Expires: 02/20/2025 [facility] Comment on above: Expected: 02/21/2024 (Approximate), Expires: 02/20/2025 Start: 02-21-2024 End: 02-20-2025 Lipid 1996 panel - Serum or Plasma Lipid panel Lab Routine Medicare annual wellness visit, subsequent Elevated LDL cholesterol level ([facility]) Expected: 02/21/2024 (Approximate), Expires: 02/20/2025 [facility] Work Phone: Comment on above: Expected: 02/21/2024 (Approximate), Expires: 02/20/2025 Start: 02-21-2024 End: 02-20-2025 Microalbumin/Creatinine panel in random Urine Microalbumin / creatinine, urine ratio Lab Routine Medicare annual wellness visit, subsequent Type 2 diabetes mellitus with hyperglycemia, with long-term current use of insulin ([facility]) Expected: 02/21/2024 (Approximate), Expires: 02/20/2025 [facility] Comment on above: Expected: 02/21/2024 (Approximate), Expires: 02/20/2025 Start: 02-21-2024 End: 02-20-2025 Prostate specific Ag [Mass/volume] in Serum or Plasma PSA Lab Routine Screening for prostate cancer Expected: 02/21/2024 (Approximate), Expires: 02/20/2025 [facility] Comment on above: Expected: 02/21/2024 (Approximate), Expires: 02/20/2025 Start: 02-21-2024 End: 02-21-2024 Patient encounter procedure 02/21/2024 11:00 AM EST Office Visit [facility] [address] [place] [address] Katie Quiroga NP [address] [place] [address] Medicare annual wellness visit, subsequent (Primary Dx); [...] Well ness (AWV) Medicare Annual Wellness (AWV) [facility] Start: 01-01-2024 Urine screening for protein Diabetes: Urine Protein Screening [facility] Start: 11-20-2023 Influenza vaccination Influenza Vacc ine (#1) [facility] Start: 09-14-2023 Hemoglobin A1c measurement Diabetes: Hemoglobin A1C [facility] Start: 1977 Glaucoma screening Diabetes: R etinopathy Screening [facility] Start: 1967 Screening for malign ant neoplasm of colon [facility] Immunizations Immunization Date Immunization Notes Care Provider Fa cility 02-21-2024 influenza virus vaccine, unspecified formulation Brandon BEAN [facility] General Surgery [place] 02-21-2024 influenza, seasonal, injectable, preservative free Katie Quiroga CHEMISTRY LABORATORY TECHNICIAN Work Phone: [facility] 01-06-2022 Moderna SARS-CoV-2 50mcg/0.5mL Booster Katie Quiroga CHEMISTRY LABORATORY TECHNICIAN Work Phone: [facility] 01-06-2022 SARS-CoV-2 (COVID-19 ) [id number].[id number] [facility] Comment on above: Result Comment: 2024: [id number] 01-21-2021 SARS-CoV-2 (COVID-19 ) mRNA-1273 vaccine Brandon BEAN [facility] Comment on above: Result Comment: 2024: [id number] 04-16-2020 SARS-CoV-2 (COVID-19 ) mRNA-1273 vaccine Brandon TRAOREL [facility] Comment on above: Result Comment: 2024: [id number] 03-19-2020 SARS-CoV-2 (COVID-19 ) mRNA-1273 vaccine Brandon BEAN [facility] Payers Date Payer Category Payer Self-pay 2016 Medicare [id number] 1967 Unknown [id number] 2.16.84 [id number] 1967 Unknown [id number] 2.16.84 [id number] 1967 Unknown [id number] 2.16.84 0.1.506091.3.579.2.1259 1967 Unknown [id number] 2.16.84 0.1.289137.3.579.2.1259 1967 Unknown [id number] 2.16.84 0.1.421504.3.579.2.1259 1967 Unknown [id number] 2.16.84 0.1.005028.3.579.2.1259 1967 Unknown [id number] 2.16.84 0.1.640788.3.579.2.1259 1967 Unknown [id number] 2.16.84 0.1.872002.3.579.2.1259 1967 Unknown [id number] 2.16.8 40.1.620855.3.579.2.727 1967 Unknown [id number] 2.16.8 [id number] 1959 Medicare [id number] Medicare [id number] Unknown [id number] 2.16.8 [id number] Unknown [id number] 2.16.8 40.1.385724.3.579.2.531 Unknown [id number] 2.16.8 40.1.841550.3.579.2.531 Unknown [id number] 2.16.8 [id number] Social History Date Type Detail Facility Unknown if ever smoked [employer] Other Start: 01-13-2023 End: 02-21-2024 Sex Assigned At [facility] Start: 11-04-2022 Tobacco smoking status [facility] Tobacco smoking consumption unknown [facility] Start: 11-04-2022 End: 05-08-2024 Alcoholic beverage intake Defer [facility] Start: 01-13-2023 End: 02-21-2024 History of Social function [facility] Start: 1965 Sex assigned at Not on file [facility] Start: 02-21-2024 End: 11-08-2024 Tobacco smoking status NJIS Never smoked tobacco [facility] Start: 02-21-2024 Tobacco use and exposure Smokeless tobacco non-user [facility] Start: 05-15-2024 End: 05-31-2024 Alcoholic beverage intake Lifetime non-drinker (finding) [facility] Tobacco smoking status [facility] Sex Male (finding) [facility] Tobacco smoking status Never [facility] [place] Medical Equipment Procedure Code Equipment Code Equipment Origin al Text Equipment Identifier Dates USE DIRECTED DAILY [id number] Start: 01-18-2023 Clinical Notes 07-19-2022 to 11-08-2024 Maribell Zapata NP - 05/31/2024 9:00 AM EDTPatient InstructionsHiwot Kwok MD - 05/15/2024 10:50 AM Crystal Quiroga NP - 05/08/2024 11:00 AM Estefania Rudd DO - 03/27/2024 9:15 AM EST Note Date & Type Note Facility 11-08-2024 Note General Surgery Offi ce/Clinic Note Chief Complaint consultation for inguinal hernia HPI Staff 59 year old male presents on consultation from Dr. Sparks for possible right inguinal hernia. Reports significant scrotal swelling for approximately 6-7 months. Verbalized swelling does not wax and wane in size and has been stable since first noted. Reports intermittent scrotal discomfort. Denies nausea, vomiting or bowel changes. Denies urinary complaints. US completed 06/20/24 with right hydrocele and potential right inguinal hernia. Patient has not had any recent imaging. History of Present Illness 59 yo male with h/o htn, DMII, hyperlipidemia, neuropathy, bipolar d/o, referred for right scrotal swelling, possible hernia; abdominal operations significant for LIHR as a child, and cholecystectomy; no asa or NSAID use; no tobacco use. patient reports 6 month h/o right scrotal swelling, began acutely after heavy lifting; does not reduce, no pain, just pressure/discomfort; no skin changes; no N/V or bowel changes; had scrotal US 06/2024 with small hydrocele on right, likely hernia; no asa or NSAID use; no tobacco use. Review of Systems PHQ Score Initial Depression Screen Score: 0 SCORE ROS - Provider Constitutional: no fever, no sweats, no weight loss. Eyes: no glasses, no blurred vision, no visual loss. ENMT: no dentures, no hoarseness, no swallowing difficulties, no hearing loss, no ear infection(s), no nose bleeds. Cardiovascular: normal blood pressure, no chest pain, regular heartbeat, no heart murmur. Respiratory: no shortness of breath, no cough, no asthma, no wheezing. Gastrointestinal: no nausea, no vomiting, no diarrhea, no constipation, no blood in stool, no change in bowel habits, no abdominal pain, no hepatitis. Genitourinary: no kidney stones, no urine infection, no dysuria. Musculoskeletal: no pain, no weakness. Skin: no changing moles, no rash, no skin lumps. Neurologic: no seizures, no epilepsy, no headache. Psychiatric: no emotional or psychiatric problem. Heme/Lymph: no bleeding problems, no anemia, no blood clots, no transfusions. Allergy/Immunologic: no swollen lymph nodes/glands, no IV drug abuse. Other: Additional ROS info: Except as noted in the above Review of Systems and in the History of Present Illness, all other systems have been reviewed and are negative or noncontributory. Physical Exam Vitals & Measurements HR: 70(Peripheral) RR: 16 BP: 134/88 HT: 187.9 cm HT: 74 in WT: 247.579 lb WT: 112.3 kg BMI: 31.81 HEENT: normal conjunctiva, sclera clear, no scleral icterus, EOM intact, PERRLA, oral mucosa moist without lesions. Neck: trachea midline, no mass, symmetric, no thyromegaly or nodules, no adenopathy Respiratory: lungs CTA, respirations non labored. Cardiovascular: regular rate and rhythm, no murmur, no pedal edema or varicosities. Gastrointestinal: soft, non distended, no tenderness, nonreducible right inguinal hernia extending into scrotum, no skin changes, nontender, well-healed left inguinal scar, diastasis recti no, no hepatosplenomegaly; normal bs Lymphatic: no cervical adenopathy, no inguinal adenopathy. Musculoskeletal: normal gait, digits and nails without infection, nodes, cyanosis, clubbing. Skin: no rashes, no lesions, no ulcers, no subcutaneous nodules, induration. Psychiatric/Neuro: oriented to time, place, person, judgement normal, affect appropriate for age, insight intact, no focal deficits. Tests: , x-rays reviewed, review of old records completed , Discussed surgical options, risks, and possible complications with patient. Assessment/Plan 1. Incarcerated right inguinal hernia (K40.30: Unilateral inguinal hernia, with obstruction, without gangrene, not specified as recurrent) plan right inguinal herniorrhaphy with mesh insertion at [facility], informed consent obtained. Ancef 2 gms IV prior to OR TAP block per Anesthesia SCDs Follow-up No qualifying data available Problem List/Past Medical History Ongoing Bipolar disorder BMI 31.0-31.9,adult Diabetes mellitus Essential hypertension Hyperlipidemia Hypertriglyceridemia Incarcerated right inguinal hernia Neuropathy in diabetes Obesity due to excess calories Seasonal allergy Historical No qualifying data Procedure/Surgical History Cholecystectomy, Colonoscopy, Repair of left inguinal hernia. Medications busPIRone 5 mg Tab, 5 mg= 1 tab(s), Oral, BID gabapentin 300 mg Cap, 300 mg= 1 cap(s), Oral, TID metformin-saxagliptin 1000 mg-5 mg oral tablet, extended release Soliqua 100/33 subcutaneous solution, IntraMuscular traZODONE 50 mg Tab, 50 mg= 1 tab(s), Oral, Once a day (at bedtime) Allergies No Known Allergies No Known Medication Allergies Social History Alcohol Never., 10/21/2024 Substance Abuse Never., 10/21/2024 Tobacco Never (less than 100 in lifetime) Tobacco Use:. Never Smokeless Tobacco Use:., 11/08/2024 Family History Primary malignant neoplasm of lung: Father. (more content not included)... [facility] Comment on above: Result Comment: Elec tronically Signed By: VIKAS JACOBSON, Brandon Arnold\Date and Time Signed: 11/08/24 16:49 EDT 05-31-2024 History of Presen t illness Narrative [...] History: Diagnosis Date Cholelithiasis DM (diabetes mellitus) ([facility]) Gastritis 2010 Major depression ([facility]/HCC) psychiatric evaluation Severe major depression with psychotic features (HCC) ([facility]) 2013 Testicle lump Past Surgical History: Procedure Laterality Date COLONOSCOPY EGD with foreign body removal MO LAP,CHOLECYSTOENTEROSTOMY 03/2015 Cholelithiasis [place] SCREENING FOR DEPRESSION PERFORMED Visit Vitals Ht [...] hyperglycemia, with long-term current use of insulin ([facility]) (Primary) 7.7 A1C today. 02/21/24 [...] 2. Bipolar affective disorder, remission status unspecified ([facility]) Discussed diagnosis with the pt, [...] follow-ups on file. documented in this encounter [facility] 05-31-2024 Instructions Maribell Zapata NP - 05/31/2024 9:00 AM EDT Restart wellbutrin today at 150 mg bid. Ativan ordered bid prn x 14 days. Follow up 2 weeks to evaluate. documented in this encounter [facility] 05-15-2024 History of Presen t illness Narrative [...] 30-39.9) 10/08/2022 Major depression in complete remission ([facility]) 10/08/2022 Impotence of organic origin 10/08/2022 Hyperglycemia due to type 2 diabetes mellitus ([facility]) 10/08/2022 Elevated LDL cholesterol level ([facility]) 10/08/2022 Diabetic polyneuropathy associated with type 2 diabetes mellitus ([facility]/HCC) 10/08/2022 Bipolar disorder ([facility]) 10/08/2022 Adjustment disorder with depressed mood ([facility]) 10/08/2022 Essential hypertension 11/04/2022 Myalgia 04/22/2023 Myopathy 04/22/2023 Resolved Ambulatory Problems Diagnosis Date Noted No Resolved Ambulatory Problems Past Medical History: Diagnosis Date Cholelithiasis DM (diabetes mellitus) (CMS/HCC) Gastritis 2010 Major depression (CMS/HCC) Severe major depression with psychotic features (HCC) ([facility]) 2013 Testicle lump Past Surgical History: Procedure Laterality Date COLONOSCOPY EGD with foreign body removal MO LAP,CHOLECYSTOENTEROSTOMY 03/2015 Cholelithiasis MO SCREENING FOR DEPRESSION PERFORMED No Known Allergies [...] mellitus with other specified complication, 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 Clearly has rhinitis medicamentosa. Start prednisone, flonase and hypertonic saline. Stop afrin cold turkey after 2 days. Check BS BID and contact PCP if over [address] in this encounter [facility] 05-08-2024 History of Presen t illness Narrative [...] History: Diagnosis Date Cholelithiasis DM (diabetes mellitus) ([facility]) Gastritis 2010 Major depression ([facility]) psychiatric evaluation Severe major depression with psychotic features (HCC) ([facility]) 2013 Testicle lump Past Surgical History: Procedure Laterality Date EGD with foreign body removal MO LAP,CHOLECYSTOENTEROSTOMY 03/2015 Cholelithiasis MO SCREENING FOR DEPRESSION PERFORMED Visit Vitals Smoking [...] follow-ups on file. documented in this encounter [facility] 03-27-2024 History of Presen t illness Narrative [...] History: Diagnosis Date Cholelithiasis DM (diabetes mellitus) ([facility]) Gastritis 2010 Major depression (CMS/HCC) psychiatric evaluation Severe major depression with psychotic features (HCC) ([facility]) 2014 Testicle lump Social History Tobacco Use Smoking status: Never Smokeless tobacco: Never Substance Use Topics Alcohol use: Defer Past Surgical History: Procedure Laterality Date EGD with foreign body removal MO LAP,CHOLECYSTOENTEROSTOMY 03/2015 Cholelithiasis MO SCREENING FOR DEPRESSION PERFORMED Family History Family history unknown: Yes No Known Allergies Past Surgical History: Procedure Laterality Date EGD with foreign body removal MO LAP,CHOLECYSTOENTEROSTOMY 03/2015 Cholelithiasis MO SCREENING FOR DEPRESSION PERFORMED Tobacco Use: Low [...] Positives noted above. Remainder are negative per [facility] guidelines. OBJECTIVE: Visit Vitals Smoking Status Never [...] Shari Rudd DO documented in this encounter [facility] 03-12-2024 Telephone encounter Note Gabapentin sent [facility] 03-12-2024 Miscellaneous Notes Gabapentin sent documented in this encounter [facility] 02-21-2024 History of Presen t illness Narrative [...] Do you have a medical power of transactional attorney?: No Objective : BP 130/76 Pulse [...] polyneuropathy associated with type 2 diabetes mellitus ([facility]) We discussed today, the importance [...] hyperglycemia, with long-term current use of insulin ([facility]) We discussed today, the importance [...] February 21, [address] this encounter 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 [employer] Other Evaluation + Plan note No data available for this section [facility] evaluation note* Diagnosis Medicare annual wellness visit, subsequent- Primary Diabetic polyneuropathy associated with type 2 diabetes mellitus (CMS/HCC) Primary insomnia Persistent disorder of initiating or maintaining sleep Essential hypertension Unspecified essential hypertension Myalgia Unspecified myalgia and myositis Myopathy Unspecified myopathy Type 2 diabetes mellitus with hyperglycemia, with long-term current use of insulin (CMS/HCC) Obesity (BMI 30-39.9) Adjustment disorder with depressed mood (CMS/HCC) Adjustment disorder with depressed mood Bipolar affective disorder, remission status unspecified (CMS/HCC) Elevated LDL cholesterol level (CMS/HCC) Major depressive disorder in full remission, unspecified whether recurrent (HCC) (CMS/HCC) Major depressive disorder, single episode, in full remission ([facility]/HCC) Major depressive disorder, single episode in full [...] Type 2 diabetes mellitus with diabetic polyneuropathy ([facility]) Diabetic polyneuropathy associated with type 2 diabetes mellitus ([facility]) [facility] Diagnosis Screen for colon cancer- Primary Special screening for malignant neoplasms, colon [facility]* Diagnosis Nasal congestion- Primary Other diseases of nasal cavity and sinuses Enlarged testicle Other specified disorder of male genital organs Pain in right testicle Unspecified disorder of male genital organs Bipolar disorder, unspecified ([facility]) Bipolar disorder, unspecified [facility]* Diagnosis Other specified diabetes mellitus with other specified complication, unspecified whether residential insulin use ([facility])- Primary Rhinitis medicamentosa Other diseases of nasal cavity and sinuses [facility]* Diagnosis Type 2 diabetes mellitus with hyperglycemia, with long-term current use of insulin ([facility])- Primary Bipolar affective disorder, remission status unspecified ([facility]) Anxiety Anxiety state, unspecified [facility] N[facility]ative - Reported* Type Description Date Medical History diabetes Medical History depression Medical History neuropathy Surgical History tonsillectomy Surgical History cholecystectomy Hospitalization History see above surg [facility] [employer] Other Hospital Discharge instructions No data available for this section [facility] progress note No data available for this section [facility] reason for visit Narrative* Consultation (Routine) - Closed Specialty Diagnoses / Procedures Referred By Miranda t Referred To Contact General Surgery Diagnoses Screening for colon cancer Procedures MO OFFICE/OUTPATIENT [facility] Katie Quiroga, SHAYNE [address] [place] [address] Phone: tel: fax: Dina Rudd [address] [facility] [address] [place] [address] Phone: tel: fax: Referral ID Status Reason Start Date Expiration Date V isits Requested Visits Authorized [id number] Closed Specialty Services Required 02/21/2024 08/19/2024 1 1 [facility] Summary Purpose Family History No Family History Records FoundNo Family History Records FoundNo Family History Records FoundNo Family History Records FoundNo Family History Records FoundNo Family History Records Found No data available for this section No data available for this section No Family History Records Found Advance Directives No [...] section and content) DATE CREATED AUTHOR 09/13/2017 [facility] DATE CREATED AUTHOR AUTHOR'S ORGANIZ ATION 09/12/2017 [facility] DATE CREATED AUTHOR AUTHOR'S ORGANIZ ATION 04/15/2021 [facility] DATE CREATED AUTHOR AUTHOR'S ORGANIZ ATION 03/09/2024 [facility] DATE CREATED AUTHOR AUTHOR'S ORGANIZ ATION 06/03/2024 [facility] EPIC DATE CREATED AUTHOR AUTHOR'S ORGANIZ ATION 10/11/2024 [facility] DATE CREATED AUTHOR AUTHOR'S ORGANIZ ATION 11/10/2024 [facility] REASON FOR VISIT (unrecogniz ed section and [...] Congestion Specialty Diagnoses / Procedures Referred By Miranda belcher Referred To Contact Otolaryngology Diagnoses Nasal congestion Procedures MO OFFICE/OUTPATIENT NEW HIGH MDM 60 MINUTES Katie Quiroga, CHEMISTRY LABORATORY TECHNICIAN [address] [facility] [address] [place] [address] Phone: tel: fax: Hiwot Kwok MD [address] [facility] [address] [place] [address] Phone: tel: fax: Referral ID Status Reason Start Date Expiration Date V isits Requested Visits Authorized [id number] Closed Specialty Services Required 05/08/2024 11/04/2024 1 1 Reason Comments Diabetes Med Refill Gabapentin-- [facility] Care Teams (unrecognized sec tion and content) Contact Center Rep Relationship Specialty Start Date End Date Iwona Huntley MD [address] [facility] [address] [place] [address] PCP - ACO Reach 08/12/22 Iwona Huntley MD [address] [facility] [address] [place] [address] PCP - General Family Medicine 07/27/22 Contact Center Rep Relationship Specialty Start Date End Date Iwona Huntley MD [address] [facility] [address] [place] [address] PCP - ACO Reach 08/12/22 Iwona Huntley MD [address] [facility] [address] [place] [address] PCP - General Family Medicine 07/27/22 Contact Center Rep Relationship Specialty Start Date End Date Iwona Huntley MD [address] [facility] [address] [place] [address] PCP - ACO Reach 08/12/22 Iwona Huntley MD [address] [facility] [address] [place] [address] PCP - General Family Medicine 07/27/22 Contact Center Rep Relationship Specialty Start Date End Date Iwona Huntley MD [address] [place] [address] PCP - ACO Reach 08/12/22 Iwona Huntley MD [address] [place] [address] PCP - General Family Medicine 07/27/22 Contact Center Rep Relationship Specialty Start Date End Date Iwona Huntley MD [address] [place] [address] PCP - General Family Medicine 07/27/22 Katie Quiroga CHEMISTRY LABORATORY TECHNICIAN [address] [place] [address] PCP - [facility] Re[facility] 04/27/24 Contact Center Rep Relationship Specialty Start Date End Date Iwona Huntley MD [address] [place] [address] PCP - General Family Medicine 07/27/22 Katie Quiroga, CHEMISTRY LABORATORY TECHNICIAN [address] [place] [address] PCP - [facility] 04/27/24 Contact Center Rep Relationship Specialty Start Date End Date Iwona Huntley MD [address] [place] [address] PCP - General Family Medicine 07/27/22 Katie Quiroga CHEMISTRY LABORATORY TECHNICIAN [address] [place] [address] PCP - [facility] 04/27/24 Contact Center Rep Relationship Specialty Start Date End Date Iwona Huntley MD [address] [place] [address] PCP - General [facility] 07/27/22 Katie Quiroga, CHEMISTRY LABORATORY TECHNICIAN [address] [place] [address] PCP - [facility] Reach 04/27/24 Contact Center Rep Relationship Specialty Start Date End Date Iwona Huntley MD [address] [place] [address] PCP - [facility] 07/27/22 Katie Quiroga, CHEMISTRY LABORATORY TECHNICIAN [address] [place] [address] PCP - [facility] Reach 04/27/24 Contact Center Rep Relationship Specialty Start Date End Date Iwona Huntley MD [address] [place] [address] PCP - [facility] 07/27/22 Katie Quiroga, SHAYNE [address] [place] [address] PCP - [facility] 04/27/24 FOR RECORDS PERTAINING TO PATIENTS WHO [...] BE BASED ON THE PRIMARY CLINICAL RECORDS. [facility] [employer] [facility]. provides no warranty or guarantee of the accuracy or completeness of information in this document.
--- NOTE | 2024-11-16 13:27 | ECG_ITS ---
[facility] Test Date: 2024-11-16 Pat Name: JARAD AHMADI Department: Room: - Gender: Male Warp Coiler: : 1965 Requested By: AKASH BEAN Order Number: [id number] Reading MD: AYDEE EATON Measurements Intervals [place] Rate: 76 P: 2 AK: 151 QRS: 71 QRSD: 86 T: 38 QT: 343 QTc: 387 Interpretive Statements SINUS RHYTHM Compared to ECG 12/20/2020 17:16:48 Sinus arrhythmia no longer present Electronically Signed On 11-21-2024 13:27:28 EDT by AYDEE EATON
[2024-11-16 14:29] LABS: Anion Gap 13.1; Blood Urea Nitrogen 14.0 mg/dL (7.0-18.0); Calcium 9.5 mg/dL (8.5-10.1); Carbon Dioxide 29.3 mmol/L (21.0-32.0); Chloride 105 mmol/L (98-107); Estimated GFR (African America >60 (>=60 mL/min/1.73m^2); Estimated GFR (Non-African Ame >60 (>=60 mL/min/1.73m^2); Glucose 119 mg/dL (74-106); Potassium 4.4 mmol/L (3.5-5.1); Sodium 143 mmol/L (136-145)
== END 2024-11-16 13:03 | disposition home or self-care (01) ==
LOC: PST 13:03
PROVIDERS: PCP Family Medicine; Visit Provider Surgery
DX: Z01.810 Encounter for preprocedural cardiovascular examination (principal); Z01.812 Encounter for preprocedural laboratory examination; K40.90 Unilateral inguinal hernia, without obstruction or gangrene, not specified as recurrent
CPT/HCPCS: 80048; 93005

== ENCOUNTER 2024-11-28 06:56 | Day surgery (SDC) | payer MEDICARE, SELFPAY ==
[2024-11-16 13:57] VITALS: BP 133/93; PULSE 76; TEMP 36.5; O2SAT 97; BMI 31.7
[2024-11-28] VITALS (18 sets, daily range): BP systolic 105–151; BP diastolic 61–97; PULSE 66–89; TEMP 36.2–36.3; O2SAT 90–97; BMI 31.6
--- NOTE | 2024-11-28 | OP_ITS ---
OPERATION DATE: 11/28/2024 PREOPERATIVE DIAGNOSIS: Incarcerated right inguinal hernia. POSTOPERATIVE DIAGNOSIS: Incarcerated right inguinal hernia with incarcerated indirect right inguinal hernia and cord lipoma. PROCEDURE: Right inguinal herniorrhaphy with mesh patch insertion and excision of cord lipoma. SURGEON: Brandon Fermin M.D. ANESTHESIA: General with right sided TAP block, as well as general endotracheal. ESTIMATED BLOOD LOSS: Less than 17 mL. INDICATIONS AND CONSENT: Patient is a 59-year-old male with a six month history of right groin swelling, extending down into the scrotum. It is non-reducible. He has had history of a left inguinal hernia repair in the past. Indications, risks, benefits, alternatives of proceeding with right inguinal herniorrhaphy with mesh insertion were explained extensively to the patient, including the risks of bleeding, infection, scarring, pain, nerve injury, testicular injury, bowel injury, blood clot, pulmonary embolus, heart attack, anesthetic complications, recurrent hernia, need for further surgery or mesh removal. All of his questions were answered. Informed consent was obtained. PROCEDURE: Patient brought to the operating room, placed in the supine position. General anesthesia was induced. A right sided TAP block was performed. The patient was then prepped and draped in the usual sterile fashion. A right groin incision was made in the area of the skin crease, just above the external inguinal ring, and carried down through subcutaneous tissue using sharp dissection, as well as electrocautery. Vessels were controlled with 3-0 Vicryl ties. The external oblique, which was weakened, was opened along the direction of its fibers, down through the external inguinal ring. It was noted to be very attenuated, the external oblique. Cord structures were mobilized. There was noted to be a large amount of fat within the spermatic cord, as well as some cord lipoma and an indirect sac containing omentum. This was freed up from the cord structures and reduced back through the internal ring, which was enlarged, particularly laterally. There was some weakness of the floor of the inguinal canal as well, but no direct inguinal hernia. The enlargement of the internal ring was then closed with some interrupted 2-0 Prolene sutures. The floor was also strengthened by imbricating the tissue through the upper portion of the floor of the inguinal canal using the Prolene interrupted sutures. The wound was then irrigated. There was good hemostasis. The polypropylene patch was then inserted into the floor of the inguinal canal. It was secured circumferentially using interrupted 3-0 Vicryl sutures. The arms were placed around the cord structures and secured as well using the Vicryl. Care was taken to avoid undue tension on the cord structures. The wound was irrigated. There was good hemostasis. It should be noted that branches of the ilioinguinal nerve were divided due to irritation from the hernia sac, as well as approximation to the mesh. External oblique was then closed with a running 3-0 Vicryl suture. Subcutaneous tissues were injected with 0.5% Marcaine plain. Anais?s fascia was re-approximated with interrupted 3-0 Monocryl suture. The skin was then closed with a running 4-0 subcuticular Monocryl suture and skin glue. A sterile pressure dressing was applied. Sponge and needle counts were correct x2 per nursing personnel. Patient tolerated procedure well, was extubated and sent to recovery room in good condition. CC: Ambreen Small
--- OUTSIDE RECORDS SUMMARY | 2024-11-28 06:59 | XMS_ITS | CCD ---
Author Organization [facility] Care Team Providers Care Entry Level Account Executive Name Role Phone Arnold, Clarence K Unavailable [...] Unavailable Iwona Huntley MD Primary Care Provider Katie Quiroga NP Unavailable KATIE QUIROGA Attending [...] Admitting Unavailab Chidi Oliveira Attending Unavailab Iwona Castaneda Primary Care Unavailable NON STAFF Primary Care Unavailable Bairon Espino Attending Unavailable Chidi Barraza Admitting Unavailab le IWONA HUNTLEY Primary Care Physician Esvin SPARKS Attending Unavailable KATIE QUIROGA Referring Unavailable Esvin SPARKS Attending Unavailable KATIE QUIROGA Referring Unavailable Akash FERMIN Attending Unavailable Allergies Allergy Classification Reported Allergen(s) Allergy Type Date of Onset Reaction(s) Facility (1 source) OLANZapine Drug Allergy [facility] Repository (1 source) No Known Medication Allergies; Translations: [No Known Medication Allergies] Propensity to adverse reactions (disorder) [facility] Repository Medications Current Medications Medication Drug Class(es) Dates Sig (Normalized) Sig (Original) ARIPiprazole 400 mg injection (3 sources) Atypical Antipsychotic Start: 07-02-2024 ARIPiprazole ER (Abilify [...] Active busPIRone hydrochloride 5 mg oral tablet (4 sources) Start: 06-05-2024 take 1 tablet by mouth in the morning busPIRone (Buspar) 5 MG tablet Take 5 mg by mouth in the morning and 5 mg before bedtime. 06/05/2024 Active fluticasone propionate 0.05 mg/actuat metered dose nasal spray (8 sources) Corticosteroid Start: 05-15-2024 End: 05-15-2025 take 2 spray(s) nasal route once daily fluticasone (Flonase) 50 MCG/ACT nasal spray Indications: Rhinitis medicamentosa Administer 2 sprays into each nostril Daily Shake gently. Before first use, prime pump. After use, clean tip and replace cap. 48 g 3 05/15/2024 05/15/2025 Active gabapentin 300 mg oral capsule (20 sources) Anti-epileptic Agent Start: 09-17-2024 gabapentin (Neurontin) 300 MG capsule Indications: Type 2 diabetes mellitus with diabetic polyneuropathy (HCC) , Diabetic polyneuropathy associated with type 2 diabetes mellitus (HCC) TAKE 1 CAPSULE BY MOUTH IN THE MORNING, EVENING, AND BEFORE BEDTIME 270 capsule 09/17/2024 Active Start: 06-18-2024 gabapentin (Ne urontin) 300 MG [...] unt/ml / lixisenatide 0.033 mg/ml pen injector (19 sources) Insulin Analog Start: 10-24-2024 Soliqua 100/33 subcutaneous solution IntraMuscular, Refills(s) 0 Start Date: 10/24/24 Status: Ordered Repeat number: 1 Start: 11-15-2023 insulin glargi ne-lixisenatide (Soliqua) 100-33 UNT-MCG/ML pen Indications: Type 2 diabetes mellitus with other specified complication, unspecified whether group home insulin use (HCC) INJECT 30 UNITS SUBCUTANEOUSLY ONCE EVERY MORNING [...] July, Active LORazepam 0.5 mg oral tablet (4 sources) Benzodiazepine Start: 05-31-2024 End: 06-14-2024 take 1 tablet by mouth once LORazepam (Ativan) 0.5 MG tablet Indications: Anxiety Take 1 tablet (0.5 mg) by mouth every 12 (twelve) hours if needed for anxiety (anxiety) for up to 14 days 28 tablet 05/31/2024 Active metFORMIN hydrochloride 1000 mg oral tablet (18 sources) Biguanide Start: 04-23-2024 take 1 tablet by mouth twice daily at mealtime metFORMIN (Glucophage) 1000 MG tablet Indications: Type 2 diabetes mellitus with diabetic polyneuropathy, without long-term current use of insulin (HCC) TAKE 1 TABLET BY MOUTH TWICE A [...] needed. 07/19/2022 02/21/2024 Discontinued polyethylene glycol 3350 11973 mg powder for oral solution (4 sources) [...] Discontinued traZODone hydrochloride 50 mg oral tablet (4 sources) Serotonin Reuptake Inhibitor Start: 06-11-2024 take 1 [...] as recurrent] Onset: 11-08-2024 Episodic Adjustment disorders (19 sources) Adjustment disorder with depressed mood; Translations: [...] 04-14-2021 10-24-2024 Chronic Disorders of lipid metabolism (20 sources) Raised low density lipoprotein cholesterol; Translations: [Pure hypercholesterolemia, unspecified] Onset: 10-08-2022 10-08-2022 Chronic E Codes: Natural/environment (1 source) Exposure to other specified factors, initial encounter; Translations: [EXPOSURE OTHER SPEC FACTORS INITIAL] Onset: 04-14-2021 Episodic Esophageal disorders (2 sources) Esophageal obstruction; 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] Onset: 12-25-2020 Chronic Essential hypertension (20 sources) Essential hypertension; Translations: [Essential (primary) hypertension] Onset: 11-04-2022 11-04-2022 Chronic Immunizations and screening for infectious disease (2 sources) Needs influenza immunization; Translations: [Encounter for immunization] 02-21-2024 Episodic Intestinal infection (1 source) Viral intestinal infection, unspecified Episodic Miscellaneous mental health disorders (19 sources) Primary insomnia; Translations: [Primary insomnia] Onset: 10-08-2022 10-08-2022 Chronic Mood disorders (20 sources) Major depression in full remission; Translations: [Major depressive disorder, single episode, in full remission] Onset: 10-08-2022 10-08-2022 Chronic Other aftercare (1 source) long-term (current) use of oral hypoglycemic drugs; Translations: [[facility] USE ORAL HYPOGLYCEMIC DX] Onset: 04-14-2021 Episodic Other injuries and conditions due to external causes (4 sources) Food in esophagus causing other injury, initial encounter; Translations: [FOOD ESOPH CAUS OTH INJURY INIT ENC] Onset: 04-08-2021 Episodic Other male genital disorders (17 sources) Secondary erectile dysfunction; Translations: [Male erectile dysfunction, unspecified] Onset: 10-08-2022 10-08-2022 Chronic Other male genital disorders (2 sources) Large testicle; Translations: [Other specified disorders of the male genital organs] 05-08-2024 Episodic Other male genital disorders (2 sources) Pain of right testicle; Translations: [Right testicular pain] 05-08-2024 Episodic Other nervous system disorders (19 sources) Disorder of muscle; Translations: [Myopathy, unspecified] Onset: 04-22-2023 04-22-2023 Chronic Other nutritional; endocrine; and metabolic disorders (20 sources) Body mass index 30+ - obesity; [...] 04-14-2021 Episodic Schizophrenia and other psychotic disorders (3 sources) Schizoaffective disorder, unspecified; Translations: [Schizoaffective disorder] Onset: 06-01-2024 07-31-2024 Chronic Unclassified (1 source) ESOPHAGITIS UNSPEC WITHOUT BLEEDING; Translations: [ESOPHAGITIS UNSPEC WITHOUT BLEEDING] Onset: 04-14-2021 Unclassified (1 source) CONTACT W/AND (SUSP) EXPOS COVID-19; Translations: [CONTACT W/AND (SUSP) EXPOS COVID-19] Onset: 12-25-2020 Past or Other Problems Problem Classification Problem Date Documented Da te Episodic/Chronic Intestinal obstruction without hernia (2 sources) Food bolus obstruction of intestine; Translations: [Other intestinal obstruction unspecified as to partial versus complete obstruction] Onset: 07-31-2024 07-31-2024 Episodic Mood disorders (17 sources) Mood disorders Onset: 01-13-2023 01-13-2023 Other aftercare (1 source) Other intermediate card tender (current) drug therapy; Translations: [OTH [facility] CURRENT DRUG THERAPY] Onset: 12-25-2020 Episodic Other connective tissue disease (19 sources) Muscle pain; Translations: [Myalgia, unspecified site] Onset: 04-22-2023 04-22-2023 Episodic Unclassified (2 sources) Patient encounter status 02-21-2024 Results Test Name Value Interpretation Reference Range Facility ECG 12-LEADon 11-21-2024 [place] [address] Electrocardiograph Report Signed Patient: KEVIN HILL MR#: [id number] : 1965 Acct:[id number] Age/Sex: 59 / M ADM Date: 11/16/24 Loc: [facility] Attending Dr: Akash Fermin M.D. Ordering Physician: Akash Fermin M.D. 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 Signed By: 11/21/24 1327 DD/ 1159 TD/TT: Strap Sewer: [facility] Radiology, Radiologist, - 11/21/2024 The [place] [id number] Electrocardiograph Report Signed Patient: KEVIN HILL MR#: [id number] : 1965 Acct:[id number] Age/Sex: 59 / M ADM Date: 11/16/24 Loc: PST Attending Dr: Akash Fermin M.D. Ordering Physician: Akash Fermin M.D. 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 Signed By: 11/21/24 1327 DD/ 1159 TD/TT: Strap Sewer: [facility] ECG 12-LEADOrdered By: Radio logist Radiology on 11-21-2024 [facility] Work Phone: ALL BASIC METABOLIC PANELon 11-16-2024 Anion gap [Moles/Vol] 13.1 mmol/L [facility] Calcium [Mass/Vol] 9.5 mg/dL 8.5 - 10. 1 mg/dL [facility] Chloride [Moles/Vol] 105 mmol/L 98 - 10 7 mmol/L [facility] CO2 [Moles/Vol] 29.3 mmol/L 21.0 - 32.0 mmol/L [facility] Creatinine [Mass/Vol] 0.91 mg/dL 0.70 - 1.30 mg/dL [facility] GFR/1.73 sq M.predicted CKD-EPI (S/P/Bld) [Vol rate/Area] >60 >=60 mL/min/1.73m 2 [facility] Glucose [Mass/Vol] 119 mg/dL High 74 - 106 mg/dL [facility] Interpretation and review of laboratory results Abnormal [facility] Potassium [Moles/Vol] 4.4 mmol/L 3.5 - 5.1 mmol/L [facility] Sodium [Moles/Vol] 143 mmol/L 136 - 145 mmol/L [facility] TBH EGFR-NON AF SALVADOREAN >60 >=60 mL/min/1.73m 2 [facility] Urea nitrogen [Mass/Vol] 14 mg/dL 7.0 - 18.0 mg/dL [facility] Urea nitrogen/Creatinine [Mass ratio] 15.4 mg/mg [facility] ECG 12-LEADon 11-16-2024 Radiology Study observation (narrative) [facility] Ambulatory Visit Summaryon 0 11-08-2024 Ambulatory Visit Summary Ambulatory Visit Summary DAIANAKEVIN :1965 Visit Date:11/08/2024 Ambulatory Visit Instructions Your Care Team Attending Physician - VIKAS JACOBSON, Akash Dorsey Primary Care Physician - YUKO JACOBSON, IWNOA Roche This Is Your Medications List Contact [...] signed up for this yet, please contact [employer] at [phone] to get signed up today. Language Information Language assistance services are available as needed. [facility] US Scrotum and testicleon [place] [id number] Ultrasound Report Signed Patient: KEVIN HILL MR#: [id number] : 1965 Acct:[id number] Age/Sex: 59 / M ADM Date: 06/20/24 Loc: US Attending Dr: KATIE QUIROGA Ordering Physician: KATIE QUIROGA Date of Service: 06/20/24 Procedure(s): US scrotum Accession Number(s): [id number] cc: IWONA HUNTLEY SHERRI [place] [id number] Patient Name: KEVIN HILL MRN: [id number] date: 1965 Sex: M Assigned Patient Location: US Current Patient Location: [place] Accession/Order Number: [id number] Exam Date: 06/20/2024 14:41 Report Date: 06/20/2024 [...] Barry Sanchez M.D.06/20/2024 2:49 PM Dictation Location: [place] [address] Electronically authenticated by: [id number] Y Date: 06/20/2024 14:49 Dictated By: Barry Sanchez D.O. Signed By: 06/20/24 1451 DD/ 1449 TD/TT: Strap Sewer: [facility] Radiology, Radiologist, MD - 06/20/2024 [place] [id number] Ultrasound Report Signed Patient: KEVIN HILL MR#: [id number] : 1965 Acct:[id number] Age/Sex: 59 / M ADM Date: 06/20/24 Loc: US Attending Dr: KATIE QUIROGA Ordering Physician: KATIE QUIROGA Date of Service: 06/20/24 Procedure(s): US scrotum Accession Number(s): [id number] cc: IWONA HUNTLEY SHERRI [address] [address] Patient Name: KEVIN HILL MRN: [facility]:[id number] date: 1965 Sex: M Assigned Patient Location: US Current Patient Location: US Accession/Order Number: [id number] Exam Date: 06/20/2024 14:41 Report Date: 06/20/2024 [...] Barry Sanchez M.D.06/20/2024 2:49 PM Dictation Location: [place] [address] Electronically authenticated by: [id number] Y Date: 06/20/2024 14:49 Dictated By: Barry Sanchez D.O. Signed By: 06/20/24 1451 DD/ 1449 TD/TT: Strap Sewer: [facility] Radiology Study observation (narrative) [facility] US Scrotum and testicleOrder ed By: Radiologist Radiology on 06-20-2024 [facility] Work Phone: Glucose Poct Glucometerson 0 06-05-2024 Glucose [Mass/Vol] 124 mg/dL Normal [facility] Comment on above: Result Comment: [facility] Glucose Reference Range is dependent on time and content of last meal. Glucose of more than 200 mg/dL in a nonstressed, ambulatory subject supports the diagnosis of Diabetes Mellitus. PERFORMED BY: [address] [place] [address] PATHOLOGIST HAND ZIPPER TRIMMER MARIA TERESA ASHRAF M.D. Performed By: #### G LULS #### Point of Care testing , Glucose Poct Glucometerson 0 06-04-2024 Glucose [Mass/Vol] 89 mg/dL Normal [facility] Comment on above: Result Comment: [place] [facility] Glucose Reference Range is dependent on time and content of last meal. Glucose of more than 200 mg/dL in a nonstressed, ambulatory subject supports the diagnosis of Diabetes Mellitus. PERFORMED BY: [place] [id number] PATHOLOGIST HAND ZIPPER TRIMMER MARIA TERESA ASHRAF M.D. Performed By: #### G LULS #### Point of Care testing , Glucose Poct Glucometerson 0 06-03-2024 Glucose [Mass/Vol] 152 mg/dL Normal [facility] Comment on above: Result Comment: [place] om Glucose Reference Range is dependent on time and content of last meal. Glucose of more than 200 mg/dL in a nonstressed, ambulatory subject supports the diagnosis of Diabetes Mellitus. PERFORMED BY: [place] [id number] PATHOLOGIST HAND ZIPPER TRIMMER MARIA TERESA ASHRAF M.D. Performed By: #### U RDS, ADDONUAPLUS #### [address] Glucose [Mass/Vol] 159 mg/dL Normal [facility] Comment on above: Result Comment: [place] om Glucose Reference Range is dependent on time and content of last meal. Glucose of more than 200 mg/dL in a nonstressed, ambulatory subject supports the diagnosis of Diabetes Mellitus. PERFORMED BY: [place] [id number] PATHOLOGIST HAND ZIPPER TRIMMER MARIA TERESA ASHRAF M.D. Performed By: #### G LULS #### Point of Care testing , A1C with Estimated Average Tulio srinivasan 06-02-2024 Glucose [Mass/Vol] 171 mg/dL Normal [facility] Comment on above: Result Comment: PERF ORMED BY: [place] [id number] PATHOLOGIST HAND ZIPPER TRIMMER MARIA TERESA ASHRAF M.D. Performed By: #### A 1C [facility] eA #### [address] HbA1c (Bld) [Mass fraction] 7.6 % High 4.3-5.6 [facility] Comment on above: Result Comment: Incr eased risk for diabetes: 5.7 - 6.4 diabetes: >6.4 glycemic control for adults with diabetes: <7.0 Performed By: #### A 1C [facility] eA #### [address] Glucose Poct Glucometerson 0 06-02-2024 Glucose [Mass/Vol] 155 mg/dL Normal [facility] Comment on above: Result Comment: [place] Glucose Reference Range is dependent on time and content of last meal. Glucose of more than 200 mg/dL in a nonstressed, ambulatory subject supports the diagnosis of Diabetes Mellitus. PERFORMED BY: [place] [id number] PATHOLOGIST HAND ZIPPER TRIMMER MARIA TERESA ASHRAF M.D. Performed By: #### U RDSJADENUAPLUS #### [address] Lipid Panelon 06-02-2024 Cholesterol [Mass/Vol] 162 mg/dL Normal 140-200 [facility] Comment on above: Result Comment: Chol less than 200 mg/dl low risk Chol 201-239 mg/dl borderline risk Chol 240 mg/dl and greater high risk Performed By: #### T SH3 wRFLX, LIPID, [id number] #### [place] [id number] [facility] Cholesterol in HDL [Mass/Vol] 38 mg/dL Normal 23-92 [facility] Comment on above: Result Comment: HDL CHOL ATP-III CLASSIFICATION Cardiovascular Risk HDL > or equal to 60 mg/dL LOW HDL < 40 mg/dL HIGH Performed By: #### T SH3 wRFLX, LIPID, [id number] #### [address] Cholesterol.total/Ch olesterol in HDL [Mass ratio] 4.3 {ratio} Normal <5.0 [facility] Comment on above: Performed By: #### T SH3 wRFLX, LIPID, [id number] #### [facility] [address] LDL Cholesterol,Calculat ed 103 mg/dL High 0-100 [facility] Comment on above: Result Comment: LDL ATP III CLASSIFICATION LDL less than 100 mg/dL Optimal LDL 100-129 mg/dL Near or above optimal LDL 130-159 mg/dL Borderline high LDL 160-189 mg/dL High LDL greater than 189 mg/dL Very high Performed By: #### T SH3 wRFLX, LIPID, [id number] #### [address] Triglyceride w/Reflex 104 mg/dL Normal 0-149 [facility] Comment on above: Result Comment: TRIG ATP III CLASSIFICATION TRIG less than 150 mg/dL Normal TRIG 150-199 mg/dL Borderline high TRIG 200-500 mg/dL High TRIG greater than 500 mg/dL Very high Standard traceable to the Center for Disease Conrtrol and Prevention (CDC) test method. Performed By: #### T SH3 wRFLX, LIPID, [id number] #### [address] VLDL CHOLESTEROL 20 mg/dL Normal [facility] Comment on above: Performed By: #### T SH3 wRFLX, LIPID, [id number] #### [address] Thyroid Stim Hormone w/Rflxo n 06-02-2024 Thyroid Stim Hormone w/Rflx 0.52 u[iU]/mL Normal 0.45-5.33 [facility] Comment on above: Performed By: #### T SH3 wRFLX, LIPID, [id number] #### [address] Vitamin D 25 Hydroxy Totalon 06-02-2024 Vitamin D 25 Hydroxy Total 17.8 ng/mL Low 30-100 [facility] Comment on above: Result Comment: GUME MIN D STATUS 25(OH)VITAMIN D RANGE (ng/mL) Deficient <20 Insufficient 20 to <30 Sufficient 30 to 100 Reference: Kevin MF,Reza NC, Earl JAEGER, et al. Evaluation,treatment, and prevention of vitamin D deficiency; an Endocrine Society clinical practice guideline. JCEM. 2010; 96(7):1911-30. PERFORMED BY: [place] [id number] PATHOLOGIST HAND ZIPPER TRIMMER MARIA TERESA ASHRAF M.D. Performed By: #### T SH3 wRFLX, LIPID, [id number] #### [address] Complete Blood Count Auto Di ffon 06-01-2024 Basophils (Bld) [#/Vol] 0.1 10*3/uL Normal 0.0-0.2 [facility] Comment on above: Result Comment: PERF ORMED BY: [place] [id number] PATHOLOGIST HAND ZIPPER TRIMMER MARIA TERESA ASHRAF M.D. Performed By: #### U RDS, ADDONUAPLUS #### [address] Basophils/100 WBC (Bld) 1.1 % Normal . [facility] Comment on above: Performed By: #### U RDS, ADDONUAPLUS #### [place] [address] [place] Eosinophils (Bld) [#/Vol] 0.0 10*3/uL Normal 0.0-0.45 [facility] Comment on above: Performed By: #### U RDS, ADDONUAPLUS #### [place] [address] [place] Eosinophils/100 WBC (Bld) 0.1 % Normal . [facility] Comment on above: Performed By: #### U RDS, ADDONUAPLUS #### [address] Erythrocyte distribution width (RBC) [Ratio] 13.9 % Normal 12.0-14.8 [facility] Comment on above: Performed By: #### U RDS, ADDONUAPLUS #### [address] Hematocrit (Bld) [Volume fraction] 48.4 % Normal 38.8-50.0 [facility] Comment on above: Performed By: #### U RDS, ADDONUAPLUS #### [address] Hemoglobin (Bld) [Mass/Vol] 16.8 g/dL Normal 13.0-17.0 [facility] Comment on above: Performed By: #### U RDS, ADDONUAPLUS #### [address] Lymphocytes (Bld) [#/Vol] 1.1 10*3/uL Normal 1.00-4.8 [facility] Comment on above: Performed By: #### U RDS, ADDONUAPLUS #### [address] Lymphocytes/100 WBC (Bld) 12.8 % Normal . [facility] Comment on above: Performed By: #### U RDS, ADDONUAPLUS #### [address] MCH (RBC) [Entitic mass] 31.2 pg Normal 27.5-35.2 [facility] Comment on above: Performed By: #### U RDS, ADDONUAPLUS #### [address] MCV (RBC) [Entitic vol] 89.9 fL Normal 83.5-101 [facility] Comment on above: Performed By: #### U RDS, ADDONUAPLUS #### [address] Mean Corpuscular HGB Conc 34.7 g/dL Normal 32.5-35.6 [facility] Comment on above: Performed By: #### U RDS, ADDONUAPLUS #### [address] Monocytes (Bld) [#/Vol] 1.0 10*3/uL High 0.0-0.8 [facility] Comment on above: Performed By: #### U RDS, ADDONUAPLUS #### [facility] [address] [place] [address] [place] Monocytes/100 WBC (Bld) 18.64 % Normal 0.00-20.00 [facility] Comment on above: Performed By: #### U RDS, ADDONUAPLUS #### [facility] [address] [place] [address] [place] Monocytes/100 WBC (Bld) 11.8 % Normal . [facility] Comment on above: Performed By: #### U RDS, ADDONUAPLUS #### [address] Neutrophils (Bld) [#/Vol] 6.3 10*3/uL Normal 1.8-7.7 [facility] Comment on above: Performed By: #### U RDS, ADDONUAPLUS #### [place] [address] [place] Neutrophils/100 WBC (Bld) 74.2 % Normal . [facility] Comment on above: Performed By: #### U RDS, ADDONUAPLUS #### [place] [address] [place] NRBC% 0.1 /100{WBC} Normal 0-0.5 [facility] Comment on above: Performed By: #### U RDS, ADDONUAPLUS #### [facility] [address] [place] [address] [place] Platelet mean volume (Bld) [Entitic vol] 7.6 fL Normal 6.6-10.1 [facility] Comment on above: Performed By: #### U RDS, ADDONUAPLUS #### [facility] [address] [place] [address] [place] Platelets (Bld) [#/Vol] 305 10*3/uL Normal 150-450 [facility] Comment on above: Performed By: #### U RDS, ADDONUAPLUS #### [address] RBC (Bld) [#/Vol] 5.38 10*6/uL Normal 3.90-5.[address] [facility] Comment on above: Performed By: #### U RDS, ADDONUAPLUS #### [address] WBC (Bld) [#/Vol] 8.5 10*3/uL Normal 4.1-10.5 [facility] Comment on above: Performed By: #### U RDS, ADDONUAPLUS #### [address] Comprehensive Metabolic Pane ryan 06-01-2024 Albumin [Mass/Vol] 4.7 g/dL Normal 3.5-5.7 [facility] Comment on above: Performed By: #### U RDS, ADDONUAPLUS #### [address] Albumin/Globulin [Mass ratio] 1.7 {ratio} Normal [facility] Comment on above: Performed By: #### U RDS, ADDONUAPLUS #### [address] ALP [Catalytic activity/Vol] 50 U/L Normal 34-104 [facility] Comment on above: Performed By: #### U RDS, ADDONUAPLUS #### [address] ALT [Catalytic activity/Vol] 22 U/L Normal 7-52 [facility] Comment on above: Performed By: #### U RDS, ADDONUAPLUS #### [address] Anion gap [Moles/Vol] 15.1 mmol/L High 6.0-15.0 [facility] [facility] Comment on above: Performed By: #### U RDS, ADDONUAPLUS #### [address] AST [Catalytic activity/Vol] 18 U/L Normal 13-39 [facility] Comment on above: Performed By: #### U RDS, ADDONUAPLUS #### [facility] [address] Bilirubin [Mass/Vol] 1.3 mg/dL High 0.3-1.0 [facility] Comment on above: Result Comment: Samp les from patients who have taken Naproxen have shown spurious elevation in Total Bilirubin levels. A metabolite of Naproxen, O-desmethylnaproxen, has been shown to interfere with the Jendrassik-Grof method for measuring Total Bilirubin. Performed By: #### U RDS, ADDONUAPLUS #### [facility] [address] Calcium [Mass/Vol] 9.7 mg/dL Normal 8.6-10.3 [facility] Comment on above: Performed By: #### U RDS, ADDONUAPLUS #### [facility] [address] [place] [address] [place] Chloride [Moles/Vol] 105 mmol/L Normal 98-107 [facility] Comment on above: Performed By: #### U RDS, ADDONUAPLUS #### [place] [address] [place] CO2 [Moles/Vol] 20.9 mmol/L Low 21.0-31.0 [facility] Comment on above: Performed By: #### U RDS, ADDONUAPLUS #### [facility] [address] [place] [address] [place] Creatinine [Mass/Vol] 1.16 mg/dL Normal 0.70-1.30 [facility] Comment on above: Performed By: #### U RDS, ADDONUAPLUS #### [facility] [address] [place] [address] [place] Creatinine Clr Calc Pharmacy 90.06 Normal [facility] Comment on above: Result Comment: PERF ORMED BY: [place] [id number] PATHOLOGIST HAND ZIPPER TRIMMER MARIA TERESA ASHRAF M.D. Performed By: #### U RDS, ADDONUAPLUS #### [address] [place] [address] [place] GFR/1.73 sq M.predicted MDRD (S/P/Bld) [Vol rate/Area] mL/min/{1.73_m2} Normal [facility] Comment on above: Performed By: #### U LUCÍA, ADDONUAPLUS #### [address] Globulin (S) [Mass/Vol] 2.8 g/dL Normal [facility] Comment on above: Performed By: #### U LUCÍA, ADDONUAPLUS #### [address] Glucose [Mass/Vol] 215 mg/dL High 70-100 [facility] Comment on above: Result Comment: [place] Glucose Reference Range is dependent on time and content of last meal. Glucose of more than 200 mg/dL in a nonstressed, ambulatory subject supports the diagnosis of Diabetes Mellitus. ADA recommended reference range Performed By: #### U LUCÍA, ADDONUAPLUS #### [address] Potassium [Moles/Vol] 4.0 mmol/L Normal 3.5-5.1 [facility] Comment on above: Performed By: #### U LUCÍA, ADDONUAPLUS #### [address] Protein [Mass/Vol] 7.5 g/dL Normal 6.4-8.9 [facility] Comment on above: Performed By: #### U LUCÍA, ADDONUAPLUS #### [place] [address] [place] Sodium [Moles/Vol] 137 mmol/L Normal 136-145 [facility] Comment on above: Performed By: #### U LUCÍA, ADDONUAPLUS #### [place] [address] [place] Urea nitrogen [Mass/Vol] 22 mg/dL Normal 7-25 [facility] Comment on above: Performed By: #### U LUCÍA, ADDONUAPLUS #### [place] [address] [place] Dipstick and Microscopicon 0 06-01-2024 Appearance (U) Clear Normal Clear [facility] Comment on above: Order Comment: Name Collection Type:: Clean-Voided Midstream Performed By: #### U RDS, ADDONUAPLUS #### [place] [address] [place] Bacteria,Urine None Seen Normal None Seen [facility] Comment on above: Order Comment: Name Collection Type:: Clean-Voided Midstream Performed By: #### U RDS, ADDONUAPLUS #### [place] [address] [place] Bilirubin,Urine Negative Normal Negative [facility] Comment on above: Order Comment: Name Collection Type:: Clean-Voided Midstream Performed By: #### U RDS, ADDONUAPLUS #### [place] [address] [place] Color (U) Yellow Normal Yellow [facility] Comment on above: Order Comment: Name Collection Type:: Clean-Voided Midstream Performed By: #### U RDS, ADDONUAPLUS #### [place] [address] [place] Glucose Ql (U) 150 mg/dL High Normal [facility] Comment on above: Order Comment: Name Collection Type:: Clean-Voided Midstream Performed By: #### U RDS, ADDONUAPLUS #### [place] [address] [place] Granular Casts, Urine 3-4 High None Seen [facility] Comment on above: Order Comment: Name Collection Type:: Clean-Voided Midstream Performed By: #### U RDS, ADDONUAPLUS #### [place] [address] [place] Hyaline Casts,Urine 0-8 Normal 0-[address] [facility] Comment on above: Order Comment: Name Collection Type:: Clean-Voided Midstream Performed By: #### U RDS, ADDONUAPLUS #### [place] [address] [place] Ketones Ql (U) 3+ High Negative [facility] Comment on above: Order Comment: Name Collection Type:: Clean-Voided Midstream Performed By: #### U RDS, ADDONUAPLUS #### [address] Leukocyte esterase Test strip Ql (U) Negative Normal Negative [facility] Comment on above: Order Comment: Name Collection Type:: Clean-Voided Midstream Performed By: #### U RDS, ADDONUAPLUS #### [place] [address] [place] Mucus,Urine 2+ Critically abnormal [facility] Comment on above: Order Comment: Name Collection Type:: Clean-Voided Midstream Result Comment: PERF ORMED BY: [place] [id number] PATHOLOGIST HAND ZIPPER TRIMMER MARIA TERESA ASHRAF M.D. Performed By: #### U RDS, ADDONUAPLUS #### [address] Nitrite,Urine Negative Normal Negative [facility] Comment on above: Order Comment: Name Collection Type:: Clean-Voided Midstream Performed By: #### U RDS, ADDONUAPLUS #### [place] [address] [place] Occult Blood,Urine 2+ High Negative [facility] Comment on above: Order Comment: Name Collection Type:: Clean-Voided Midstream Result Comment: PERF ORMED BY: [place] [id number] PATHOLOGIST HAND ZIPPER TRIMMER MARIA TERESA ASHRAF M.D. Performed By: #### U RDS, ADDONUAPLUS #### [place] [address] [place] pH (U) 5.5 [pH] Normal 5.0-9.0 [facility] Comment on above: Order Comment: Name Collection Type:: Clean-Voided Midstream Performed By: #### U RDS, ADDONUAPLUS #### [address] Protein (U) [Mass/Vol] 50 mg/dL High Negative [facility] Comment on above: Order Comment: Name Collection Type:: Clean-Voided Midstream Performed By: #### U RDS, ADDONUAPLUS #### [address] RBC,Urine 50-100 High 0-4 [facility] Comment on above: Order Comment: Name Collection Type:: Clean-Voided Midstream Performed By: #### U RDS, ADDONUAPLUS #### [address] Specificy [place],Urine 1.034 High 1.001-1.030 [facility] Comment on above: Order Comment: Name Collection Type:: Clean-Voided Midstream Performed By: #### U RDS, ADDONUAPLUS #### [place] [address] [place] Squamous Epithelial Cell,Urine 1-2 Normal 0-2 [facility] Comment on above: Order Comment: Name Collection Type:: Clean-Voided Midstream Performed By: #### U RDS, ADDONUAPLUS #### [address] Urobilinogen,Urine Normal Normal Normal [facility] Comment on above: Order Comment: Name Collection Type:: Clean-Voided Midstream Performed By: #### U RDS, ADDONUAPLUS #### [place] [address] [place] WBC,Urine 1-2 Normal 0-4 [facility] Comment on above: Order Comment: Name Collection Type:: Clean-Voided Midstream Performed By: #### U RDS, ADDONUAPLUS #### [place] [address] [place] Drug Screen,Urineon 06-02-19 25 Amphetamine Screen,Urine Negative Normal Negative [facility] Comment on above: Performed By: #### U RDS, ADDONUAPLUS #### [address] Barbiturate Screen,Urine Negative Normal Negative [facility] Comment on above: Performed By: #### U RDS, ADDONUAPLUS #### [place] [address] [place] Benzodiazepines Screen,Urine Negative Normal Negative [facility] Comment on above: Performed By: #### U RDS, ADDONUAPLUS #### [address] Cannabinoid Screen,Urine Negative Normal Negative [facility] Comment on above: Result Comment: Thes e are unconfirmed results and should not be used for legal purposes. Drug Cut-Off Concentration: AMPH 1000 ng/mL HYACINTH 200 ng/mL LIZBETH 200 ng/mL COCM 300 ng/mL OP 300 ng/mL PCP 25 ng/mL THC 20 ng/mL PERFORMED BY: [place] [id number] PATHOLOGIST HAND ZIPPER TRIMMER MARIA TERESA ASHRAF M.D. Performed By: #### U RDS, ADDONUAPLUS #### [address] Cocaine Screen,Urine Negative Normal Negative [facility] Comment on above: Performed By: #### U RDS, ADDONUAPLUS #### [place] [address] [place] Opiate Screen,Urine Negative Normal Negative The [facility] Comment on above: Performed By: #### U RDS, ADDONUAPLUS #### [place] [address] [place] Phencyclidine Screen,Urine Negative Normal Negative [facility] Comment on above: Performed By: #### U RDS, ADDONUAPLUS #### [address] ECG 12 lead ECGon 06-01-2024 ECG 12 lead ECG [facility] [place] [address] [place] [address] Electrocardiograph Report Signed Patient: Kevin Hill MR#: [id number] : 1965 Acct:[id number] Age/Sex: 59 / M ADM Date: 06/01/24 Loc: Room: 6D3436-0 Type: ADM IN Attending Dr: Chidi Barraza [...] ventricular complexes Confirmed by Minesh MAYER DO ([id number]) on 06/01/2024 2:52:37 PM Referred By: Electronically Signed By: Minesh MAYER DO Transcribed By: MUS Signed By Minesh Mayer DO 0 06/01/24 1452 Normal [facility] Ethyl Alcohol Profileon 05-19 Ethanol [Mass/Vol] mg/dL Normal [facility] Comment on above: Performed By: #### U LUCÍA ADDONEDGARPLUS #### [address] Percent Ethanol Not performed Normal [facility] Comment on above: Result Comment: PERF ORMED BY: [place] [id number] PATHOLOGIST HAND ZIPPER TRIMMER MARIA TERESA ASHRAF M.D. Performed By: #### U JOSÉ MIGUEL CASTREJONONUAPLUS #### [address] Laboratory - Hematology and Cell countson 05-31-2024 HbA1c (Bld) [Mass fraction] 7.7 % [facility] No Panel Informationon 05-31 [facility] Ryan 04-10-2024 L - -------- Specimen: [id number] Received: 04/10/24 Status: NENA Walter Num: [id number] Spec Type: Surgical Subm Dr: Dina Rudd DO Tissues: A Colon Biopsy (SIGMOID POLYP @ 23CM) Procedures: HE/2, Gross/Micro L4 -------- Age/ Patient Sex Location Account Attending Physician -------- Kevin Hill 59/M LABELL [id number] Dina Rudd DO -------- SPEC NUM: [id number] RECD: 04/10/24 STATUS: NENA WALTER NUM: [id number] RICH: 04/10/24 [facility] DR: Dina Rudd DO ENTERED: 04/10/[address]: Ely Mac SPEC TYPE: Surgical DEPT: [facility] ENTERED BY: [id number] RECV BY: [id number] ORDERED: HE/2, Gross/Micro L4 ORDERED: HE/2, Gross/Micro [...] cassette. (1, ns, [id number] B) CPT Codes 23870 -------- -------- Specimen: [id number] Received: 04/10/24 Status: NENA Walter Num: [id number] Spec Type: Surgical Subm Dr: Dina Rudd DO Tissues: A Colon Biopsy (SIGMOID POLYP @ 23CM) Procedures: HE/Antonio, Gross/Micro L4 -------- Patient: Kevin Hill [id number] (Continued) -------- Signed (signature on file) Maria Teresa Ashraf MD 04/11/24 1358 Normal [facility] No Panel Informationon 04-10 Hyperplastic polyp [facility] Radiology Study observation (narrative) [facility] ALBUMIN, RANDOM URINE W/CREA TININEon 03-06-2024 ALBUMIN, URINE 0.2 mg/dL Normal See Note: [facility] Comment on above: Result Comment: Refe rence Range: Reference Range Not established Performed By: #### 1 0231, 1759 #### [facility] [address] [place] [phone] City Tax Auditor: Eva Vanegas #### [phone], 2820, 5363 #### [facility] [address], [address] [place] [address] City Tax Auditor: Conrad Bennett MD ALBUMIN/CREATININE RATIO, RANDOM URINE [...] Performed By: #### 1 0231, 1759 #### [facility] [address] [place] [phone] City Tax Auditor: Eva Vanegas #### 6517, 9370, 5363 #### [facility] [address], [address] [place], [place] [id number] City Tax Auditor: Conrad Bennett MD Creatinine (U) [Mass/Vol] 128 mg/dL Normal 20-320 [facility] Comment on above: Performed By: #### 1 0231, 1759 #### [facility] [place] [address] City Tax Auditor: vEa Vanegas #### [phone], [phone], 5363 #### [facility] [address], [address] [place] [address] City Tax Auditor: Conrad Bennett MD CBC (H/H, RBC, INDICES, WBC, PLT)on 03-06-2024 Erythrocyte distribution width (RBC) [Ratio] 13.6 % Normal 11.0-15.0 [facility] Comment on above: Performed By: #### 1 0231, 1759 #### [facility] [address] City Tax Auditor: Eva Vanegas #### 6517, 7600, 5363 #### [facility] [address], [address] [place] [address] City Tax Auditor: Conrad Bennett MD Hematocrit (Bld) [Volume fraction] 46.0 % Normal 38.5-50.0 [facility] Comment on above: Performed By: #### 1 0231, 1759 #### [facility] [address] City Tax Auditor: Eva Vanegas #### 6517, 7600, 5363 #### [facility] [address], [address] [place] [address] City Tax Auditor: Conrad Bennett MD Hemoglobin (Bld) [Mass/Vol] 15.3 g/dL Normal 13.2-17.1 [facility] Comment on above: Performed By: #### 1 0231, 1759 #### [facility] [address] City Tax Auditor: Eva Vanegas #### 6517, 7600, 5363 #### [facility] [place] [address] City Tax Auditor: Conrad Bennett MD MCH (RBC) [Entitic mass] 30.3 pg Normal 27.0-33.0 [facility] Comment on above: Performed By: #### 1 0231, 1759 #### [facility] [address] City Tax Auditor: Eva Vanegas #### 6517, 4430, 5363 #### [facility] [address], [address] [place] [address] City Tax Auditor: Conrad Bennett MD MCHC (RBC) [Mass/Vol] 33.3 [...] By: #### 1 0231, 1759 #### [facility] [address] City Tax Auditor: Eva Vanegas #### 65, 265, 5363 #### [facility] [place] [address] City Tax Auditor: Conrad Bennett MD MCV (RBC) [Entitic vol] 91.1 fL Normal 80.0-100.0 [facility] Comment on above: Performed By: #### 1 230, 1759 #### [facility] [address] City Tax Auditor: Eva Vanegas #### 6517, 5270, 5363 #### [facility] [place] [address] City Tax Auditor: Conrad Bennett MD Platelet mean volume (Bld) [Entitic vol] 9.4 fL Normal 7.5-12.5 [facility] Comment on above: Performed By: #### 1 230, 1759 #### [facility] [address] City Tax Auditor: Eva Vanegas #### 65, 2720, 5363 #### [facility] [address], [address] [place] [address] City Tax Auditor: Conrad Bennett MD Platelets (Bld) [#/Vol] 275 10*3/uL Normal 140-400 [facility] Comment on above: Performed By: #### 1 0231, 1759 #### [facility] [address] City Tax Auditor: Eva Vanegas #### 6517, 0, 5363 #### [facility] [place] [address] [place] , [address] [place] [address] City Tax Auditor: Conrad Bennett MD RBC (Bld) [#/Vol] 5.05 10*6/uL Normal 4.20-5.80 [facility] Comment on above: Performed By: #### 1 0231, 1759 #### [facility] [address] City Tax Auditor: Eva Vanegas #### 6517, 0, 5363 #### [facility] [place] [address] [place] , [address] [place] [address] City Tax Auditor: Conrad Bennett MD WBC (Bld) [#/Vol] 4.6 10*3/uL Normal 3.8-10.8 [facility] Comment on above: Performed By: #### 1 0231, 1759 #### [facility] [address] City Tax Auditor: Eva Vanegas #### 6517, 0, 5363 #### [facility] [place] [address] [place] , [address] [place] [address] City Tax Auditor: Conrad Bennett MD COMPREHENSIVE METABOLIC PANE [facility] 03-06-2024 Albumin [Mass/Vol] 4.2 g/dL Normal 3.6-5.1 [facility] Comment on above: Performed By: #### 1 0231, 1759 #### [facility] [address] City Tax Auditor: Eva Vanegas #### 6517, 1280, 5363 #### [facility] [place] [address] [place] , [address] [place] [address] City Tax Auditor: Conrad Bennett MD Albumin/Globulin [Mass ratio] 1.8 {ratio} Normal 1.0-2.5 [facility] Comment on above: Performed By: #### 1 0231, 1759 #### [facility] [address] City Tax Auditor: Eva Vanegas #### 6517, 7600, 5363 #### [facility] [address], [address] [place] [address] City Tax Auditor: Conrad Bennett MD ALP [Catalytic activity/Vol] 41 U/L Normal 35-144 [facility] Comment on above: Performed By: #### 1 0231, 1759 #### [facility] [address] City Tax Auditor: Eva Vanegas #### 6517, 0610, 5363 #### [facility] [address], [address] [place] [address] City Tax Auditor: Conrad Bennett MD ALT [Catalytic activity/Vol] 17 U/L Normal 9-46 [facility] Comment on above: Performed By: #### 1 0231, 1759 #### [facility] [address] City Tax Auditor: Eva Vanegas #### 6517, 7600, 5363 #### [facility] [address], [address] [place] [address] City Tax Auditor: Conrad Bennett MD AST [Catalytic activity/Vol] 15 U/L Normal 10-35 [facility] Comment on above: Performed By: #### 1 0231, 1759 #### [facility] City Tax Auditor: Eva Vanegas #### 6517, 7600, 5363 #### [facility] [address], [address] [place] [address] City Tax Auditor: Conrad Bennett MD Bilirubin [Mass/Vol] 0.7 mg/dL Normal 0.2-1.2 [facility] Comment on above: Performed By: #### 1 023, 1759 #### [facility] [address] [place] [address] City Tax Auditor: Eva Vanegas #### 6517, 7940, 5363 #### [facility] [address], [address] [place] [address] City Tax Auditor: Conrad Bennett MD BUN/CREATININE RATIO SEE NOTE: Normal 6-22 [facility] Comment on above: Result Comment: Not Reported: BUN and Creatinine are within reference range. Performed By: #### 1 023, 1759 #### [facility] [address] City Tax Auditor: Eva Vanegas #### 6517, 6480, 5363 #### [facility] [address], [address] [place] [address] City Tax Auditor: Conrad Bennett MD Calcium [Mass/Vol] 9.6 mg/dL Normal 8.6-10.3 [facility] Comment on above: Performed By: #### 1 230, 175 #### [facility] [address] City Tax Auditor: Eva Vanegas #### 6517, 2620, 5363 #### [facility] [address], [address] [place] [address] City Tax Auditor: Conrad Bennett MD Chloride [Moles/Vol] 105 mmol/L Normal 98-110 [facility] Comment on above: Performed By: #### 1 023, 1759 #### [facility] [address] [place] [address] City Tax Auditor: Eva Vanegas #### 6517, 6240, 5363 #### [facility] [address], [address] [place] [address] City Tax Auditor: Conrad Bennett MD CO2 [Moles/Vol] 28 mmol/L Normal 20-32 [facility] Comment on above: Performed By: #### 1 230, 1759 #### [facility] [address] City Tax Auditor: Eva Vanegas #### 6517, 7600, 5363 #### [facility] [address], [address] [place] [address] City Tax Auditor: Conrad Bennett MD Creatinine [Mass/Vol] 0.87 mg/dL Normal 0.70-1.30 [facility] Comment on above: Performed By: #### 1 230, 175 #### [facility] [address] City Tax Auditor: Eva Vanegas #### 6517, 8540, 5363 #### [facility] [address], [address] [place] [address] City Tax Auditor: Conrad Bennett MD GFR/1.73 sq M.predicted among non-blacks MDRD (S/P/Bld) [Vol rate/Area] 101 mL/min/{1.73_m2} Normal > OR = 60 [facility] Comment on above: Performed By: #### 1 230, 175 #### [facility] [address] City Tax Auditor: Eva Vanegas #### 6517, 4910, 5363 #### [facility] [address], [address] [place] [address] City Tax Auditor: Conrad Bennett MD Globulin (S) [Mass/Vol] 2.3 g/dL Normal 1.9-3.7 [facility] Comment on above: Performed By: #### 1 0231, 1759 #### [facility] [address] City Tax Auditor: Eva Vanegas #### 6517, 7600, 5363 #### [facility] [address], [address] [place] [address] City Tax Auditor: Conrad Bennett MD Glucose [Mass/Vol] 100 mg/dL High 65-99 [facility] Comment on above: Result Comment: Fasting reference interval For someone without known diabetes, a glucose value between 100 and 125 mg/dL is consistent with prediabetes and should be confirmed with a follow-up test. Performed By: #### 1 0231, 1759 #### [facility] [address] [place] [address] City Tax Auditor: Eva Vanegas #### 6517, 7600, 5363 #### [facility] [address], [address] [place] [address] City Tax Auditor: Conrad Bennett MD Potassium [Moles/Vol] 5.1 mmol/L Normal 3.5-5.3 [facility] Comment on above: Performed By: #### 1 0231, 1759 #### [facility] [address] [place] [address] City Tax Auditor: Eva Vanegas #### 6517, 7600, 5363 #### [facility] [address], [address] [place] [address] City Tax Auditor: Conrad Bennett MD Protein [Mass/Vol] 6.5 g/dL Normal 6.1-8.1 [facility] Comment on above: Performed By: #### 1 023, 1759 #### [facility] [address] [place] [address] City Tax Auditor: Eva Vanegas #### 6517, 7600, 5363 #### [facility] [address], [address] [place] [address] City Tax Auditor: Conrad Bennett MD Sodium [Moles/Vol] 139 mmol/L Normal 135-146 [facility] Comment on above: Performed By: #### 1 0231, 1759 #### [facility] [address] [place] [address] City Tax Auditor: Eva Vanegas #### 6517, 7600, 5363 #### [facility] [address] [place] [address], [address] City Tax Auditor: Conrad Bennett MD Urea nitrogen [Mass/Vol] 16 mg/dL Normal 7- [facility] Comment on above: Performed By: #### 1 0231, 1759 #### [facility] [address] [place], [place] [id number] City Tax Auditor: Eva Vanegas #### 6517, 7600, 5363 #### [facility] [address], [address] [place] [address] City Tax Auditor: Conrad Bennett MD LIPID PANEL, [place] [address] Cholesterol [Mass/Vol] 211 mg/dL High <200 [facility] Comment on above: Order Comment: FASTI NG:YES FASTING: YES Performed By: #### 1 0231, 1759 #### [facility] [address] [place], [place] [id number] City Tax Auditor: Eva Vanegas #### 6517, 7600, 5363 #### [facility] [address], [address] [place], [place] [address] City Tax Auditor: Conrad Bennett MD Cholesterol in HDL [Mass/Vol] 53 mg/dL Normal > OR = 40 [facility] Comment on above: Order Comment: FASTI NG:YES FASTING: YES Performed By: #### 1 0231, 1759 #### [facility] [address] [place] [address] City Tax Auditor: Eva Vanegas #### 6517, 7600, 5363 #### [facility] [address], [address] [place], [place] [address] City Tax Auditor: Conrad Bennett MD Cholesterol in LDL [Mass/Vol] [...] of LDL-C. Nicho HURTADO et al. KARMA. 2013;310(18): 0979-9157 (http://education.Vysr/faq/PFE532) Performed By: #### 1 0231, 1759 #### [facility] [place] [address] City Tax Auditor: Eva Vanegas #### [id number], [phone], [phone] #### [facility] [address], [address] [place] [address] City Tax Auditor: Conrad Bennett MD Cholesterol.total/Ch olesterol in HDL [Mass ratio] 4.0 {ratio} Normal <5.0 [facility] Comment on above: Order Comment: FASTI NG:YES FASTING: YES Performed By: #### 1 023, 1759 #### [facility] [address] [place] [address] City Tax Auditor: Eva Vanegas #### [phone], [phone] #### [facility] [address], [address] [place] [address] City Tax Auditor: Conrad Bennett MD NON HDL CHOLESTEROL 158 mg/dL (calc) High <130 [facility] Comment on above: Order Comment: FASTI NG:YES FASTING: YES Result Comment: For patients with diabetes plus 1 major ASCVD risk factor, treating to a non-HDL-C goal of <100 mg/dL (LDL-C of <70 mg/dL) is considered a therapeutic option. Performed By: #### 1 023, 1759 #### [facility] [address] [place], [place] [id number] City Tax Auditor: Eva Vanegas #### [id number], [phone] #### [facility] [address], [address] [place] [address] City Tax Auditor: Conrad Bennett MD Triglyceride [Mass/Vol] 88 mg/dL Normal <150 [facility] Comment on above: Order Comment: FASTI NG:YES FASTING: YES Performed By: #### 1 0231, 1759 #### [facility] [place] [address] City Tax Auditor: Eva Vanegas #### [phone], [phone] #### [facility] [address], [address] [place] [address] City Tax Auditor: Conrad Bennett MD PSA, TOTALon 03-06-2024 PSA, TOTAL 3.64 ng/mL Normal < OR = 4.00 [facility] Comment on above: Result Comment: The [...] By: #### 1 0231, 1759 #### [facility] [place] [address] City Tax Auditor: Eva Vanegas #### [phone], [phone] #### [facility] [address], [address] [place] [address] City Tax Auditor: Conrad Bennett MD Laboratory - Hematology and Cell countson 02-21-2024 HbA1c (Bld) [Mass fraction] 7.1 % [facility] No Panel Informationon 02-20 [facility] Covid-19 PCR (CVDTBH)on 03-21 SARS-CoV-2 (COVID-19) RNA TERRY+probe Ql (Unsp spec) Not detected Normal NOT DETECTED [facility] Comment on above: Result Comment: When diagnostic testing is negative, the possibility of a false negative should be considered in the context of a patient's recent exposures and the presence of clinical signs and symptoms consistent with SARS-CoV-2. This test is not yet approved or cleared by the [place] Food and Drug Administration (FDA). This test was developed by [employer], [place], [place]. The performance characteristics of this test were validated by [facility]. The results are not intended to be used as the sole means for clinical diagnosis or patient management decisions. [facility] is authorized under Clinical Laboratory Improvement [...] for this test is supported by the [place] of Health and Human Service's declaration that [...] used). Performed By: #### C VDTBH #### [facility] [address] [place] [address] Dr. Lucas Champion POINT OF CARE GLUCOSEon 03-21 Glucose [Mass/Vol] 88 mg/dL Normal 74-106 [facility] Comment on above: Performed By: #### P OCGLUC #### [facility] [address] [place] [address] Dr. Lucas Champion Glucose [Mass/Vol] 92 mg/dL Normal 74-106 [facility] Comment on above: Performed By: #### P OCGLUC #### [facility] [address] [place] [address] Dr. Lucas Champion ASYMPTOMATIC COVID-19 ANTIGE Non 12-20-2020 EUA Statement SEE BELOW Normal [facility] Comment on above: Result Comment: This test [...] sooner. Performed By: #### C VDAGA #### [facility] [address] [place] [address] Dr. Lucas Champion SARS-CoV-2 (COVID-19) RNA TERRY+probe Ql (Unsp spec) Negative Normal NEGATIVE [facility] Comment on above: Result Comment: Nega tive results are presumptive. They do not preclude infection and should not be used as the sole basis for treatment decisions. Additional confirmatory testing by a molecular method should be considered. Performed By: #### C VDAGA #### [facility] [address] [place] [address] Dr. Lucas Champion Covid-19 PCR (CVDTB)on SARS-CoV-2 (COVID-19) RNA TERRY+probe Ql (Unsp spec) Not detected Normal NOT DETECTED [facility] Comment on above: Result Comment: This test is not yet approved or cleared by the [place] FDA. When there are no FDA-approved or cleared tests available, and other criteria are met, FDA can make tests available under an emergency access mechanism called an Emergency Use Authorization (EUA). The EUA for this test is supported by the [place] of Health and Human Service's (HHS's) declaration [...] SARS-CoV-2. Performed By: #### C VDTBH #### [facility] [address] [place], [place] [address] Dr. Lucas Champion XR CHEST 1 Von [...] by: WILLIE HUNTER Date: 2020-12-20 18:20 Normal [facility] CBC With Platelet No Differe ntialon 04-11-2017 Erythrocyte distribution width Auto Ratio (RBC) 13.8 % Normal 11.5-14.5 [facility] Erythrocytes (RBC) 5.17 10*6/uL Normal 4.70-6.10 [facility] Hematocrit (HCT) 48.1 % Normal 42.0-52.0 [facility] Hemoglobin mass conc (Bld) 16.2 g/dL Normal 14.0-18.0 [facility] MCH 31.3 pg Normal 27.0-31.3 [facility] MCHC mass conc (RBC) 33.6 % Normal 33.0-37.0 [facility] MCV 93.0 fL Normal 80.0-100.0 [facility] Platelets 288 10*3/uL Normal 130-400 [facility] WBC (Leukocytes) 5.4 10*3/uL Normal 4.8-10.8 [facility] Comprehensive Metabolic Pane ryan 04-11-2017 Alanine aminotransferase (ALT) 12 U/L Normal 0-41 [facility] Albumin 4.2 g/dL Normal 3.9-4.9 [facility] Alkaline phosphatase (ALP) 46 U/L Normal 35-104 [facility] Anion gap 21 mmol/L Critically high 7-13 [facility] Aspartate aminotransferase (AST) 13 U/L Normal 0-40 [facility] Bilirubin (total) 0.8 mg/dL Normal 0.0-1.2 [facility] Calcium 9.6 mg/dL Normal 8.6-10.2 [facility] Chloride 102 mmol/L Normal 98-107 [facility] CO2 18 mmol/L Low 22-29 [facility] Creatinine 0.74 mg/dL Normal 0.70-1.20 [facility] eGFR (black) mL/min/{1.73_m2} Normal >60 [facility] Comment on above: Result Comment: >60 mL/min/1.73m2 EGFR, calc. for ages 18 and older using theMDRD formula (not corrected for weight), is valid for stablerenal function. eGFR (MDRD) mL/min/{1.73_m2} Normal >60 [facility] Comment on above: Result Comment: >60 mL/min/1.73m2 EGFR, calc. for ages 18 and older using theMDRD formula (not corrected for weight), is valid for stablerenal function. Globulin 2.3 g/dL Normal 2.3-3.5 [facility] Glucose mass conc 114 mg/dL Critically high 74-109 [facility] Potassium molar conc 4.1 mmol/L Normal 3.5-5.1 [facility] Protein 6.5 g/dL Normal 6.4-8.1 [facility] Sodium 141 mmol/L Normal 132-144 [facility] Urea nitrogen 13 mg/dL Normal 6-20 [facility] Hemoglobin A1con 04-11-2017 Hemoglobin A1c/Hemoglobin.total mass fraction (Bld) 7.2 % Critically high 4.8-5.9 [facility] TSH w/out Reflexon 8 Thyroid stimulating hormone (TSH) 1.340 uIU/mL Normal 0.270-4.20 [facility] VITAMIN Don 04-11-2017 VITAMIN D 20.0 ng/mL Low 30.0-100.0 [facility] Comment on above: Result Comment: (20- 30 ng/mL) InsufficiencyThis assay accurately quantifies the sum of vitamin D3, 25-Hydroxy andvitamin D2, 25-Hyroxy. Hemoglobin A1con 04-08-2017 Hemoglobin A1c/Hemoglobin.total mass fraction (Bld) 7.3 % Critically high 4.8-5.9 [facility] Vital Signs Date Time Vital Sign Value Performing Clinician Facility 05-31-2024 08:59-0400 Body height 188 cm Maribell Zapata UX ENGINEER Work Phone: [facility] 05-31-2024 08:59-0400 Body mass index (BMI) [Ratio] 29.53 kg/m2 Maribell Zapata UX ENGINEER Work Phone: [facility] 05-31-2024 08:59-0400 Body weight 104.33 kg Maribell Zapata UX ENGINEER Work Phone: [facility] 05-31-2024 08:59-0400 Diastolic blood pressure 80 mm[Hg] Maribell Zapata UX ENGINEER Work Phone: [facility] 05-31-2024 08:59-0400 Heart rate 96 /min Maribell Zapata UX ENGINEER Work Phone: [facility] 05-31-2024 08:59-0400 SaO2% (BldA) [Mass fraction] 99 % Maribell Zapata UX ENGINEER Work Phone: [facility] 05-31-2024 08:59-0400 Systolic blood pressure 128 mm[Hg] Maribell Zapata UX ENGINEER Work Phone: [facility] 05-15-2024 10:45-0500 Body height 188 cm Hiwot Kwok MD Work Phone: [facility] 05-15-2024 10:45-0500 Body mass index (BMI) [Ratio] 31.07 kg/m2 Hiwot Kwok MD Work Phone: [facility] 05-15-2024 10:45-0500 Body weight 109.77 kg Hiwot Kwok MD Work Phone: [facility] 05-15-2024 10:45-0500 Diastolic blood pressure 86 mm[Hg] Hiwot Kwok MD Work Phone: [facility] 05-15-2024 10:45-0500 Heart rate 74 /min Hiwot Kwok MD Work Phone: [facility] 05-15-2024 10:45-0500 Systolic blood pressure 125 mm[Hg] Hiwot Kwok MD Work Phone: [facility] 05-08-2024 10:54-0500 Body height 188 cm Katie Woodside UX ENGINEER Work Phone: [facility] 05-08-2024 10:54-0500 Body mass index (BMI) [Ratio] 31.17 kg/m2 Katie Junaid UX ENGINEER Work Phone: [facility] 05-08-2024 10:54-0500 Body weight 110.13 kg Katie Woodside UX ENGINEER Work Phone: [facility] 05-08-2024 10:54-0500 Diastolic blood pressure 72 mm[Hg] Katie Woodside UX ENGINEER Work Phone: [facility] 05-08-2024 10:54-0500 Heart rate 80 /min Katie Junaid UX ENGINEER Work Phone: [facility] 05-08-2024 10:54-0500 Respiratory rate 17 /min Katie Junaid UX ENGINEER Work Phone: [facility] 05-08-2024 10:54-0500 SaO2% (BldA) [Mass fraction] 97 % Katie Junaid UX ENGINEER Work Phone: [facility] 05-08-2024 10:54-0500 Systolic blood pressure 108 mm[Hg] Katie Woodside UX ENGINEER Work Phone: [facility] 02-21-2024 10:52-0500 Body height 188 cm Katie Junaid UX ENGINEER Work Phone: [facility] 02-21-2024 10:52-0500 Body mass index (BMI) [Ratio] 30.69 kg/m2 Katie Woodside UX ENGINEER Work Phone: [facility] 02-21-2024 10:52-0500 Body weight 108.41 kg Katie Junaid UX ENGINEER Work Phone: [facility] 02-21-2024 10:52-0500 Diastolic blood pressure 76 mm[Hg] Aktie Woodside UX ENGINEER Work Phone: [facility] 02-21-2024 10:52-0500 Heart rate 93 /min Katie Junaid UX ENGINEER Work Phone: [facility] 12-03-2024 10:52-0500 SaO2% (BldA) [Mass fraction] 96 % Katie Quiroga UX ENGINEER Work Phone: [facility] 02-21-2024 10:52-0500 Systolic blood pressure 130 mm[Hg] Katie Quiroga UX ENGINEER Work Phone: [facility] 07-19-2022 10:30-0400 Body height 187.96 cm Cj Jose Other [employer] Other 07-19-2022 10:30-0400 Body mass index (BMI) [Ratio] 30.17 kg/m2 Cj Jose Other [employer] Other 07-19-2022 10:30-0400 Body temperature 97.9 [degF] Cj Garcia Other [employer] Other 07-19-2022 10:30-0400 Body weight 106.6 kg Cj Garcia Other [employer] Other 07-19-2022 10:30-0400 Diastolic blood pressure 81 mm[Hg] Cj Garcia Other [employer] Other 07-19-2022 10:30-0400 Respiratory rate 18 /min Cj Garcia Other [employer] Other 07-19-2022 10:30-0400 SaO2% (BldA) [Mass fraction] 96 % Cj Jose Other [employer] Other 07-19-2022 10:30-0400 Systolic blood pressure 125 mm[Hg] Cj Garcia Other [employer] Other Encounters Encounter Date Encounter Type Care Provider Facility Start: 11-16-2024 End: 11-21-2024 Clinisync Result Encounter Generic External Data Provider [facility] Unsolicited Start: 11-16-2024 End: 11-21-2024 Clinisync Result Encounter Generic External Data Provider [facility] External [facility] Unsolicited Start: 11-08-2024 End: 11-08-2024 ambulatory Akash FERMIN Facility:[facility] Start: 11-08-2024 End: 11-08-2024 [facility] encounter [facility] [place] Start: 10-30-2024 ambulatory Esvin SPARKS Facility :[facility] Start: 10-22-2024 End: 10-22-2024 ambulatory Esvin SPARKS Facility:[facility] Start: 10-22-2024 End: 10-22-2024 Patient encounter procedure Esvin SPARKS [facility] Start: 10-09-2024 ambulatory Chidi Elizabeth acility:[facility] Start: 07-02-2024 ambulatory Esvin SPARKS Facili ty:[facility] Start: 06-25-2024 ambulatory Esvin SPARKS Facility :[facility] Start: 06-20-2024 End: 06-20-2024 Clinisync Result Encounter Katie Quiroga UX ENGINEER Work Phone: [facility] Unsolicited Start: 06-20-2024 End: 06-20-2024 Clinisync Result Encounter Katie Quiroga UX ENGINEER Work Phone: [facility] Unsolicited Start: 06-09-2024 End: 06-09-2024 Emergency department patient visit Iwona Huntley Facility:[facility] Start: 06-01-2024 End: 06-05-2024 Evaluation and management of inpatient NON STAFF Facility:[facility] Start: 05-31-2024 End: 05-31-2024 Bamboo flowsheet Maribell Zapata UX ENGINEER Work Phone: [facility] Start: 05-31-2024 End: 05-31-2024 Bamboo flowsheet Maribell Zapata UX ENGINEER Work Phone: [facility] Start: 05-31-2024 End: 05-31-2024 Office outpatient visit 25 minutes Maribell Zapata UX ENGINEER Work Phone: [facility] Comment on above: Type 2 diabetes ellyn itus with hyperglycemia, with long-term current use of insulin ([facility]) (Primary Dx); Bipolar affective disorder, remission status unspecified ([facility]); Anxiety Start: 05-31-2024 End: 05-31-2024 ambulatory MARIBELL [...] mellitus with other specified complication, unspecified whether group home insulin use ([facility]) (Primary Dx); Rhinitis medicamentosa Start: 05-15-2024 End: 05-15-2024 ambulatory HIWOT KWOK Not Available Start: 05-08-2024 End: 05-08-2024 Office outpatient visit 25 minutes Katie Quiroga UX ENGINEER Work Phone: [facility] Comment on above: Nasal congestion (Pr imary Dx); Enlarged testicle; Pain in right testicle; Bipolar disorder, unspecified ([facility]) Start: 05-08-2024 End: 05-08-2024 ambulatory KATIE QUIROGA Not Available Start: 04-10-2024 End: 04-10-2024 ambulatory Dina Rudd Facility:[facility] Start: 03-27-2024 End: 03-27-2024 ambulatory DINA RUDD Not Available Start: 03-27-2024 End: 03-27-2024 Patient encounter procedure Dina Rudd DO Work Phone: [facility] Comment on above: Screen for colon can cer (Primary Dx) Start: 03-12-2024 End: 03-12-2024 Refill Katie Quiroga UX ENGINEER Work Phone: [facility] Comment on above: Type 2 diabetes ellyn itus with diabetic polyneuropathy (CMS/HCC); Diabetic polyneuropathy associated with type 2 diabetes mellitus (CMS/HCC) Start: 02-21-2024 End: 02-21-2024 Bamboo flowsheet Katie Quiroga UX ENGINEER Work Phone: [facility] Start: 02-21-2024 End: 02-21-2024 Bamboo flowsheet Katie Quiroga UX ENGINEER Work Phone: [facility] Start: 02-21-2024 End: 02-21-2024 Assay of hemosiderin, quant Katie Quiroga UX ENGINEER Work Phone: [facility] Start: 02-21-2024 End: 02-21-2024 Patient encounter procedure Katie Quiroga UX ENGINEER Work Phone: [facility] Comment on above: Medicare annual well ness visit, subsequent (Primary Dx); Diabetic polyneuropathy associated with type 2 diabetes mellitus ([facility]/HCC); Primary insomnia; Essential hypertension; Myalgia; Myopathy; Type 2 diabetes mellitus with hyperglycemia, with long-term current use of insulin ([facility]/HCC); Obesity (BMI 30-39.9); Adjustment disorder with depressed mood (CMS/HCC); Bipolar affective disorder, remission status unspecified ([facility]/HCC); Elevated LDL cholesterol level ([facility]/HCC); Major depressive disorder in full remission, unspecified [...] 07-19-2022 End: 07-19-2022 ambulatory Cj Garcia Other [employer] Other Start: 07-19-2022 Office outpatient vi sit 15 minutes Cj Garcia [facility] [place] Start: 04-08-2021 End: 04-08-2021 ambulatory JOSEP HORN Facility:[facility] Start: 12-20-2020 End: 12-20-[address] IWONA HUNTLEY Facility:[facility] Start: 04-07-2017 Evaluation and management of inpatient Clarence Arnold Facility:[facility] Date Procedure Procedure Detail Performing Clinician Start: 11-16-2024 ALL BASIC METABOLIC PANEL Generic External Data Provider Start: 11-16-2024 ECG 12-LEAD Generic Ex ternal Data Provider Start: 06-20-2024 Us scrotum & contents S miguel angel Quiroga UX ENGINEER Work Phone: Start: 05-31-2024 Hemoglobin glycosylated a1c Maribell Zapata UX ENGINEER Work Phone: Start: 04-10-2024 COLONOSCOPY DIAGNOSTIC Arnol Muñoz MD Work Phone: Start: 04-10-2024 Colonoscopy Maribell Zapata UX ENGINEER Work Phone: Start: 02-21-2024 Hemoglobin glycosylated a1c Katie Quiroga UX ENGINEER Work Phone: Cholecystectomy Akash FERMIN Colonoscopy Akash FERMIN Repair of left ingui nal hernia Akash FERMIN Plan of Treatment Date Care Activity Detail Author Start: 04-10-2034 Screening for malign ant neoplasm of colon [facility] Start: 03-05-2025 Urine screening for protein Diabetes: Urine Protein Screening [facility] Start: 02-20-2025 Medicare Annual Well ness (AWV) Medicare Annual Wellness (AWV) [facility] Start: 11-19-2024 Influenza vaccination Influenza Vacc ine (#1) [facility] Start: 08-31-2024 Hemoglobin A1c measurement Diabetes: Hemoglobin A1C [facility] Start: 06-14-2024 End: 06-14-2024 Patient encounter procedure 06/14/2024 9:00 AM EDT Office Visit [facility] [address] [place] [address] Maribell Zapata, UX ENGINEER [address] [place] [address] [facility] Start: 05-31-2024 End: 05-31-2024 Patient encounter procedure 05/31/2024 9:00 AM EDT Office Visit [facility] [address] [place] [address] Maribell Zapata, UX ENGINEER [address] [place] [address] Arrived [facility] Comment on above: Arrived Start: 05-21-2024 Hemoglobin A1c measurement Diabetes: Hemoglobin A1C [facility] Start: 05-15-2024 End: 05-15-2024 Patient encounter procedure 05/15/2024 10:50 AM EST Office Visit [facility] [address] [place] [address] Hiwot Kwok MD [address] [place] [address] Nasal congestion [facility] Comment on above: Nasal congestion Start: 05-08-2024 End: 05-08-2025 US Scrotum and testicle US scrotum Imaging Routine Enlarged testicle Pain in right testicle Expected: 05/08/2024, Expires: 05/08/2025 [facility] Work Phone: Comment on above: Expected: 05/08/2024 , Expires: 05/08/2025 Start: 03-26-2024 End: 03-26-2024 Patient encounter procedure 03/26/2024 1:15 PM EST Office Visit [facility] [address] [place] [address] Dina Rudd DO [address] [place] [address] [facility] Start: 02-21-2024 End: 02-20-2025 CBC panel - Blood by Automated count CBC Lab Routine Medicare annual wellness visit, subsequent Essential hypertension Type 2 diabetes mellitus with hyperglycemia, with long-term current use of insulin (CMS/HCC) Expected: 02/21/2024 (Approximate), Expires: 02/20/2025 [facility] Comment on above: Expected: 02/21/2024 (Approximate), Expires: 02/20/2025 Start: 02-21-2024 End: 02-20-2025 Comprehensive metabolic 2000 panel - Serum or Plasma Comprehensive metabolic panel Lab Routine Medicare annual wellness visit, subsequent Essential hypertension Type 2 diabetes mellitus with hyperglycemia, with long-term current use of insulin (CMS/HCC) Expected: 02/21/2024 (Approximate), Expires: 02/20/2025 [facility] Comment on above: Expected: 02/21/2024 (Approximate), Expires: 02/20/2025 Start: 02-21-2024 End: 02-20-2025 Lipid 1996 panel - Serum or Plasma Lipid panel Lab Routine Medicare annual wellness visit, subsequent Elevated LDL cholesterol level (CMS/HCC) Expected: 02/21/2024 (Approximate), Expires: 02/20/2025 [facility] Work Phone: Comment on above: Expected: 02/21/2024 (Approximate), Expires: 02/20/2025 Start: 02-21-2024 End: 02-20-2025 Microalbumin/Creatinine panel in random Urine Microalbumin / creatinine, urine ratio Lab Routine Medicare annual wellness visit, subsequent Type 2 diabetes mellitus with hyperglycemia, with long-term current use of insulin (CMS/HCC) Expected: 02/21/2024 (Approximate), Expires: 02/20/2025 [facility] Comment on above: Expected: 02/21/2024 (Approximate), Expires: 02/20/2025 Start: 02-21-2024 End: 02-20-2025 Prostate specific Ag [Mass/volume] in Serum or Plasma PSA Lab Routine Screening for prostate cancer Expected: 02/21/2024 (Approximate), Expires: 02/20/2025 [facility] Comment on above: Expected: 02/21/2024 (Approximate), Expires: 02/20/2025 Start: 02-21-2024 End: 02-21-2024 Patient encounter procedure 02/21/2024 11:00 AM EST Office Visit [facility] [address] [facility] [address] [place] [address] Katie Quiroga NP [address] [facility] [address] [place] [address] Medicare annual wellness visit, subsequent (Primary Dx); [...] Well ness (AWV) Medicare Annual Wellness (AWV) [facility] Start: 01-01-2024 Urine screening for protein Diabetes: Urine Protein Screening [facility] Start: 11-20-2023 Influenza vaccination Influenza Vacc ine (#1) [facility] Start: 09-14-2023 Hemoglobin A1c measurement Diabetes: Hemoglobin A1C [facility] Start: 1977 Glaucoma screening Diabetes: R etinopathy Screening [facility] Start: 1967 Screening for malign ant neoplasm of colon [facility] Immunizations Immunization Date Immunization Notes Care Provider Jania tarango 02-21-2024 influenza virus vaccine, unspecified formulation Akash FERMIN [facility] 02-21-2024 influenza, seasonal, injectable, preservative free Katie Quiroga UX ENGINEER Work Phone: [facility] 01-06-2022 Moderna SARS-CoV-2 50mcg/0.5mL Booster Katie Quiroga UX ENGINEER Work Phone: [facility] 01-06-2022 SARS-CoV-2 (COVID-19 ) [id number] Akash FERMIN [facility] Comment on above: Result Comment: 2024: [id number] 01-21-2021 SARS-CoV-2 (COVID-19 ) mRNA-1273 vaccine Akash FERMIN [facility] Comment on above: Result Comment: 2024: [id number] 04-16-2020 SARS-CoV-2 (COVID-19 ) mRNA-1273 vaccine Akash FERMIN [facility] Comment on above: Result Comment: 2024: TPV2 03-19-2020 SARS-CoV-2 (COVID-19 ) mRNA-1273 vaccine Akash FERMIN [facility] Payers Date Payer Category Payer Self-pay 2016 Medicare [id number] 1965 Unknown [id number] 1967 Unknown [id number] 1967 Unknown [id number] [id number] [id number] 1967 Unknown [id number] [id number] 1967 Unknown [id number] 2.16.84 [id number] 1965 Unknown [id number] 2.16.84 [id number] 1965 Unknown [id number] 2.16.84 [id number] 1967 Unknown [id number] 2.16.84 [id number] 1965 Unknown [id number] 2.16.8 [id number] 1967 Unknown [id number] 2.16.8 [id number] 1957 Medicare [id number] Medicare [id number] Unknown [id number] 2.16.8 [id number] Unknown [id number] 2.16.8 [id number] Unknown [id number] 2.16.8 [id number] Unknown [id number] 2.16.8 [id number] Social History Date Type Detail Facility Unknown if ever smoked [employer] Other Start: 01-13-2023 End: 02-21-2024 Sex Assigned At [facility] Start: 11-04-2022 Tobacco smoking status MOIS Tobacco smoking consumption unknown [facility] Start: 11-04-2022 End: 05-08-2024 Alcoholic beverage intake Defer [facility] Start: 01-13-2023 End: 02-21-2024 History of Social function [facility] Start: 1965 Sex assigned at Not on file N [facility] Start: 02-21-2024 End: 11-08-2024 Tobacco smoking status NHIS Never smoked tobacco [facility] Start: 02-21-2024 Tobacco use and exposure Smokeless tobacco non-user [facility] Start: 05-15-2024 End: 05-31-2024 Alcoholic beverage intake Lifetime non-drinker (finding) [facility] Tobacco smoking status [facility] Jybe Sex Male (finding) [facility] Tobacco smoking status Never [facility] General Surgery [facility] Procedure Code Equipment Code Equipment Origin al Text Equipment Identifier Dates USE DIRECTED DAILY [id number] Start: 01-18-2023 Clinical Notes 07-19-2022 to 11-08-2024 [...] of lung: Father. (more content not included)... [facility] Comment on above: Result Comment: Elec tronically Signed By: VIKAS JACOBSON, Akash Arnold\Date and Time Signed: 11/08/24 16:49 EDT [...] History: Diagnosis Date Cholelithiasis DM (diabetes mellitus) ([facility]) Gastritis 2011 Major depression ([facility]) psychiatric evaluation Severe major depression with psychotic features (HCC) ([facility]) 2014 Testicle lump Past Surgical History: Procedure Laterality Date COLONOSCOPY EGD with foreign body removal MS LAP,CHOLECYSTOENTEROSTOMY 03/2015 Cholelithiasis MS SCREENING FOR DEPRESSION PERFORMED Visit Vitals Ht [...] hyperglycemia, with long-term current use of insulin ([facility]) (Primary) 7.7 A1C today. 02/21/24 Hemoglobin A1C [...] 2. Bipolar affective disorder, remission status unspecified ([facility]) Discussed diagnosis with the pt, use of [...] follow-ups on file. documented in this encounter [facility] 05-31-2024 Instructions Maribell Zapata NP - 05/31/2024 9:00 AM EDT Restart wellbutrin today at 150 mg bid. Ativan ordered bid prn x 14 days. Follow up 2 weeks to evaluate. documented in this encounter [facility] 05-15-2024 History of Presen t illness Narrative [...] 30-39.9) 10/08/2022 Major depression in complete remission ([facility]/HCC) 10/08/2022 Impotence of organic origin 10/08/2022 Hyperglycemia due to type 2 diabetes mellitus ([facility]) 10/08/2022 Elevated LDL cholesterol level ([facility]) 10/08/2022 Diabetic polyneuropathy associated with type 2 diabetes mellitus ([facility]) 10/08/2022 Bipolar disorder ([facility]) 10/08/2022 Adjustment disorder with depressed mood ([facility]) 10/08/2022 Essential hypertension 11/04/2022 Myalgia 04/22/2023 Myopathy 04/22/2023 Resolved Ambulatory Problems Diagnosis Date Noted No Resolved Ambulatory Problems Past Medical History: Diagnosis Date Cholelithiasis DM (diabetes mellitus) ([facility]) Gastritis 2010 Major depression ([facility]) Severe major depression with psychotic features ([facility]) ([facility]) 2013 Testicle lump Past Surgical History: Procedure Laterality Date COLONOSCOPY EGD with foreign body removal MS LAP,CHOLECYSTOENTEROSTOMY 03/2015 Cholelithiasis MS SCREENING FOR DEPRESSION PERFORMED No Known Allergies [...] mellitus with other specified complication, unspecified whether group home insulin use ([facility]) Rhinitis medicamentosa - Ambulatory referral to ENT No anatomic obstruction evident. Clearly has rhinitis medicamentosa. Start prednisone, flonase and hypertonic saline. Stop afrin cold turkey after 2 days. Check BS BID and contact PCP if over 250 documented in this encounter [facility] 05-08-2024 History of Presen t illness Narrative [...] mellitus) (CMS/HCC) Gastritis 2010 Major depression (CMS/HCC) psychiatric evaluation Severe major depression with psychotic features (HCC) (CMS/HCC) 2013 Testicle lump Past Surgical History: Procedure Laterality Date EGD with foreign body removal MS LAP,CHOLECYSTOENTEROSTOMY 03/2015 Cholelithiasis MS SCREENING FOR DEPRESSION PERFORMED Visit Vitals Smoking [...] follow-ups on file. documented in this encounter [facility] 03-27-2024 History of Presen t illness Narrative General Surgery H&P Kevin Trujillo Harishuche Prater 1965 Kevin Trujillo Harishuche is a 59 y.o. male presents for [...] Diagnosis Date Cholelithiasis DM (diabetes mellitus) ([facility]) Gastritis 2010 Major depression ([facility]) psychiatric evaluation Severe major depression with psychotic features (HCC) ([facility]) 2013 Testicle lump Social History Tobacco Use Smoking status: Never Smokeless tobacco: Never Substance Use Topics Alcohol use: Defer Past Surgical History: Procedure Laterality Date EGD with foreign body removal MS LAP,CHOLECYSTOENTEROSTOMY 03/2015 Cholelithiasis MS SCREENING FOR DEPRESSION PERFORMED Family History Family history unknown: Yes No Known Allergies Past Surgical History: Procedure Laterality Date EGD with foreign body removal MS LAP,CHOLECYSTOENTEROSTOMY 03/2015 Cholelithiasis MS SCREENING FOR DEPRESSION PERFORMED Tobacco Use: Low [...] Shari Rudd DO documented in this encounter [facility] 03-12-2024 Telephone encounter Note Gabapentin sent [facility] 03-12-2024 Miscellaneous Notes Gabapentin sent documented in this encounter [facility] 02-21-2024 History of Presen t illness Narrative [...] Do you have a medical power of customs guard?: No Objective : BP 130/76 Pulse 93 [...] polyneuropathy associated with type 2 diabetes mellitus ([facility]) We discussed today, the importance [...] hyperglycemia, with long-term current use of insulin ([facility]) We discussed today, the importance [...] Future 17. Routine general medical examination at [facility] care facility Wellness form reviewed in detail [...] February 21, 2024 documented in this encounter [facility] 07-19-2022 Evaluation note Encounter Date Diagnosis Assessment [...] is: adult home care material was printed [employer] Other Evaluation + Plan note No data available for this section [facility] evaluation note* Diagnosis Medicare annual wellness visit, subsequent- Primary Diabetic polyneuropathy associated with type 2 diabetes mellitus ([facility]/HCC) Primary insomnia Persistent disorder of initiating or maintaining sleep Essential hypertension Unspecified essential hypertension Myalgia Unspecified myalgia and myositis Myopathy Unspecified myopathy Type 2 diabetes mellitus with hyperglycemia, with long-term current use of insulin ([facility]) Obesity (BMI 30-39.9) Adjustment disorder with depressed mood ([facility]) Adjustment disorder with depressed mood Bipolar affective disorder, remission status unspecified ([facility]) Elevated LDL cholesterol level ([facility]) Major depressive disorder in full remission, unspecified whether recurrent (HCC) ([facility]) Major depressive disorder, single episode, in full remission ([facility]) Major depressive disorder, single episode in full [...] Type 2 diabetes mellitus with diabetic polyneuropathy ([facility]) Diabetic polyneuropathy associated with type 2 diabetes mellitus ([facility]) [facility] Screen for colon cancer- Primary Special screening for malignant neoplasms, colon [facility] Diagnosis Nasal congestion- Primary Other diseases of nasal cavity and sinuses Enlarged testicle Other specified disorder of male genital organs Pain in right testicle Unspecified disorder of male genital organs Bipolar disorder, unspecified ([facility]) Bipolar disorder, unspecified [facility] Diagnosis Other specified diabetes mellitus with other specified complication, unspecified whether group home insulin use ([facility])- Primary Rhinitis medicamentosa Other diseases of nasal cavity and sinuses [facility] Diagnosis Type 2 diabetes mellitus with hyperglycemia, with long-term current use of insulin ([facility])- Primary Bipolar affective disorder, remission status unspecified ([facility]) Anxiety Anxiety state, unspecified [facility] N[facility] - Reported* Type Description Date Medical History diabetes Medical History depression Medical History neuropathy Surgical History tonsillectomy Surgical History cholecystectomy Hospitalization History see above surg [employer] Other Hospital Discharge instructions No data available for this section [facility] progress note No data available for this section [facility] reason for visit Narrative* Consultation (Routine) - Closed Specialty Diagnoses / Procedures Referred By Miranda belcher Referred To Contact General Surgery Diagnoses Screening for colon cancer Procedures MS OFFICE/OUTPATIENT NEW HIGH MDM Katie Quiroga, UX ENGINEER [address] [facility] [address] [place] [address] Phone: tel: fax: Dina Rudd DO [address] [facility] [address] [place] [address] Phone: tel: fax: Referral ID Status Reason Start Date Expiration Date V isits Requested Visits Authorized [id number] Closed Specialty Services Required 02/21/2024 08/19/2024 1 [...] section and content) DATE CREATED AUTHOR 09/13/2017 [facility] DATE CREATED AUTHOR AUTHOR'S ORGANIZ ATION 09/12/2017 [facility] DATE CREATED AUTHOR AUTHOR'S ORGANIZ ATION 04/15/2021 [facility] DATE CREATED AUTHOR AUTHOR'S ORGANIZ ATION 03/09/2024 [facility] DATE CREATED AUTHOR AUTHOR'S ORGANIZ ATION 06/03/2024 [facility] EPIC DATE CREATED AUTHOR AUTHOR'S ORGANIZ ATION 10/11/2024 [facility] DATE CREATED AUTHOR AUTHOR'S ORGANIZ ATION 11/10/2024 [facility] REASON FOR VISIT (unrecogniz ed section and content) Reason Comments Medicare Annual Wellness Visit Shyam belcher Pt states jaeger has had URI symptoms [...] To Contact Otolaryngology Diagnoses Nasal congestion Procedures MS OFFICE/OUTPATIENT NEW HIGH MDM 60 MINUTES Katie Quiroga, SHAYNE [address] [facility] [address] [place] [address] Phone: tel: fax: Hiwot Kwok MD [address] [place] [address] Phone: tel: fax: Referral ID Status Reason Start Date Expiration Date V isits Requested Visits Authorized [id number] Closed Specialty Services Required 05/08/2024 11/04/2024 1 1 Reason Comments Diabetes Med Refill Gabapentin-- [facility] Care Teams (unrecognized sec tion and content) Entry Level Account Executive Relationship Specialty Start Date End Date Iwona Huntley MD [address] [facility] [address] [place] [address] PCP - ACO Reach 08/12/22 Iwona Huntley MD [address] [facility] [address] [place] [address] PCP - General Family Medicine 07/27/22 Entry Level Account Executive Relationship Specialty Start Date End Date Iwona Huntley MD [address] [facility] [address] [place] [address] PCP - ACO Reach 08/12/22 Iwona Huntley MD [address] [facility] [address] [place] [address] PCP - General Family Medicine 07/27/22 Entry Level Account Executive Relationship Specialty Start Date End Date Iwona Huntley MD [address] [place] [address] PCP - ACO Reach 08/12/22 Iwona Huntley MD [address] [place] [address] PCP - General Family Medicine 07/27/22 Entry Level Account Executive Relationship Specialty Start Date End Date Iwona Huntley MD [address] [place] [address] PCP - ACO Reach 08/12/22 Iwona Huntley MD [address] [place] [address] PCP - General Family Medicine 07/27/22 Entry Level Account Executive Relationship Specialty Start Date End Date Iwona Huntley MD [address] [place] [address] PCP - General Family Medicine 07/27/22 Katie Quiroga UX ENGINEER [address] [place] [address] PCP - ACO Reach 04/27/24 Entry Level Account Executive Relationship Specialty Start Date End Date Iwona Huntley MD [address] [place] [address] PCP - General Family Medicine 07/27/22 Katie Quiroga UX ENGINEER [address] [place] [address] PCP - ACO Reach 04/27/24 Entry Level Account Executive Relationship Specialty Start Date End Date Iwona Huntley MD [address] [place] [address] PCP - General Family Medicine 07/27/22 Katie Quiroga UX ENGINEER [address] [place] [address] PCP - ACO Reach 04/27/24 Entry Level Account Executive Relationship Specialty Start Date End Date Iwona Huntley MD [address] [place] [address] PCP - General Family Medicine 07/27/22 Katie Quiroga UX ENGINEER [address] [place] [address] PCP - ACO Reach 04/27/24 Entry Level Account Executive Relationship Specialty Start Date End Date Iwona Huntley MD [address] [place] [address] PCP - General Family Medicine 07/27/22 Katie Quiroga UX ENGINEER [address] [place] [address] PCP - ACO Reach 04/27/24 Entry Level Account Executive Relationship Specialty Start Date End Date Iwona Huntley MD [address] [place] [address] PCP - General Family Medicine 07/27/22 Katie Quiroga, UX ENGINEER [address] [place] [address] PCP - ACO Reach 04/27/24 Entry Level Account Executive Relationship Specialty Start Date End Date Iwona Huntley MD [address] [facility] [address] [place] [address] PCP - General Family Medicine 07/27/22 Katie Quiroga NP [address] [place] [address] PCP - ACO Reach 04/27/24 FOR RECORDS [...] BE BASED ON THE PRIMARY CLINICAL RECORDS. [facility]. provides no warranty or guarantee of the accuracy or completeness of information in this document.
[2024-11-28] MEDS: CEFAZOLIN SODIUM 2 GM/50 ML D5W PREMIX IV (08:16)
[2024-11-28] MEDS: CEFAZOLIN SODIUM 1,000 MG in 0.9 % SODIUM CHLORIDE 10 ML 10 MG IRR (08:47)
[2024-11-28] MEDS: BUPIVACAINE HCL 0.5% PF 50 MG/10 ML VIAL INJ (09:58)
[2024-11-28] MEDS: HYDROMORPHONE HCL 0.5 MG/0.5 ML SYRINGE IV ×2 (10:31→10:39)
[2024-11-28] MEDS: HYDROCODONE/ACET 5-325 MG TABLET 1 TAB PO (12:39)
--- NOTE | 2024-11-28 12:44 | PC.NURSE ---
Patient states improvement in nausea after receiving Emend IV. Patient was able to take oral pill with sips of water. Will monitor for changes.
== END 2024-11-28 13:30 | disposition home or self-care (01) ==
LOC: SURGOUT 06:56
PROVIDERS: PCP Family Medicine; Visit Provider Surgery
PROC: (CPT 49507; principal; 2024-11-28 08:25)
DX: K40.30 Unilateral inguinal hernia, with obstruction, without gangrene, not specified as recurrent (principal); I10 Essential (primary) hypertension; E11.40 Type 2 diabetes mellitus with diabetic neuropathy, unspecified; D17.6 Benign lipomatous neoplasm of spermatic cord; E78.5 Hyperlipidemia, unspecified; F31.9 Bipolar disorder, unspecified; Z90.49 Acquired absence of other specified parts of digestive tract; Z79.84 Long term (current) use of oral hypoglycemic drugs; K21.9 Gastro-esophageal reflux disease without esophagitis; Z79.4 Long term (current) use of insulin
CPT/HCPCS: 49507; 55520; 36415; 64488; 82948; C1781; J0131; J0665; J0690; J1100; J1171; J1453; J1885; J2405; J2704